=== PATIENT | male | born 1975 | race Two or more races ===

== ENCOUNTER 2016-10-25 15:18 | Inpatient (IN) | payer MEDICAID ==
[~2016-10-25] VITALS: Ht 167.6 cm; Wt 83.5 kg
[2016-10-25 15:20] VITALS: BP 117/72
[2016-10-25 16:39] LABS: BASOPHILS % (AUTO) 1.3 % (0.0-2.0); EOSINOPHILS % (AUTO) 0.4 % (0.0-3.0); LYMPHOCYTES % (AUTO) 21.8 % (20.0-45.0); MEAN CORPUSCULAR HEMOGLOBIN 29.6 PG (27.0-31.0); MEAN CORPUSCULAR HGB CONC 32.7 G/DL (32.0-36.0); MEAN CORPUSCULAR VOLUME 91 FL (80-99); MEAN PLATELET VOLUME 8.8 FL (6.5-10.1); MONOCYTES % (AUTO) 9.2 % (1.0-10.0); NEUTROPHILS % (AUTO) 67.4 % (45.0-75.0); PLATELET COUNT 273 K/UL (150-450); RED BLOOD COUNT 4.53 M/UL (4.70-6.10); RED CELL DISTRIBUTION WIDTH 14.2 % (11.6-14.8); WHITE BLOOD COUNT 12.6 K/UL (4.8-10.8)
[2016-10-25 16:54] LABS: ALANINE AMINOTRANSFERASE 38 U/L (3-41); ALBUMIN/GLOBULIN RATIO 1.1 (1.0-2.7); ANION GAP 17 (5-15); ASPARTATE AMINO TRANSFERASE 24 U/L (5-40); CALCIUM 7.9 mg/dL (8.6-10.2); CARBON DIOXIDE 21 mEQ/L (20-30); CHLORIDE 98 mEQ/L (98-107); CREATININE 1.2 mg/dL (0.7-1.2); GLOMERULAR FILTRATION RATE > 60 mL/min (>60); HEMOLYSIS 5; SODIUM 136 mEQ/L (135-145); TOTAL PROTEIN 5.3 g/dL (6.6-8.7)
[2016-10-25] MEDS ORDERED: Mylanta II UD 30ml ORAL ONE (17:15)
[2016-10-25] MEDS ORDERED: Calcium Chloride 10% 10ml carpuject IVP ONE (17:15)
[2016-10-25] MEDS ORDERED: Dicyclomine HCl 10mg/5ml oral soln ORAL ONE (17:15)
[2016-10-25] MEDS ORDERED: Lidocaine 2% Visc 15ml soln ORAL ONE (17:15)
--- NOTE | 2016-10-25 17:52 | Emergency Room Report ---
History of Present Illness General Chief Complaint: Abdominal Pain Source: Patient, EMS Present Illness HPI Patient present with complaints of diffuse abdominal pain He reports that about 20 days ago he stopped drinking he did consider himself an alcoholic prior to this He had increased nausea denies any vomiting denies any diarrhea Denies any fevers or chills pain is 6/10 Denies any dysuria frequency Denies any fall or trauma Upon further questioning the patient has had some shortness of breath He complains of also swelling to both of his legs Patient feels worse when laying down flat Allergies: Coded Allergies: No Known Allergies (Unverified , 10/25/16) Patient History Past Medical History: see triage record Pertinent Family History: none Reviewed Nursing Documentation: PMH: Agreed, PSxH: Agreed Nursing Documentation-PMH Past Medical History: No History, Except For Review of Systems All Other Systems: negative except mentioned in HPI Physical Exam Vital Signs Date Time Temp Pulse Resp B/P Pulse Ox O2 Delivery O2 Flow Rate FiO2 10/25/16 15:16 80 18 117/72 99 Room Air Sp02 EP Interpretation: reviewed, normal General Appearance: well appearing, no apparent distress Head: normocephalic, atraumatic Eyes: bilateral eye EOMI, bilateral eye PERRL ENT: normal pharynx, no angioedema Neck: supple, thyroid normal Respiratory: chest non-tender, crackles - Right lower lobe Cardiovascular #1: tachycardia Gastrointestinal: no guarding, hepatomegaly Genitourinary: no CVA tenderness Musculoskeletal: back normal, digits/nails normal Neurologic: oriented x3, responsive Skin: no rash, warm/dry, other - Edema bilaterally lower extremity Lymphatic: no adenopathy Medical Decision Making Diagnostic Impression: Primary Impression: Alcoholic cardiomyopathy Additional Impressions: Pleural effusion Ascites ER Course Initially patient's main complaint was abdominal pain nausea vomiting After the patient had further workup initiated Appear to be remaining tachycardic imaging study was obtained which showed significant effusion the lower lobe on the right side Further evaluation reveals concern for possible cardiomyopathy and heart failure given the edema patient was provided with diuretics at this time requires further inpatient care Labs Test 10/26/16 08:15 10/26/16 10:45 10/26/16 14:40 10/27/16 05:45 White Blood Count 12.8 K/UL (4.8-10.8) 15.6 K/UL (4.8-10.8) Red Blood Count 4.12 M/UL (4.70-6.10) 4.02 M/UL (4.70-6.10) Hemoglobin 11.9 G/DL (14.2-18.0) 11.7 G/DL (14.2-18.0) Hematocrit 36.8 % (42.0-52.0) 35.9 % (42.0-52.0) Mean Corpuscular Volume 89 FL (80-99) 89 FL (80-99) Mean Corpuscular Hemoglobin 28.8 PG (27.0-31.0) 29.0 PG (27.0-31.0) Mean Corpuscular Hemoglobin Concent 32.2 G/DL (32.0-36.0) 32.5 G/DL (32.0-36.0) Red Cell Distribution Width 14.0 % (11.6-14.8) 14.0 % (11.6-14.8) Platelet Count 245 K/UL (150-450) 220 K/UL (150-450) Mean Platelet Volume 9.7 FL (6.5-10.1) 9.5 FL (6.5-10.1) Neutrophils (%) (Auto) 75.9 % (45.0-75.0) 80.6 % (45.0-75.0) Lymphocytes (%) (Auto) 13.4 % (20.0-45.0) 10.1 % (20.0-45.0) Monocytes (%) (Auto) 9.5 % (1.0-10.0) 8.8 % (1.0-10.0) Eosinophils (%) (Auto) 0.1 % (0.0-3.0) 0.0 % (0.0-3.0) Basophils (%) (Auto) 1.1 % (0.0-2.0) 0.5 % (0.0-2.0) Activated Partial Thromboplast Time 26 SEC (23-33) 26 SEC (23-33) Sodium Level 139 mEQ/L (135-145) 134 mEQ/L (135-145) Potassium Level 3.9 mEQ/L (3.4-4.9) 3.3 mEQ/L (3.4-4.9) Chloride Level 100 mEQ/L (98-107) 93 mEQ/L (98-107) Carbon Dioxide Level 24 mEQ/L (20-30) 24 mEQ/L (20-30) Anion Gap 15 (5-15) 17 (5-15) Blood Urea Nitrogen 17 mg/dL (7-23) 15 mg/dL (7-23) Creatinine 1.1 mg/dL (0.7-1.2) 1.0 mg/dL (0.7-1.2) Estimat Glomerular Filtration Rate > 60 mL/min (>60) > 60 mL/min (>60) Glucose Level 127 mg/dL (74-106) 99 mg/dL (74-106) Calcium Level 7.8 mg/dL (8.6-10.2) 7.9 mg/dL (8.6-10.2) Total Bilirubin 0.9 mg/dL (0.0-1.2) 1.2 mg/dL (0.0-1.2) Aspartate Amino Transf (AST/SGOT) 26 U/L (5-40) 21 U/L (5-40) Alanine Aminotransferase (ALT/SGPT) 37 U/L (3-41) 31 U/L (3-41) Alkaline Phosphatase 102 U/L (40-129) 117 U/L (40-129) Total Protein 4.7 g/dL (6.6-8.7) 4.9 g/dL (6.6-8.7) Albumin 2.5 g/dL (3.5-5.2) 2.5 g/dL (3.5-5.2) Globulin 2.2 g/dL 2.4 g/dL Albumin/Globulin Ratio 1.1 (1.0-2.7) 1.0 (1.0-2.7) Prothrombin Time 13.6 SEC (9.30-11.50) Prothromb Time International Ratio 1.3 (0.9-1.1) Body Fluid Source Thoracentesis Body Fluid Volume 27 mL Body Fluid Appearance Hazy Body Fluid RBC 795 /CUMM Body Fluid Total Nucleated Cells 315 /CUMM Body Fluid Polynuclear WBCs (%) 27 % Body Fluid Mononuclear WBCs (%) 71 % Body Fluid Mesothelial Cells (%) 2 % Body Fluid Glucose 117 mg/dL (.) Body Fluid Total Protein 0.9 g/dL (.) Body Fluid Albumin 0.4 g/dL (.) Body Fluid Comment Pathologist comment Reticulocyte Count 1.5 % (0.0-2.0) Magnesium Level 1.7 mg/dL (1.7-2.5) Iron Level 17 ug/dL (59-158) Total Iron Binding Capacity 296 ug/dL (250-400) Percent Iron Saturation 6 % (15-50) Unsaturated Iron Binding 279 ug/dL (112-346) Ferritin 49 ng/mL (10-230) Direct Bilirubin 0.4 mg/dL (0.1-0.3) Total Creatine Kinase 56 U/L (38-174) Troponin I < 0.30 ng/mL (<=0.30) Pro-B-Type Natriuretic Peptide 36051 pg/mL (0-125) Vitamin B12 Level 502 pg/mL (211-946) Folate 11.3 ng/mL (>3.0) Thyroid Stimulating Hormone (TSH) 1.810 uIU/mL (0.300-4.500) Free Thyroxine 1.28 ng/dL (0.86-1.85) Test 10/28/16 07:57 10/28/16 13:30 10/28/16 13:34 White Blood Count 26.6 K/UL (4.8-10.8) 23.2 K/UL (4.8-10.8) Red Blood Count 4.52 M/UL (4.70-6.10) 4.53 M/UL (4.70-6.10) Hemoglobin 13.1 G/DL (14.2-18.0) 13.0 G/DL (14.2-18.0) Hematocrit 40.5 % (42.0-52.0) 41.1 % (42.0-52.0) Mean Corpuscular Volume 90 FL (80-99) 91 FL (80-99) Mean Corpuscular Hemoglobin 28.8 PG (27.0-31.0) 28.7 PG (27.0-31.0) Mean Corpuscular Hemoglobin Concent 32.2 G/DL (32.0-36.0) 31.6 G/DL (32.0-36.0) Red Cell Distribution Width 14.0 % (11.6-14.8) 14.3 % (11.6-14.8) Platelet Count 180 K/UL (150-450) 191 K/UL (150-450) Mean Platelet Volume 9.4 FL (6.5-10.1) 9.6 FL (6.5-10.1) Neutrophils (%) (Auto) % (45.0-75.0) % (45.0-75.0) Lymphocytes (%) (Auto) % (20.0-45.0) % (20.0-45.0) Monocytes (%) (Auto) % (1.0-10.0) % (1.0-10.0) Eosinophils (%) (Auto) % (0.0-3.0) % (0.0-3.0) Basophils (%) (Auto) % (0.0-2.0) % (0.0-2.0) Differential Total Cells Counted 100 100 Neutrophils % (Manual) 84 % (45-75) 88 % (45-75) Lymphocytes % (Manual) 9 % (20-45) 9 % (20-45) Monocytes % (Manual) 7 % (1-10) 3 % (1-10) Eosinophils % (Manual) 0 % (0-3) 0 % (0-3) Basophils % (Manual) 0 % (0-2) 0 % (0-2) Band Neutrophils 0 % (0-8) 0 % (0-8) Nucleated Red Blood Cells 1 /100 WBC Platelet Estimate Adequate Adequate Platelet Morphology Normal Normal Red Blood Cell Morphology Normal Normal Sodium Level 134 mEQ/L (135-145) 131 mEQ/L (135-145) Potassium Level 5.3 mEQ/L (3.4-4.9) 5.6 mEQ/L (3.4-4.9) Chloride Level 94 mEQ/L (98-107) 91 mEQ/L (98-107) Carbon Dioxide Level 20 mEQ/L (20-30) 18 mEQ/L (20-30) Anion Gap 20 (5-15) 22 (5-15) Blood Urea Nitrogen 31 mg/dL (7-23) 36 mg/dL (7-23) Creatinine 2.3 mg/dL (0.7-1.2) 2.7 mg/dL (0.7-1.2) Estimat Glomerular Filtration Rate 31.8 mL/min (>60) 26.4 mL/min (>60) Glucose Level 94 mg/dL (74-106) 183 mg/dL (74-106) Calcium Level 8.2 mg/dL (8.6-10.2) 8.1 mg/dL (8.6-10.2) EKG Diagnostic Results Rate: normal Rhythm: NSR ST Segments: other - Nonspecific ST and T-wave changes Rhythm Strip Diag. Results EP Interpretation: yes Rate: 110 Rhythm: no PVC's, no ectopy, other - sinus tach Chest X-Ray Diagnostic Results EP Interpretation: Yes Findings: no pneumothorax, other - Large right pleural effusion, cardiomegaly Number of Views: 1 CT/MRI/US Diagnostic Results CT/MRI/US Diagnostic Results : Impression CT abdomen pelvisImpression: Anasarca, with right-sided pleural effusion, ascites, and diffuse soft tissue edema Wedge-shaped perfusion defect in the lower pole the right kidney, could indicate an infarct or focal nephritis Gallbladder wall edema, probably related to the above, but acalculous cholecystitis or cholecystitis from occult calculi is also a possibility. Consider nuclear medicine hepatobiliary scan if there is high clinical suspicion Marked cardiomegaly. 2 cm filling defect in the apex of the right cardiac ventricle is nonspecific, could represent thrombus, tumor. Consider echocardiography for further evaluation Bilateral basilar pulmonary parenchymal opacities, likely combination of atelectasis and infiltrates versus edema Hepatomegaly This agrees with the preliminary interpretation provided overnight by Dr. Bocanegra Last Vital Signs Date Time Temp Pulse Resp B/P Pulse Ox O2 Delivery O2 Flow Rate FiO2 10/25/16 15:20 18 117/72 99 Room Air 10/25/16 15:16 80 Status: improved Disposition: ADMITTED INPATIENT Condition: Critical Scripts Famotidine (PEPCID) 40 Mg Tablet 40 MG PO DAILY, #14 TAB 0 Refills Prov: MIKY MYERS D.O. 10/25/16 Referrals: NOT CHOSEN MARCO/,REFERRING (PCP) MIKY MYERS D.O. Oct 25, 2016 17:52
[2016-10-25 17:55] VITALS: BP 103/86
[2016-10-25] MEDS ORDERED: PEPCID40 MG PO (18:42)
[2016-10-25 19:18] VITALS: BP 103/80
[2016-10-25] MEDS ORDERED: LORazepam Inj 2mg/ml 1ml IV ONE (19:30)
[2016-10-25 19:48] VITALS: BP 111/85
[2016-10-25 21:27] VITALS: BP 109/86
[2016-10-25 21:47] LABS: TROPONIN I < 0.30 ng/mL (<=0.30)
[2016-10-25] MEDS ORDERED: Morphine Sulfate 4mg/ml Inj IVP ONE (22:30)
[2016-10-25 23:16] VITALS: BP 92/65
[2016-10-25] MEDS ORDERED: Nitroglycerin Subl 0.4mg tab (Bottle Of 25) SL PRN (23:30)
[2016-10-25] MEDS ORDERED: Miralax 17gm pkt ORAL PRN (23:30)
[2016-10-25] MEDS ORDERED: Mylanta II UD 30ml ORAL PRN (23:30)
[2016-10-26] VITALS: BP 110/78
[2016-10-26] MEDS ORDERED: D5 1/2NS 1,000 ML IV SCH (01:00)
[2016-10-26 04:30] VITALS: BP 98/65
[2016-10-26 08:42] LABS: BASOPHILS % (AUTO) 1.1 % (0.0-2.0); EOSINOPHILS % (AUTO) 0.1 % (0.0-3.0); LYMPHOCYTES % (AUTO) 13.4 % (20.0-45.0); MEAN CORPUSCULAR HEMOGLOBIN 28.8 PG (27.0-31.0); MEAN CORPUSCULAR HGB CONC 32.2 G/DL (32.0-36.0); MEAN CORPUSCULAR VOLUME 89 FL (80-99); MEAN PLATELET VOLUME 9.7 FL (6.5-10.1); MONOCYTES % (AUTO) 9.5 % (1.0-10.0); NEUTROPHILS % (AUTO) 75.9 % (45.0-75.0); PLATELET COUNT 245 K/UL (150-450); RED BLOOD COUNT 4.12 M/UL (4.70-6.10); WHITE BLOOD COUNT 12.8 K/UL (4.8-10.8)
[2016-10-26 08:53] LABS: ALANINE AMINOTRANSFERASE 37 U/L (3-41); ALBUMIN/GLOBULIN RATIO 1.1 (1.0-2.7); ANION GAP 15 (5-15); ASPARTATE AMINO TRANSFERASE 26 U/L (5-40); CALCIUM 7.8 mg/dL (8.6-10.2); CARBON DIOXIDE 24 mEQ/L (20-30); CHLORIDE 100 mEQ/L (98-107); CREATININE 1.1 mg/dL (0.7-1.2); GLOMERULAR FILTRATION RATE > 60 mL/min (>60); HEMOLYSIS 8; POTASSIUM 3.9 mEQ/L (3.4-4.9); SODIUM 139 mEQ/L (135-145); TOTAL PROTEIN 4.7 g/dL (6.6-8.7)
[2016-10-26 11:14] LABS: INR 1.3 (0.9-1.1); PROTHROMBIN TIME 13.6 SEC (9.30-11.50)
--- NOTE | 2016-10-26 11:22 | Diagnostic Imaging Report ---
Clinical Indication: Abdominal pain Technique: No oral contrast utilized, per emergency room physician request IV administration nonionic contrast. Venous phase spiral acquisition obtained through the abdomen and pelvis. Multiplanar reconstructions were generated. Total dose length product 932 mGycm. CTDIvol(s) 18 mGy Comparison: None Findings: There is anasarca, with a moderate to large right pleural effusion, moderate ascites, and edema of the subcutaneous and abdominal and pelvic fat. The appendix is normal. There is no evidence of diverticulosis or diverticulitis. There is a small amount of contrast within the colon, presumably from an earlier contrast study performed elsewhere. No small bowel distention. No free intraperitoneal air. Distal esophagus and stomach are unremarkable. The liver is enlarged. No focal abnormalities. The gallbladder wall is diffusely thickened and edematous. No definite gallstones. The bile ducts, pancreas, spleen, adrenals are unremarkable. There is a wedge-shaped perfusion defect in the lower pole of the right kidney. The left kidney is unremarkable. No pelvic mass or adenopathy. There are compressive atelectatic changes at the right lung base. Scattered reticulonodular parenchymal opacities are seen at both lung bases. The heart is markedly enlarged. There is a filling defect within the right cardiac apex which measures about 2 cm diameter. The bones are unremarkable. Impression: Anasarca, with right-sided pleural effusion, ascites, and diffuse soft tissue edema Wedge-shaped perfusion defect in the lower pole the right kidney, could indicate an infarct or focal nephritis Gallbladder wall edema, probably related to the above, but acalculous cholecystitis or cholecystitis from occult calculi is also a possibility. Consider nuclear medicine hepatobiliary scan if there is high clinical suspicion Marked cardiomegaly. 2 cm filling defect in the apex of the right cardiac ventricle is nonspecific, could represent thrombus, tumor. Consider echocardiography for further evaluation Bilateral basilar pulmonary parenchymal opacities, likely combination of atelectasis and infiltrates versus edema Hepatomegaly This agrees with the preliminary interpretation provided overnight by Dr. Bocanegra The CT scanner at [facility] is accredited by the [employer] and the scans are performed using protocols designed to limit radiation exposure to as low as reasonably achievable to attain images of sufficient resolution adequate for diagnostic evaluation.
--- NOTE | 2016-10-26 11:42 | Diagnostic Imaging Report ---
Indication: Chest pain Technique: One view of the chest Comparison: none Findings: The heart is markedly enlarged. Opacity of the right mid and lower lung is presumably due to pleural fluid demonstrated earlier abdomen pelvis CT. The left lung and pleural space are clear. Impression: Marked cardiomegaly Right basilar opacity, consistent with pleural fluid
--- NOTE | 2016-10-26 11:48 | Cardiology Progress Note ---
Assessment/Plan Assessment/Plan abd pain cardiomegally rv apical filling defect renal wedge deformity etohism pelrual effusion ascites abn ekg need diuretic echo repeat ekg cardiac enzyme tle observation etoh abstinence will follow [id number] Objective Last 24 Hour Vital Signs Date Time Temp Pulse Resp B/P Pulse Ox O2 Delivery O2 Flow Rate FiO2 10/26/16 04:30 97.9 102 20 98/65 98 Nasal Cannula 2.0 10/26/16 04:00 108 10/26/16 00:00 108 10/26/16 00:00 97.7 120 20 110/78 100 Nasal Cannula 2.0 10/25/16 23:50 98.9 107 18 92/65 99 Nasal Cannula 2.0 10/25/16 23:16 98.9 107 18 92/65 99 Nasal Cannula 2.0 10/25/16 23:15 98.3 10/25/16 21:27 98.3 130 16 109/86 99 Nasal Cannula 2.0 10/25/16 19:48 98.3 135 18 111/85 99 Room Air 10/25/16 19:18 126 18 103/80 99 Room Air 10/25/16 17:55 98.3 141 18 103/86 99 Room Air 10/25/16 15:20 18 117/72 99 Room Air 10/25/16 15:16 80 18 117/72 99 Room Air Intake and Output 10/25/16 10/26/16 19:00 07:00 Intake Total 0 ml 1375 ml Balance 0 ml 1375 ml Intake Oral 0 ml IV Total 1375 ml # Voids 1 Laboratory Tests Test 10/25/16 15:10 10/25/16 16:10 10/25/16 21:12 10/26/16 08:15 Sodium Level 136 mEQ/L (135-145) 139 mEQ/L (135-145) Potassium Level 4.0 mEQ/L (3.4-4.9) 3.9 mEQ/L (3.4-4.9) Chloride Level 98 mEQ/L (98-107) 100 mEQ/L (98-107) Carbon Dioxide Level 21 mEQ/L (20-30) 24 mEQ/L (20-30) Anion Gap 17 (5-15) H 15 (5-15) Blood Urea Nitrogen 21 mg/dL (7-23) 17 mg/dL (7-23) Creatinine 1.2 mg/dL (0.7-1.2) 1.1 mg/dL (0.7-1.2) Estimat Glomerular Filtration Rate > 60 mL/min (>60) > 60 mL/min (>60) Glucose Level 142 mg/dL (74-106) H 127 mg/dL (74-106) H Calcium Level 7.9 mg/dL (8.6-10.2) L 7.8 mg/dL (8.6-10.2) L Total Bilirubin 0.8 mg/dL (0.0-1.2) 0.9 mg/dL (0.0-1.2) Aspartate Amino Transf (AST/SGOT) 24 U/L (5-40) 26 U/L (5-40) Alanine Aminotransferase (ALT/SGPT) 38 U/L (3-41) 37 U/L (3-41) Alkaline Phosphatase 118 U/L (40-129) 102 U/L (40-129) Total Protein 5.3 g/dL (6.6-8.7) L 4.7 g/dL (6.6-8.7) L Albumin 2.8 g/dL (3.5-5.2) L 2.5 g/dL (3.5-5.2) L Globulin 2.5 g/dL 2.2 g/dL Albumin/Globulin Ratio 1.1 (1.0-2.7) 1.1 (1.0-2.7) Lipase 34 U/L (< 60) White Blood Count 12.6 K/UL (4.8-10.8) H 12.8 K/UL (4.8-10.8) H Red Blood Count 4.53 M/UL (4.70-6.10) L 4.12 M/UL (4.70-6.10) L Hemoglobin 13.4 G/DL (14.2-18.0) L 11.9 G/DL (14.2-18.0) L Hematocrit 41.0 % (42.0-52.0) L 36.8 % (42.0-52.0) L Mean Corpuscular Volume 91 FL (80-99) 89 FL (80-99) Mean Corpuscular Hemoglobin 29.6 PG (27.0-31.0) 28.8 PG (27.0-31.0) Mean Corpuscular Hemoglobin Concent 32.7 G/DL (32.0-36.0) 32.2 G/DL (32.0-36.0) Red Cell Distribution Width 14.2 % (11.6-14.8) 14.0 % (11.6-14.8) Platelet Count 273 K/UL (150-450) 245 K/UL (150-450) Mean Platelet Volume 8.8 FL (6.5-10.1) 9.7 FL (6.5-10.1) Neutrophils (%) (Auto) 67.4 % (45.0-75.0) 75.9 % (45.0-75.0) H Lymphocytes (%) (Auto) 21.8 % (20.0-45.0) 13.4 % (20.0-45.0) L Monocytes (%) (Auto) 9.2 % (1.0-10.0) 9.5 % (1.0-10.0) Eosinophils (%) (Auto) 0.4 % (0.0-3.0) 0.1 % (0.0-3.0) Basophils (%) (Auto) 1.3 % (0.0-2.0) 1.1 % (0.0-2.0) Troponin I < 0.30 ng/mL (<=0.30) Activated Partial Thromboplast Time 26 SEC (23-33) Test 10/26/16 10:45 Prothrombin Time 13.6 SEC (9.30-11.50) H Prothromb Time International Ratio 1.3 (0.9-1.1) H Activated Partial Thromboplast Time 26 SEC (23-33) BALJIT FRANCOIS Oct 26, 2016 11:48
--- NOTE | 2016-10-26 12:59 | GI Initial Consult Note ---
History of Present Illness General Date patient seen: Oct 26, 2016 Time patient seen: 12:58 Reason for Hospitalization: Abdominal Pain Referring physician: RHONDA PARKINSON Reason for Consultation: ABDOMINAL PAIN Present Illness HPI Patient present with complaints of diffuse abdominal pain He reports that about 20 days ago he stopped drinking he did consider himself an alcoholic prior to this He had increased nausea denies any vomiting denies any diarrhea Denies any fevers or chills pain is 6/10 Denies any dysuria frequency Denies any fall or trauma Upon further questioning the patient has had some shortness of breath He complains of also swelling to both of his legs Patient feels worse when laying down flat GI CONSULT: HPI as noted above. GI consulted for abdominal pain. Pt seen on floor, awake A&Ox4 NAD on 2LNC. Pt denies any medical history. States he's been a daily ETOH user for approximately 20 years. He presents today with diffused abdominal pain with nausea. APCT shows ascites, see full report below. Pt has anemia and hypoalbuminemia. Lipase negative. Abd U/S pending. Service Date: 10/25/16 Procedure: CT Abdomen Pelvis w/Contrast Clinical Indication: Abdominal pain Impression: Anasarca, with right-sided pleural effusion, ascites, and diffuse soft tissue edema Wedge-shaped perfusion defect in the lower pole the right kidney, could indicate an infarct or focal nephritis Gallbladder wall edema, probably related to the above, but acalculous cholecystitis or cholecystitis from occult calculi is also a possibility. Consider nuclear medicine hepatobiliary scan if there is high clinical suspicion Marked cardiomegaly. 2 cm filling defect in the apex of the right cardiac ventricle is nonspecific, could represent thrombus, tumor. Consider echocardiography for further evaluation Bilateral basilar pulmonary parenchymal opacities, likely combination of atelectasis and infiltrates versus edema Hepatomegaly Home Meds Active Scripts Famotidine (PEPCID) 40 Mg Tablet, 40 MG PO DAILY, #14 TAB 0 Refills Prov:IMKY MYERS D.O. 10/25/16 Med list reviewed/reconciled: Yes Allergies: Coded Allergies: No Known Allergies (Unverified , 10/25/16) Patient History History Provided By: Patient PMH Narrative Past Medical History: see triage record Pertinent Family History: none Reviewed Nursing Documentation: PMH: Agreed, PSxH: Agreed Nursing Documentation-PM Past Medical History: No History, Except For Social History: Reports: alcohol use - daily use x 20 years Review of Systems All Other Systems: negative except mentioned in HPI Physical Exam Vital Signs Date Time Temp Pulse Resp B/P Pulse Ox O2 Delivery O2 Flow Rate FiO2 10/25/16 15:16 80 18 117/72 99 Room Air 10/25/16 17:55 98.3 10/25/16 21:27 2.0 Sp02 EP Interpretation: reviewed Labs Laboratory Tests Test 10/25/16 15:10 10/25/16 16:10 10/25/16 21:12 10/26/16 08:15 Sodium Level 136 mEQ/L (135-145) 139 mEQ/L (135-145) Potassium Level 4.0 mEQ/L (3.4-4.9) 3.9 mEQ/L (3.4-4.9) Chloride Level 98 mEQ/L (98-107) 100 mEQ/L (98-107) Carbon Dioxide Level 21 mEQ/L (20-30) 24 mEQ/L (20-30) Anion Gap 17 (5-15) H 15 (5-15) Blood Urea Nitrogen 21 mg/dL (7-23) 17 mg/dL (7-23) Creatinine 1.2 mg/dL (0.7-1.2) 1.1 mg/dL (0.7-1.2) Estimat Glomerular Filtration Rate > 60 mL/min (>60) > 60 mL/min (>60) Glucose Level 142 mg/dL (74-106) H 127 mg/dL (74-106) H Calcium Level 7.9 mg/dL (8.6-10.2) L 7.8 mg/dL (8.6-10.2) L Total Bilirubin 0.8 mg/dL (0.0-1.2) 0.9 mg/dL (0.0-1.2) Aspartate Amino Transf (AST/SGOT) 24 U/L (5-40) 26 U/L (5-40) Alanine Aminotransferase (ALT/SGPT) 38 U/L (3-41) 37 U/L (3-41) Alkaline Phosphatase 118 U/L (40-129) 102 U/L (40-129) Total Protein 5.3 g/dL (6.6-8.7) L 4.7 g/dL (6.6-8.7) L Albumin 2.8 g/dL (3.5-5.2) L 2.5 g/dL (3.5-5.2) L Globulin 2.5 g/dL 2.2 g/dL Albumin/Globulin Ratio 1.1 (1.0-2.7) 1.1 (1.0-2.7) Lipase 34 U/L (< 60) White Blood Count 12.6 K/UL (4.8-10.8) H 12.8 K/UL (4.8-10.8) H Red Blood Count 4.53 M/UL (4.70-6.10) L 4.12 M/UL (4.70-6.10) L Hemoglobin 13.4 G/DL (14.2-18.0) L 11.9 G/DL (14.2-18.0) L Hematocrit 41.0 % (42.0-52.0) L 36.8 % (42.0-52.0) L Mean Corpuscular Volume 91 FL (80-99) 89 FL (80-99) Mean Corpuscular Hemoglobin 29.6 PG (27.0-31.0) 28.8 PG (27.0-31.0) Mean Corpuscular Hemoglobin Concent 32.7 G/DL (32.0-36.0) 32.2 G/DL (32.0-36.0) Red Cell Distribution Width 14.2 % (11.6-14.8) 14.0 % (11.6-14.8) Platelet Count 273 K/UL (150-450) 245 K/UL (150-450) Mean Platelet Volume 8.8 FL (6.5-10.1) 9.7 FL (6.5-10.1) Neutrophils (%) (Auto) 67.4 % (45.0-75.0) 75.9 % (45.0-75.0) H Lymphocytes (%) (Auto) 21.8 % (20.0-45.0) 13.4 % (20.0-45.0) L Monocytes (%) (Auto) 9.2 % (1.0-10.0) 9.5 % (1.0-10.0) Eosinophils (%) (Auto) 0.4 % (0.0-3.0) 0.1 % (0.0-3.0) Basophils (%) (Auto) 1.3 % (0.0-2.0) 1.1 % (0.0-2.0) Troponin I < 0.30 ng/mL (<=0.30) Activated Partial Thromboplast Time 26 SEC (23-33) Test 10/26/16 10:45 Prothrombin Time 13.6 SEC (9.30-11.50) H Prothromb Time International Ratio 1.3 (0.9-1.1) H Activated Partial Thromboplast Time 26 SEC (23-33) General Appearance: well appearing, no apparent distress, alert Head: normocephalic EENT: normal ENT inspection Neck: supple Respiratory: other - 2LNC Cardiovascular: normal rate Gastrointestinal: non tender, soft, ascites Rectal: deferred Musculoskeletal: back normal, normal range of motion Neurologic: normal inspection, alert, oriented x3, responsive Psychiatric: normal inspection, judgement/insight normal, memory normal Skin: no rash Lymphatic: normal inspection, no adenopathy Current Medications Current Medications Medications (Trade) Dose Ordered Sig/Baudilio Route PRN Reason Start Time Stop Time Status Last Admin Dose Admin Acetaminophen (Tylenol) 650 mg Q4H PRN ORAL fever 10/25/16 23:30 11/24/16 23:29 Al Hydroxide/Mg Hydroxide (Mylanta II) 30 ml Q6H PRN ORAL dyspepsia 10/25/16 23:30 11/24/16 23:29 Dextrose (Dextrose 50%) STAT PRN IV Hypoglycemia 10/25/16 23:30 11/24/16 23:29 Diphenhydramine HCl (Benadryl) 25 mg Q6H PRN ORAL Itching/Pruritis 10/25/16 23:30 11/24/16 23:29 Morphine Sulfate (Morphine Sulfate) 2 mg Q4H PRN IVP severe Pain (Pain Scale 7-10) 10/25/16 23:30 11/01/16 23:29 Nitroglycerin (Ntg) 0.4 mg Q5M X 3 DOSES PRN SL Prn Chest Pain 10/25/16 23:30 11/24/16 23:29 Ondansetron HCl (Zofran) 4 mg Q6H PRN IVP Nausea & Vomiting 3/13/17 23:30 11/24/16 23:29 Polyethylene Glycol (Miralax) 17 gm HSPRN PRN ORAL Constipation 10/25/16 23:30 11/24/16 23:29 Temazepam (Restoril) 15 mg HSPRN PRN ORAL Insomnia 10/25/16 23:30 11/01/16 23:29 GI: Plan Problems: (1) Anemia (2) Hypoalbuminemia (3) ETOH abuse (4) Ascites (5) Abdominal pain Plan APCT reviewed >> ordered paracentesis, send fluid r/o SBP anemia work up lipase negative OB stool uncollected abdominal U/S pending monitor H&H, transfuse prn zofran prn H2 fu labs ETOH cessation Discussed with Dr. Dominguez. Thank you for referring this patient, we will follow. Melanie Briones N.P. Oct 26, 2016 12:59
--- NOTE | 2016-10-26 14:09 | Diagnostic Imaging Report ---
Indication: Abdominal pain Technique: Delgado-scale and duplex images of the upper abdomen were obtained Comparison: None Findings: Reference made to CT scan earlier the same day. Gallbladder demonstrates wall thickening. No gallstones. Sonographic Davies's sign is negative. Common bile duct measures 4 mm in diameter. No intrahepatic biliary ductal dilatation. Liver demonstrates normal echogenicity, no focal abnormality. It is enlarged. There is trace ascites fluid. Portal vein and hepatic veins are patent.. Pancreas is unremarkable. Spleen is unremarkable. Left kidney measures 10.6 cm in length. Right kidney measures 11.5 cm length. Both kidneys demonstrate normal echogenicity. There is no hydronephrosis. No focal abnormality. Non-aneurysmal abdominal aorta. There are bilateral pleural effusions. There is a small pericardial effusion Impression: Trace ascites, also described on recent CT Bilateral pleural effusions Small pericardial effusion Gallbladder wall thickening, no stones. Gallbladder wall thickening is probably secondary to the process that is causing the ascites and pleural fluid, but acute acalculous cholecystitis cannot be completely ruled out. Consider hepatobiliary nuclear scan if there is high clinical suspicion Negative for dilated ducts Hepatomegaly
[2016-10-26 16:00] VITALS: BP 104/80
--- NOTE | 2016-10-26 16:06 | History and Physical ---
History of Present Illness General Date patient seen: Oct 26, 2016 Reason for Hospitalization: Abdominal Pain Present Illness HPI 41 year old patient with hx of ETOH abuse presented with complaints of diffuse abdominal pain He had increased nausea denies any vomiting denies any diarrhea. He has had some shortness of breath He complains of also swelling to both of his leg.Patient feels worse when laying down flat A CT of abdomen showed ascites and plural effusion. Allergies: Coded Allergies: No Known Allergies (Unverified , 10/25/16) Medication History Scheduled Famotidine (Pepcid), 40 MG PO DAILY Patient History Healthcare decision maker Self Resuscitation status Full Code Advanced Directive on File No Physical Exam General Appearance: WD/WN, no apparent distress Lines, tubes and drains: peripheral HEENT: normocephalic, anicteric Neck: non-tender, normal alignment Respiratory/Chest: chest wall non-tender Cardiovascular/Chest: normal peripheral pulses Abdomen: normal bowel sounds Extremities: pitting Last 24 Hour Vital Signs Date Time Temp Pulse Resp B/P Pulse Ox O2 Delivery O2 Flow Rate FiO2 10/26/16 08:00 109 10/26/16 04:30 97.9 102 20 98/65 98 Nasal Cannula 2.0 10/26/16 04:00 108 10/26/16 00:00 108 10/26/16 00:00 97.7 120 20 110/78 100 Nasal Cannula 2.0 10/25/16 23:50 98.9 107 18 92/65 99 Nasal Cannula 2.0 10/25/16 23:16 98.9 107 18 92/65 99 Nasal Cannula 2.0 10/25/16 23:15 98.3 10/25/16 21:27 98.3 130 16 109/86 99 Nasal Cannula 2.0 10/25/16 19:48 98.3 135 18 111/85 99 Room Air 10/25/16 19:18 126 18 103/80 99 Room Air 10/25/16 17:55 98.3 141 18 103/86 99 Room Air Intake and Output 10/25/16 10/26/16 19:00 07:00 Intake Total 0 ml 1375 ml Balance 0 ml 1375 ml Intake Oral 0 ml IV Total 1375 ml # Voids 1 Laboratory Tests Test 10/25/16 16:10 10/25/16 21:12 10/26/16 08:15 10/26/16 10:45 White Blood Count 12.6 K/UL (4.8-10.8) H 12.8 K/UL (4.8-10.8) H Red Blood Count 4.53 M/UL (4.70-6.10) L 4.12 M/UL (4.70-6.10) L Hemoglobin 13.4 G/DL (14.2-18.0) L 11.9 G/DL (14.2-18.0) L Hematocrit 41.0 % (42.0-52.0) L 36.8 % (42.0-52.0) L Mean Corpuscular Volume 91 FL (80-99) 89 FL (80-99) Mean Corpuscular Hemoglobin 29.6 PG (27.0-31.0) 28.8 PG (27.0-31.0) Mean Corpuscular Hemoglobin Concent 32.7 G/DL (32.0-36.0) 32.2 G/DL (32.0-36.0) Red Cell Distribution Width 14.2 % (11.6-14.8) 14.0 % (11.6-14.8) Platelet Count 273 K/UL (150-450) 245 K/UL (150-450) Mean Platelet Volume 8.8 FL (6.5-10.1) 9.7 FL (6.5-10.1) Neutrophils (%) (Auto) 67.4 % (45.0-75.0) 75.9 % (45.0-75.0) H Lymphocytes (%) (Auto) 21.8 % (20.0-45.0) 13.4 % (20.0-45.0) L Monocytes (%) (Auto) 9.2 % (1.0-10.0) 9.5 % (1.0-10.0) Eosinophils (%) (Auto) 0.4 % (0.0-3.0) 0.1 % (0.0-3.0) Basophils (%) (Auto) 1.3 % (0.0-2.0) 1.1 % (0.0-2.0) Troponin I < 0.30 ng/mL (<=0.30) Activated Partial Thromboplast Time 26 SEC (23-33) 26 SEC (23-33) Sodium Level 139 mEQ/L (135-145) Potassium Level 3.9 mEQ/L (3.4-4.9) Chloride Level 100 mEQ/L (98-107) Carbon Dioxide Level 24 mEQ/L (20-30) Anion Gap 15 (5-15) Blood Urea Nitrogen 17 mg/dL (7-23) Creatinine 1.1 mg/dL (0.7-1.2) Estimat Glomerular Filtration Rate > 60 mL/min (>60) Glucose Level 127 mg/dL (74-106) H Calcium Level 7.8 mg/dL (8.6-10.2) L Total Bilirubin 0.9 mg/dL (0.0-1.2) Aspartate Amino Transf (AST/SGOT) 26 U/L (5-40) Alanine Aminotransferase (ALT/SGPT) 37 U/L (3-41) Alkaline Phosphatase 102 U/L (40-129) Total Protein 4.7 g/dL (6.6-8.7) L Albumin 2.5 g/dL (3.5-5.2) L Globulin 2.2 g/dL Albumin/Globulin Ratio 1.1 (1.0-2.7) Prothrombin Time 13.6 SEC (9.30-11.50) H Prothromb Time International Ratio 1.3 (0.9-1.1) H Height (Feet): 5 Height (Inches): 6.00 Weight (Pounds): 159 Medications Current Medications Medications (Trade) Dose Ordered Sig/Baudilio Route PRN Reason Start Time Stop Time Status Last Admin Dose Admin Acetaminophen (Tylenol) 650 mg Q4H PRN ORAL fever 10/25/16 23:30 11/24/16 23:29 Al Hydroxide/Mg Hydroxide (Mylanta II) 30 ml Q6H PRN ORAL dyspepsia 10/25/16 23:30 11/24/16 23:29 Dextrose (Dextrose 50%) STAT PRN IV Hypoglycemia 10/25/16 23:30 11/24/16 23:29 Diphenhydramine HCl (Benadryl) 25 mg Q6H PRN ORAL Itching/Pruritis 10/25/16 23:30 11/24/16 23:29 Morphine Sulfate (Morphine Sulfate) 2 mg Q4H PRN IVP severe Pain (Pain Scale 7-10) 3/13/17 23:30 11/01/16 23:29 Nitroglycerin (Ntg) 0.4 mg Q5M X 3 DOSES PRN SL Prn Chest Pain 10/25/16 23:30 11/24/16 23:29 Ondansetron HCl (Zofran) 4 mg Q6H PRN IVP Nausea & Vomiting 10/25/16 23:30 11/24/16 23:29 Polyethylene Glycol (Miralax) 17 gm HSPRN PRN ORAL Constipation 10/25/16 23:30 11/24/16 23:29 Temazepam (Restoril) 15 mg HSPRN PRN ORAL Insomnia 10/25/16 23:30 11/01/16 23:29 Assessment/Plan Problem List: (1) Pleural effusion ICD Codes: J90 - Pleural effusion, not elsewhere classified SNOMED: 27963443 (2) Abdominal pain ICD Codes: R10.9 - Unspecified abdominal pain SNOMED: 58782306 (3) ETOH abuse ICD Codes: F10.10 - Alcohol abuse, uncomplicated SNOMED: 40448727, 59935419 (4) Ascites ICD Codes: R18.8 - Other ascites SNOMED: 485661624 (5) Alcoholic cardiomyopathy ICD Codes: I42.6 - Alcoholic cardiomyopathy SNOMED: 974043679 Assessment/Plan diuresis cardiac work up echo thoracentesis RHONDA PARKINSON Oct 26, 2016 16:06
[2016-10-26] MEDS ORDERED: chlordiazePOXIDE 25mg Cap ORAL PRN (16:15)
--- NOTE | 2016-10-26 17:23 | Diagnostic Imaging Report ---
Indications: Pleural effusion Technique: Ultrasound used to localize optimal puncture site. Sterile prepping and draping chest. Local anesthesia with 1% lidocaine. Under real-time ultrasound guidance, puncture pleural space using thoracentesis needle. Stylet removed. Catheter placed to vacuum bottle suction. Total 800 milliliters of fluid aspirated. Patient tolerated procedure well, without immediate complication. Findings: Followup sonography demonstrates complete resolution of pleural fluid. Impression: Successful ultrasound-guided thoracentesis, yielding 800 milliliters of fluid
[2016-10-26] MEDS: Thiamine 100mg tab ORAL SCH (17:47)
[2016-10-26 20:00] VITALS: BP 106/66
[2016-10-26 21:13] LABS: APPEARANCE, BODY FLUID HAZY; BD FL VOLUME 27 mL
[2016-10-26 21:14] LABS: BD FL SOURCE THORACENTESIS
--- NOTE | 2016-10-26 21:48 | Consultation ---
DATE OF CONSULTATION: 10/26/2016 CARDIAC CONSULTATION CONSULTING PHYSICIAN: Terry Hoffman M.D. REFERRING PHYSICIAN: Kiran Bello M.D. REASON FOR REFERRAL: Possible alcoholic cardiomyopathy. HISTORY OF PRESENT ILLNESS: This is a 41-year-old transient who presented to the hospital because of abdominal pain for some time. The patient was brought in by paramedics with a complaint of right upper quadrant abdominal pain for one month. Apparently, he was lying down in front of a yard near the curb. Skin was warm and dry. The patient complained of bloating. He denied any chest pain or shortness of breath to the paramedics. No neurological deficits. No jugular venous distention. He apparently admits to having alcohol, but although he has not had any in approximately 20 days he said. The patient's vital signs when the paramedics found him included blood pressure of 117/72 with a heart rate of 80, respirations of 18, and oxygen saturation 99%. Subsequently, they documented the blood pressure of 200/70. He denies any chest pain. He has occasional shortness of breath. He does not really use any pillows. He lays flat. He occasionally gets up because of shortness of breath, occasional dizziness, and occasional palpitations. PAST MEDICAL HISTORY: He denies. SOCIAL HISTORY: He smokes cigarettes. He uses marijuana and drank alcoholic beverages. REVIEW OF SYSTEMS: Gastrointestinal: Abdominal pain. No nausea or vomiting. Genitourinary: Negative. Pulmonary: Negative. Constitutional: Negative. Neurologic: Negative. PHYSICAL EXAMINATION: GENERAL: A middle-aged gentleman, in no apparent respiratory distress. NECK: Supple. No jugular venous distention. LUNGS: Clear to auscultation and percussion at least in the upper part. CARDIAC: Regular rate and rhythm. No heaves or thrills noted. There is a holosystolic regurgitant murmur noted. ABDOMEN: Soft. No guarding. No rigidity. No rebound. EXTREMITIES: He has 2+ pitting edema in the lower extremities. NEUROLOGIC: He is awake, alert, responsive, in no apparent distress. LABORATORY VALUES: White count of 12.8, hemoglobin 11.9, and platelet count 245,0000. Sodium is 139, potassium 3.9, chloride 100, bicarbonate 24, BUN of 17, creatinine 1, glucose of 127, and calcium is 7.8. Troponin less than 0.03. Lipase of 34. Albumin is 2.5. Coags, INR is 1.3 and PTT of 26. A CT scan of the chest, abdomen, and pelvis has been performed. There is compressive atelectatic changes in the right base, pattern is seen in both lung bases. Heart is markedly enlarged. There is a filling defect in the right cardiac apex. Bones are unremarkable. Anasarca is noted. Moderate to large right-sided pleural effusion. Moderate ascites. Edema of subcutaneous abdominal fat. There is no evidence of diverticulosis. There was enlarged gallbladder. It was diffusely thickened and edematous. No definite gallstones. His telemetry shows sinus rhythm with sinus tachycardia. A short episode of wide complex tachycardia was noted while on telemetry. EKG shows sinus tachycardia with T-wave changes in V5 and V6 and low-voltage QRS. ASSESSMENT: 1. Abdominal pain. 2. Cardiomegaly. 3. Pleural effusion. 4. Ascites. 5. Alcoholism. 6. Wedge-shaped defects in the lower pole of the right kidney, questionable infarction or focal nephritis. 7. Filling defect in the apex of the right ventricle reported on the CT scan. RECOMMENDATIONS: Dr. Bello, this patient was seen in cardiac consultation. Although he has some pleural effusion, he really does not complain significant shortness of breath. He does have some shortness of breath and apparently appears to be intermittent. He does have peripheral edema in his lower extremities. He has had abnormalities on his EKG. Certainly, alcoholism can induce a cardiomyopathy in light of his significant cardiomegaly that was apparently reported on the CT scan. We will repeat cardiac enzymes with diuretics, and certainly would require BIBI inhibitors if he does get diagnosed with cardiomyopathy for treatment. Abstinence from alcohol is imperative, and I have explained that to the patient. Terry Hoffman M.D. DR: LUIS JOB#: [id number] CC:
[2016-10-26 22:04] LABS: BODY FLUID NUCLEATED CELLS 315 /CUMM; BODY FLUID RBC 795 /CUMM
[2016-10-26 22:36] LABS: MONONUCLEAR WBC 71 %; POLYMORPHONUCLEAR WBC 27 %
[2016-10-27] VITALS: BP 104/69
[2016-10-27 04:00] VITALS: BP 104/62
[2016-10-27] MEDS: Morphine Sulfate 2mg/ml Inj IVP PRN ×3 (05:55→17:57)
[2016-10-27 07:44] LABS: BASOPHILS % (AUTO) 0.5 % (0.0-2.0); LYMPHOCYTES % (AUTO) 10.1 % (20.0-45.0); MEAN CORPUSCULAR HGB CONC 32.5 G/DL (32.0-36.0); MEAN CORPUSCULAR VOLUME 89 FL (80-99); MEAN PLATELET VOLUME 9.5 FL (6.5-10.1); MONOCYTES % (AUTO) 8.8 % (1.0-10.0); NEUTROPHILS % (AUTO) 80.6 % (45.0-75.0); PLATELET COUNT 220 K/UL (150-450); RED BLOOD COUNT 4.02 M/UL (4.70-6.10); WHITE BLOOD COUNT 15.6 K/UL (4.8-10.8)
[2016-10-27 08:07] VITALS: BP 99/67
[2016-10-27 08:10] LABS: ALANINE AMINOTRANSFERASE 31 U/L (3-41); ANION GAP 17 (5-15); ASPARTATE AMINO TRANSFERASE 21 U/L (5-40); CALCIUM 7.9 mg/dL (8.6-10.2); CARBON DIOXIDE 24 mEQ/L (20-30); CHLORIDE 93 mEQ/L (98-107); GLOMERULAR FILTRATION RATE > 60 mL/min (>60); HEMOLYSIS 3; MAGNESIUM 1.7 mg/dL (1.7-2.5); POTASSIUM 3.3 mEQ/L (3.4-4.9); SODIUM 134 mEQ/L (135-145); TOTAL PROTEIN 4.9 g/dL (6.6-8.7)
[2016-10-27 08:23] LABS: FERRITIN 49 ng/mL (10-230)
--- NOTE | 2016-10-27 08:30 | Diagnostic Imaging Report ---
Indication: Status post thoracentesis Technique: One view of the chest Comparison: 10/25/2016 Findings: Lungs and pleural spaces are clear. Heart size is enlarged. Previously demonstrated right mid and lower lung opacity has resolved, consistent with resolution of previously demonstrated right pleural fluid. There is no pneumothorax Impression: Resolved right pleural effusion, post thoracentesis. No radiographically evident complication
[2016-10-27] MEDS: Thiamine 100mg tab ORAL SCH (08:32)
[2016-10-27 09:01] LABS: BILIRUBIN,DIRECT 0.4 mg/dL (0.1-0.3)
[2016-10-27 09:04] LABS: TROPONIN I < 0.30 ng/mL (<=0.30)
[2016-10-27 11:38] VITALS: BP 104/66
--- NOTE | 2016-10-27 11:52 | GI Progress Note ---
Assessment/Plan Problems: (1) Pleural effusion ICD Codes: J90 - Pleural effusion, not elsewhere classified SNOMED: 80059400 (2) Hypoalbuminemia ICD Codes: E88.09 - Other disorders of plasma-protein metabolism, not elsewhere classified SNOMED: 728420282 (3) ETOH abuse ICD Codes: F10.10 - Alcohol abuse, uncomplicated SNOMED: 24727712, 93916031 (4) Ascites ICD Codes: R18.8 - Other ascites SNOMED: 772056053 (5) Anemia ICD Codes: D64.9 - Anemia, unspecified SNOMED: 829229144 (6) Abdominal pain ICD Codes: R10.9 - Unspecified abdominal pain SNOMED: 50417681 Status: stable Status Narrative Discussed with Dr. Dominguez. Assessment/Plan APCT reviewed >> s/p thoracentesis >> 800cc Abd U/S reviewed >>Trace ascites. Gallbladder wall thickening, no stones. Negative for dilated ducts. Hepatomegaly, see full report. lipase negative iron deficient >> venofer OB stool uncollected monitor H&H, transfuse prn zofran prn H2 fu labs ETOH cessation Subjective Subjective SOB improved abdominal pain improved Objective Last 24 Hour Vital Signs Date Time Temp Pulse Resp B/P Pulse Ox O2 Delivery O2 Flow Rate FiO2 10/27/16 11:38 98.8 118 20 104/66 96 Room Air 10/27/16 08:07 98.8 108 20 99/67 91 Room Air 10/27/16 08:00 121 10/27/16 05:06 120 10/27/16 04:00 99.7 120 20 104/62 92 Room Air 10/27/16 00:00 98.8 68 20 104/69 93 Room Air 10/26/16 23:54 121 10/26/16 20:00 97.2 113 21 106/66 95 Room Air 10/26/16 20:00 117 10/26/16 16:00 97.8 114 20 104/80 96 Room Air 10/26/16 16:00 108 Intake and Output 10/26/16 10/27/16 19:00 07:00 Intake Total 300 ml 300 ml Output Total 300 ml Balance 300 ml 0 ml Intake Oral 300 ml IV Total 300 ml Output Urine Total 300 ml # Voids 7 Laboratory Tests Test 10/26/16 14:40 10/27/16 05:45 Body Fluid Source Thoracentesis Body Fluid Volume 27 mL Body Fluid Appearance Hazy Body Fluid RBC 795 /CUMM Body Fluid Total Nucleated Cells 315 /CUMM Body Fluid Polynuclear WBCs (%) 27 % Body Fluid Mononuclear WBCs (%) 71 % Body Fluid Mesothelial Cells (%) 2 % Body Fluid Glucose Pending Body Fluid Total Protein Pending Body Fluid Albumin Pending White Blood Count 15.6 K/UL (4.8-10.8) H Red Blood Count 4.02 M/UL (4.70-6.10) L Hemoglobin 11.7 G/DL (14.2-18.0) L Hematocrit 35.9 % (42.0-52.0) L Mean Corpuscular Volume 89 FL (80-99) Mean Corpuscular Hemoglobin 29.0 PG (27.0-31.0) Mean Corpuscular Hemoglobin Concent 32.5 G/DL (32.0-36.0) Red Cell Distribution Width 14.0 % (11.6-14.8) Platelet Count 220 K/UL (150-450) Mean Platelet Volume 9.5 FL (6.5-10.1) Neutrophils (%) (Auto) 80.6 % (45.0-75.0) H Lymphocytes (%) (Auto) 10.1 % (20.0-45.0) L Monocytes (%) (Auto) 8.8 % (1.0-10.0) Eosinophils (%) (Auto) 0.0 % (0.0-3.0) Basophils (%) (Auto) 0.5 % (0.0-2.0) Reticulocyte Count Pending Sodium Level 134 mEQ/L (135-145) L Potassium Level 3.3 mEQ/L (3.4-4.9) L Chloride Level 93 mEQ/L (98-107) L Carbon Dioxide Level 24 mEQ/L (20-30) Anion Gap 17 (5-15) H Blood Urea Nitrogen 15 mg/dL (7-23) Creatinine 1.0 mg/dL (0.7-1.2) Estimat Glomerular Filtration Rate > 60 mL/min (>60) Glucose Level 99 mg/dL (74-106) Calcium Level 7.9 mg/dL (8.6-10.2) L Magnesium Level 1.7 mg/dL (1.7-2.5) Iron Level 17 ug/dL (59-158) L Total Iron Binding Capacity 296 ug/dL (250-400) Percent Iron Saturation 6 % (15-50) L Unsaturated Iron Binding 279 ug/dL (112-346) Ferritin 49 ng/mL (10-230) Total Bilirubin 1.2 mg/dL (0.0-1.2) Direct Bilirubin 0.4 mg/dL (0.1-0.3) H Aspartate Amino Transf (AST/SGOT) 21 U/L (5-40) Alanine Aminotransferase (ALT/SGPT) 31 U/L (3-41) Alkaline Phosphatase 117 U/L (40-129) Total Creatine Kinase 56 U/L (38-174) Troponin I < 0.30 ng/mL (<=0.30) Pro-B-Type Natriuretic Peptide 24961 pg/mL (0-125) H Total Protein 4.9 g/dL (6.6-8.7) L Albumin 2.5 g/dL (3.5-5.2) L Globulin 2.4 g/dL Albumin/Globulin Ratio 1.0 (1.0-2.7) Vitamin B12 Level 502 pg/mL (211-946) Folate Pending Thyroid Stimulating Hormone (TSH) 1.810 uIU/mL (0.300-4.500) Free Thyroxine 1.28 ng/dL (0.86-1.85) Microbiology Date/Time Source Procedure Growth Status 10/26/16 14:40 Abdominal Fluid Gram Stain - Final Resulted 10/26/16 14:40 Abdominal Fluid Body Fluid Culture - Preliminary NO GROWTH Resulted Height (Feet): 5 Height (Inches): 6.00 Weight (Pounds): 159 General Appearance: no apparent distress, alert Cardiovascular: normal rate Respiratory/Chest: normal breath sounds, no respiratory distress Abdominal Exam: normal bowel sounds, non tender, soft, ascites Extremities: normal range of motion Melanie Briones N.P. Oct 27, 2016 11:52
[2016-10-27 13:47] LABS: COMMENT,BODY FLUID PATHOLOGIST COMMENT
[2016-10-27] MEDS ORDERED: Atenolol 25mg tab ORAL ONE (15:15)
[2016-10-27 16:00] VITALS: BP 109/68
--- NOTE | 2016-10-27 16:11 | Pulmonology Progress Note ---
Assessment/Plan Problems: (1) Pleural effusion (2) Abdominal pain (3) Ascites (4) Alcoholic cardiomyopathy (5) Tachycardia (6) ETOH abuse Assessment/Plan 800 cc removed from right chest EF 10% tachycardia secondary to ETOH withdrawl or cardiomyopathy. Subjective ROS Limited/Unobtainable: No Interval Events: anxious Allergies: Coded Allergies: No Known Allergies (Unverified , 10/25/16) Objective Last 24 Hour Vital Signs Date Time Temp Pulse Resp B/P Pulse Ox O2 Delivery O2 Flow Rate FiO2 10/27/16 15:05 139 104/66 10/27/16 12:00 125 10/27/16 11:38 98.8 118 20 104/66 96 Room Air 10/27/16 08:07 98.8 108 20 99/67 91 Room Air 10/27/16 08:00 121 10/27/16 05:06 120 10/27/16 04:00 99.7 120 20 104/62 92 Room Air 10/27/16 00:00 98.8 68 20 104/69 93 Room Air 10/26/16 23:54 121 10/26/16 20:00 97.2 113 21 106/66 95 Room Air 10/26/16 20:00 117 Intake and Output 10/26/16 10/27/16 19:00 07:00 Intake Total 300 ml 300 ml Output Total 300 ml Balance 300 ml 0 ml Intake Oral 300 ml IV Total 300 ml Output Urine Total 300 ml # Voids 7 General Appearance: cachetic HEENT: normocephalic Respiratory/Chest: chest wall non-tender, lungs clear Cardiovascular: normal peripheral pulses, normal rate Abdomen: normal bowel sounds Microbiology Date/Time Source Procedure Growth Status 10/26/16 14:40 Abdominal Fluid Gram Stain - Final Resulted 10/26/16 14:40 Abdominal Fluid Body Fluid Culture - Preliminary NO GROWTH Resulted Laboratory Tests 10/27/16 05:45: White Blood Count 15.6H, Red Blood Count 4.02L, Hemoglobin 11.7L, Hematocrit 35.9L, Mean Corpuscular Volume 89, Mean Corpuscular Hemoglobin 29.0, Mean Corpuscular Hemoglobin Concent 32.5, Red Cell Distribution Width 14.0, Platelet Count 220, Mean Platelet Volume 9.5, Neutrophils (%) (Auto) 80.6H, Lymphocytes ( %) (Auto) 10.1L, Monocytes (%) (Auto) 8.8, Eosinophils (%) (Auto) 0.0, Basophils (%) (Auto) 0.5, Reticulocyte Count 1.5, Sodium Level 134L, Potassium Level 3.3L, Chloride Level 93L, Carbon Dioxide Level 24, Anion Gap 17H, Blood Urea Nitrogen 15, Creatinine 1.0, Estimat Glomerular Filtration Rate > 60, Glucose Level 99, Calcium Level 7.9L, Magnesium Level 1.7, Iron Level 17L, Total Iron Binding Capacity 296, Percent Iron Saturation 6L, Unsaturated Iron Binding 279, Ferritin 49, Total Bilirubin 1.2, Direct Bilirubin 0.4H, Aspartate Amino Transf (AST/SGOT) 21, Alanine Aminotransferase (ALT/SGPT) 31, Alkaline Phosphatase 117, Total Creatine Kinase 56, Troponin I < 0.30, Pro-B-Type Natriuretic Peptide 68572H, Total Protein 4.9L, Albumin 2.5L, Globulin 2.4, Albumin/Globulin Ratio 1.0, Vitamin B12 Level 502, Folate [Pending], Thyroid Stimulating Hormone (TSH) 1.810, Free Thyroxine 1.28 Current Medications Medications (Trade) Dose Ordered Sig/Baudilio Route PRN Reason Start Time Stop Time Status Last Admin Dose Admin Acetaminophen (Tylenol) 650 mg Q4H PRN ORAL fever 10/25/16 23:30 11/24/16 23:29 Al Hydroxide/Mg Hydroxide (Mylanta II) 30 ml Q6H PRN ORAL dyspepsia 10/25/16 23:30 11/24/16 23:29 Chlordiazepoxide (Librium) 25 mg Q6H PRN ORAL Agitation 10/26/16 16:15 11/02/16 16:14 Dextrose (Dextrose 50%) STAT PRN IV Hypoglycemia 10/25/16 23:30 11/24/16 23:29 Diphenhydramine HCl (Benadryl) 25 mg Q6H PRN ORAL Itching/Pruritis 10/25/16 23:30 11/24/16 23:29 Folic Acid (Folate) 1 mg DAILY ORAL 10/26/16 16:30 11/25/16 16:29 10/27/16 08:33 Furosemide 20 mg 20 mg EVERY 8 HOURS IV 10/26/16 16:30 11/25/16 16:29 10/27/16 13:53 Heparin Sodium (Porcine) (Heparin 5000 units/ml) 5,000 units EVERY 12 HOURS SUBQ 10/27/16 21:00 11/26/16 20:59 Iron Sucrose/ Sodium Chloride (Venofer/Sodium Chloride) 60 ml @ 240 mls/hr BEDTIME IVPB 10/27/16 21:00 10/29/16 21:14 Morphine Sulfate (Morphine Sulfate) 2 mg Q4H PRN IVP severe Pain (Pain Scale 7-10) 10/25/16 23:30 11/01/16 23:29 10/27/16 13:14 Nitroglycerin (Ntg) 0.4 mg Q5M X 3 DOSES PRN SL Prn Chest Pain 10/25/16 23:30 11/24/16 23:29 Ondansetron HCl (Zofran) 4 mg Q6H PRN IVP Nausea & Vomiting 10/25/16 23:30 11/24/16 23:29 Polyethylene Glycol (Miralax) 17 gm HSPRN PRN ORAL Constipation 10/25/16 23:30 11/24/16 23:29 Temazepam (Restoril) 15 mg HSPRN PRN ORAL Insomnia 10/25/16 23:30 11/01/16 23:29 Thiamine HCl (Vitamin B1) 100 mg DAILY ORAL 10/26/16 16:30 11/25/16 16:29 10/27/16 08:32 RHONDA PARKINSON Oct 27, 2016 16:11
[2016-10-27 16:13] LABS: PROTEIN, BODY FLUID 0.9 g/dL (.)
[2016-10-27] MEDS ORDERED: chlordiazePOXIDE 25mg Cap ORAL PRN (16:15)
[2016-10-27 20:00] VITALS: BP 105/47
--- NOTE | 2016-10-27 20:48 | Cardiology Progress Note ---
Assessment/Plan Assessment/Plan abd pain cardiomyopathy chf acute on chronic rv apical filling defect no confirmed on echo renal wedge deformity etohism pleural effusion ascites abn ekg tachy ? related to withdrawl need diuretic echo noted repeat ekg noted cardiac enzyme neg tle observation sineu tacchy librium beign given bb started Subjective Cardiovascular: Denies: chest pain, lightheadedness Respiratory: Denies: shortness of breath Gastrointestinal/Abdominal: Reports: abdominal pain Genitourinary: Denies: burning Objective Last 24 Hour Vital Signs Date Time Temp Pulse Resp B/P Pulse Ox O2 Delivery O2 Flow Rate FiO2 10/27/16 20:00 98.0 120 20 105/47 93 Room Air 10/27/16 16:00 97.9 141 20 109/68 98 Room Air 10/27/16 15:05 139 104/66 10/27/16 12:00 125 10/27/16 11:38 98.8 118 20 104/66 96 Room Air 10/27/16 08:07 98.8 108 20 99/67 91 Room Air 10/27/16 08:00 121 10/27/16 05:06 120 10/27/16 04:00 99.7 120 20 104/62 92 Room Air 10/27/16 00:00 98.8 68 20 104/69 93 Room Air 10/26/16 23:54 121 General Appearance: no apparent distress Neck: no JVD Cardiovascular: normal rate, tachycardia Respiratory/Chest: crackles/rales - left side Abdomen: non tender, soft Extremities: moderate edema Intake and Output 10/26/16 10/27/16 19:00 07:00 Intake Total 300 ml 300 ml Output Total 300 ml Balance 300 ml 0 ml Intake Oral 300 ml IV Total 300 ml Output Urine Total 300 ml # Voids 7 Laboratory Tests Test 10/27/16 05:45 White Blood Count 15.6 K/UL (4.8-10.8) H Red Blood Count 4.02 M/UL (4.70-6.10) L Hemoglobin 11.7 G/DL (14.2-18.0) L Hematocrit 35.9 % (42.0-52.0) L Mean Corpuscular Volume 89 FL (80-99) Mean Corpuscular Hemoglobin 29.0 PG (27.0-31.0) Mean Corpuscular Hemoglobin Concent 32.5 G/DL (32.0-36.0) Red Cell Distribution Width 14.0 % (11.6-14.8) Platelet Count 220 K/UL (150-450) Mean Platelet Volume 9.5 FL (6.5-10.1) Neutrophils (%) (Auto) 80.6 % (45.0-75.0) H Lymphocytes (%) (Auto) 10.1 % (20.0-45.0) L Monocytes (%) (Auto) 8.8 % (1.0-10.0) Eosinophils (%) (Auto) 0.0 % (0.0-3.0) Basophils (%) (Auto) 0.5 % (0.0-2.0) Reticulocyte Count 1.5 % (0.0-2.0) Sodium Level 134 mEQ/L (135-145) L Potassium Level 3.3 mEQ/L (3.4-4.9) L Chloride Level 93 mEQ/L (98-107) L Carbon Dioxide Level 24 mEQ/L (20-30) Anion Gap 17 (5-15) H Blood Urea Nitrogen 15 mg/dL (7-23) Creatinine 1.0 mg/dL (0.7-1.2) Estimat Glomerular Filtration Rate > 60 mL/min (>60) Glucose Level 99 mg/dL (74-106) Calcium Level 7.9 mg/dL (8.6-10.2) L Magnesium Level 1.7 mg/dL (1.7-2.5) Iron Level 17 ug/dL (59-158) L Total Iron Binding Capacity 296 ug/dL (250-400) Percent Iron Saturation 6 % (15-50) L Unsaturated Iron Binding 279 ug/dL (112-346) Ferritin 49 ng/mL (10-230) Total Bilirubin 1.2 mg/dL (0.0-1.2) Direct Bilirubin 0.4 mg/dL (0.1-0.3) H Aspartate Amino Transf (AST/SGOT) 21 U/L (5-40) Alanine Aminotransferase (ALT/SGPT) 31 U/L (3-41) Alkaline Phosphatase 117 U/L (40-129) Total Creatine Kinase 56 U/L (38-174) Troponin I < 0.30 ng/mL (<=0.30) Pro-B-Type Natriuretic Peptide 91752 pg/mL (0-125) H Total Protein 4.9 g/dL (6.6-8.7) L Albumin 2.5 g/dL (3.5-5.2) L Globulin 2.4 g/dL Albumin/Globulin Ratio 1.0 (1.0-2.7) Vitamin B12 Level 502 pg/mL (211-946) Folate Pending Thyroid Stimulating Hormone (TSH) 1.810 uIU/mL (0.300-4.500) Free Thyroxine 1.28 ng/dL (0.86-1.85) Microbiology Date/Time Source Procedure Growth Status 10/26/16 14:40 Abdominal Fluid Gram Stain - Final Resulted 10/26/16 14:40 Abdominal Fluid Body Fluid Culture - Preliminary NO GROWTH Resulted BALJIT FRANCOIS Oct 27, 2016 20:48
[2016-10-27] MEDS ORDERED: Iron Sucrose 100 MG in NS 55 ML IVPB SCH (21:00)
[2016-10-27] MEDS: Iron Sucrose 100 MG in NS 55 ML IVPB SCH (21:50)
[2016-10-27] MEDS: Carvedilol 6.25mg Tab ORAL SCH (21:51)
[2016-10-27] MEDS: Heparin 5000 units/ml inj SUBQ SCH (21:56)
--- NOTE | 2016-10-27 22:47 | Diagnostic Imaging Report ---
APPROVED REPORT CPT Code: 42285 RIGHT LEG: Venous imaging reveals a patent deep venous system. There is no evidence of thrombus within the femoral, popliteal or tibial segments. The greater saphenous vein is also within normal limits. Doppler indicates normal spontaneous flow within these segments. LEFT LEG: Venous imaging reveals acute thrombus in one of the paired posterior tibial veins. Imaging also reveals patency of the common femoral, popliteal and calf veins ( anterior and peroneal tibial). Greater saphenous vein also within normal limits. INGRIS Guerrero was notified of abnormal results at 1550 hours.
[2016-10-28] VITALS (13 sets, daily range): BP systolic 61–107; BP diastolic 45–57
[2016-10-28 08:55] LABS: MEAN CORPUSCULAR HEMOGLOBIN 28.8 PG (27.0-31.0); MEAN CORPUSCULAR HGB CONC 32.2 G/DL (32.0-36.0); MEAN CORPUSCULAR VOLUME 90 FL (80-99); MEAN PLATELET VOLUME 9.4 FL (6.5-10.1); PLATELET COUNT 180 K/UL (150-450); RED BLOOD COUNT 4.52 M/UL (4.70-6.10)
[2016-10-28] MEDS: Thiamine 100mg tab ORAL SCH (08:58)
[2016-10-28] MEDS: Carvedilol 6.25mg Tab ORAL SCH ×2 (08:58→20:59)
[2016-10-28] MEDS: Heparin 5000 units/ml inj SUBQ SCH (09:05)
[2016-10-28 09:09] LABS: CALCIUM 8.2 mg/dL (8.6-10.2); CREATININE 2.3 mg/dL (0.7-1.2); GLOMERULAR FILTRATION RATE 31.8 mL/min (>60); POTASSIUM 5.3 mEQ/L (3.4-4.9)
[2016-10-28 10:08] LABS: WHITE BLOOD COUNT 26.6 K/UL (4.8-10.8)
[2016-10-28 10:37] LABS: BAND NEUTROPHILS % (MANUAL) 0 % (0-8); BASOPHILS % (MANUAL) 0 % (0-2); EOSINOPHILS % (MANUAL) 0 % (0-3); LYMPHOCYTES % (MANUAL) 9 % (20-45); NEUTROPHILS % (MANUAL) 84 % (45-75); NUCLEATED RED BLOOD CELLS 1 /100 WBC; PLATELET ESTIMATE ADEQUATE; TOTAL CELLS COUNTED 100
[2016-10-28 10:38] LABS: PLATELET MORPHOLOGY NORMAL
--- NOTE | 2016-10-28 12:32 | Consultation ---
Consult Note Consult Note ID Dic# [id number] RAMÓN CASTELLON M.D. Oct 28, 2016 12:32
--- NOTE | 2016-10-28 13:58 | Cardiology Report ---
APPROVED REPORT EKG Measurement Heart [id number] Sinus tachycardia Possible Left atrial enlargement Left axis deviation Anteroseptal infarct, age undetermined T wave abnormality, consider lateral ischemia Abnormal ECG
[2016-10-28] MEDS: Piperacillin/Tazobactam 4.5 GM in D5W 110 ML IVPB SCH ×2 (14:00→22:01)
--- NOTE | 2016-10-28 14:07 | Cardiology Report ---
APPROVED REPORT EKG Measurement Heart [id number] Sinus tachycardia Possible Left atrial enlargement Septal infarct, age undetermined Abnormal ECG
[2016-10-28 14:16] LABS: MEAN CORPUSCULAR HEMOGLOBIN 28.7 PG (27.0-31.0); MEAN CORPUSCULAR HGB CONC 31.6 G/DL (32.0-36.0); MEAN CORPUSCULAR VOLUME 91 FL (80-99); MEAN PLATELET VOLUME 9.6 FL (6.5-10.1); PLATELET COUNT 191 K/UL (150-450); RED BLOOD COUNT 4.53 M/UL (4.70-6.10); RED CELL DISTRIBUTION WIDTH 14.3 % (11.6-14.8)
[2016-10-28 14:30] LABS: CALCIUM 8.1 mg/dL (8.6-10.2); CREATININE 2.7 mg/dL (0.7-1.2); GLOMERULAR FILTRATION RATE 26.4 mL/min (>60); POTASSIUM 5.6 mEQ/L (3.4-4.9)
[2016-10-28 14:36] LABS: WHITE BLOOD COUNT 23.2 K/UL (4.8-10.8)
[2016-10-28 14:55] LABS: LYMPHOCYTES % (MANUAL) 9 % (20-45); NEUTROPHILS % (MANUAL) 88 % (45-75); TOTAL CELLS COUNTED 100
[2016-10-28 14:56] LABS: BAND NEUTROPHILS % (MANUAL) 0 % (0-8); BASOPHILS % (MANUAL) 0 % (0-2); EOSINOPHILS % (MANUAL) 0 % (0-3); PLATELET ESTIMATE ADEQUATE; PLATELET MORPHOLOGY NORMAL
--- NOTE | 2016-10-28 15:07 | Pulmonology Progress Note ---
Assessment/Plan Problems: (1) Pleural effusion (2) Abdominal pain (3) Ascites (4) Alcoholic cardiomyopathy (5) Tachycardia (6) ETOH abuse Assessment/Plan episode of hypotension worsening kidney functin EF 10% increased wbc ? etiology, ID follows. . Subjective Interval Events: episodes of hypotension Allergies: Coded Allergies: No Known Allergies (Unverified , 10/25/16) Objective Last 24 Hour Vital Signs Date Time Temp Pulse Resp B/P Pulse Ox O2 Delivery O2 Flow Rate FiO2 10/28/16 11:53 89 10/28/16 11:35 97.9 89 16 86/57 96 Room Air 89 10/28/16 08:58 92 107/56 10/28/16 08:02 96.8 91 17 107/56 95 Room Air 92 10/28/16 07:52 89 10/28/16 06:07 100/56 10/28/16 06:03 96.3 73 19 91 Room Air 10/28/16 04:18 98.6 90 20 72/45 95 Room Air 10/28/16 04:00 87 10/28/16 00:20 98.8 114 18 78/53 97 Room Air 10/28/16 00:00 110 10/27/16 21:51 120 110/60 10/27/16 20:00 118 10/27/16 20:00 98.0 120 20 105/47 93 Room Air 10/27/16 16:00 97.9 141 20 109/68 98 Room Air 10/27/16 16:00 138 Intake and Output 10/27/16 10/28/16 19:00 07:00 Intake Total 570 ml 540 ml Balance 570 ml 540 ml Intake Oral 570 ml 300 ml IV Total 240 ml # Voids 1 General Appearance: WD/WN HEENT: normocephalic, atraumatic Respiratory/Chest: chest wall non-tender, lungs clear Cardiovascular: normal peripheral pulses, normal rate Genitourinary: normal external genitalia Skin: no rash, no ulcers Microbiology Date/Time Source Procedure Growth Status 10/26/16 04:00 Nasal Nares Right MRSA Culture - Final NO METHICILLIN RESISTANT STAPH AUREUS... Complete 10/26/16 14:40 Abdominal Fluid Gram Stain - Final Resulted 10/26/16 14:40 Abdominal Fluid Body Fluid Culture - Preliminary NO GROWTH AFTER 24 HOURS Resulted 10/26/16 04:00 Rectum VRE Culture - Final NO VANCOMYCIN RESISTANT ENTEROCOCCUS ... Complete Laboratory Tests 10/28/16 07:57: White Blood Count 26.6#*H, Red Blood Count 4.52L, Hemoglobin 13.1L, Hematocrit 40.5L, Mean Corpuscular Volume 90, Mean Corpuscular Hemoglobin 28.8, Mean Corpuscular Hemoglobin Concent 32.2, Red Cell Distribution Width 14.0, Platelet Count 180, Mean Platelet Volume 9.4, Neutrophils (%) (Auto) , Lymphocytes (%) ( Auto) , Monocytes (%) (Auto) , Eosinophils (%) (Auto) , Basophils (%) (Auto) , Differential Total Cells Counted 100, Neutrophils % (Manual) 84H, Lymphocytes % (Manual) 9L, Monocytes % (Manual) 7, Eosinophils % (Manual) 0, Basophils % ( Manual) 0, Band Neutrophils 0, Nucleated Red Blood Cells 1, Platelet Estimate Adequate, Platelet Morphology Normal, Red Blood Cell Morphology Normal, Sodium Level 134L, Potassium Level 5.3#H, Chloride Level 94L, Carbon Dioxide Level 20, Anion Gap 20H, Blood Urea Nitrogen 31H, Creatinine 2.3#H, Estimat Glomerular Filtration Rate 31.8, Glucose Level 94, Calcium Level 8.2L, Hepatitis A IgM Antibody [Pending], Hepatitis B Surface Antigen [Pending], Hepatitis B Core IgM Antibody [Pending], Hepatitis C Antibody [Pending] 10/28/16 13:34: White Blood Count 23.2*H, Red Blood Count 4.53L, Hemoglobin 13.0L, Hematocrit 41.1L, Mean Corpuscular Volume 91, Mean Corpuscular Hemoglobin 28.7, Mean Corpuscular Hemoglobin Concent 31.6L, Red Cell Distribution Width 14.3, Platelet Count 191, Mean Platelet Volume 9.6, Neutrophils (%) (Auto) , Lymphocytes (%) (Auto) , Monocytes (%) (Auto) , Eosinophils (%) (Auto) , Basophils (%) (Auto) , Differential Total Cells Counted 100, Neutrophils % ( Manual) 88H, Lymphocytes % (Manual) 9L, Monocytes % (Manual) 3, Eosinophils % ( Manual) 0, Basophils % (Manual) 0, Band Neutrophils 0, Platelet Estimate Adequate, Platelet Morphology Normal, Red Blood Cell Morphology Normal, Sodium Level 131L, Potassium Level 5.6H, Chloride Level 91L, Carbon Dioxide Level 18L, Anion Gap 22H, Blood Urea Nitrogen 36H, Creatinine 2.7H, Estimat Glomerular Filtration Rate 26.4, Glucose Level 183H, Calcium Level 8.1L Current Medications Medications (Trade) Dose Ordered Sig/Baudilio Route PRN Reason Start Time Stop Time Status Last Admin Dose Admin Acetaminophen (Tylenol) 650 mg Q4H PRN ORAL fever 10/25/16 23:30 11/24/16 23:29 Al Hydroxide/Mg Hydroxide (Mylanta II) 30 ml Q6H PRN ORAL dyspepsia 10/25/16 23:30 11/24/16 23:29 Carvedilol 6.25 mg 6.25 mg EVERY 12 HOURS ORAL 10/27/16 22:00 11/26/16 21:59 10/27/16 21:51 Chlordiazepoxide (Librium) 25 mg Q6H PRN ORAL tachycardia> 100 10/27/16 16:15 11/03/16 16:14 10/27/16 20:03 Dextrose (Dextrose 50%) STAT PRN IV Hypoglycemia 10/25/16 23:30 11/24/16 23:29 Diphenhydramine HCl (Benadryl) 25 mg Q6H PRN ORAL Itching/Pruritis 10/25/16 23:30 11/24/16 23:29 Folic Acid (Folate) 1 mg DAILY ORAL 10/26/16 16:30 11/25/16 16:29 10/28/16 08:58 Furosemide 20 mg 20 mg EVERY 8 HOURS IV 10/26/16 16:30 11/25/16 16:29 10/27/16 21:51 Heparin Sodium (Porcine) (Heparin 5000 units/ml) 5,000 units EVERY 12 HOURS SUBQ 10/27/16 21:00 11/26/16 20:59 10/28/16 09:05 Iron Sucrose/ Sodium Chloride (Venofer/Sodium Chloride) 60 ml @ 240 mls/hr BEDTIME IVPB 10/27/16 21:00 10/29/16 21:14 10/27/16 21:50 Morphine Sulfate (Morphine Sulfate) 2 mg Q4H PRN IVP severe Pain (Pain Scale 7-10) 10/25/16 23:30 11/01/16 23:29 10/27/16 17:57 Nitroglycerin (Ntg) 0.4 mg Q5M X 3 DOSES PRN SL Prn Chest Pain 10/25/16 23:30 11/24/16 23:29 Ondansetron HCl (Zofran) 4 mg Q6H PRN IVP Nausea & Vomiting 10/25/16 23:30 11/24/16 23:29 10/27/16 18:34 Piperacillin Sod/ Tazobactam Sod/ Dextrose (Zosyn/D5W) 110 ml @ 27.5 mls/hr EVERY 8 HOURS IVPB 10/28/16 14:00 11/02/16 13:59 10/28/16 14:00 Polyethylene Glycol (Miralax) 17 gm HSPRN PRN ORAL Constipation 10/25/16 23:30 11/24/16 23:29 Temazepam (Restoril) 15 mg HSPRN PRN ORAL Insomnia 10/25/16 23:30 11/01/16 23:29 Thiamine HCl (Vitamin B1) 100 mg DAILY ORAL 10/26/16 16:30 11/25/16 16:29 10/28/16 08:58 RHONDA PARKINSON Oct 28, 2016 15:07
--- NOTE | 2016-10-28 15:12 | Cardiology Report ---
APPROVED REPORT EXAM: Two-dimensional and M-mode echocardiogram with Doppler and color Doppler. INDICATION Congestive Heart Failure M-Mode DIMENSIONS IVSd0.8 (0.7-1.1cm)Left Atrium (MM)5.6 (1.6-4.0cm) LVDd6.7 (3.5-5.6cm)Aortic Root3.1 (2.0-3.7cm) PWd1.5 (0.7-1.1cm)Aortic Cusp Exc.1.9 (1.5-2.0cm) LVDs6.4 (2.5-4.0cm) PWs1.7 cm SEVERE Left ventricular enlargement. SEVERE Global left ventricular hypokinesis. Left ventricular ejection fraction estimated to be less than 10 %. FOUR CHAMBER DILATION AND DYSFUNCTION CONSISTENT WITH NON-ISCHEMIC CARDIOMYOPATHY. THERE IS POSSIBLE THROMBUS AT THE APICAL SEPTUM. Small posterior pericardial effusion. Severe left atrial enlargement. Moderate right atrial enlargement. Right ventricular chamber DILATED. Mild focal aortic valve sclerosis with adequate cusp excursion. Mildly thickened mitral valve leaflets with normal excursion. Mild mitral annulus and aortic root calcification. Normal pulmonic valve structure. Normal tricuspid valve structure. IVC dilated at 2.6 cm without physiologic collapse suggestive of RA pressure at least 20 mmHg. A color flow and spectral Doppler study was performed and revealed: No aortic regurgitation. Moderate to severe mitral regurgitation. Mitral inflow velocities indicates possible pseudo normalization pattern implying moderately elevated left atrial pressure (Grade II ). Moderate tricuspid regurgitation. Tricuspid systolic velocities suggests peak right ventricular systolic pressure of 54 mmHg, consistent with moderate pulmonary hypertension. Moderate pulmonic regurgitation present.
[2016-10-28] MEDS ORDERED: D5 1/2NS 1000ml IV ONE (15:24)
--- NOTE | 2016-10-28 15:42 | General Progress Note ---
Assessment/Plan Problem List: (1) Abdominal pain ICD Codes: R10.9 - Unspecified abdominal pain SNOMED: 35511276 (2) Alcoholic cardiomyopathy ICD Codes: I42.6 - Alcoholic cardiomyopathy SNOMED: 573674215 (3) Anemia ICD Codes: D64.9 - Anemia, unspecified SNOMED: 456867915 (4) Ascites ICD Codes: R18.8 - Other ascites SNOMED: 319550659 (5) Hypoalbuminemia ICD Codes: E88.09 - Other disorders of plasma-protein metabolism, not elsewhere classified SNOMED: 857743507 (6) ETOH abuse ICD Codes: F10.10 - Alcohol abuse, uncomplicated SNOMED: 06571701, 27210305 (7) Pleural effusion ICD Codes: J90 - Pleural effusion, not elsewhere classified SNOMED: 36075366 (8) Leukocytosis ICD Codes: D72.829 - Elevated white blood cell count, unspecified SNOMED: 539751063, 324109220 Assessment/Plan fu labs abx fu stool ob GI procedures on hold for now Subjective Allergies: Coded Allergies: No Known Allergies (Unverified , 10/25/16) All Systems: reviewed and negative except above Objective Last 24 Hour Vital Signs Date Time Temp Pulse Resp B/P Pulse Ox O2 Delivery O2 Flow Rate FiO2 10/28/16 11:53 89 10/28/16 11:35 97.9 89 16 86/57 96 Room Air 89 10/28/16 08:58 92 107/56 10/28/16 08:02 96.8 91 17 107/56 95 Room Air 92 10/28/16 07:52 89 10/28/16 06:07 100/56 10/28/16 06:03 96.3 73 19 91 Room Air 10/28/16 04:18 98.6 90 20 72/45 95 Room Air 10/28/16 04:00 87 10/28/16 00:20 98.8 114 18 78/53 97 Room Air 10/28/16 00:00 110 10/27/16 21:51 120 110/60 10/27/16 20:00 118 10/27/16 20:00 98.0 120 20 105/47 93 Room Air 10/27/16 16:00 97.9 141 20 109/68 98 Room Air 10/27/16 16:00 138 Intake and Output 10/27/16 10/28/16 19:00 07:00 Intake Total 570 ml 540 ml Balance 570 ml 540 ml Intake Oral 570 ml 300 ml IV Total 240 ml # Voids 1 Laboratory Tests 10/28/16 07:57: White Blood Count 26.6#*H, Red Blood Count 4.52L, Hemoglobin 13.1L, Hematocrit 40.5L, Mean Corpuscular Volume 90, Mean Corpuscular Hemoglobin 28.8, Mean Corpuscular Hemoglobin Concent 32.2, Red Cell Distribution Width 14.0, Platelet Count 180, Mean Platelet Volume 9.4, Neutrophils (%) (Auto) , Lymphocytes (%) ( Auto) , Monocytes (%) (Auto) , Eosinophils (%) (Auto) , Basophils (%) (Auto) , Differential Total Cells Counted 100, Neutrophils % (Manual) 84H, Lymphocytes % (Manual) 9L, Monocytes % (Manual) 7, Eosinophils % (Manual) 0, Basophils % ( Manual) 0, Band Neutrophils 0, Nucleated Red Blood Cells 1, Platelet Estimate Adequate, Platelet Morphology Normal, Red Blood Cell Morphology Normal, Sodium Level 134L, Potassium Level 5.3#H, Chloride Level 94L, Carbon Dioxide Level 20, Anion Gap 20H, Blood Urea Nitrogen 31H, Creatinine 2.3#H, Estimat Glomerular Filtration Rate 31.8, Glucose Level 94, Calcium Level 8.2L, Hepatitis A IgM Antibody [Pending], Hepatitis B Surface Antigen [Pending], Hepatitis B Core IgM Antibody [Pending], Hepatitis C Antibody [Pending] 10/28/16 13:34: White Blood Count 23.2*H, Red Blood Count 4.53L, Hemoglobin 13.0L, Hematocrit 41.1L, Mean Corpuscular Volume 91, Mean Corpuscular Hemoglobin 28.7, Mean Corpuscular Hemoglobin Concent 31.6L, Red Cell Distribution Width 14.3, Platelet Count 191, Mean Platelet Volume 9.6, Neutrophils (%) (Auto) , Lymphocytes (%) (Auto) , Monocytes (%) (Auto) , Eosinophils (%) (Auto) , Basophils (%) (Auto) , Differential Total Cells Counted 100, Neutrophils % ( Manual) 88H, Lymphocytes % (Manual) 9L, Monocytes % (Manual) 3, Eosinophils % ( Manual) 0, Basophils % (Manual) 0, Band Neutrophils 0, Platelet Estimate Adequate, Platelet Morphology Normal, Red Blood Cell Morphology Normal, Sodium Level 131L, Potassium Level 5.6H, Chloride Level 91L, Carbon Dioxide Level 18L, Anion Gap 22H, Blood Urea Nitrogen 36H, Creatinine 2.7H, Estimat Glomerular Filtration Rate 26.4, Glucose Level 183H, Calcium Level 8.1L Height (Feet): 5 Height (Inches): 6.00 Weight (Pounds): 159 General Appearance: mild distress EENT: normal ENT inspection Neck: supple Cardiovascular: tachycardia Respiratory/Chest: decreased breath sounds Abdomen: normal bowel sounds, non tender, soft Extremities: non-tender ADRIAN BERG Oct 28, 2016 15:42
[2016-10-28] MEDS: Morphine Sulfate 2mg/ml Inj IVP PRN (19:34)
--- NOTE | 2016-10-28 20:05 | Cardiology Progress Note ---
Assessment/Plan Assessment/Plan abd pain cardiomyopathy chf acute on chronic rv apical filling defect no confirmed on echo renal wedge deformity etohism pleural effusion ascites abn ekg tachy ? related to withdrawl hypotension d/c diuretic echo noted repeat ekg noted cardiac enzyme neg tele observation sinus tachy Librium being given bb started kalpesh need to hodl due ot jhypotesion bolus of ivf due to lwo bp Subjective Cardiovascular: Denies: chest pain, lightheadedness Respiratory: Reports: cough - bloody sputum , Denies: shortness of breath Gastrointestinal/Abdominal: Denies: abdomen distended, nausea Genitourinary: Denies: burning Objective Last 24 Hour Vital Signs Date Time Temp Pulse Resp B/P Pulse Ox O2 Delivery O2 Flow Rate FiO2 10/28/16 15:52 98.6 91 20 82/54 98 10/28/16 11:53 89 10/28/16 11:35 97.9 89 16 86/57 96 Room Air 89 10/28/16 08:58 92 107/56 10/28/16 08:02 96.8 91 17 107/56 95 Room Air 92 10/28/16 07:52 89 10/28/16 06:07 100/56 10/28/16 06:03 96.3 73 19 91 Room Air 10/28/16 04:18 98.6 90 20 72/45 95 Room Air 10/28/16 04:00 87 10/28/16 00:20 98.8 114 18 78/53 97 Room Air 10/28/16 00:00 110 10/27/16 21:51 120 110/60 General Appearance: no apparent distress, alert Neck: supple Cardiovascular: normal rate, regular rhythm Respiratory/Chest: lungs clear, normal breath sounds Abdomen: normal bowel sounds, non tender, soft Extremities: moderate edema Intake and Output 10/27/16 10/28/16 19:00 07:00 Intake Total 570 ml 540 ml Balance 570 ml 540 ml Intake Oral 570 ml 300 ml IV Total 240 ml # Voids 1 Laboratory Tests Test 10/28/16 07:57 10/28/16 13:30 10/28/16 13:34 White Blood Count 26.6 K/UL (4.8-10.8) #*H 23.2 K/UL (4.8-10.8) *H Red Blood Count 4.52 M/UL (4.70-6.10) L 4.53 M/UL (4.70-6.10) L Hemoglobin 13.1 G/DL (14.2-18.0) L 13.0 G/DL (14.2-18.0) L Hematocrit 40.5 % (42.0-52.0) L 41.1 % (42.0-52.0) L Mean Corpuscular Volume 90 FL (80-99) 91 FL (80-99) Mean Corpuscular Hemoglobin 28.8 PG (27.0-31.0) 28.7 PG (27.0-31.0) Mean Corpuscular Hemoglobin Concent 32.2 G/DL (32.0-36.0) 31.6 G/DL (32.0-36.0) L Red Cell Distribution Width 14.0 % (11.6-14.8) 14.3 % (11.6-14.8) Platelet Count 180 K/UL (150-450) 191 K/UL (150-450) Mean Platelet Volume 9.4 FL (6.5-10.1) 9.6 FL (6.5-10.1) Neutrophils (%) (Auto) % (45.0-75.0) % (45.0-75.0) Lymphocytes (%) (Auto) % (20.0-45.0) % (20.0-45.0) Monocytes (%) (Auto) % (1.0-10.0) % (1.0-10.0) Eosinophils (%) (Auto) % (0.0-3.0) % (0.0-3.0) Basophils (%) (Auto) % (0.0-2.0) % (0.0-2.0) Differential Total Cells Counted 100 100 Neutrophils % (Manual) 84 % (45-75) H 88 % (45-75) H Lymphocytes % (Manual) 9 % (20-45) L 9 % (20-45) L Monocytes % (Manual) 7 % (1-10) 3 % (1-10) Eosinophils % (Manual) 0 % (0-3) 0 % (0-3) Basophils % (Manual) 0 % (0-2) 0 % (0-2) Band Neutrophils 0 % (0-8) 0 % (0-8) Nucleated Red Blood Cells 1 /100 WBC Platelet Estimate Adequate Adequate Platelet Morphology Normal Normal Red Blood Cell Morphology Normal Normal Sodium Level 134 mEQ/L (135-145) L 131 mEQ/L (135-145) L Potassium Level 5.3 mEQ/L (3.4-4.9) #H 5.6 mEQ/L (3.4-4.9) H Chloride Level 94 mEQ/L (98-107) L 91 mEQ/L (98-107) L Carbon Dioxide Level 20 mEQ/L (20-30) 18 mEQ/L (20-30) L Anion Gap 20 (5-15) H 22 (5-15) H Blood Urea Nitrogen 31 mg/dL (7-23) H 36 mg/dL (7-23) H Creatinine 2.3 mg/dL (0.7-1.2) #H 2.7 mg/dL (0.7-1.2) H Estimat Glomerular Filtration Rate 31.8 mL/min (>60) 26.4 mL/min (>60) Glucose Level 94 mg/dL (74-106) 183 mg/dL (74-106) H Calcium Level 8.2 mg/dL (8.6-10.2) L 8.1 mg/dL (8.6-10.2) L Hepatitis A IgM Antibody Pending Hepatitis B Surface Antigen Pending Hepatitis B Core IgM Antibody Pending Hepatitis C Antibody Pending Stool Occult Blood Pending Microbiology Date/Time Source Procedure Growth Status 10/26/16 04:00 Nasal Nares Right MRSA Culture - Final NO METHICILLIN RESISTANT STAPH AUREUS... Complete 10/26/16 14:40 Abdominal Fluid Gram Stain - Final Resulted 10/26/16 14:40 Abdominal Fluid Body Fluid Culture - Preliminary NO GROWTH AFTER 24 HOURS Resulted 10/26/16 04:00 Rectum VRE Culture - Final NO VANCOMYCIN RESISTANT ENTEROCOCCUS ... Complete BALJIT FRANCOIS Oct 28, 2016 20:05
[2016-10-28] MEDS ORDERED: NS 100 ML IVPB ONE (20:30)
[2016-10-28] MEDS ORDERED: NS 110 ML ONE (20:34)
[2016-10-28] MEDS: Iron Sucrose 100 MG in NS 55 ML IVPB SCH (20:58)
[2016-10-28] MEDS ORDERED: NS 250 ML IVPB ONE (21:30)
[2016-10-28] MEDS ORDERED: Nitroglycerin Subl 0.4mg tab (Bottle Of 25) SL PRN (22:45)
--- NOTE | 2016-10-28 22:48 | Consultation ---
DATE OF CONSULTATION: 10/28/2016 INFECTIOUS DISEASE CONSULTATION CONSULTING PHYSICIAN: Aquiles Macedo M.D. REFERRING PHYSICIAN: Kiran Bello M.D. REASON FOR CONSULTATION: Evaluation of patient for leukocytosis, probable sepsis, and antibiotic management. HISTORY OF PRESENT ILLNESS: The patient is a 41-year-old male who came to the hospital with abdominal pain, mainly in the left lower quadrant. The patient is confused, not able to provide detailed information. The patient mentioned he has this abdominal pain for about a month. He could not tell me why he came after a month and related the pain worsened over time. Again, the patient is confused, does not know what is the year. He seems to be in the street at the moment. The patient was found to have leukocytosis. Infectious Disease consultation has been requested for further evaluation of the patient and antibiotic management. PAST MEDICAL HISTORY: 1. Headache. 2. Hypertension. 3. History of right shoulder pain. 4. History of alcohol abuse. 5. History of cirrhosis. FAMILY HISTORY: Not available. REVIEW OF SYSTEMS: Unobtainable. SOCIAL HISTORY: As mentioned above. MEDICATIONS: Currently off of antibiotics. PHYSICAL EXAMINATION: VITAL SIGNS: Temperature 97.9, blood pressure 86/57, pulse 89, and respiratory rate 16. HEENT: Mild pale conjunctivae. No icterus. NECK: No lymphadenopathy. CHEST: Coarse breathing sounds. HEART: S1 and S2. ABDOMEN: Soft. The patient has mild left lower and left upper quadrant tenderness. NEUROLOGIC: Confused. SKIN: No rash. LABORATORY AND DIAGNOSTIC DATA: Labs: White blood cells 26, hemoglobin 13, and platelets 180,000. Thoracentesis shows red blood cells with 315 white blood cells. BUN 31 and creatinine 2.3. ALT, AST, and alkaline phosphatase unremarkable. Ascitic fluid culture is pending. IMAGIN. Doppler showed thrombosis of posterior tibial vein. 2. Chest x-ray showed right pleural effusion resolved. 3. Ultrasound of the abdomen showed trace ascites. 4. Chest x-ray showed mild cardiomegaly. 5. CT of the abdomen showed right-sided pleural effusion and gallbladder wall edema. ASSESSMENT: The patient is a 41-year-old male who came to the hospital with abdominal pain. The patient is confused, possible hepatic encephalopathy. We will check ammonia level. The source is not clear. CT scan did not show any ascitic fluid. The patient underwent thoracocentesis of pleural effusion. Findings on pleural effusion did not show evidence of complicated pleural effusion versus empyema. The source of leukocytosis is not totally clear, although the patient may benefit from empiric treatment until we get further information from cultures. Also, the patient's leukocytosis could be due to the patient's lower extremity venous thrombosis. PLAN: 1. We will start the patient on Zosyn. 2. Monitor CBC. 3. Monitor BMP. 4. We will check ammonia level. 5. Need for anticoagulation will defer to the primary care. 6. Based on the patient's clinical course and labs, we will do further recommendations. Thank you, Ace Salinas for allowing me to participate in the care of this patient. I will follow the patient with you during this hospitalization. Aquiles Macedo M.D. DR: ALE JOB#: [id number] CC:
[2016-10-28] MEDS ORDERED: Morphine Sulfate 2mg/ml Inj IVP PRN (23:30)
[2016-10-28] MEDS ORDERED: Mylanta II UD 30ml ORAL PRN (23:30)
[2016-10-28] MEDS ORDERED: Miralax 17gm pkt ORAL PRN (23:30)
[2016-10-28] MEDS: DOPamine 400mg/250ml 250 ML IV SCH (23:52)
[2016-10-29] VITALS (51 sets, daily range): BP systolic 72–108; BP diastolic 51–75
[2016-10-29] MEDS ORDERED: Lidocaine 1% MPF 10mg/ml 5ml ONE (00:18)
[2016-10-29] MEDS ORDERED: Lidocaine 2% MPF 5ml Vial INJ ONE (00:30)
--- NOTE | 2016-10-29 01:59 | Emergency Room Report ---
Physical Exam Requested to start CVP as patient on Dopamine. H/O cardiomyopathy. Last 24 Hour Vital Signs Date Time Temp Pulse Resp B/P Pulse Ox O2 Delivery O2 Flow Rate FiO2 10/29/16 00:00 92 10/28/16 23:52 71/46 10/28/16 20:00 97.4 94 22 77/51 94 Room Air 10/28/16 15:52 98.6 91 20 82/54 98 10/28/16 11:53 89 10/28/16 11:35 97.9 89 16 86/57 96 Room Air 89 10/28/16 08:58 92 107/56 10/28/16 08:02 96.8 91 17 107/56 95 Room Air 92 10/28/16 07:52 89 10/28/16 06:07 100/56 10/28/16 06:03 96.3 73 19 91 Room Air 10/28/16 04:18 98.6 90 20 72/45 95 Room Air 10/28/16 04:00 87 Sp02 EP Interpretation: reviewed, abnormal - low General Appearance: no apparent distress, alert, GCS 15, non-toxic Head: normocephalic, atraumatic Eyes: bilateral eye PERRL, bilateral eye normal inspection ENT: moist mucus membranes Neck: supple Respiratory: lungs clear, normal breath sounds Cardiovascular #1: regular rate, rhythm Cardiovascular #2: 2+ femoral (R) Gastrointestinal: non tender, soft, distended Genitourinary: normal inspection Musculoskeletal: digits/nails normal, normal range of motion Neurologic: alert, oriented x3, grossly normal Psychiatric: mood/affect normal Skin: normal color Central Line Central Line : Consent: Emergent - and verbal Central Line Lumen: triple Maximal Sterile Barrier Tech: yes cap, yes mask, yes sterile gown, yes sterile gloves, yes large sterile sheet, yes hand hygiene, yes chlorhexidine prep Central Line Postion: femoral (R) Anesthesia: Lidocaine cc's of anesthesia: 2 Complications: none Central Line Post Position: sutured Attempts: One Patient Tolerated: Well Complications: None Progress EBL = 7 ml - central pressures seem high. Medical Decision Making Diagnostic Impression: Primary Impression: Alcoholic cardiomyopathy Additional Impressions: Ascites Pleural effusion Hypotension ER Course CVP begun for patient with hypotension on Dopamine. Last Vital Signs Date Time Temp Pulse Resp B/P Pulse Ox O2 Delivery O2 Flow Rate FiO2 10/29/16 00:00 92 10/28/16 23:52 71/46 10/28/16 20:00 97.4 22 94 Room Air 10/26/16 04:30 2.0 Status: improved Disposition: ADMITTED INPATIENT Condition: Critical Scripts Famotidine (PEPCID) 40 Mg Tablet 40 MG PO DAILY, #14 TAB 0 Refills Prov: MIKY MYERS D.O. 10/25/16 Referrals: NOT CHOSEN IPA/,REFERRING (PCP) Patient Instructions: Alcoholic Liver Disease, Ascites, Abdominal Pain, Adult Mike Leavitt M.D. Oct 29, 2016 01:59
[2016-10-29] MEDS ORDERED: chlordiazePOXIDE 25mg Cap ORAL PRN (04:15)
[2016-10-29] MEDS: Piperacillin/Tazobactam 4.5 GM in D5W 110 ML IVPB SCH ×2 (05:42→13:28)
[2016-10-29 06:29] LABS: MEAN CORPUSCULAR HEMOGLOBIN 29.8 PG (27.0-31.0); MEAN CORPUSCULAR HGB CONC 33.5 G/DL (32.0-36.0); MEAN CORPUSCULAR VOLUME 89 FL (80-99); MEAN PLATELET VOLUME 9.3 FL (6.5-10.1); PLATELET COUNT 208 K/UL (150-450); RED BLOOD COUNT 4.42 M/UL (4.70-6.10); RED CELL DISTRIBUTION WIDTH 14.6 % (11.6-14.8); WHITE BLOOD COUNT 18.1 K/UL (4.8-10.8)
[2016-10-29 07:00] LABS: CREATININE 3.1 mg/dL (0.7-1.2); GLOMERULAR FILTRATION RATE 22.5 mL/min (>60); TOTAL PROTEIN 4.6 g/dL (6.6-8.7)
[2016-10-29 07:06] LABS: AMYLASE 41 U/L (10-110); LIPASE 30 U/L (< 60)
[2016-10-29 07:14] LABS: BILIRUBIN,DIRECT 1.5 mg/dL (0.1-0.3)
--- NOTE | 2016-10-29 07:44 | Infectious Diseases Prog Note ---
Assessment/Plan Assessment/Plan ASSESSMENT: 41 y/o male with: // Possible acalculous cholecystitis - US: Gallbladder wall thickening, no stones. 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 No radiographically evident complication - SP thoracentesis 10/13: Cx NGTD // NKDA // Full Code PLAN: - continue empiric zosyn d# 2 - consider HIDA - f/u cultures - monitor CBC, temperatures - monitor CMP - pressor support, wean as tolerated Subjective Allergies: Coded Allergies: No Known Allergies (Unverified , 10/25/16) Subjective remains afebrile. WBC improved Objective Vital Signs Last 24 Hour Vital Signs Date Time Temp Pulse Resp B/P Pulse Ox O2 Delivery O2 Flow Rate FiO2 10/29/16 06:30 102 21 99/74 93 Nasal Cannula 4.0 10/29/16 06:00 102 21 99/71 95 Nasal Cannula 4.0 10/29/16 06:00 99/71 10/29/16 05:30 102 21 95/72 97 Nasal Cannula 4.0 10/29/16 05:00 100 17 90/74 98 Nasal Cannula 4.0 10/29/16 05:00 90/74 10/29/16 04:30 102 17 93/64 96 Nasal Cannula 4.0 10/29/16 04:00 94/70 10/29/16 04:00 101 10/29/16 04:00 98.4 101 19 94/70 97 Nasal Cannula 4.0 10/29/16 03:30 101 20 90/70 96 Nasal Cannula 5.0 10/29/16 03:00 106 20 95/70 96 Nasal Cannula 5.0 10/29/16 03:00 95/70 10/29/16 02:30 107 18 93/72 94 Nasal Cannula 5.0 10/29/16 02:00 107 15 97/64 93 Nasal Cannula 5.0 10/29/16 02:00 97/64 10/29/16 01:45 106 15 108/75 91 Nasal Cannula 5.0 10/29/16 01:30 108 21 96/72 94 Nasal Cannula 5.0 10/29/16 01:15 108 20 96/72 92 Nasal Cannula 5.0 10/29/16 01:00 107 15 87/72 92 Nasal Cannula 5.0 10/29/16 01:00 87/72 10/29/16 00:45 106 21 89/66 95 Nasal Cannula 5.0 10/29/16 00:30 106 20 91/70 93 Nasal Cannula 5.0 10/29/16 00:15 104 22 83/66 92 Nasal Cannula 5.0 10/29/16 00:00 97.0 96 21 84/58 95 Nasal Cannula 2.0 10/29/16 00:00 84/58 10/29/16 00:00 92 10/28/16 23:52 71/46 10/28/16 23:45 91 16 71/46 98 Nasal Cannula 2.0 10/28/16 23:30 92 21 70/54 97 Nasal Cannula 2.0 10/28/16 23:15 92 19 74/52 100 Nasal Cannula 2.0 10/28/16 23:00 91 16 74/52 100 Nasal Cannula 2.0 10/28/16 22:45 92 22 61/45 98 Nasal Cannula 2.0 10/28/16 20:00 97.4 94 22 77/51 94 Room Air 10/28/16 15:52 98.6 91 20 82/54 98 10/28/16 11:53 89 10/28/16 11:35 97.9 89 16 86/57 96 Room Air 89 10/28/16 08:58 92 107/56 10/28/16 08:02 96.8 91 17 107/56 95 Room Air 92 10/28/16 07:52 89 Height (Feet): 5 Height (Inches): 6.00 Weight (Pounds): 159 General Appearance: no acute distress Respiratory/Chest: decreased breath sounds Cardiovascular: normal rate, regular rhythm Abdomen: normal bowel sounds, soft, non tender Extremities: other - anasarca Microbiology Date/Time Source Procedure Growth Status 10/26/16 14:40 Abdominal Fluid Gram Stain - Final Resulted 10/26/16 14:40 Abdominal Fluid Body Fluid Culture - Preliminary NO GROWTH AFTER 24 HOURS Resulted Laboratory Tests Test 10/28/16 07:57 10/28/16 13:30 10/28/16 13:34 10/29/16 05:00 White Blood Count 26.6 K/UL (4.8-10.8) #*H 23.2 K/UL (4.8-10.8) *H 18.1 K/UL (4.8-10.8) H Red Blood Count 4.52 M/UL (4.70-6.10) L 4.53 M/UL (4.70-6.10) L 4.42 M/UL (4.70-6.10) L Hemoglobin 13.1 G/DL (14.2-18.0) L 13.0 G/DL (14.2-18.0) L 13.2 G/DL (14.2-18.0) L Hematocrit 40.5 % (42.0-52.0) L 41.1 % (42.0-52.0) L 39.4 % (42.0-52.0) L Mean Corpuscular Volume 90 FL (80-99) 91 FL (80-99) 89 FL (80-99) Mean Corpuscular Hemoglobin 28.8 PG (27.0-31.0) 28.7 PG (27.0-31.0) 29.8 PG (27.0-31.0) Mean Corpuscular Hemoglobin Concent 32.2 G/DL (32.0-36.0) 31.6 G/DL (32.0-36.0) L 33.5 G/DL (32.0-36.0) Red Cell Distribution Width 14.0 % (11.6-14.8) 14.3 % (11.6-14.8) 14.6 % (11.6-14.8) Platelet Count 180 K/UL (150-450) 191 K/UL (150-450) 208 K/UL (150-450) Mean Platelet Volume 9.4 FL (6.5-10.1) 9.6 FL (6.5-10.1) 9.3 FL (6.5-10.1) Neutrophils (%) (Auto) % (45.0-75.0) % (45.0-75.0) % (45.0-75.0) Lymphocytes (%) (Auto) % (20.0-45.0) % (20.0-45.0) % (20.0-45.0) Monocytes (%) (Auto) % (1.0-10.0) % (1.0-10.0) % (1.0-10.0) Eosinophils (%) (Auto) % (0.0-3.0) % (0.0-3.0) % (0.0-3.0) Basophils (%) (Auto) % (0.0-2.0) % (0.0-2.0) % (0.0-2.0) Differential Total Cells Counted 100 100 Neutrophils % (Manual) 84 % (45-75) H 88 % (45-75) H Pending Lymphocytes % (Manual) 9 % (20-45) L 9 % (20-45) L Pending Monocytes % (Manual) 7 % (1-10) 3 % (1-10) Eosinophils % (Manual) 0 % (0-3) 0 % (0-3) Basophils % (Manual) 0 % (0-2) 0 % (0-2) Band Neutrophils 0 % (0-8) 0 % (0-8) Nucleated Red Blood Cells 1 /100 WBC Platelet Estimate Adequate Adequate Pending Platelet Morphology Normal Normal Pending Red Blood Cell Morphology Normal Normal Sodium Level 134 mEQ/L (135-145) L 131 mEQ/L (135-145) L 131 mEQ/L (135-145) L Potassium Level 5.3 mEQ/L (3.4-4.9) #H 5.6 mEQ/L (3.4-4.9) H 5.0 mEQ/L (3.4-4.9) H Chloride Level 94 mEQ/L (98-107) L 91 mEQ/L (98-107) L 91 mEQ/L (98-107) L Carbon Dioxide Level 20 mEQ/L (20-30) 18 mEQ/L (20-30) L 20 mEQ/L (20-30) Anion Gap 20 (5-15) H 22 (5-15) H 20 (5-15) H Blood Urea Nitrogen 31 mg/dL (7-23) H 36 mg/dL (7-23) H 50 mg/dL (7-23) H Creatinine 2.3 mg/dL (0.7-1.2) #H 2.7 mg/dL (0.7-1.2) H 3.1 mg/dL (0.7-1.2) H Estimat Glomerular Filtration Rate 31.8 mL/min (>60) 26.4 mL/min (>60) 22.5 mL/min (>60) Glucose Level 94 mg/dL (74-106) 183 mg/dL (74-106) H 137 mg/dL (74-106) H Calcium Level 8.2 mg/dL (8.6-10.2) L 8.1 mg/dL (8.6-10.2) L 7.0 mg/dL (8.6-10.2) L Hepatitis A IgM Antibody Pending Hepatitis B Surface Antigen Pending Hepatitis B Core IgM Antibody Pending Hepatitis C Antibody Pending Stool Occult Blood Pending Total Bilirubin 2.5 mg/dL (0.0-1.2) H Direct Bilirubin 1.5 mg/dL (0.1-0.3) H Aspartate Amino Transf (AST/SGOT) 6385 U/L (5-40) H Alanine Aminotransferase (ALT/SGPT) 3129 U/L (3-41) H Alkaline Phosphatase 130 U/L (40-129) H Ammonia 48 umol/L (16-60) Total Protein 4.6 g/dL (6.6-8.7) L Albumin 2.3 g/dL (3.5-5.2) L Globulin 2.3 g/dL Albumin/Globulin Ratio 1.0 (1.0-2.7) Amylase Level 41 U/L (10-110) Lipase 30 U/L (< 60) Current Medications Medications (Trade) Dose Ordered Sig/Baudilio Route PRN Reason Start Time Stop Time Status Last Admin Dose Admin Acetaminophen (Tylenol) 650 mg Q4H PRN ORAL fever 10/28/16 23:30 11/27/16 23:29 Al Hydroxide/Mg Hydroxide (Mylanta II) 30 ml Q6H PRN ORAL dyspepsia 10/28/16 23:30 11/27/16 23:29 Carvedilol (Coreg) 6.25 mg EVERY 12 HOURS ORAL 10/29/16 09:00 11/28/16 08:59 Chlordiazepoxide (Librium) 25 mg Q6H PRN ORAL tachycardia> 100 10/29/16 04:15 11/05/16 04:14 Dextrose (Dextrose 50%) STAT PRN IV Hypoglycemia 10/28/16 23:30 11/27/16 23:29 Diphenhydramine HCl (Benadryl) 25 mg Q6H PRN ORAL Itching/Pruritis 10/28/16 23:30 11/27/16 23:29 Dopamine HCl/ Dextrose 250 ml @ 0 mls/hr Q24H IV 10/28/16 23:30 11/27/16 23:29 10/28/16 23:52 Folic Acid (Folate) 1 mg DAILY ORAL 10/29/16 09:00 11/28/16 08:59 Iron Sucrose 100 mg/Sodium Chloride 60 ml @ 240 mls/hr BEDTIME IVPB 10/29/16 21:00 10/29/16 21:01 Morphine Sulfate (Morphine Sulfate) 2 mg Q4H PRN IVP severe Pain (Pain Scale 7-10) 10/28/16 23:30 11/04/16 23:29 Nitroglycerin (Ntg) 0.4 mg Q5M X 3 DOSES PRN SL Prn Chest Pain 10/28/16 22:45 11/27/16 22:44 Ondansetron HCl (Zofran) 4 mg Q6H PRN IVP Nausea & Vomiting 10/28/16 23:30 11/27/16 23:29 Piperacillin Sod/ Tazobactam Sod/ Dextrose (Zosyn/D5W) 110 ml @ 27.5 mls/hr EVERY 8 HOURS IVPB 10/29/16 06:00 11/03/16 05:59 10/29/16 05:42 Polyethylene Glycol (Miralax) 17 gm HSPRN PRN ORAL Constipation 10/28/16 23:30 11/27/16 23:29 Sodium Chloride (Sodium Chloride 1000ml bag) 1,000 ml @ 50 mls/hr Q20H IV 10/28/16 23:30 11/27/16 23:29 10/28/16 23:52 Temazepam (Restoril) 15 mg HSPRN PRN ORAL Insomnia 10/28/16 23:30 11/04/16 23:29 Thiamine HCl 100 mg 100 mg DAILY ORAL 10/29/16 09:00 11/28/16 08:59 BOBO COLÓN Oct 29, 2016 07:44
[2016-10-29] MEDS ORDERED: Carvedilol 6.25mg Tab ORAL SCH (09:00)
[2016-10-29 09:21] LABS: ANISOCYTOSIS 1+; BAND NEUTROPHILS % (MANUAL) 0 % (0-8); BASOPHILS % (MANUAL) 0 % (0-2); EOSINOPHILS % (MANUAL) 0 % (0-3); HYPOCHROMASIA 1+; LYMPHOCYTES % (MANUAL) 14 % (20-45); NEUTROPHILS % (MANUAL) 81 % (45-75); PLATELET ESTIMATE ADEQUATE; PLATELET MORPHOLOGY NORMAL; POLYCHROMASIA OCCASIONAL; TOTAL CELLS COUNTED 100
[2016-10-29] MEDS: Thiamine 100mg tab ORAL SCH (09:24)
[2016-10-29] MEDS ORDERED: NS 275ml ONE ×2 (10:23→10:29)
--- NOTE | 2016-10-29 10:55 | Diagnostic Imaging Report ---
Indication: Shortness of breath Technique: One view of the chest Comparison: 10/26/2016 Findings: There is suggestion of increased retrocardiac opacity and increased obscuration of left hemidiaphragm, may indicate increasing retrocardiac consolidation and/or left-sided pleural fluid. The remainder of the lungs and pleural spaces remain clear. The heart remains markedly enlarged Impression: Possible developing retrocardiac consolidation and/or left-sided pleural fluid, over 3 days Stable cardiomegaly
[2016-10-29] MEDS: DOPamine 400mg/250ml 250 ML IV SCH (11:16)
--- NOTE | 2016-10-29 11:47 | Pulmonolgy Critical Care Note ---
Critical Care - Asmt/Plan Problems: (1) Cardiac shock syndrome (2) Ascites (3) Alcoholic cardiomyopathy (4) ETOH abuse Respiratory: monitor respiratory rate Cardiac: continue to monitor HR/BP Renal: F/U I&O Infectious Disease: check cultures Gastrointestinal: continue feedings/current rate, hold feedings Endocrine: check TSH Hematologic: monitor H/H Neurologic: PRN Ativan Prophylaxis: Heparin Notes Reviewed: cardio Discussed with: nurses, consultants, top case assembler, other - I discussed the prognosis with the patient, His EF is less than 10%. with cirrhosis. it was explaned to the patient that he has a verly limited life expectancy. He was explaned that he wont benefit from CPR and in case his heart stops he will get comfort care. Critical Care - Objective Last 24 Hour Vital Signs Date Time Temp Pulse Resp B/P Pulse Ox O2 Delivery O2 Flow Rate FiO2 10/29/16 11:16 92/68 10/29/16 11:00 92/68 10/29/16 11:00 97 20 92/68 97 Nasal Cannula 4.0 10/29/16 10:30 98 21 91/65 97 Nasal Cannula 4.0 10/29/16 10:00 97 21 94/70 98 Nasal Cannula 4.0 10/29/16 10:00 94/70 10/29/16 09:30 99 15 94/68 97 Nasal Cannula 4.0 10/29/16 09:00 99 16 92/62 97 Nasal Cannula 4.0 10/29/16 09:00 92/62 10/29/16 09:00 98 91/55 10/29/16 08:30 99 15 92/69 97 Nasal Cannula 4.0 10/29/16 08:00 103 10/29/16 08:00 98.8 100 20 92/69 98 Nasal Cannula 4.0 10/29/16 08:00 92/69 10/29/16 07:30 100 19 94/73 96 Nasal Cannula 4.0 10/29/16 07:00 103 21 94/71 93 Nasal Cannula 4.0 10/29/16 07:00 94/71 10/29/16 06:30 102 21 99/74 93 Nasal Cannula 4.0 10/29/16 06:00 102 21 99/71 95 Nasal Cannula 4.0 10/29/16 06:00 99/71 10/29/16 05:30 102 21 95/72 97 Nasal Cannula 4.0 10/29/16 05:00 100 17 90/74 98 Nasal Cannula 4.0 10/29/16 05:00 90/74 10/29/16 04:30 102 17 93/64 96 Nasal Cannula 4.0 10/29/16 04:00 94/70 10/29/16 04:00 101 10/29/16 04:00 98.4 101 19 94/70 97 Nasal Cannula 4.0 10/29/16 03:30 101 20 90/70 96 Nasal Cannula 5.0 10/29/16 03:00 106 20 95/70 96 Nasal Cannula 5.0 10/29/16 03:00 95/70 10/29/16 02:30 107 18 93/72 94 Nasal Cannula 5.0 10/29/16 02:00 107 15 97/64 93 Nasal Cannula 5.0 10/29/16 02:00 97/64 10/29/16 01:45 106 15 108/75 91 Nasal Cannula 5.0 10/29/16 01:30 108 21 96/72 94 Nasal Cannula 5.0 10/29/16 01:15 108 20 96/72 92 Nasal Cannula 5.0 10/29/16 01:00 107 15 87/72 92 Nasal Cannula 5.0 10/29/16 01:00 87/72 10/29/16 00:45 106 21 89/66 95 Nasal Cannula 5.0 10/29/16 00:30 106 20 91/70 93 Nasal Cannula 5.0 10/29/16 00:15 104 22 83/66 92 Nasal Cannula 5.0 10/29/16 00:00 97.0 96 21 84/58 95 Nasal Cannula 2.0 10/29/16 00:00 84/58 10/29/16 00:00 92 10/28/16 23:52 71/46 10/28/16 23:45 91 16 71/46 98 Nasal Cannula 2.0 10/28/16 23:30 92 21 70/54 97 Nasal Cannula 2.0 10/28/16 23:15 92 19 74/52 100 Nasal Cannula 2.0 10/28/16 23:00 91 16 74/52 100 Nasal Cannula 2.0 10/28/16 22:45 92 22 61/45 98 Nasal Cannula 2.0 10/28/16 20:00 97.4 94 22 77/51 94 Room Air 10/28/16 15:52 98.6 91 20 82/54 98 10/28/16 11:53 89 Status: awake Condition: critical Neck: full ROM Lungs: clear Abdomen: soft, active bowel sounds Micro: Microbiology Date/Time Source Procedure Growth Status 10/26/16 14:40 Abdominal Fluid Gram Stain - Final Resulted 10/26/16 14:40 Abdominal Fluid Body Fluid Culture - Preliminary NO GROWTH AFTER 48 HOURS Resulted Critical Care - Subjective ROS Limited/Unobtainable: No ICU Day: 2 Condition: critical EKG Rhythm: Sinus Rhythm Fluids: NS 50 cc.hour I&O: Intake and Output 10/28/16 10/29/16 19:00 07:00 Intake Total 477.5 ml 763.066 ml Output Total 460 ml Balance 477.5 ml 303.066 ml Intake Oral 450 ml 0 ml IV Total 27.5 ml 763.066 ml Output Urine Total 410 ml Emesis 50 ml # Voids 4 # Bowel Movements 1 CXR: retrocardiac infiltrate Labs: Laboratory Tests Test 10/28/16 13:30 10/28/16 13:34 10/29/16 05:00 Stool Occult Blood Pending White Blood Count 23.2 K/UL (4.8-10.8) *H 18.1 K/UL (4.8-10.8) H Red Blood Count 4.53 M/UL (4.70-6.10) L 4.42 M/UL (4.70-6.10) L Hemoglobin 13.0 G/DL (14.2-18.0) L 13.2 G/DL (14.2-18.0) L Hematocrit 41.1 % (42.0-52.0) L 39.4 % (42.0-52.0) L Mean Corpuscular Volume 91 FL (80-99) 89 FL (80-99) Mean Corpuscular Hemoglobin 28.7 PG (27.0-31.0) 29.8 PG (27.0-31.0) Mean Corpuscular Hemoglobin Concent 31.6 G/DL (32.0-36.0) L 33.5 G/DL (32.0-36.0) Red Cell Distribution Width 14.3 % (11.6-14.8) 14.6 % (11.6-14.8) Platelet Count 191 K/UL (150-450) 208 K/UL (150-450) Mean Platelet Volume 9.6 FL (6.5-10.1) 9.3 FL (6.5-10.1) Neutrophils (%) (Auto) % (45.0-75.0) % (45.0-75.0) Lymphocytes (%) (Auto) % (20.0-45.0) % (20.0-45.0) Monocytes (%) (Auto) % (1.0-10.0) % (1.0-10.0) Eosinophils (%) (Auto) % (0.0-3.0) % (0.0-3.0) Basophils (%) (Auto) % (0.0-2.0) % (0.0-2.0) Differential Total Cells Counted 100 100 Neutrophils % (Manual) 88 % (45-75) H 81 % (45-75) H Lymphocytes % (Manual) 9 % (20-45) L 14 % (20-45) L Monocytes % (Manual) 3 % (1-10) 5 % (1-10) Eosinophils % (Manual) 0 % (0-3) 0 % (0-3) Basophils % (Manual) 0 % (0-2) 0 % (0-2) Band Neutrophils 0 % (0-8) 0 % (0-8) Platelet Estimate Adequate Adequate Platelet Morphology Normal Normal Red Blood Cell Morphology Normal Sodium Level 131 mEQ/L (135-145) L 131 mEQ/L (135-145) L Potassium Level 5.6 mEQ/L (3.4-4.9) H 5.0 mEQ/L (3.4-4.9) H Chloride Level 91 mEQ/L (98-107) L 91 mEQ/L (98-107) L Carbon Dioxide Level 18 mEQ/L (20-30) L 20 mEQ/L (20-30) Anion Gap 22 (5-15) H 20 (5-15) H Blood Urea Nitrogen 36 mg/dL (7-23) H 50 mg/dL (7-23) H Creatinine 2.7 mg/dL (0.7-1.2) H 3.1 mg/dL (0.7-1.2) H Estimat Glomerular Filtration Rate 26.4 mL/min (>60) 22.5 mL/min (>60) Glucose Level 183 mg/dL (74-106) H 137 mg/dL (74-106) H Calcium Level 8.1 mg/dL (8.6-10.2) L 7.0 mg/dL (8.6-10.2) L Polychromasia Occasional Hypochromasia 1+ Anisocytosis 1+ Total Bilirubin 2.5 mg/dL (0.0-1.2) H Direct Bilirubin 1.5 mg/dL (0.1-0.3) H Aspartate Amino Transf (AST/SGOT) 6385 U/L (5-40) H Alanine Aminotransferase (ALT/SGPT) 3129 U/L (3-41) H Alkaline Phosphatase 130 U/L (40-129) H Ammonia 48 umol/L (16-60) Total Protein 4.6 g/dL (6.6-8.7) L Albumin 2.3 g/dL (3.5-5.2) L Globulin 2.3 g/dL Albumin/Globulin Ratio 1.0 (1.0-2.7) Amylase Level 41 U/L (10-110) Lipase 30 U/L (< 60) RHONDA PARKINSON Oct 29, 2016 11:47
--- NOTE | 2016-10-29 12:46 | General Progress Note ---
Assessment/Plan Problem List: (1) Abdominal pain ICD Codes: R10.9 - Unspecified abdominal pain SNOMED: 97012780 (2) Alcoholic cardiomyopathy ICD Codes: I42.6 - Alcoholic cardiomyopathy SNOMED: 332534071 (3) Anemia ICD Codes: D64.9 - Anemia, unspecified SNOMED: 167676948 (4) Ascites ICD Codes: R18.8 - Other ascites SNOMED: 878175995 (5) Hypoalbuminemia ICD Codes: E88.09 - Other disorders of plasma-protein metabolism, not elsewhere classified SNOMED: 904136704 (6) ETOH abuse ICD Codes: F10.10 - Alcohol abuse, uncomplicated SNOMED: 53944765, 49421923 (7) Pleural effusion ICD Codes: J90 - Pleural effusion, not elsewhere classified SNOMED: 79733088 (8) Leukocytosis ICD Codes: D72.829 - Elevated white blood cell count, unspecified SNOMED: 167376346, 290808503 (9) Shock liver ICD Codes: K72.00 - Acute and subacute hepatic failure without coma SNOMED: 344188436 Assessment/Plan fu labs abx fu stool ob GI procedures on hold for now repeat lfts Subjective ROS Limited/Unobtainable: No Allergies: Coded Allergies: No Known Allergies (Unverified , 10/25/16) Subjective transfered to icu Objective Last 24 Hour Vital Signs Date Time Temp Pulse Resp B/P Pulse Ox O2 Delivery O2 Flow Rate FiO2 10/29/16 11:16 92/68 10/29/16 11:00 92/68 10/29/16 11:00 97 20 92/68 97 Nasal Cannula 4.0 10/29/16 10:30 98 21 91/65 97 Nasal Cannula 4.0 10/29/16 10:00 97 21 94/70 98 Nasal Cannula 4.0 10/29/16 10:00 94/70 10/29/16 09:30 99 15 94/68 97 Nasal Cannula 4.0 10/29/16 09:00 99 16 92/62 97 Nasal Cannula 4.0 10/29/16 09:00 92/62 10/29/16 09:00 98 91/55 10/29/16 08:30 99 15 92/69 97 Nasal Cannula 4.0 10/29/16 08:00 103 10/29/16 08:00 98.8 100 20 92/69 98 Nasal Cannula 4.0 10/29/16 08:00 92/69 10/29/16 07:30 100 19 94/73 96 Nasal Cannula 4.0 10/29/16 07:00 103 21 94/71 93 Nasal Cannula 4.0 10/29/16 07:00 94/71 10/29/16 06:30 102 21 99/74 93 Nasal Cannula 4.0 10/29/16 06:00 102 21 99/71 95 Nasal Cannula 4.0 10/29/16 06:00 99/71 10/29/16 05:30 102 21 95/72 97 Nasal Cannula 4.0 10/29/16 05:00 100 17 90/74 98 Nasal Cannula 4.0 10/29/16 05:00 90/74 10/29/16 04:30 102 17 93/64 96 Nasal Cannula 4.0 10/29/16 04:00 94/70 10/29/16 04:00 101 10/29/16 04:00 98.4 101 19 94/70 97 Nasal Cannula 4.0 10/29/16 03:30 101 20 90/70 96 Nasal Cannula 5.0 10/29/16 03:00 106 20 95/70 96 Nasal Cannula 5.0 10/29/16 03:00 95/70 10/29/16 02:30 107 18 93/72 94 Nasal Cannula 5.0 10/29/16 02:00 107 15 97/64 93 Nasal Cannula 5.0 10/29/16 02:00 97/64 10/29/16 01:45 106 15 108/75 91 Nasal Cannula 5.0 10/29/16 01:30 108 21 96/72 94 Nasal Cannula 5.0 10/29/16 01:15 108 20 96/72 92 Nasal Cannula 5.0 10/29/16 01:00 107 15 87/72 92 Nasal Cannula 5.0 10/29/16 01:00 87/72 10/29/16 00:45 106 21 89/66 95 Nasal Cannula 5.0 10/29/16 00:30 106 20 91/70 93 Nasal Cannula 5.0 10/29/16 00:15 104 22 83/66 92 Nasal Cannula 5.0 10/29/16 00:00 97.0 96 21 84/58 95 Nasal Cannula 2.0 10/29/16 00:00 84/58 3/17/17 00:00 92 10/28/16 23:52 71/46 10/28/16 23:45 91 16 71/46 98 Nasal Cannula 2.0 10/28/16 23:30 92 21 70/54 97 Nasal Cannula 2.0 10/28/16 23:15 92 19 74/52 100 Nasal Cannula 2.0 10/28/16 23:00 91 16 74/52 100 Nasal Cannula 2.0 10/28/16 22:45 92 22 61/45 98 Nasal Cannula 2.0 10/28/16 20:00 97.4 94 22 77/51 94 Room Air 10/28/16 15:52 98.6 91 20 82/54 98 Intake and Output 10/28/16 10/29/16 19:00 07:00 Intake Total 477.5 ml 763.066 ml Output Total 460 ml Balance 477.5 ml 303.066 ml Intake Oral 450 ml 0 ml IV Total 27.5 ml 763.066 ml Output Urine Total 410 ml Emesis 50 ml # Voids 4 # Bowel Movements 1 Laboratory Tests 10/28/16 13:30: Stool Occult Blood Negative 10/28/16 13:34: White Blood Count 23.2*H, Red Blood Count 4.53L, Hemoglobin 13.0L, Hematocrit 41.1L, Mean Corpuscular Volume 91, Mean Corpuscular Hemoglobin 28.7, Mean Corpuscular Hemoglobin Concent 31.6L, Red Cell Distribution Width 14.3, Platelet Count 191, Mean Platelet Volume 9.6, Neutrophils (%) (Auto) , Lymphocytes (%) (Auto) , Monocytes (%) (Auto) , Eosinophils (%) (Auto) , Basophils (%) (Auto) , Differential Total Cells Counted 100, Neutrophils % ( Manual) 88H, Lymphocytes % (Manual) 9L, Monocytes % (Manual) 3, Eosinophils % ( Manual) 0, Basophils % (Manual) 0, Band Neutrophils 0, Platelet Estimate Adequate, Platelet Morphology Normal, Red Blood Cell Morphology Normal, Sodium Level 131L, Potassium Level 5.6H, Chloride Level 91L, Carbon Dioxide Level 18L, Anion Gap 22H, Blood Urea Nitrogen 36H, Creatinine 2.7H, Estimat Glomerular Filtration Rate 26.4, Glucose Level 183H, Calcium Level 8.1L 10/29/16 05:00: White Blood Count 18.1H, Red Blood Count 4.42L, Hemoglobin 13.2L, Hematocrit 39.4L, Mean Corpuscular Volume 89, Mean Corpuscular Hemoglobin 29.8, Mean Corpuscular Hemoglobin Concent 33.5, Red Cell Distribution Width 14.6, Platelet Count 208, Mean Platelet Volume 9.3, Neutrophils (%) (Auto) , Lymphocytes (%) ( Auto) , Monocytes (%) (Auto) , Eosinophils (%) (Auto) , Basophils (%) (Auto) , Differential Total Cells Counted 100, Neutrophils % (Manual) 81H, Lymphocytes % (Manual) 14L, Monocytes % (Manual) 5, Eosinophils % (Manual) 0, Basophils % ( Manual) 0, Band Neutrophils 0, Platelet Estimate Adequate, Platelet Morphology Normal, Sodium Level 131L, Potassium Level 5.0H, Chloride Level 91L, Carbon Dioxide Level 20, Anion Gap 20H, Blood Urea Nitrogen 50H, Creatinine 3.1H, Estimat Glomerular Filtration Rate 22.5, Glucose Level 137H, Calcium Level 7.0L , Polychromasia Occasional, Hypochromasia 1+, Anisocytosis 1+, Total Bilirubin 2.5H, Direct Bilirubin 1.5H, Aspartate Amino Transf (AST/SGOT) 6385H, Alanine Aminotransferase (ALT/SGPT) 3129H, Alkaline Phosphatase 130H, Ammonia 48, Total Protein 4.6L, Albumin 2.3L, Globulin 2.3, Albumin/Globulin Ratio 1.0, Amylase Level 41, Lipase 30 Height (Feet): 5 Height (Inches): 6.00 Weight (Pounds): 159 General Appearance: mild distress EENT: normal ENT inspection Neck: supple Cardiovascular: tachycardia Respiratory/Chest: decreased breath sounds Abdomen: soft, hypoactive bowel sounds, tender ADRIAN BERG Oct 29, 2016 12:46
--- NOTE | 2016-10-29 20:11 | Cardiology Progress Note ---
Assessment/Plan Assessment/Plan abd pain cardiomyopathy chf acute on chronic rv apical filling defect no confirmed on echo renal wedge deformity etohism pleural effusion ascites abn ekg tachy ? related to withdrawl hypotension d/c diuretic echo noted cardiac enzyme neg icu care providded over niteadn today Librium being given rebolus of ivf has been on dopain as bp has been low will rebolus in hope of getting him off the dopaamin appears now dnr multiple phone call over chadd teran sferer dot icu with da durtaion 45 min Subjective Cardiovascular: Reports: lightheadedness, Denies: chest pain Respiratory: Denies: shortness of breath Gastrointestinal/Abdominal: Denies: abdominal pain Genitourinary: Denies: burning Objective Last 24 Hour Vital Signs Date Time Temp Pulse Resp B/P Pulse Ox O2 Delivery O2 Flow Rate FiO2 10/29/16 17:30 96 20 79/61 99 Nasal Cannula 3.0 10/29/16 17:00 97 20 85/56 99 Nasal Cannula 3.0 10/29/16 16:30 98 18 80/56 99 Nasal Cannula 3.0 10/29/16 16:00 98.8 98 19 81/61 99 Nasal Cannula 4.0 10/29/16 15:00 97 19 82/62 99 Nasal Cannula 4.0 10/29/16 14:30 97 20 85/63 97 Nasal Cannula 4.0 10/29/16 14:00 99 15 82/62 99 Nasal Cannula 4.0 10/29/16 13:30 99 21 85/58 99 Nasal Cannula 4.0 10/29/16 13:00 99 21 89/64 97 Nasal Cannula 4.0 10/29/16 12:30 99 20 90/62 98 Nasal Cannula 4.0 10/29/16 12:00 97.8 101 18 94/68 97 Nasal Cannula 4.0 10/29/16 12:00 97 10/29/16 11:30 97 17 91/70 97 Nasal Cannula 4.0 10/29/16 11:16 92/68 10/29/16 11:00 92/68 10/29/16 11:00 97 20 92/68 97 Nasal Cannula 4.0 10/29/16 10:30 98 21 91/65 97 Nasal Cannula 4.0 10/29/16 10:00 97 21 94/70 98 Nasal Cannula 4.0 10/29/16 10:00 94/70 10/29/16 09:30 99 15 94/68 97 Nasal Cannula 4.0 10/29/16 09:00 99 16 92/62 97 Nasal Cannula 4.0 10/29/16 09:00 92/62 10/29/16 09:00 98 91/55 10/29/16 08:30 99 15 92/69 97 Nasal Cannula 4.0 10/29/16 08:00 103 10/29/16 08:00 98.8 100 20 92/69 98 Nasal Cannula 4.0 10/29/16 08:00 92/69 10/29/16 07:30 100 19 94/73 96 Nasal Cannula 4.0 10/29/16 07:00 103 21 94/71 93 Nasal Cannula 4.0 10/29/16 07:00 94/71 10/29/16 06:30 102 21 99/74 93 Nasal Cannula 4.0 10/29/16 06:00 102 21 99/71 95 Nasal Cannula 4.0 10/29/16 06:00 99/71 10/29/16 05:30 102 21 95/72 97 Nasal Cannula 4.0 10/29/16 05:00 100 17 90/74 98 Nasal Cannula 4.0 10/29/16 05:00 90/74 10/29/16 04:30 102 17 93/64 96 Nasal Cannula 4.0 10/29/16 04:00 94/70 10/29/16 04:00 101 10/29/16 04:00 98.4 101 19 94/70 97 Nasal Cannula 4.0 10/29/16 03:30 101 20 90/70 96 Nasal Cannula 5.0 10/29/16 03:00 106 20 95/70 96 Nasal Cannula 5.0 10/29/16 03:00 95/70 10/29/16 02:30 107 18 93/72 94 Nasal Cannula 5.0 10/29/16 02:00 107 15 97/64 93 Nasal Cannula 5.0 10/29/16 02:00 97/64 10/29/16 01:45 106 15 108/75 91 Nasal Cannula 5.0 10/29/16 01:30 108 21 96/72 94 Nasal Cannula 5.0 10/29/16 01:15 108 20 96/72 92 Nasal Cannula 5.0 10/29/16 01:00 107 15 87/72 92 Nasal Cannula 5.0 10/29/16 01:00 87/72 10/29/16 00:45 106 21 89/66 95 Nasal Cannula 5.0 10/29/16 00:30 106 20 91/70 93 Nasal Cannula 5.0 10/29/16 00:15 104 22 83/66 92 Nasal Cannula 5.0 10/29/16 00:00 97.0 96 21 84/58 95 Nasal Cannula 2.0 10/29/16 00:00 84/58 10/29/16 00:00 92 10/28/16 23:52 71/46 10/28/16 23:45 91 16 71/46 98 Nasal Cannula 2.0 10/28/16 23:30 92 21 70/54 97 Nasal Cannula 2.0 10/28/16 23:15 92 19 74/52 100 Nasal Cannula 2.0 10/28/16 23:00 91 16 74/52 100 Nasal Cannula 2.0 10/28/16 22:45 92 22 61/45 98 Nasal Cannula 2.0 General Appearance: no apparent distress, alert Neck: supple Cardiovascular: normal rate, regular rhythm Respiratory/Chest: lungs clear Abdomen: normal bowel sounds, non tender, soft Extremities: moderate edema Intake and Output 10/28/16 10/29/16 19:00 07:00 Intake Total 477.5 ml 763.066 ml Output Total 460 ml Balance 477.5 ml 303.066 ml Intake Oral 450 ml 0 ml IV Total 27.5 ml 763.066 ml Output Urine Total 410 ml Emesis 50 ml # Voids 4 # Bowel Movements 1 Laboratory Tests Test 10/29/16 05:00 White Blood Count 18.1 K/UL (4.8-10.8) H Red Blood Count 4.42 M/UL (4.70-6.10) L Hemoglobin 13.2 G/DL (14.2-18.0) L Hematocrit 39.4 % (42.0-52.0) L Mean Corpuscular Volume 89 FL (80-99) Mean Corpuscular Hemoglobin 29.8 PG (27.0-31.0) Mean Corpuscular Hemoglobin Concent 33.5 G/DL (32.0-36.0) Red Cell Distribution Width 14.6 % (11.6-14.8) Platelet Count 208 K/UL (150-450) Mean Platelet Volume 9.3 FL (6.5-10.1) Neutrophils (%) (Auto) % (45.0-75.0) Lymphocytes (%) (Auto) % (20.0-45.0) Monocytes (%) (Auto) % (1.0-10.0) Eosinophils (%) (Auto) % (0.0-3.0) Basophils (%) (Auto) % (0.0-2.0) Differential Total Cells Counted 100 Neutrophils % (Manual) 81 % (45-75) H Lymphocytes % (Manual) 14 % (20-45) L Monocytes % (Manual) 5 % (1-10) Eosinophils % (Manual) 0 % (0-3) Basophils % (Manual) 0 % (0-2) Band Neutrophils 0 % (0-8) Platelet Estimate Adequate Platelet Morphology Normal Polychromasia Occasional Hypochromasia 1+ Anisocytosis 1+ Sodium Level 131 mEQ/L (135-145) L Potassium Level 5.0 mEQ/L (3.4-4.9) H Chloride Level 91 mEQ/L (98-107) L Carbon Dioxide Level 20 mEQ/L (20-30) Anion Gap 20 (5-15) H Blood Urea Nitrogen 50 mg/dL (7-23) H Creatinine 3.1 mg/dL (0.7-1.2) H Estimat Glomerular Filtration Rate 22.5 mL/min (>60) Glucose Level 137 mg/dL (74-106) H Calcium Level 7.0 mg/dL (8.6-10.2) L Total Bilirubin 2.5 mg/dL (0.0-1.2) H Direct Bilirubin 1.5 mg/dL (0.1-0.3) H Aspartate Amino Transf (AST/SGOT) 6385 U/L (5-40) H Alanine Aminotransferase (ALT/SGPT) 3129 U/L (3-41) H Alkaline Phosphatase 130 U/L (40-129) H Ammonia 48 umol/L (16-60) Total Protein 4.6 g/dL (6.6-8.7) L Albumin 2.3 g/dL (3.5-5.2) L Globulin 2.3 g/dL Albumin/Globulin Ratio 1.0 (1.0-2.7) Amylase Level 41 U/L (10-110) Lipase 30 U/L (< 60) BALJIT FRANCOIS Oct 29, 2016 20:11
[2016-10-29] MEDS ORDERED: NS 250 ML IVPB ONE (20:15)
[2016-10-29] MEDS ORDERED: Iron Sucrose 100 MG in NS 55 ML IVPB SCH (21:00)
[2016-10-29] MEDS: Piperacillin/Tazobactam 3.375 GM in NS 110 ML IVPB SCH (21:44)
[2016-10-30] VITALS (29 sets, daily range): BP systolic 77–95; BP diastolic 54–73
[2016-10-30] MEDS: Piperacillin/Tazobactam 3.375 GM in NS 110 ML IVPB SCH ×3 (06:18→21:47)
[2016-10-30 06:32] LABS: BASOPHILS % (AUTO) 0.4 % (0.0-2.0); EOSINOPHILS % (AUTO) 0.1 % (0.0-3.0); LYMPHOCYTES % (AUTO) 9.1 % (20.0-45.0); MEAN CORPUSCULAR HEMOGLOBIN 29.5 PG (27.0-31.0); MEAN CORPUSCULAR HGB CONC 33.1 G/DL (32.0-36.0); MEAN CORPUSCULAR VOLUME 89 FL (80-99); MEAN PLATELET VOLUME 9.5 FL (6.5-10.1); MONOCYTES % (AUTO) 6.2 % (1.0-10.0); NEUTROPHILS % (AUTO) 84.3 % (45.0-75.0); PLATELET COUNT 199 K/UL (150-450); RED CELL DISTRIBUTION WIDTH 14.6 % (11.6-14.8); WHITE BLOOD COUNT 14.9 K/UL (4.8-10.8)
[2016-10-30 06:34] LABS: ALBUMIN/GLOBULIN RATIO 0.8 (1.0-2.7); CALCIUM 7.2 mg/dL (8.6-10.2); CREATININE 2.3 mg/dL (0.7-1.2); GLOMERULAR FILTRATION RATE 31.8 mL/min (>60); TOTAL PROTEIN 4.4 g/dL (6.6-8.7)
[2016-10-30 07:07] LABS: BILIRUBIN,DIRECT 1.6 mg/dL (0.1-0.3)
--- NOTE | 2016-10-30 07:19 | Pulmonolgy Critical Care Note ---
Critical Care - Asmt/Plan Assessment/Plan: ASSESSMENT cardiac shock syndrome ascites alcoholic nonischemic cardiomyopathy ETOH abuse acute on chronic CHF R pleural effusion s/p thoracentesis shock liver anemia hypotension acute DVT posterior tibial vein moderate pulmonary HTN moderate to severe MR moderate TR R renal infarct vs focal nephritis R ventricle filling defect, possible apical thrombus Acute renal failure possible acalculous cholecystitis PLAN OF CARE off pressors , keep Bp above 80 IVF off diuretics , ECHO with EF <10%, RVSP of 54, mod to sev MR, mod TR troponin negative cardio follows s/p bolus with NS 10/29, IVF, continue, creat down to 2.3 Librium prn O2 HHN prn CXR with right pleural effusion, abx, pleural fluid cx negative ID follows GI follows GI procedures on hold, pt unstable for procedures stool OB trend LFT , trending down Venofer monitor HH, stable Thiamine and Folic acid DVT prophylaxis pain management tar DNR/DNI status Condition grave, overall prognosis poor can be transferred to [place] if OK with cardio Critical Care - Objective Last 24 Hour Vital Signs Date Time Temp Pulse Resp B/P Pulse Ox O2 Delivery O2 Flow Rate FiO2 10/30/16 05:30 90 19 80/60 98 Nasal Cannula 2.0 10/30/16 05:00 91 19 79/62 98 Nasal Cannula 2.0 10/30/16 04:30 91 24 79/59 98 Nasal Cannula 2.0 10/30/16 04:00 91 10/30/16 04:00 98.6 91 23 82/63 99 Nasal Cannula 2.0 10/30/16 03:30 92 24 77/62 98 Nasal Cannula 2.0 10/30/16 03:00 93 24 84/55 98 Nasal Cannula 2.0 10/30/16 02:30 94 24 85/60 98 Nasal Cannula 2.0 10/30/16 02:00 93 24 84/63 98 Nasal Cannula 2.0 10/30/16 01:30 94 25 83/61 98 Nasal Cannula 2.0 10/30/16 01:00 101 18 85/64 99 Nasal Cannula 2.0 10/30/16 00:30 102 18 83/66 98 Nasal Cannula 2.0 10/30/16 00:00 100 10/30/16 00:00 98.8 100 18 89/69 98 Nasal Cannula 2.0 10/29/16 23:30 103 18 78/61 98 Nasal Cannula 2.0 10/29/16 23:00 103 20 86/60 97 Nasal Cannula 2.0 10/29/16 22:30 102 17 84/66 98 Nasal Cannula 2.0 10/29/16 22:00 102 19 85/68 97 Nasal Cannula 2.0 10/29/16 21:30 101 18 72/51 98 Nasal Cannula 2.0 10/29/16 21:00 99 18 80/59 97 Nasal Cannula 2.0 10/29/16 20:30 98 17 85/62 98 Nasal Cannula 2.0 10/29/16 20:00 103 10/29/16 20:00 99.0 103 17 89/64 98 Nasal Cannula 2.0 10/29/16 19:30 99 17 81/63 99 Nasal Cannula 2.0 10/29/16 19:00 98 15 82/56 99 Nasal Cannula 2.0 10/29/16 18:30 95 20 85/53 99 Nasal Cannula 2.0 10/29/16 18:00 96 20 80/52 99 Nasal Cannula 3.0 10/29/16 17:30 96 20 79/61 99 Nasal Cannula 3.0 10/29/16 17:00 97 20 85/56 99 Nasal Cannula 3.0 10/29/16 16:30 98 18 80/56 99 Nasal Cannula 3.0 10/29/16 16:00 98.8 98 19 81/61 99 Nasal Cannula 4.0 10/29/16 16:00 99 10/29/16 15:00 97 19 82/62 99 Nasal Cannula 4.0 10/29/16 14:30 97 20 85/63 97 Nasal Cannula 4.0 10/29/16 14:00 99 15 82/62 99 Nasal Cannula 4.0 10/29/16 13:30 99 21 85/58 99 Nasal Cannula 4.0 10/29/16 13:00 99 21 89/64 97 Nasal Cannula 4.0 10/29/16 12:30 99 20 90/62 98 Nasal Cannula 4.0 10/29/16 12:00 97.8 101 18 94/68 97 Nasal Cannula 4.0 10/29/16 12:00 97 10/29/16 11:30 97 17 91/70 97 Nasal Cannula 4.0 10/29/16 11:16 92/68 10/29/16 11:00 92/68 10/29/16 11:00 97 20 92/68 97 Nasal Cannula 4.0 10/29/16 10:30 98 21 91/65 97 Nasal Cannula 4.0 10/29/16 10:00 97 21 94/70 98 Nasal Cannula 4.0 10/29/16 10:00 94/70 10/29/16 09:30 99 15 94/68 97 Nasal Cannula 4.0 10/29/16 09:00 99 16 92/62 97 Nasal Cannula 4.0 10/29/16 09:00 92/62 10/29/16 09:00 98 91/55 10/29/16 08:30 99 15 92/69 97 Nasal Cannula 4.0 10/29/16 08:00 103 10/29/16 08:00 98.8 100 20 92/69 98 Nasal Cannula 4.0 10/29/16 08:00 92/69 10/29/16 07:30 100 19 94/73 96 Nasal Cannula 4.0 Status: awake, other - responsive Condition: grave HEENT: atraumatic, normocephalic Neck: full ROM Lungs: clear Heart: HR/BP stable, other - + 1 edema BLE femoral CL intact Abdomen: soft, non-tender, active bowel sounds Extremities: other - + 1 edema BLE Critical Care - Subjective ROS Limited/Unobtainable: Yes Interval Events: off pressors since early this am, BP low in 80th s/p bolus and current IVF leukocytosis trending down on O2 via NC ,no signs of respiratory distress creat trending down to 2.3 LFT trending down Condition: critical IV Access: central - R femoral intact EKG Rhythm: Sinus Rhythm Fluids: NS at 50 I&O: Intake and Output 10/29/16 10/30/16 19:00 07:00 Intake Total 1779.944 ml 1539.9 ml Output Total 620 ml 500 ml Balance 1159.944 ml 1039.9 ml Intake Oral 670 ml 450 ml IV Total 1079.944 ml 1089.9 ml Other 30 ml Output Urine Total 620 ml 500 ml CXR: 10/29 -Possible developing retrocardiac consolidation and/or left-sided pleural fluid, over 3 days Anabel Ritter NP ([facility]) Oct 30, 2016 07:19
[2016-10-30] MEDS ORDERED: DuoNeb 0.5-3(2.5)mg/3ml neb HHN PRN ×2 (07:30→21:00)
--- NOTE | 2016-10-30 07:30 | Infectious Diseases Prog Note ---
Assessment/Plan Assessment/Plan ASSESSMENT: 41 y/o male with: // Possible acalculous cholecystitis - US: Gallbladder wall thickening, no stones. Cannot r/o acute acalculous cholecystitis // Shock / pressors, low dose - septic vs cardiogenic // Leukocytosis - improved, afebrile ( DVT, renal infarct, apical thrombus contributing ) // Elevated LFTs / acute liver injury - improved - negative: hepatitis panel // ARF ?HRS - improved // Acute LLE DVT // Right renal infarct // NICMO with possible apical thrombus - TTE: EF 10%, grade II diastolic dysfunction, mod TR, pulm HTN, mod-sev MR // Right pleural effusion - CXR: Resolved right pleural effusion, post thoracentesis. No radiographically evident complication - SP thoracentesis 10/13: Cx(-) // NKDA // Full Code PLAN: - continue empiric zosyn d# -7 - consider HIDA - f/u cultures - monitor CBC, temperatures - monitor CMP - pressor support, wean as tolerated Subjective Allergies: Coded Allergies: No Known Allergies (Unverified , 10/25/16) Subjective remains afebrile. WBC improved on dopamine Objective Vital Signs Last 24 Hour Vital Signs Date Time Temp Pulse Resp B/P Pulse Ox O2 Delivery O2 Flow Rate FiO2 10/30/16 05:30 90 19 80/60 98 Nasal Cannula 2.0 10/30/16 05:00 91 19 79/62 98 Nasal Cannula 2.0 10/30/16 04:30 91 24 79/59 98 Nasal Cannula 2.0 10/30/16 04:00 91 10/30/16 04:00 98.6 91 23 82/63 99 Nasal Cannula 2.0 10/30/16 03:30 92 24 77/62 98 Nasal Cannula 2.0 10/30/16 03:00 93 24 84/55 98 Nasal Cannula 2.0 10/30/16 02:30 94 24 85/60 98 Nasal Cannula 2.0 10/30/16 02:00 93 24 84/63 98 Nasal Cannula 2.0 10/30/16 01:30 94 25 83/61 98 Nasal Cannula 2.0 10/30/16 01:00 101 18 85/64 99 Nasal Cannula 2.0 10/30/16 00:30 102 18 83/66 98 Nasal Cannula 2.0 10/30/16 00:00 100 10/30/16 00:00 98.8 100 18 89/69 98 Nasal Cannula 2.0 10/29/16 23:30 103 18 78/61 98 Nasal Cannula 2.0 10/29/16 23:00 103 20 86/60 97 Nasal Cannula 2.0 10/29/16 22:30 102 17 84/66 98 Nasal Cannula 2.0 10/29/16 22:00 102 19 85/68 97 Nasal Cannula 2.0 10/29/16 21:30 101 18 72/51 98 Nasal Cannula 2.0 10/29/16 21:00 99 18 80/59 97 Nasal Cannula 2.0 10/29/16 20:30 98 17 85/62 98 Nasal Cannula 2.0 10/29/16 20:00 103 10/29/16 20:00 99.0 103 17 89/64 98 Nasal Cannula 2.0 10/29/16 19:30 99 17 81/63 99 Nasal Cannula 2.0 10/29/16 19:00 98 15 82/56 99 Nasal Cannula 2.0 10/29/16 18:30 95 20 85/53 99 Nasal Cannula 2.0 10/29/16 18:00 96 20 80/52 99 Nasal Cannula 3.0 10/29/16 17:30 96 20 79/61 99 Nasal Cannula 3.0 10/29/16 17:00 97 20 85/56 99 Nasal Cannula 3.0 10/29/16 16:30 98 18 80/56 99 Nasal Cannula 3.0 10/29/16 16:00 98.8 98 19 81/61 99 Nasal Cannula 4.0 10/29/16 16:00 99 10/29/16 15:00 97 19 82/62 99 Nasal Cannula 4.0 10/29/16 14:30 97 20 85/63 97 Nasal Cannula 4.0 10/29/16 14:00 99 15 82/62 99 Nasal Cannula 4.0 10/29/16 13:30 99 21 85/58 99 Nasal Cannula 4.0 10/29/16 13:00 99 21 89/64 97 Nasal Cannula 4.0 10/29/16 12:30 99 20 90/62 98 Nasal Cannula 4.0 10/29/16 12:00 97.8 101 18 94/68 97 Nasal Cannula 4.0 10/29/16 12:00 97 10/29/16 11:30 97 17 91/ 97 Nasal Cannula 4.0 10/29/16 11:16 9268 10/29/16 11:00 10/29/16 11:00 97 20 92 97 Nasal Cannula 4.0 10/29/16 10:30 98 21 91/65 97 Nasal Cannula 4.0 10/29/16 10:00 97 21 94/ 98 Nasal Cannula 4.0 10/29/16 10:00 9410/29/16 09:30 99 15 97 Nasal Cannula 4.0 10/29/16 09:00 99 16 97 Nasal Cannula 4.0 10/29/16 09:00 9210/29/16 09:00 98 91/10/29/16 08:30 99 15 97 Nasal Cannula 4.0 10/29/16 08:00 103 10/29/16 08:00 98.8 100 20 98 Nasal Cannula 4.0 10/29/16 08:00 9210/29/16 07:30 100 19 94/73 96 Nasal Cannula 4.0 Height (Feet): 5 Height (Inches): 6.00 Weight (Pounds): 159 General Appearance: no acute distress Respiratory/Chest: no respiratory distress Cardiovascular: normal rate, regular rhythm Abdomen: normal bowel sounds, soft, non tender, non distended Laboratory Tests Test 10/30/16 04:30 White Blood Count 14.9 K/UL (4.8-10.8) H Red Blood Count 4.50 M/UL (4.70-6.10) L Hemoglobin 13.3 G/DL (14.2-18.0) L Hematocrit 40.0 % (42.0-52.0) L Mean Corpuscular Volume 89 FL (80-99) Mean Corpuscular Hemoglobin 29.5 PG (27.0-31.0) Mean Corpuscular Hemoglobin Concent 33.1 G/DL (32.0-36.0) Red Cell Distribution Width 14.6 % (11.6-14.8) Platelet Count 199 K/UL (150-450) Mean Platelet Volume 9.5 FL (6.5-10.1) Neutrophils (%) (Auto) 84.3 % (45.0-75.0) H Lymphocytes (%) (Auto) 9.1 % (20.0-45.0) L Monocytes (%) (Auto) 6.2 % (1.0-10.0) Eosinophils (%) (Auto) 0.1 % (0.0-3.0) Basophils (%) (Auto) 0.4 % (0.0-2.0) Sodium Level 131 mEQ/L (135-145) L Potassium Level 4.0 mEQ/L (3.4-4.9) Chloride Level 93 mEQ/L (98-107) L Carbon Dioxide Level 22 mEQ/L (20-30) Anion Gap 16 (5-15) H Blood Urea Nitrogen 50 mg/dL (7-23) H Creatinine 2.3 mg/dL (0.7-1.2) H Estimat Glomerular Filtration Rate 31.8 mL/min (>60) Glucose Level 131 mg/dL (74-106) H Calcium Level 7.2 mg/dL (8.6-10.2) L Total Bilirubin 2.4 mg/dL (0.0-1.2) H Direct Bilirubin 1.6 mg/dL (0.1-0.3) H Aspartate Amino Transf (AST/SGOT) 1521 U/L (5-40) H Alanine Aminotransferase (ALT/SGPT) 2020 U/L (3-41) H Alkaline Phosphatase 171 U/L (40-129) H Total Protein 4.4 g/dL (6.6-8.7) L Albumin 2.0 g/dL (3.5-5.2) L Globulin 2.4 g/dL Albumin/Globulin Ratio 0.8 (1.0-2.7) L Current Medications Medications (Trade) Dose Ordered Sig/Baudilio Route PRN Reason Start Time Stop Time Status Last Admin Dose Admin Acetaminophen 650 mg 650 mg Q4H PRN ORAL fever 10/29/16 14:41 11/27/16 23:29 Al Hydroxide/Mg Hydroxide (Mylanta II) 30 ml Q6H PRN ORAL dyspepsia 10/28/16 23:30 11/27/16 23:29 Albuterol/ Ipratropium (DuoNeb 0.5-3(2.5)mg/3ml) 3 ml Q4HRT PRN HHN sob 10/30/16 07:30 11/04/16 07:29 UNV Chlordiazepoxide (Librium) 25 mg Q6H PRN ORAL tachycardia> 100 10/29/16 04:15 11/05/16 04:14 10/29/16 23:30 Dextrose (Dextrose 50%) STAT PRN IV Hypoglycemia 10/28/16 23:30 11/27/16 23:29 Diphenhydramine HCl (Benadryl) 25 mg Q6H PRN ORAL Itching/Pruritis 10/28/16 23:30 11/27/16 23:29 10/30/16 00:08 Morphine Sulfate (Morphine Sulfate) 2 mg Q4H PRN IVP severe Pain (Pain Scale 7-10) 10/28/16 23:30 11/04/16 23:29 Nitroglycerin (Ntg) 0.4 mg Q5M X 3 DOSES PRN SL Prn Chest Pain 10/28/16 22:45 11/27/16 22:44 Ondansetron HCl (Zofran) 4 mg Q6H PRN IVP Nausea & Vomiting 10/28/16 23:30 11/27/16 23:29 Piperacillin Sod/ Tazobactam Sod/ Sodium Chloride (Zosyn/Sodium Chloride) 110 ml @ 27.5 mls/hr EVERY 8 HOURS IVPB 10/29/16 22:00 11/03/16 21:59 10/30/16 06:18 Polyethylene Glycol (Miralax) 17 gm HSPRN PRN ORAL Constipation 10/28/16 23:30 11/27/16 23:29 Sodium Chloride (Sodium Chloride 1000ml bag) 1,000 ml @ 100 mls/hr Q10H IV 10/29/16 23:30 11/28/16 23:29 10/30/16 00:07 Temazepam (Restoril) 15 mg HSPRN PRN ORAL Insomnia 10/28/16 23:30 11/04/16 23:29 Thiamine HCl 100 mg 100 mg DAILY ORAL 10/29/16 09:00 11/28/16 08:59 10/29/16 09:24 BOBO COLÓN 18, 2017 07:30
[2016-10-30] MEDS: Thiamine 100mg tab ORAL SCH (08:36)
--- NOTE | 2016-10-30 10:27 | General Progress Note ---
Assessment/Plan Problem List: (1) Abdominal pain ICD Codes: R10.9 - Unspecified abdominal pain SNOMED: 25545661 (2) Alcoholic cardiomyopathy ICD Codes: I42.6 - Alcoholic cardiomyopathy SNOMED: 132770293 (3) Anemia ICD Codes: D64.9 - Anemia, unspecified SNOMED: 390350886 (4) Ascites ICD Codes: R18.8 - Other ascites SNOMED: 151667872 (5) Hypoalbuminemia ICD Codes: E88.09 - Other disorders of plasma-protein metabolism, not elsewhere classified SNOMED: 468120204 (6) ETOH abuse ICD Codes: F10.10 - Alcohol abuse, uncomplicated SNOMED: 01240849, 88052635 (7) Pleural effusion ICD Codes: J90 - Pleural effusion, not elsewhere classified SNOMED: 95925368 (8) Leukocytosis ICD Codes: D72.829 - Elevated white blood cell count, unspecified SNOMED: 622326705, 654024387 (9) Shock liver ICD Codes: K72.00 - Acute and subacute hepatic failure without coma SNOMED: 751557210 Assessment/Plan fu labs abx fu stool ob GI procedures on hold for now repeat lfts Subjective ROS Limited/Unobtainable: No Allergies: Coded Allergies: No Known Allergies (Unverified , 10/25/16) Subjective transfered to icu Objective Last 24 Hour Vital Signs Date Time Temp Pulse Resp B/P Pulse Ox O2 Delivery O2 Flow Rate FiO2 10/30/16 09:00 86 19 83/62 100 Nasal Cannula 2.0 10/30/16 08:00 83 10/30/16 08:00 98.0 86 12 80/58 100 Nasal Cannula 2.0 10/30/16 07:00 83 20 78/54 98 Nasal Cannula 2.0 10/30/16 06:30 85 20 80/62 98 Nasal Cannula 2.0 10/30/16 06:00 88 19 85/56 98 Nasal Cannula 2.0 10/30/16 05:30 90 19 80/60 98 Nasal Cannula 2.0 10/30/16 05:00 91 19 79/62 98 Nasal Cannula 2.0 10/30/16 04:30 91 24 79/59 98 Nasal Cannula 2.0 10/30/16 04:00 91 10/30/16 04:00 98.6 91 23 82/63 99 Nasal Cannula 2.0 10/30/16 03:30 92 24 77/62 98 Nasal Cannula 2.0 10/30/16 03:00 93 24 84/55 98 Nasal Cannula 2.0 10/30/16 02:30 94 24 85/60 98 Nasal Cannula 2.0 10/30/16 02:00 93 24 84/63 98 Nasal Cannula 2.0 10/30/16 01:30 94 25 83/61 98 Nasal Cannula 2.0 10/30/16 01:00 101 18 85/64 99 Nasal Cannula 2.0 10/30/16 00:30 102 18 83/66 98 Nasal Cannula 2.0 10/30/16 00:00 100 10/30/16 00:00 98.8 100 18 89/69 98 Nasal Cannula 2.0 10/29/16 23:30 103 18 78/61 98 Nasal Cannula 2.0 10/29/16 23:00 103 20 86/60 97 Nasal Cannula 2.0 10/29/16 22:30 102 17 84/66 98 Nasal Cannula 2.0 10/29/16 22:00 102 19 85/68 97 Nasal Cannula 2.0 10/29/16 21:30 101 18 72/51 98 Nasal Cannula 2.0 10/29/16 21:00 99 18 80/59 97 Nasal Cannula 2.0 10/29/16 20:30 98 17 85/62 98 Nasal Cannula 2.0 10/29/16 20:00 103 10/29/16 20:00 99.0 103 17 89/64 98 Nasal Cannula 2.0 10/29/16 19:30 99 17 81/63 99 Nasal Cannula 2.0 10/29/16 19:00 98 15 82/56 99 Nasal Cannula 2.0 10/29/16 18:30 95 20 85/53 99 Nasal Cannula 2.0 10/29/16 18:00 96 20 80/52 99 Nasal Cannula 3.0 10/29/16 17:30 96 20 79/61 99 Nasal Cannula 3.0 10/29/16 17:00 97 20 85/56 99 Nasal Cannula 3.0 10/29/16 16:30 98 18 80/56 99 Nasal Cannula 3.0 10/29/16 16:00 98.8 98 19 81/61 99 Nasal Cannula 4.0 10/29/16 16:00 99 10/29/16 15:00 97 19 82/62 99 Nasal Cannula 4.0 10/29/16 14:30 97 20 85/63 97 Nasal Cannula 4.0 10/29/16 14:00 99 15 82/62 99 Nasal Cannula 4.0 10/29/16 13:30 99 21 85/58 99 Nasal Cannula 4.0 10/29/16 13:00 99 21 89/64 97 Nasal Cannula 4.0 10/29/16 12:30 99 20 90/62 98 Nasal Cannula 4.0 10/29/16 12:00 97.8 101 18 94/68 97 Nasal Cannula 4.0 10/29/16 12:00 97 10/29/16 11:30 97 17 91/70 97 Nasal Cannula 4.0 10/29/16 11:16 92/68 10/29/16 11:00 92/68 10/29/16 11:00 97 20 92/68 97 Nasal Cannula 4.0 10/29/16 10:30 98 21 91/65 97 Nasal Cannula 4.0 Intake and Output 10/29/16 10/30/16 19:00 07:00 Intake Total 1779.944 ml 1539.9 ml Output Total 620 ml 530 ml Balance 1159.944 ml 1009.9 ml Intake Oral 670 ml 450 ml IV Total 1079.944 ml 1089.9 ml Other 30 ml Output Urine Total 620 ml 530 ml Laboratory Tests 10/30/16 04:30: White Blood Count 14.9H, Red Blood Count 4.50L, Hemoglobin 13.3L, Hematocrit 40.0L, Mean Corpuscular Volume 89, Mean Corpuscular Hemoglobin 29.5, Mean Corpuscular Hemoglobin Concent 33.1, Red Cell Distribution Width 14.6, Platelet Count 199, Mean Platelet Volume 9.5, Neutrophils (%) (Auto) 84.3H, Lymphocytes ( %) (Auto) 9.1L, Monocytes (%) (Auto) 6.2, Eosinophils (%) (Auto) 0.1, Basophils (%) (Auto) 0.4, Sodium Level 131L, Potassium Level 4.0, Chloride Level 93L, Carbon Dioxide Level 22, Anion Gap 16H, Blood Urea Nitrogen 50H, Creatinine 2.3H , Estimat Glomerular Filtration Rate 31.8, Glucose Level 131H, Calcium Level 7.2L, Total Bilirubin 2.4H, Direct Bilirubin 1.6H, Aspartate Amino Transf (AST/ SGOT) 1521H, Alanine Aminotransferase (ALT/SGPT) 2020H, Alkaline Phosphatase 171H, Total Protein 4.4L, Albumin 2.0L, Globulin 2.4, Albumin/Globulin Ratio 0.8L Height (Feet): 5 Height (Inches): 6.00 Weight (Pounds): 159 General Appearance: no apparent distress EENT: normal ENT inspection Neck: supple Cardiovascular: normal rate Respiratory/Chest: decreased breath sounds Abdomen: normal bowel sounds, non tender, soft Extremities: non-tender ADRIAN BERG Oct 30, 2016 10:27
--- NOTE | 2016-10-30 16:52 | Cardiology Progress Note ---
Assessment/Plan Assessment/Plan alcoholic CMP hypotension ETOH liver continues to be hypotensive, not no evidence of distress or hypoperfusion continue to motnior BP Subjective Subjective the patient is feeling better, complaining on abdominal discomfort Objective Last 24 Hour Vital Signs Date Time Temp Pulse Resp B/P Pulse Ox O2 Delivery O2 Flow Rate FiO2 10/30/16 16:00 98.1 93 12 85/64 94 Nasal Cannula 3.0 10/30/16 16:00 75 10/30/16 15:00 91 18 89/58 100 Nasal Cannula 3.0 10/30/16 14:00 94 18 95/67 100 Nasal Cannula 3.0 10/30/16 13:00 84 18 88/68 100 Nasal Cannula 3.0 10/30/16 12:00 98.4 86 18 80/61 98 Nasal Cannula 3.0 10/30/16 12:00 84 10/30/16 11:00 87 20 82/57 100 Nasal Cannula 4.0 10/30/16 10:00 86 20 80/63 100 Nasal Cannula 4.0 10/30/16 09:00 86 19 83/62 100 Nasal Cannula 4.0 10/30/16 08:00 83 10/30/16 08:00 98.0 86 12 80/58 100 Nasal Cannula 2.0 10/30/16 07:00 83 20 78/54 98 Nasal Cannula 2.0 10/30/16 06:30 85 20 80/62 98 Nasal Cannula 2.0 10/30/16 06:00 88 19 85/56 98 Nasal Cannula 2.0 10/30/16 05:30 90 19 80/60 98 Nasal Cannula 2.0 10/30/16 05:00 91 19 79/62 98 Nasal Cannula 2.0 10/30/16 04:30 91 24 79/59 98 Nasal Cannula 2.0 10/30/16 04:00 91 10/30/16 04:00 98.6 91 23 82/63 99 Nasal Cannula 2.0 10/30/16 03:30 92 24 77/62 98 Nasal Cannula 2.0 10/30/16 03:00 93 24 84/55 98 Nasal Cannula 2.0 10/30/16 02:30 94 24 85/60 98 Nasal Cannula 2.0 10/30/16 02:00 93 24 84/63 98 Nasal Cannula 2.0 10/30/16 01:30 94 25 83/61 98 Nasal Cannula 2.0 10/30/16 01:00 101 18 85/64 99 Nasal Cannula 2.0 10/30/16 00:30 102 18 83/66 98 Nasal Cannula 2.0 10/30/16 00:00 100 10/30/16 00:00 98.8 100 18 89/69 98 Nasal Cannula 2.0 10/29/16 23:30 103 18 78/61 98 Nasal Cannula 2.0 10/29/16 23:00 103 20 86/60 97 Nasal Cannula 2.0 10/29/16 22:30 102 17 84/66 98 Nasal Cannula 2.0 10/29/16 22:00 102 19 85/68 97 Nasal Cannula 2.0 10/29/16 21:30 101 18 72/51 98 Nasal Cannula 2.0 10/29/16 21:00 99 18 80/59 97 Nasal Cannula 2.0 10/29/16 20:30 98 17 85/62 98 Nasal Cannula 2.0 10/29/16 20:00 103 10/29/16 20:00 99.0 103 17 89/64 98 Nasal Cannula 2.0 10/29/16 19:30 99 17 81/63 99 Nasal Cannula 2.0 10/29/16 19:00 98 15 82/56 99 Nasal Cannula 2.0 10/29/16 18:30 95 20 85/53 99 Nasal Cannula 2.0 10/29/16 18:00 96 20 80/52 99 Nasal Cannula 3.0 10/29/16 17:30 96 20 79/61 99 Nasal Cannula 3.0 10/29/16 17:00 97 20 85/56 99 Nasal Cannula 3.0 General Appearance: alert EENT: PERRL/EOMI Neck: no JVD Rhythm: NSR Cardiovascular: normal rate - decreased BS, bradycardia Abdomen: hypoactive bowel sounds, tender Extremities: non-tender, no swelling Intake and Output 10/29/16 10/30/16 19:00 07:00 Intake Total 1779.944 ml 1539.9 ml Output Total 620 ml 530 ml Balance 1159.944 ml 1009.9 ml Intake Oral 670 ml 450 ml IV Total 1079.944 ml 1089.9 ml Other 30 ml Output Urine Total 620 ml 530 ml Laboratory Tests Test 10/30/16 04:30 White Blood Count 14.9 K/UL (4.8-10.8) H Red Blood Count 4.50 M/UL (4.70-6.10) L Hemoglobin 13.3 G/DL (14.2-18.0) L Hematocrit 40.0 % (42.0-52.0) L Mean Corpuscular Volume 89 FL (80-99) Mean Corpuscular Hemoglobin 29.5 PG (27.0-31.0) Mean Corpuscular Hemoglobin Concent 33.1 G/DL (32.0-36.0) Red Cell Distribution Width 14.6 % (11.6-14.8) Platelet Count 199 K/UL (150-450) Mean Platelet Volume 9.5 FL (6.5-10.1) Neutrophils (%) (Auto) 84.3 % (45.0-75.0) H Lymphocytes (%) (Auto) 9.1 % (20.0-45.0) L Monocytes (%) (Auto) 6.2 % (1.0-10.0) Eosinophils (%) (Auto) 0.1 % (0.0-3.0) Basophils (%) (Auto) 0.4 % (0.0-2.0) Sodium Level 131 mEQ/L (135-145) L Potassium Level 4.0 mEQ/L (3.4-4.9) Chloride Level 93 mEQ/L (98-107) L Carbon Dioxide Level 22 mEQ/L (20-30) Anion Gap 16 (5-15) H Blood Urea Nitrogen 50 mg/dL (7-23) H Creatinine 2.3 mg/dL (0.7-1.2) H Estimat Glomerular Filtration Rate 31.8 mL/min (>60) Glucose Level 131 mg/dL (74-106) H Calcium Level 7.2 mg/dL (8.6-10.2) L Total Bilirubin 2.4 mg/dL (0.0-1.2) H Direct Bilirubin 1.6 mg/dL (0.1-0.3) H Aspartate Amino Transf (AST/SGOT) 1521 U/L (5-40) H Alanine Aminotransferase (ALT/SGPT) 2020 U/L (3-41) H Alkaline Phosphatase 171 U/L (40-129) H Total Protein 4.4 g/dL (6.6-8.7) L Albumin 2.0 g/dL (3.5-5.2) L Globulin 2.4 g/dL Albumin/Globulin Ratio 0.8 (1.0-2.7) L Microbiology Date/Time Source Procedure Growth Status 10/28/16 13:34 Blood Blood Culture - Preliminary NO GROWTH AFTER 24 HOURS Resulted 10/28/16 13:20 Blood Blood Culture - Preliminary NO GROWTH AFTER 24 HOURS Resulted 10/29/16 05:00 Urine,Clean Catch Urine Culture - Preliminary NO GROWTH Resulted GÓMEZ KNAPP Oct 30, 2016 16:52
[2016-10-30] MEDS ORDERED: Nitroglycerin Subl 0.4mg tab (Bottle Of 25) SL PRN (21:00)
[2016-10-31] VITALS: BP 94/54
[2016-10-31 04:00] VITALS: BP 97/72
[2016-10-31] MEDS: Piperacillin/Tazobactam 3.375 GM in NS 110 ML IVPB SCH ×3 (06:03→21:09)
[2016-10-31 07:45] LABS: BASOPHILS % (AUTO) 0.4 % (0.0-2.0); EOSINOPHILS % (AUTO) 0.7 % (0.0-3.0); LYMPHOCYTES % (AUTO) 15.5 % (20.0-45.0); MEAN CORPUSCULAR HEMOGLOBIN 28.8 PG (27.0-31.0); MEAN CORPUSCULAR HGB CONC 32.3 G/DL (32.0-36.0); MEAN CORPUSCULAR VOLUME 89 FL (80-99); MEAN PLATELET VOLUME 8.4 FL (6.5-10.1); MONOCYTES % (AUTO) 9.3 % (1.0-10.0); NEUTROPHILS % (AUTO) 74.1 % (45.0-75.0); PLATELET COUNT 166 K/UL (150-450); RED BLOOD COUNT 3.92 M/UL (4.70-6.10); RED CELL DISTRIBUTION WIDTH 14.5 % (11.6-14.8); WHITE BLOOD COUNT 13.2 K/UL (4.8-10.8)
[2016-10-31 07:54] LABS: INR 1.5 (0.9-1.1)
[2016-10-31 08:00] VITALS: BP 95/60
[2016-10-31 08:06] LABS: MAGNESIUM 2.3 mg/dL (1.7-2.5); PHOSPHORUS 2.6 mg/dL (2.5-4.8)
--- NOTE | 2016-10-31 08:10 | General Progress Note ---
Assessment/Plan Problem List: (1) Abdominal pain ICD Codes: R10.9 - Unspecified abdominal pain SNOMED: 44545474 (2) Alcoholic cardiomyopathy ICD Codes: I42.6 - Alcoholic cardiomyopathy SNOMED: 174957488 (3) Anemia ICD Codes: D64.9 - Anemia, unspecified SNOMED: 118296941 (4) Ascites ICD Codes: R18.8 - Other ascites SNOMED: 671548824 (5) Hypoalbuminemia ICD Codes: E88.09 - Other disorders of plasma-protein metabolism, not elsewhere classified SNOMED: 125109228 (6) ETOH abuse ICD Codes: F10.10 - Alcohol abuse, uncomplicated SNOMED: 27630679, 61150467 (7) Pleural effusion ICD Codes: J90 - Pleural effusion, not elsewhere classified SNOMED: 90469072 (8) Leukocytosis ICD Codes: D72.829 - Elevated white blood cell count, unspecified SNOMED: 578955019, 078274273 (9) Shock liver ICD Codes: K72.00 - Acute and subacute hepatic failure without coma SNOMED: 236873178 Assessment/Plan fu labs abx fu stool ob GI procedures on hold for now repeat lfts Subjective ROS Limited/Unobtainable: Yes Allergies: Coded Allergies: No Known Allergies (Unverified , 10/25/16) Subjective no event Objective Last 24 Hour Vital Signs Date Time Temp Pulse Resp B/P Pulse Ox O2 Delivery O2 Flow Rate FiO2 10/31/16 07:36 103 18 10/31/16 04:00 97.0 93 20 97/72 99 Room Air 10/31/16 00:00 97.9 104 20 94/54 98 Room Air 10/30/16 21:00 97.5 101 20 93/69 95 Nasal Cannula 3.0 10/30/16 20:00 75 10/30/16 20:00 98.0 100 16 86/73 100 Nasal Cannula 3.0 10/30/16 19:00 98 15 90/64 100 Nasal Cannula 3.0 10/30/16 18:00 100 12 86/63 99 Nasal Cannula 3.0 10/30/16 17:00 100 19 92/58 99 Nasal Cannula 3.0 10/30/16 16:00 98.1 93 12 85/64 94 Nasal Cannula 3.0 10/30/16 16:00 75 10/30/16 15:00 91 18 89/58 100 Nasal Cannula 3.0 10/30/16 14:00 94 18 95/67 100 Nasal Cannula 3.0 10/30/16 13:00 84 18 88/68 100 Nasal Cannula 3.0 10/30/16 12:00 98.4 86 18 80/61 98 Nasal Cannula 3.0 10/30/16 12:00 84 10/30/16 11:00 87 20 82/57 100 Nasal Cannula 4.0 10/30/16 10:00 86 20 80/63 100 Nasal Cannula 4.0 10/30/16 09:00 86 19 83/62 100 Nasal Cannula 4.0 Intake and Output 10/30/16 10/31/16 19:00 07:00 Intake Total 2440.0 ml 660.0 ml Output Total 930 ml 1020 ml Balance 1510.0 ml -360.0 ml Intake Oral 1020 ml 450 ml IV Total 1420.0 ml 210.0 ml Output Urine Total 930 ml 1020 ml # Bowel Movements 2 Laboratory Tests 10/31/16 04:30: White Blood Count 13.2H, Red Blood Count 3.92L, Hemoglobin 11.3L, Hematocrit 35.0L, Mean Corpuscular Volume 89, Mean Corpuscular Hemoglobin 28.8, Mean Corpuscular Hemoglobin Concent 32.3, Red Cell Distribution Width 14.5, Platelet Count 166, Mean Platelet Volume 8.4, Neutrophils (%) (Auto) 74.1, Lymphocytes (% ) (Auto) 15.5L, Monocytes (%) (Auto) 9.3, Eosinophils (%) (Auto) 0.7, Basophils (%) (Auto) 0.4, Prothrombin Time 15.0H, Prothromb Time International Ratio 1.5H , Activated Partial Thromboplast Time 32, Sodium Level [Pending], Potassium Level [Pending], Chloride Level [Pending], Carbon Dioxide Level [Pending], Blood Urea Nitrogen [Pending], Creatinine [Pending], Estimat Glomerular Filtration Rate [Pending], Glucose Level [Pending], Calcium Level [Pending], Phosphorus Level 2.6, Magnesium Level 2.3, Total Bilirubin [Pending], Aspartate Amino Transf (AST/SGOT) [Pending], Alanine Aminotransferase (ALT/SGPT) [Pending] , Alkaline Phosphatase [Pending], Total Protein [Pending], Albumin [Pending], Globulin [Pending] Height (Feet): 5 Height (Inches): 6.00 Weight (Pounds): 159 General Appearance: alert EENT: normal ENT inspection Neck: supple Cardiovascular: normal rate Respiratory/Chest: decreased breath sounds Abdomen: normal bowel sounds, non tender, soft Extremities: non-tender ADRIAN BERG Oct 31, 2016 08:10
[2016-10-31 08:19] LABS: ALBUMIN/GLOBULIN RATIO 0.7 (1.0-2.7); CALCIUM 7.5 mg/dL (8.6-10.2); CREATININE 1.5 mg/dL (0.7-1.2); GLOMERULAR FILTRATION RATE 52.1 mL/min (>60); POTASSIUM 3.7 mEQ/L (3.4-4.9); TOTAL PROTEIN 4.6 g/dL (6.6-8.7)
[2016-10-31] MEDS: Thiamine 100mg tab ORAL SCH (08:29)
[2016-10-31 08:47] LABS: BILIRUBIN,DIRECT 1.8 mg/dL (0.1-0.3)
--- NOTE | 2016-10-31 10:33 | Infectious Diseases Prog Note ---
Assessment/Plan Assessment/Plan ASSESSMENT: 41 y/o male with: // Possible acalculous cholecystitis - US: Gallbladder wall thickening, no stones. Cannot r/o acute acalculous cholecystitis // Shock SP - off pressors. Septic vs cardiogenic // Leukocytosis - improved, afebrile ( DVT, renal infarct, apical thrombus contributing ) // Elevated LFTs / acute liver injury, m/l shock liver - improved - negative: hepatitis panel // ARF ?HRS - improved // Acute LLE DVT // Right renal infarct // NICMO with possible apical thrombus - TTE: EF 10%, grade II diastolic dysfunction, mod TR, pulm HTN, mod-sev MR // Right pleural effusion - CXR: Resolved right pleural effusion, post thoracentesis. No radiographically evident complication - SP thoracentesis 10/13: Cx(-) // NKDA // Full Code PLAN: - continue empiric zosyn d# 4 / - consider HIDA - f/u cultures - monitor CBC, temperatures - monitor CMP Subjective Allergies: Coded Allergies: No Known Allergies (Unverified , 10/25/16) Subjective remains afebrile. WBC improved transferred to floor Objective Vital Signs Last 24 Hour Vital Signs Date Time Temp Pulse Resp B/P Pulse Ox O2 Delivery O2 Flow Rate FiO2 10/31/16 08:00 97.8 99 21 95/60 97 Room Air 10/31/16 07:36 103 18 10/31/16 04:00 97.0 93 20 97/72 99 Room Air 10/31/16 00:00 97.9 104 20 94/54 98 Room Air 10/30/16 21:00 97.5 101 20 93/69 95 Nasal Cannula 3.0 10/30/16 20:00 75 10/30/16 20:00 98.0 100 16 86/73 100 Nasal Cannula 3.0 10/30/16 19:00 98 15 90/64 100 Nasal Cannula 3.0 10/30/16 18:00 100 12 86/63 99 Nasal Cannula 3.0 10/30/16 17:00 100 19 92/58 99 Nasal Cannula 3.0 10/30/16 16:00 98.1 93 12 85/64 94 Nasal Cannula 3.0 10/30/16 16:00 75 10/30/16 15:00 91 18 89/58 100 Nasal Cannula 3.0 10/30/16 14:00 94 18 95/67 100 Nasal Cannula 3.0 10/30/16 13:00 84 18 88/68 100 Nasal Cannula 3.0 10/30/16 12:00 98.4 86 18 80/61 98 Nasal Cannula 3.0 10/30/16 12:00 84 10/30/16 11:00 87 20 82/57 100 Nasal Cannula 4.0 Height (Feet): 5 Height (Inches): 6.00 Weight (Pounds): 159 General Appearance: no acute distress Respiratory/Chest: no respiratory distress Cardiovascular: normal rate, regular rhythm Abdomen: normal bowel sounds, soft, non tender, non distended Microbiology Date/Time Source Procedure Growth Status 10/28/16 13:34 Blood Blood Culture - Preliminary NO GROWTH AFTER 48 HOURS Resulted 10/28/16 13:20 Blood Blood Culture - Preliminary NO GROWTH AFTER 48 HOURS Resulted 10/29/16 05:00 Urine,Clean Catch Urine Culture - Preliminary NO GROWTH Resulted Laboratory Tests Test 10/31/16 04:30 White Blood Count 13.2 K/UL (4.8-10.8) H Red Blood Count 3.92 M/UL (4.70-6.10) L Hemoglobin 11.3 G/DL (14.2-18.0) L Hematocrit 35.0 % (42.0-52.0) L Mean Corpuscular Volume 89 FL (80-99) Mean Corpuscular Hemoglobin 28.8 PG (27.0-31.0) Mean Corpuscular Hemoglobin Concent 32.3 G/DL (32.0-36.0) Red Cell Distribution Width 14.5 % (11.6-14.8) Platelet Count 166 K/UL (150-450) Mean Platelet Volume 8.4 FL (6.5-10.1) Neutrophils (%) (Auto) 74.1 % (45.0-75.0) Lymphocytes (%) (Auto) 15.5 % (20.0-45.0) L Monocytes (%) (Auto) 9.3 % (1.0-10.0) Eosinophils (%) (Auto) 0.7 % (0.0-3.0) Basophils (%) (Auto) 0.4 % (0.0-2.0) Prothrombin Time 15.0 SEC (9.30-11.50) H Prothromb Time International Ratio 1.5 (0.9-1.1) H Activated Partial Thromboplast Time 32 SEC (23-33) Sodium Level 135 mEQ/L (135-145) Potassium Level 3.7 mEQ/L (3.4-4.9) Chloride Level 97 mEQ/L (98-107) L Carbon Dioxide Level 21 mEQ/L (20-30) Anion Gap 17 (5-15) H Blood Urea Nitrogen 41 mg/dL (7-23) H Creatinine 1.5 mg/dL (0.7-1.2) H Estimat Glomerular Filtration Rate 52.1 mL/min (>60) Glucose Level 99 mg/dL (74-106) Calcium Level 7.5 mg/dL (8.6-10.2) L Phosphorus Level 2.6 mg/dL (2.5-4.8) Magnesium Level 2.3 mg/dL (1.7-2.5) Total Bilirubin 2.8 mg/dL (0.0-1.2) H Direct Bilirubin 1.8 mg/dL (0.1-0.3) H Aspartate Amino Transf (AST/SGOT) 713 U/L (5-40) H Alanine Aminotransferase (ALT/SGPT) 1480 U/L (3-41) H Alkaline Phosphatase 197 U/L (40-129) H Total Protein 4.6 g/dL (6.6-8.7) L Albumin 2.0 g/dL (3.5-5.2) L Globulin 2.6 g/dL Albumin/Globulin Ratio 0.7 (1.0-2.7) L Current Medications Medications (Trade) Dose Ordered Sig/Baudilio Route PRN Reason Start Time Stop Time Status Last Admin Dose Admin Acetaminophen (Tylenol) 650 mg Q4H PRN ORAL fever 10/30/16 21:00 11/29/16 20:59 Al Hydroxide/Mg Hydroxide (Mylanta II) 30 ml Q6H PRN ORAL dyspepsia 10/30/16 21:00 11/29/16 20:59 Albuterol/ Ipratropium (DuoNeb 0.5-3(2.5)mg/3ml) 3 ml Q4H PRN HHN Shortness of Breath 10/30/16 21:00 11/04/16 20:59 Chlordiazepoxide (Librium) 25 mg Q6H PRN ORAL tachycardia> 100 10/30/16 21:00 11/06/16 20:59 Dextrose (Dextrose 50%) STAT PRN IV Hypoglycemia 10/30/16 21:00 11/29/16 20:59 Diphenhydramine HCl (Benadryl) 25 mg Q6H PRN ORAL Itching/Pruritis 10/30/16 21:00 11/29/16 20:59 Morphine Sulfate (Morphine Sulfate) 2 mg Q4H PRN IVP severe Pain (Pain Scale 7-10) 10/30/16 21:00 11/06/16 20:59 Nitroglycerin (Ntg) 0.4 mg Q5M X 3 DOSES PRN SL Prn Chest Pain 10/30/16 21:00 11/29/16 20:59 Ondansetron HCl (Zofran) 4 mg Q6H PRN IVP Nausea & Vomiting 10/30/16 21:00 11/29/16 20:59 Piperacillin Sod/ Tazobactam Sod/ Sodium Chloride (Zosyn/Sodium Chloride) 110 ml @ 27.5 mls/hr EVERY 8 HOURS IVPB 10/30/16 22:00 11/06/16 21:59 10/31/16 06:03 Polyethylene Glycol (Miralax) 17 gm HSPRN PRN ORAL Constipation 10/31/16 18:00 11/30/16 17:59 Temazepam (Restoril) 15 mg HSPRN PRN ORAL Insomnia 10/30/16 21:00 11/06/16 20:59 Thiamine HCl (Vitamin B1) 100 mg DAILY ORAL 10/31/16 09:00 11/30/16 08:59 10/31/16 08:29 BOBO COLÓN 19, 2017 10:33
--- NOTE | 2016-10-31 11:23 | Diagnostic Imaging Report ---
Indication: Dyspnea Comparison: 10/29/16 A single view chest radiograph was obtained. Findings: Vascular prominence and interstitial edema appear worse compared to the previous exam. The heart is enlarged. Lung volumes are low. Impression: Worsening CHF
[2016-10-31 12:00] VITALS: BP 105/75
--- NOTE | 2016-10-31 13:21 | Cardiology Progress Note ---
Assessment/Plan Assessment/Plan alcoholic CMP hypotension ETOH liver continues to be hypotensive, not no evidence of distress or hypoperfusion continue to monitor BP Subjective Subjective the patient is feeling better, c Objective Last 24 Hour Vital Signs Date Time Temp Pulse Resp B/P Pulse Ox O2 Delivery O2 Flow Rate FiO2 10/31/16 08:00 97.8 99 21 95/60 97 Room Air 10/31/16 07:36 103 18 10/31/16 04:00 97.0 93 20 97/72 99 Room Air 10/31/16 00:00 97.9 104 20 94/54 98 Room Air 10/30/16 21:00 97.5 101 20 93/69 95 Nasal Cannula 3.0 10/30/16 20:00 75 10/30/16 20:00 98.0 100 16 86/73 100 Nasal Cannula 3.0 10/30/16 19:00 98 15 90/64 100 Nasal Cannula 3.0 10/30/16 18:00 100 12 86/63 99 Nasal Cannula 3.0 10/30/16 17:00 100 19 92/58 99 Nasal Cannula 3.0 10/30/16 16:00 98.1 93 12 85/64 94 Nasal Cannula 3.0 10/30/16 16:00 75 10/30/16 15:00 91 18 89/58 100 Nasal Cannula 3.0 10/30/16 14:00 94 18 95/67 100 Nasal Cannula 3.0 EENT: PERRL/EOMI Neck: supple, no JVD Rhythm: NSR Cardiovascular: normal rate Respiratory/Chest: decreased breath sounds, crackles/rales Abdomen: soft, distended Intake and Output 10/30/16 10/31/16 19:00 07:00 Intake Total 2440.0 ml 660.0 ml Output Total 930 ml 1020 ml Balance 1510.0 ml -360.0 ml Intake Oral 1020 ml 450 ml IV Total 1420.0 ml 210.0 ml Output Urine Total 930 ml 1020 ml # Bowel Movements 2 Laboratory Tests Test 10/31/16 04:30 White Blood Count 13.2 K/UL (4.8-10.8) H Red Blood Count 3.92 M/UL (4.70-6.10) L Hemoglobin 11.3 G/DL (14.2-18.0) L Hematocrit 35.0 % (42.0-52.0) L Mean Corpuscular Volume 89 FL (80-99) Mean Corpuscular Hemoglobin 28.8 PG (27.0-31.0) Mean Corpuscular Hemoglobin Concent 32.3 G/DL (32.0-36.0) Red Cell Distribution Width 14.5 % (11.6-14.8) Platelet Count 166 K/UL (150-450) Mean Platelet Volume 8.4 FL (6.5-10.1) Neutrophils (%) (Auto) 74.1 % (45.0-75.0) Lymphocytes (%) (Auto) 15.5 % (20.0-45.0) L Monocytes (%) (Auto) 9.3 % (1.0-10.0) Eosinophils (%) (Auto) 0.7 % (0.0-3.0) Basophils (%) (Auto) 0.4 % (0.0-2.0) Prothrombin Time 15.0 SEC (9.30-11.50) H Prothromb Time International Ratio 1.5 (0.9-1.1) H Activated Partial Thromboplast Time 32 SEC (23-33) Sodium Level 135 mEQ/L (135-145) Potassium Level 3.7 mEQ/L (3.4-4.9) Chloride Level 97 mEQ/L (98-107) L Carbon Dioxide Level 21 mEQ/L (20-30) Anion Gap 17 (5-15) H Blood Urea Nitrogen 41 mg/dL (7-23) H Creatinine 1.5 mg/dL (0.7-1.2) H Estimat Glomerular Filtration Rate 52.1 mL/min (>60) Glucose Level 99 mg/dL (74-106) Calcium Level 7.5 mg/dL (8.6-10.2) L Phosphorus Level 2.6 mg/dL (2.5-4.8) Magnesium Level 2.3 mg/dL (1.7-2.5) Total Bilirubin 2.8 mg/dL (0.0-1.2) H Direct Bilirubin 1.8 mg/dL (0.1-0.3) H Aspartate Amino Transf (AST/SGOT) 713 U/L (5-40) H Alanine Aminotransferase (ALT/SGPT) 1480 U/L (3-41) H Alkaline Phosphatase 197 U/L (40-129) H Total Protein 4.6 g/dL (6.6-8.7) L Albumin 2.0 g/dL (3.5-5.2) L Globulin 2.6 g/dL Albumin/Globulin Ratio 0.7 (1.0-2.7) L Microbiology Date/Time Source Procedure Growth Status 10/28/16 13:34 Blood Blood Culture - Preliminary NO GROWTH AFTER 48 HOURS Resulted 10/29/16 05:00 Urine,Clean Catch Urine Culture - Preliminary NO GROWTH AFTER 24 HOURS Resulted GÓMEZ KNAPP Oct 31, 2016 13:21
[2016-10-31] MEDS: chlordiazePOXIDE 25mg Cap ORAL PRN ×2 (14:11→20:31)
[2016-10-31] MEDS ORDERED: NS 275ml ONE (15:12)
[2016-10-31] MEDS: Morphine Sulfate 2mg/ml Inj IVP PRN (15:56)
[2016-10-31 16:00] VITALS: BP 103/72
--- NOTE | 2016-10-31 16:34 | Pulmonology Progress Note ---
Assessment/Plan Assessment/Plan ASSESSMENT cardiac shock syndrome ascites alcoholic nonischemic cardiomyopathy ETOH abuse acute on chronic CHF R pleural effusion s/p thoracentesis shock liver anemia hypotension acute DVT posterior tibial vein moderate pulmonary HTN moderate to severe MR moderate TR R renal infarct vs focal nephritis R ventricle filling defect, possible apical thrombus Acute renal failure possible acalculous cholecystitis PLAN OF CARE on MS floor off pressors IVF off diuretics , ECHO with EF <10%, RVSP of 54, mod to sev MR, mod TR troponin negative cardio follows s/p bolus with NS 10/29, IVF, continue, creat down to 2.3 Librium prn O2 HHN prn CXR with right pleural effusion, abx, pleural fluid cx negative ID follows GI follows per GI GI procedures on hold, pt unstable for procedures stool OB trend LFT , trending down Venofer monitor HH, stable Thiamine and Folic acid DVT prophylaxis pain management DNR/DNI status Condition grave, overall prognosis poor case discussed and evaluated by supervising physician Subjective Allergies: Coded Allergies: No Known Allergies (Unverified , 10/25/16) Subjective transferred to [facility] floor bili trending up more awake and alert, weak continues to be hypotensive, not no evidence of distress or hypoperfusion Objective Last 24 Hour Vital Signs Date Time Temp Pulse Resp B/P Pulse Ox O2 Delivery O2 Flow Rate FiO2 10/31/16 15:13 104 10/31/16 12:00 98.2 120 19 105/75 98 Nasal Cannula 1.5 10/31/16 08:00 97.8 99 21 95/60 97 Room Air 10/31/16 07:36 103 18 10/31/16 04:00 97.0 93 20 97/72 99 Room Air 10/31/16 00:00 97.9 104 20 94/54 98 Room Air 10/30/16 21:00 97.5 101 20 93/69 95 Nasal Cannula 3.0 10/30/16 20:00 75 10/30/16 20:00 98.0 100 16 86/73 100 Nasal Cannula 3.0 10/30/16 19:00 98 15 90/64 100 Nasal Cannula 3.0 10/30/16 18:00 100 12 86/63 99 Nasal Cannula 3.0 10/30/16 17:00 100 19 92/58 99 Nasal Cannula 3.0 Intake and Output 10/30/16 10/31/16 19:00 07:00 Intake Total 2440.0 ml 660.0 ml Output Total 930 ml 1020 ml Balance 1510.0 ml -360.0 ml Intake Oral 1020 ml 450 ml IV Total 1420.0 ml 210.0 ml Output Urine Total 930 ml 1020 ml # Bowel Movements 2 Objective Status: awake, responsive Condition: serious HEENT: atraumatic, normocephalic Neck: full ROM Lungs: clear Heart: HR/BP stable, + 1 edema BLE Abdomen: soft, non-tender, active bowel sounds Extremities: other - + 1 edema BLE Microbiology Date/Time Source Procedure Growth Status 10/29/16 05:00 Urine,Clean Catch Urine Culture - Preliminary NO GROWTH AFTER 24 HOURS Resulted Laboratory Tests 10/31/16 04:30: White Blood Count 13.2H, Red Blood Count 3.92L, Hemoglobin 11.3L, Hematocrit 35.0L, Mean Corpuscular Volume 89, Mean Corpuscular Hemoglobin 28.8, Mean Corpuscular Hemoglobin Concent 32.3, Red Cell Distribution Width 14.5, Platelet Count 166, Mean Platelet Volume 8.4, Neutrophils (%) (Auto) 74.1, Lymphocytes (% ) (Auto) 15.5L, Monocytes (%) (Auto) 9.3, Eosinophils (%) (Auto) 0.7, Basophils (%) (Auto) 0.4, Prothrombin Time 15.0H, Prothromb Time International Ratio 1.5H , Activated Partial Thromboplast Time 32, Sodium Level 135, Potassium Level 3.7 , Chloride Level 97L, Carbon Dioxide Level 21, Anion Gap 17H, Blood Urea Nitrogen 41H, Creatinine 1.5H, Estimat Glomerular Filtration Rate 52.1, Glucose Level 99, Calcium Level 7.5L, Phosphorus Level 2.6, Magnesium Level 2.3, Total Bilirubin 2.8H, Direct Bilirubin 1.8H, Aspartate Amino Transf (AST/SGOT) 713H, Alanine Aminotransferase (ALT/SGPT) 1480H, Alkaline Phosphatase 197H, Total Protein 4.6L, Albumin 2.0L, Globulin 2.6, Albumin/Globulin Ratio 0.7L Current Medications Medications (Trade) Dose Ordered Sig/Baudilio Route PRN Reason Start Time Stop Time Status Last Admin Dose Admin Acetaminophen (Tylenol) 650 mg Q4H PRN ORAL fever 10/30/16 21:00 11/29/16 20:59 Al Hydroxide/Mg Hydroxide (Mylanta II) 30 ml Q6H PRN ORAL dyspepsia 10/30/16 21:00 11/29/16 20:59 Albuterol/ Ipratropium (DuoNeb 0.5-3(2.5)mg/3ml) 3 ml Q4H PRN HHN Shortness of Breath 10/30/16 21:00 11/04/16 20:59 Chlordiazepoxide (Librium) 25 mg Q6H PRN ORAL tachycardia> 100 10/30/16 21:00 11/06/16 20:59 10/31/16 14:11 Dextrose (Dextrose 50%) STAT PRN IV Hypoglycemia 10/30/16 21:00 11/29/16 20:59 Diphenhydramine HCl (Benadryl) 25 mg Q6H PRN ORAL Itching/Pruritis 10/30/16 21:00 11/29/16 20:59 Morphine Sulfate (Morphine Sulfate) 2 mg Q4H PRN IVP severe Pain (Pain Scale 7-10) 10/30/16 21:00 11/06/16 20:59 10/31/16 15:56 Nitroglycerin (Ntg) 0.4 mg Q5M X 3 DOSES PRN SL Prn Chest Pain 10/30/16 21:00 11/29/16 20:59 Ondansetron HCl (Zofran) 4 mg Q6H PRN IVP Nausea & Vomiting 10/30/16 21:00 11/29/16 20:59 Piperacillin Sod/ Tazobactam Sod/ Sodium Chloride (Zosyn/Sodium Chloride) 110 ml @ 27.5 mls/hr EVERY 8 HOURS IVPB 10/30/16 22:00 11/06/16 21:59 10/31/16 13:57 Polyethylene Glycol (Miralax) 17 gm HSPRN PRN ORAL Constipation 10/31/16 18:00 11/30/16 17:59 Temazepam (Restoril) 15 mg HSPRN PRN ORAL Insomnia 10/30/16 21:00 11/06/16 20:59 Thiamine HCl (Vitamin B1) 100 mg DAILY ORAL 10/31/16 09:00 11/30/16 08:59 10/31/16 08:29 [facility]itter ([facility]),Anabel AMBRIZ Oct 31, 2016 16:34
[2016-10-31] MEDS ORDERED: Miralax 17gm pkt ORAL PRN (18:00)
[2016-10-31 20:00] VITALS: BP 109/75
[2016-11-01] VITALS: BP 103/74
[2016-11-01 04:00] VITALS: BP 106/70
[2016-11-01] MEDS: Piperacillin/Tazobactam 3.375 GM in NS 110 ML IVPB SCH ×3 (06:05→21:39)
[2016-11-01 08:05] LABS: BASOPHILS % (AUTO) 0.6 % (0.0-2.0); EOSINOPHILS % (AUTO) 1.4 % (0.0-3.0); LYMPHOCYTES % (AUTO) 16.2 % (20.0-45.0); MEAN CORPUSCULAR HEMOGLOBIN 29.4 PG (27.0-31.0); MEAN CORPUSCULAR HGB CONC 32.7 G/DL (32.0-36.0); MEAN CORPUSCULAR VOLUME 90 FL (80-99); MEAN PLATELET VOLUME 9.6 FL (6.5-10.1); NEUTROPHILS % (AUTO) 71.8 % (45.0-75.0); PLATELET COUNT 199 K/UL (150-450); RED BLOOD COUNT 4.29 M/UL (4.70-6.10); RED CELL DISTRIBUTION WIDTH 14.9 % (11.6-14.8); WHITE BLOOD COUNT 14.4 K/UL (4.8-10.8)
[2016-11-01 08:20] LABS: ALBUMIN/GLOBULIN RATIO 0.8 (1.0-2.7); ANION GAP 15 (5-15); ASPARTATE AMINO TRANSFERASE 360 U/L (5-40); CALCIUM 7.8 mg/dL (8.6-10.2); CARBON DIOXIDE 24 mEQ/L (20-30); CHLORIDE 97 mEQ/L (98-107); CREATININE 1.2 mg/dL (0.7-1.2); GLOMERULAR FILTRATION RATE > 60 mL/min (>60); HEMOLYSIS 10; POTASSIUM 3.9 mEQ/L (3.4-4.9); SODIUM 136 mEQ/L (135-145); TOTAL PROTEIN 4.9 g/dL (6.6-8.7)
[2016-11-01 08:26] VITALS: BP 100/72
[2016-11-01 08:34] LABS: BILIRUBIN,DIRECT 2.4 mg/dL (0.1-0.3)
[2016-11-01 08:35] LABS: ALANINE AMINOTRANSFERASE 1118 U/L (3-41)
--- NOTE | 2016-11-01 09:30 | General Progress Note ---
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 - Alcoholic cardiomyopathy SNOMED: 420339094 (3) Anemia ICD Codes: D64.9 - Anemia, unspecified SNOMED: 370350557 (4) Ascites ICD Codes: R18.8 - Other ascites SNOMED: 432528612 (5) Hypoalbuminemia ICD Codes: E88.09 - Other disorders of plasma-protein metabolism, not elsewhere classified SNOMED: 029949243 (6) ETOH abuse ICD Codes: F10.10 - Alcohol abuse, uncomplicated SNOMED: 72805495, 42880258 (7) Pleural effusion ICD Codes: J90 - Pleural effusion, not elsewhere classified SNOMED: 47271380 (8) Leukocytosis ICD Codes: D72.829 - Elevated white blood cell count, unspecified SNOMED: 590963469, 295311346 (9) Shock liver ICD Codes: K72.00 - Acute and subacute hepatic failure without coma SNOMED: 136133059 Assessment/Plan fu labs abx fu stool ob GI procedures on hold for now with EF of 10% repeat lfts Subjective ROS Limited/Unobtainable: Yes Allergies: Coded Allergies: No Known Allergies (Unverified , 10/25/16) Subjective no event Objective Last 24 Hour Vital Signs Date Time Temp Pulse Resp B/P Pulse Ox O2 Delivery O2 Flow Rate FiO2 11/01/16 08:26 97.3 102 18 100/72 100 Room Air 11/01/16 06:13 90 11/01/16 04:00 97.4 106 18 106/70 95 Room Air 11/01/16 00:00 97.9 73 18 103/74 94 Room Air 10/31/16 21:16 108 10/31/16 20:00 97.7 122 18 109/75 98 Room Air 10/31/16 19:00 92 16 Room Air 10/31/16 17:50 83 100 Room Air 10/31/16 16:26 98.2 10/31/16 16:00 97.0 118 22 103/72 98 Room Air 10/31/16 15:13 104 10/31/16 12:00 98.2 120 19 105/75 98 Nasal Cannula 1.5 Intake and Output 10/31/16 11/01/16 19:00 07:00 Intake Total 470.0 ml 370.0 ml Output Total 1200 ml Balance 470.0 ml -830.0 ml Intake Oral 360 ml 260 ml IV Total 110.0 ml 110.0 ml Output Urine Total 1200 ml # Bowel Movements 1 Laboratory Tests 11/01/16 06:50: White Blood Count 14.4H, Red Blood Count 4.29L, Hemoglobin 12.6L, Hematocrit 38.5L, Mean Corpuscular Volume 90, Mean Corpuscular Hemoglobin 29.4, Mean Corpuscular Hemoglobin Concent 32.7, Red Cell Distribution Width 14.9H, Platelet Count 199, Mean Platelet Volume 9.6, Neutrophils (%) (Auto) 71.8, Lymphocytes (%) (Auto) 16.2L, Monocytes (%) (Auto) 10.0, Eosinophils (%) (Auto) 1.4, Basophils (%) (Auto) 0.6, Sodium Level 136, Potassium Level 3.9, Chloride Level 97L, Carbon Dioxide Level 24, Anion Gap 15, Blood Urea Nitrogen 34H, Creatinine 1.2, Estimat Glomerular Filtration Rate > 60, Glucose Level 103, Calcium Level 7.8L, Total Bilirubin 3.6H, Direct Bilirubin 2.4H, Aspartate Amino Transf (AST/SGOT) 360H, Alanine Aminotransferase (ALT/SGPT) 1118H, Alkaline Phosphatase 206H, Total Protein 4.9L, Albumin 2.2L, Globulin 2.7, Albumin/Globulin Ratio 0.8L Height (Feet): 5 Height (Inches): 6.00 Weight (Pounds): 159 General Appearance: no apparent distress EENT: normal ENT inspection Neck: supple Cardiovascular: normal rate Respiratory/Chest: decreased breath sounds Abdomen: normal bowel sounds, non tender, soft Extremities: non-tender ADRIAN BERG Nov 01, 2016 09:30
--- NOTE | 2016-11-01 10:33 | Infectious Diseases Prog Note ---
Assessment/Plan Assessment/Plan ASSESSMENT: 41 y/o male with: // Possible acalculous cholecystitis - US: Gallbladder wall thickening, no stones. Cannot r/o acute acalculous cholecystitis // Shock SP - off pressors. 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 No radiographically evident complication - SP thoracentesis 10/13: Cx(-) // NKDA // Full Code PLAN: - continue empiric zosyn d# / - consider HIDA - f/u cultures - monitor CBC, temperatures - monitor CMP Subjective Allergies: Coded Allergies: No Known Allergies (Unverified , 10/25/16) Subjective remains afebrile. WBC stable Objective Vital Signs Last 24 Hour Vital Signs Date Time Temp Pulse Resp B/P Pulse Ox O2 Delivery O2 Flow Rate FiO2 11/01/16 08:26 97.3 102 18 100/72 100 Room Air 11/01/16 07:50 106 16 Room Air 11/01/16 06:13 90 11/01/16 04:00 97.4 106 18 106/70 95 Room Air 11/01/16 00:00 97.9 73 18 103/74 94 Room Air 10/31/16 21:16 108 10/31/16 20:00 97.7 122 18 109/75 98 Room Air 10/31/16 19:00 92 16 Room Air 10/31/16 17:50 83 100 Room Air 10/31/16 16:26 98.2 10/31/16 16:00 97.0 118 22 103/72 98 Room Air 10/31/16 15:13 104 10/31/16 12:00 98.2 120 19 105/75 98 Nasal Cannula 1.5 Height (Feet): 5 Height (Inches): 6.00 Weight (Pounds): 159 General Appearance: no acute distress Respiratory/Chest: no respiratory distress Cardiovascular: normal rate, regular rhythm Abdomen: normal bowel sounds, soft, non tender, non distended Laboratory Tests Test 11/01/16 06:50 White Blood Count 14.4 K/UL (4.8-10.8) H Red Blood Count 4.29 M/UL (4.70-6.10) L Hemoglobin 12.6 G/DL (14.2-18.0) L Hematocrit 38.5 % (42.0-52.0) L Mean Corpuscular Volume 90 FL (80-99) Mean Corpuscular Hemoglobin 29.4 PG (27.0-31.0) Mean Corpuscular Hemoglobin Concent 32.7 G/DL (32.0-36.0) Red Cell Distribution Width 14.9 % (11.6-14.8) H Platelet Count 199 K/UL (150-450) Mean Platelet Volume 9.6 FL (6.5-10.1) Neutrophils (%) (Auto) 71.8 % (45.0-75.0) Lymphocytes (%) (Auto) 16.2 % (20.0-45.0) L Monocytes (%) (Auto) 10.0 % (1.0-10.0) Eosinophils (%) (Auto) 1.4 % (0.0-3.0) Basophils (%) (Auto) 0.6 % (0.0-2.0) Sodium Level 136 mEQ/L (135-145) Potassium Level 3.9 mEQ/L (3.4-4.9) Chloride Level 97 mEQ/L (98-107) L Carbon Dioxide Level 24 mEQ/L (20-30) Anion Gap 15 (5-15) Blood Urea Nitrogen 34 mg/dL (7-23) H Creatinine 1.2 mg/dL (0.7-1.2) Estimat Glomerular Filtration Rate > 60 mL/min (>60) Glucose Level 103 mg/dL (74-106) Calcium Level 7.8 mg/dL (8.6-10.2) L Total Bilirubin 3.6 mg/dL (0.0-1.2) H Direct Bilirubin 2.4 mg/dL (0.1-0.3) H Aspartate Amino Transf (AST/SGOT) 360 U/L (5-40) H Alanine Aminotransferase (ALT/SGPT) 1118 U/L (3-41) H Alkaline Phosphatase 206 U/L (40-129) H Total Protein 4.9 g/dL (6.6-8.7) L Albumin 2.2 g/dL (3.5-5.2) L Globulin 2.7 g/dL Albumin/Globulin Ratio 0.8 (1.0-2.7) L Current Medications Medications (Trade) Dose Ordered Sig/Baudilio Route PRN Reason Start Time Stop Time Status Last Admin Dose Admin Acetaminophen (Tylenol) 650 mg Q4H PRN ORAL fever 10/30/16 21:00 11/29/16 20:59 Al Hydroxide/Mg Hydroxide (Mylanta II) 30 ml Q6H PRN ORAL dyspepsia 10/30/16 21:00 11/29/16 20:59 Albuterol/ Ipratropium (DuoNeb 0.5-3(2.5)mg/3ml) 3 ml Q4H PRN HHN Shortness of Breath 10/30/16 21:00 11/04/16 20:59 Chlordiazepoxide (Librium) 25 mg Q6H PRN ORAL tachycardia> 100 10/30/16 21:00 11/06/16 20:59 10/31/16 20:31 Dextrose (Dextrose 50%) STAT PRN IV Hypoglycemia 10/30/16 21:00 11/29/16 20:59 Diphenhydramine HCl (Benadryl) 25 mg Q6H PRN ORAL Itching/Pruritis 10/30/16 21:00 11/29/16 20:59 Morphine Sulfate (Morphine Sulfate) 2 mg Q4H PRN IVP severe Pain (Pain Scale 7-10) 10/30/16 21:00 11/06/16 20:59 10/31/16 15:56 Nitroglycerin (Ntg) 0.4 mg Q5M X 3 DOSES PRN SL Prn Chest Pain 10/30/16 21:00 11/29/16 20:59 Ondansetron HCl (Zofran) 4 mg Q6H PRN IVP Nausea & Vomiting 10/30/16 21:00 11/29/16 20:59 Piperacillin Sod/ Tazobactam Sod/ Sodium Chloride (Zosyn/Sodium Chloride) 110 ml @ 27.5 mls/hr EVERY 8 HOURS IVPB 10/30/16 22:00 11/06/16 21:59 11/01/16 06:05 Polyethylene Glycol (Miralax) 17 gm HSPRN PRN ORAL Constipation 10/31/16 18:00 11/30/16 17:59 Temazepam (Restoril) 15 mg HSPRN PRN ORAL Insomnia 10/30/16 21:00 11/06/16 20:59 Thiamine HCl (Vitamin B1) 100 mg DAILY ORAL 10/31/16 09:00 11/30/16 08:59 10/31/16 08:29 BOBO COLÓN 20, 2017 10:33
[2016-11-01] MEDS: Thiamine 100mg tab ORAL SCH (10:34)
[2016-11-01] MEDS: Morphine Sulfate 2mg/ml Inj IVP PRN ×2 (11:48→19:38)
[2016-11-01 12:29] VITALS: BP 106/75
[2016-11-01 16:00] VITALS: BP 108/71
--- NOTE | 2016-11-01 19:53 | Cardiology Progress Note ---
Assessment/Plan Assessment/Plan abd pain cardiomyopathy chf acute on chronic rv apical filling defect no confirmed on echo renal wedge deformity etohism pleural effusion ascites abn ekg tachy ? related to withdrawl hypotension resolved one diuretic as seem in chf agian echo noted cardiac enzyme neg out of icu on link floor Subjective Cardiovascular: Denies: chest pain, lightheadedness Respiratory: Reports: cough, shortness of breath, sputum - bloody Genitourinary: Reports: other - swollen penis Objective Last 24 Hour Vital Signs Date Time Temp Pulse Resp B/P Pulse Ox O2 Delivery O2 Flow Rate FiO2 11/01/16 16:00 97.7 86 22 108/71 100 Room Air 11/01/16 12:29 97.0 119 18 106/75 95 Room Air 11/01/16 08:26 97.3 102 18 100/72 100 Room Air 11/01/16 07:50 106 16 Room Air 11/01/16 06:13 90 11/01/16 04:00 97.4 106 18 106/70 95 Room Air 11/01/16 00:00 97.9 73 18 103/74 94 Room Air 10/31/16 21:16 108 10/31/16 20:00 97.7 122 18 109/75 98 Room Air General Appearance: alert Cardiovascular: regular rhythm, tachycardia Respiratory/Chest: crackles/rales Abdomen: non tender, soft Extremities: severe edema Intake and Output 10/31/16 11/01/16 19:00 07:00 Intake Total 470.0 ml 370.0 ml Output Total 1200 ml Balance 470.0 ml -830.0 ml Intake Oral 360 ml 260 ml IV Total 110.0 ml 110.0 ml Output Urine Total 1200 ml # Bowel Movements 1 Laboratory Tests Test 11/01/16 06:50 White Blood Count 14.4 K/UL (4.8-10.8) H Red Blood Count 4.29 M/UL (4.70-6.10) L Hemoglobin 12.6 G/DL (14.2-18.0) L Hematocrit 38.5 % (42.0-52.0) L Mean Corpuscular Volume 90 FL (80-99) Mean Corpuscular Hemoglobin 29.4 PG (27.0-31.0) Mean Corpuscular Hemoglobin Concent 32.7 G/DL (32.0-36.0) Red Cell Distribution Width 14.9 % (11.6-14.8) H Platelet Count 199 K/UL (150-450) Mean Platelet Volume 9.6 FL (6.5-10.1) Neutrophils (%) (Auto) 71.8 % (45.0-75.0) Lymphocytes (%) (Auto) 16.2 % (20.0-45.0) L Monocytes (%) (Auto) 10.0 % (1.0-10.0) Eosinophils (%) (Auto) 1.4 % (0.0-3.0) Basophils (%) (Auto) 0.6 % (0.0-2.0) Sodium Level 136 mEQ/L (135-145) Potassium Level 3.9 mEQ/L (3.4-4.9) Chloride Level 97 mEQ/L (98-107) L Carbon Dioxide Level 24 mEQ/L (20-30) Anion Gap 15 (5-15) Blood Urea Nitrogen 34 mg/dL (7-23) H Creatinine 1.2 mg/dL (0.7-1.2) Estimat Glomerular Filtration Rate > 60 mL/min (>60) Glucose Level 103 mg/dL (74-106) Calcium Level 7.8 mg/dL (8.6-10.2) L Total Bilirubin 3.6 mg/dL (0.0-1.2) H Direct Bilirubin 2.4 mg/dL (0.1-0.3) H Aspartate Amino Transf (AST/SGOT) 360 U/L (5-40) H Alanine Aminotransferase (ALT/SGPT) 1118 U/L (3-41) H Alkaline Phosphatase 206 U/L (40-129) H Total Protein 4.9 g/dL (6.6-8.7) L Albumin 2.2 g/dL (3.5-5.2) L Globulin 2.7 g/dL Albumin/Globulin Ratio 0.8 (1.0-2.7) L BALJIT FRANCOIS Nov 01, 2016 19:53
[2016-11-01 20:00] VITALS: BP 113/75
[2016-11-02] VITALS (7 sets, daily range): BP systolic 94–109; BP diastolic 69–75
[2016-11-02] MEDS: Piperacillin/Tazobactam 3.375 GM in NS 110 ML IVPB SCH ×3 (05:36→22:05)
[2016-11-02 07:19] LABS: BASOPHILS % (AUTO) 0.7 % (0.0-2.0); EOSINOPHILS % (AUTO) 1.8 % (0.0-3.0); LYMPHOCYTES % (AUTO) 17.3 % (20.0-45.0); MEAN CORPUSCULAR HEMOGLOBIN 28.9 PG (27.0-31.0); MEAN CORPUSCULAR HGB CONC 31.9 G/DL (32.0-36.0); MEAN CORPUSCULAR VOLUME 90 FL (80-99); MEAN PLATELET VOLUME 8.8 FL (6.5-10.1); MONOCYTES % (AUTO) 8.8 % (1.0-10.0); NEUTROPHILS % (AUTO) 71.3 % (45.0-75.0); PLATELET COUNT 219 K/UL (150-450); RED BLOOD COUNT 4.34 M/UL (4.70-6.10); RED CELL DISTRIBUTION WIDTH 15.2 % (11.6-14.8); WHITE BLOOD COUNT 16.4 K/UL (4.8-10.8)
[2016-11-02 07:46] LABS: ALBUMIN/GLOBULIN RATIO 0.7 (1.0-2.7); ANION GAP 15 (5-15); ASPARTATE AMINO TRANSFERASE 215 U/L (5-40); CALCIUM 8.1 mg/dL (8.6-10.2); CARBON DIOXIDE 24 mEQ/L (20-30); CHLORIDE 95 mEQ/L (98-107); CREATININE 1.3 mg/dL (0.7-1.2); GLOMERULAR FILTRATION RATE > 60 mL/min (>60); HEMOLYSIS 6; POTASSIUM 3.6 mEQ/L (3.4-4.9); SODIUM 134 mEQ/L (135-145)
[2016-11-02 08:01] LABS: BILIRUBIN,DIRECT 1.5 mg/dL (0.1-0.3)
[2016-11-02 08:02] LABS: ALANINE AMINOTRANSFERASE 882 U/L (3-41)
[2016-11-02] MEDS: Thiamine 100mg tab ORAL SCH (10:06)
--- NOTE | 2016-11-02 10:46 | Infectious Diseases Prog Note ---
Assessment/Plan Assessment/Plan ASSESSMENT: 41 y/o male with: // Possible acalculous cholecystitis - US: Gallbladder wall thickening, no stones. Cannot r/o acute acalculous cholecystitis // Shock SP - off pressors. 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 No radiographically evident complication - SP thoracentesis 10/13: Cx(-) // NKDA // Full Code PLAN: - continue empiric zosyn d# 6 / - consider HIDA - f/u cultures - monitor CBC, temperatures - monitor CMP Subjective Allergies: Coded Allergies: No Known Allergies (Unverified , 10/25/16) Subjective remains afebrile. WBC stable Objective Vital Signs Last 24 Hour Vital Signs Date Time Temp Pulse Resp B/P Pulse Ox O2 Delivery O2 Flow Rate FiO2 11/02/16 10:14 102/71 11/02/16 08:00 96.2 91 18 94/72 96 Room Air 11/02/16 07:54 99 16 Room Air 11/02/16 04:00 96.6 109 18 103/74 98 Room Air 11/02/16 00:00 97.9 105 18 109/70 97 Room Air 11/01/16 20:08 95.9 11/01/16 20:00 95.9 116 22 113/75 98 Room Air 11/01/16 19:11 98 16 Room Air 11/01/16 16:00 97.7 86 22 108/71 100 Room Air 11/01/16 12:29 97.0 119 18 106/75 95 Room Air Height (Feet): 5 Height (Inches): 6.00 Weight (Pounds): 159 General Appearance: no acute distress Respiratory/Chest: no respiratory distress Cardiovascular: normal rate, regular rhythm Abdomen: normal bowel sounds, soft, non tender, non distended Laboratory Tests Test 11/02/16 05:44 White Blood Count 16.4 K/UL (4.8-10.8) H Red Blood Count 4.34 M/UL (4.70-6.10) L Hemoglobin 12.5 G/DL (14.2-18.0) L Hematocrit 39.3 % (42.0-52.0) L Mean Corpuscular Volume 90 FL (80-99) Mean Corpuscular Hemoglobin 28.9 PG (27.0-31.0) Mean Corpuscular Hemoglobin Concent 31.9 G/DL (32.0-36.0) L Red Cell Distribution Width 15.2 % (11.6-14.8) H Platelet Count 219 K/UL (150-450) Mean Platelet Volume 8.8 FL (6.5-10.1) Neutrophils (%) (Auto) 71.3 % (45.0-75.0) Lymphocytes (%) (Auto) 17.3 % (20.0-45.0) L Monocytes (%) (Auto) 8.8 % (1.0-10.0) Eosinophils (%) (Auto) 1.8 % (0.0-3.0) Basophils (%) (Auto) 0.7 % (0.0-2.0) Sodium Level 134 mEQ/L (135-145) L Potassium Level 3.6 mEQ/L (3.4-4.9) Chloride Level 95 mEQ/L (98-107) L Carbon Dioxide Level 24 mEQ/L (20-30) Anion Gap 15 (5-15) Blood Urea Nitrogen 32 mg/dL (7-23) H Creatinine 1.3 mg/dL (0.7-1.2) H Estimat Glomerular Filtration Rate > 60 mL/min (>60) Glucose Level 99 mg/dL (74-106) Calcium Level 8.1 mg/dL (8.6-10.2) L Total Bilirubin 2.7 mg/dL (0.0-1.2) H Direct Bilirubin 1.5 mg/dL (0.1-0.3) H Aspartate Amino Transf (AST/SGOT) 215 U/L (5-40) H Alanine Aminotransferase (ALT/SGPT) 882 U/L (3-41) H Alkaline Phosphatase 183 U/L (40-129) H Total Protein 5.0 g/dL (6.6-8.7) L Albumin 2.2 g/dL (3.5-5.2) L Globulin 2.8 g/dL Albumin/Globulin Ratio 0.7 (1.0-2.7) L Current Medications Medications (Trade) Dose Ordered Sig/Baudilio Route PRN Reason Start Time Stop Time Status Last Admin Dose Admin Acetaminophen (Tylenol) 650 mg Q4H PRN ORAL fever 10/30/16 21:00 11/29/16 20:59 Al Hydroxide/Mg Hydroxide (Mylanta II) 30 ml Q6H PRN ORAL dyspepsia 10/30/16 21:00 11/29/16 20:59 Albuterol/ Ipratropium (DuoNeb 0.5-3(2.5)mg/3ml) 3 ml Q4H PRN HHN Shortness of Breath 10/30/16 21:00 11/04/16 20:59 Chlordiazepoxide (Librium) 25 mg Q6H PRN ORAL tachycardia> 100 10/30/16 21:00 11/06/16 20:59 10/31/16 20:31 Dextrose (Dextrose 50%) STAT PRN IV Hypoglycemia 10/30/16 21:00 11/29/16 20:59 Diphenhydramine HCl (Benadryl) 25 mg Q6H PRN ORAL Itching/Pruritis 10/30/16 21:00 11/29/16 20:59 Morphine Sulfate (Morphine Sulfate) 2 mg Q4H PRN IVP severe Pain (Pain Scale 7-10) 10/30/16 21:00 11/06/16 20:59 11/01/16 19:38 Nitroglycerin (Ntg) 0.4 mg Q5M X 3 DOSES PRN SL Prn Chest Pain 10/30/16 21:00 11/29/16 20:59 Ondansetron HCl (Zofran) 4 mg Q6H PRN IVP Nausea & Vomiting 10/30/16 21:00 11/29/16 20:59 Piperacillin Sod/ Tazobactam Sod/ Sodium Chloride (Zosyn/Sodium Chloride) 110 ml @ 27.5 mls/hr EVERY 8 HOURS IVPB 10/30/16 22:00 11/06/16 21:59 11/02/16 05:36 Polyethylene Glycol (Miralax) 17 gm HSPRN PRN ORAL Constipation 10/31/16 18:00 11/30/16 17:59 Temazepam (Restoril) 15 mg HSPRN PRN ORAL Insomnia 10/30/16 21:00 11/06/16 20:59 Thiamine HCl (Vitamin B1) 100 mg DAILY ORAL 10/31/16 09:00 11/30/16 08:59 11/02/16 10:06 BOBO COLÓN Nov 02, 2016 10:46
[2016-11-02] MEDS: Morphine Sulfate 2mg/ml Inj IVP PRN ×2 (11:48→17:13)
--- NOTE | 2016-11-02 13:07 | General Progress Note ---
Assessment/Plan Problem List: (1) Abdominal pain ICD Codes: R10.9 - Unspecified abdominal pain SNOMED: 28204361 (2) Alcoholic cardiomyopathy ICD Codes: I42.6 - Alcoholic cardiomyopathy SNOMED: 116586942 (3) Anemia ICD Codes: D64.9 - Anemia, unspecified SNOMED: 338951300 (4) Ascites ICD Codes: R18.8 - Other ascites SNOMED: 046798514 (5) Hypoalbuminemia ICD Codes: E88.09 - Other disorders of plasma-protein metabolism, not elsewhere classified SNOMED: 028934926 (6) ETOH abuse ICD Codes: F10.10 - Alcohol abuse, uncomplicated SNOMED: 22437442, 27051763 (7) Pleural effusion ICD Codes: J90 - Pleural effusion, not elsewhere classified SNOMED: 60779449 (8) Leukocytosis ICD Codes: D72.829 - Elevated white blood cell count, unspecified SNOMED: 529276657, 352428908 (9) Shock liver ICD Codes: K72.00 - Acute and subacute hepatic failure without coma SNOMED: 050864293 Assessment/Plan fu labs abx fu stool ob GI procedures on hold for now with EF of 10% repeat lfts>>> improving Subjective ROS Limited/Unobtainable: Yes Allergies: Coded Allergies: No Known Allergies (Unverified , 10/25/16) Subjective no event Objective Last 24 Hour Vital Signs Date Time Temp Pulse Resp B/P Pulse Ox O2 Delivery O2 Flow Rate FiO2 11/02/16 12:00 95.9 110 22 103/72 95 Room Air 11/02/16 10:14 102/71 11/02/16 08:00 96.2 91 18 94/72 96 Room Air 11/02/16 07:54 99 16 Room Air 11/02/16 04:00 96.6 109 18 103/74 98 Room Air 11/02/16 00:00 97.9 105 18 109/70 97 Room Air 11/01/16 20:08 95.9 11/01/16 20:00 95.9 116 22 113/75 98 Room Air 11/01/16 19:11 98 16 Room Air 11/01/16 16:00 97.7 86 22 108/71 100 Room Air Intake and Output 11/01/16 11/02/16 19:00 07:00 Intake Total 820.0 ml 587.5 ml Output Total 600 ml 1175 ml Balance 220.0 ml -587.5 ml Intake Oral 600 ml 560 ml IV Total 220.0 ml 27.5 ml Output Urine Total 600 ml 1175 ml Laboratory Tests 11/02/16 05:44: White Blood Count 16.4H, Red Blood Count 4.34L, Hemoglobin 12.5L, Hematocrit 39.3L, Mean Corpuscular Volume 90, Mean Corpuscular Hemoglobin 28.9, Mean Corpuscular Hemoglobin Concent 31.9L, Red Cell Distribution Width 15.2H, Platelet Count 219, Mean Platelet Volume 8.8, Neutrophils (%) (Auto) 71.3, Lymphocytes (%) (Auto) 17.3L, Monocytes (%) (Auto) 8.8, Eosinophils (%) (Auto) 1.8, Basophils (%) (Auto) 0.7, Sodium Level 134L, Potassium Level 3.6, Chloride Level 95L, Carbon Dioxide Level 24, Anion Gap 15, Blood Urea Nitrogen 32H, Creatinine 1.3H, Estimat Glomerular Filtration Rate > 60, Glucose Level 99, Calcium Level 8.1L, Total Bilirubin 2.7H, Direct Bilirubin 1.5H, Aspartate Amino Transf (AST/SGOT) 215H, Alanine Aminotransferase (ALT/SGPT) 882H, Alkaline Phosphatase 183H, Total Protein 5.0L, Albumin 2.2L, Globulin 2.8, Albumin/Globulin Ratio 0.7L Height (Feet): 5 Height (Inches): 6.00 Weight (Pounds): 159 General Appearance: no apparent distress EENT: normal ENT inspection Neck: supple Cardiovascular: normal rate Respiratory/Chest: lungs clear Abdomen: normal bowel sounds, non tender, soft Extremities: non-tender ADRIAN BERG Nov 02, 2016 13:07
--- NOTE | 2016-11-02 13:41 | Cardiology Progress Note ---
Assessment/Plan Assessment/Plan abd pain cardiomyopathy chf acute on chronic rv apical filling defect no confirmed on echo renal wedge deformity etohism pleural effusion ascites abn ekg tachy ? related to withdrawl hypotension resolved one diuretic iv now then consider po diuretic s echo noted cardiac enzyme neg seem alittle better today not coughing u p blood any more Subjective Cardiovascular: Denies: chest pain, lightheadedness Respiratory: Reports: shortness of breath, Denies: cough Gastrointestinal/Abdominal: Denies: abdominal pain Genitourinary: Denies: burning Objective Last 24 Hour Vital Signs Date Time Temp Pulse Resp B/P Pulse Ox O2 Delivery O2 Flow Rate FiO2 11/02/16 12:00 95.9 110 22 103/72 95 Room Air 11/02/16 10:14 102/71 11/02/16 08:00 96.2 91 18 94/72 96 Room Air 11/02/16 07:54 99 16 Room Air 11/02/16 04:00 96.6 109 18 103/74 98 Room Air 11/02/16 00:00 97.9 105 18 109/70 97 Room Air 11/01/16 20:08 95.9 11/01/16 20:00 95.9 116 22 113/75 98 Room Air 11/01/16 19:11 98 16 Room Air 11/01/16 16:00 97.7 86 22 108/71 100 Room Air General Appearance: no apparent distress, alert Cardiovascular: normal rate, regular rhythm Respiratory/Chest: crackles/rales Abdomen: normal bowel sounds, non tender, soft Extremities: moderate edema Intake and Output 11/01/16 11/02/16 19:00 07:00 Intake Total 820.0 ml 587.5 ml Output Total 600 ml 1175 ml Balance 220.0 ml -587.5 ml Intake Oral 600 ml 560 ml IV Total 220.0 ml 27.5 ml Output Urine Total 600 ml 1175 ml Laboratory Tests Test 11/02/16 05:44 White Blood Count 16.4 K/UL (4.8-10.8) H Red Blood Count 4.34 M/UL (4.70-6.10) L Hemoglobin 12.5 G/DL (14.2-18.0) L Hematocrit 39.3 % (42.0-52.0) L Mean Corpuscular Volume 90 FL (80-99) Mean Corpuscular Hemoglobin 28.9 PG (27.0-31.0) Mean Corpuscular Hemoglobin Concent 31.9 G/DL (32.0-36.0) L Red Cell Distribution Width 15.2 % (11.6-14.8) H Platelet Count 219 K/UL (150-450) Mean Platelet Volume 8.8 FL (6.5-10.1) Neutrophils (%) (Auto) 71.3 % (45.0-75.0) Lymphocytes (%) (Auto) 17.3 % (20.0-45.0) L Monocytes (%) (Auto) 8.8 % (1.0-10.0) Eosinophils (%) (Auto) 1.8 % (0.0-3.0) Basophils (%) (Auto) 0.7 % (0.0-2.0) Sodium Level 134 mEQ/L (135-145) L Potassium Level 3.6 mEQ/L (3.4-4.9) Chloride Level 95 mEQ/L (98-107) L Carbon Dioxide Level 24 mEQ/L (20-30) Anion Gap 15 (5-15) Blood Urea Nitrogen 32 mg/dL (7-23) H Creatinine 1.3 mg/dL (0.7-1.2) H Estimat Glomerular Filtration Rate > 60 mL/min (>60) Glucose Level 99 mg/dL (74-106) Calcium Level 8.1 mg/dL (8.6-10.2) L Total Bilirubin 2.7 mg/dL (0.0-1.2) H Direct Bilirubin 1.5 mg/dL (0.1-0.3) H Aspartate Amino Transf (AST/SGOT) 215 U/L (5-40) H Alanine Aminotransferase (ALT/SGPT) 882 U/L (3-41) H Alkaline Phosphatase 183 U/L (40-129) H Total Protein 5.0 g/dL (6.6-8.7) L Albumin 2.2 g/dL (3.5-5.2) L Globulin 2.8 g/dL Albumin/Globulin Ratio 0.7 (1.0-2.7) L BALJIT FRANCOIS Nov 02, 2016 13:41
[2016-11-03] VITALS (7 sets, daily range): BP systolic 99–119; BP diastolic 58–78
[2016-11-03] MEDS: Piperacillin/Tazobactam 3.375 GM in NS 110 ML IVPB SCH ×3 (05:52→20:52)
[2016-11-03 06:47] LABS: BASOPHILS % (AUTO) 0.9 % (0.0-2.0); EOSINOPHILS % (AUTO) 2.3 % (0.0-3.0); LYMPHOCYTES % (AUTO) 18.8 % (20.0-45.0); MEAN CORPUSCULAR HEMOGLOBIN 29.9 PG (27.0-31.0); MEAN CORPUSCULAR HGB CONC 32.5 G/DL (32.0-36.0); MEAN CORPUSCULAR VOLUME 92 FL (80-99); MEAN PLATELET VOLUME 8.7 FL (6.5-10.1); MONOCYTES % (AUTO) 7.3 % (1.0-10.0); NEUTROPHILS % (AUTO) 70.7 % (45.0-75.0); PLATELET COUNT 227 K/UL (150-450); RED BLOOD COUNT 4.44 M/UL (4.70-6.10); RED CELL DISTRIBUTION WIDTH 17.3 % (11.6-14.8); WHITE BLOOD COUNT 16.4 K/UL (4.8-10.8)
[2016-11-03 07:03] LABS: ALANINE AMINOTRANSFERASE 700 U/L (3-41); ALBUMIN/GLOBULIN RATIO 0.7 (1.0-2.7); ANION GAP 16 (5-15); ASPARTATE AMINO TRANSFERASE 136 U/L (5-40); CALCIUM 8.2 mg/dL (8.6-10.2); CARBON DIOXIDE 23 mEQ/L (20-30); CHLORIDE 98 mEQ/L (98-107); CREATININE 1.2 mg/dL (0.7-1.2); GLOMERULAR FILTRATION RATE > 60 mL/min (>60); HEMOLYSIS 1; POTASSIUM 3.7 mEQ/L (3.4-4.9); SODIUM 137 mEQ/L (135-145); TOTAL PROTEIN 5.7 g/dL (6.6-8.7)
[2016-11-03 07:43] LABS: BILIRUBIN,DIRECT 1.2 mg/dL (0.1-0.3)
--- NOTE | 2016-11-03 10:11 | Infectious Diseases Prog Note ---
Assessment/Plan Assessment/Plan ASSESSMENT: 41 y/o male with: // Possible acalculous cholecystitis - US: Gallbladder wall thickening, no stones. Cannot r/o acute acalculous cholecystitis // Shock SP - off pressors. Septic vs cardiogenic // Leukocytosis - persistent, stable, afebrile. May be non-infectious. 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 No radiographically evident complication - SP thoracentesis 10/13: Cx(-) // NKDA // Full Code PLAN: - continue empiric zosyn d# - - consider HIDA - f/u cultures - monitor CBC, temperatures - monitor CMP Subjective Allergies: Coded Allergies: No Known Allergies (Unverified , 10/25/16) Subjective remains afebrile. WBC stable Objective Vital Signs Last 24 Hour Vital Signs Date Time Temp Pulse Resp B/P Pulse Ox O2 Delivery O2 Flow Rate FiO2 11/03/16 09:58 110 16 Room Air 11/03/16 08:00 97.9 97 20 108/77 98 Room Air 11/03/16 04:00 97.7 89 18 119/58 98 Room Air 11/03/16 00:00 97.5 108 20 99/75 97 Room Air 11/02/16 20:11 104 16 Room Air 11/02/16 20:00 97.5 100 22 105/69 97 Room Air 11/02/16 16:13 95.5 107 22 107/75 100 Nasal Cannula 11/02/16 12:00 95.9 110 22 103/72 95 Room Air 11/02/16 10:14 102/71 Height (Feet): 5 Height (Inches): 6.00 Weight (Pounds): 159 General Appearance: no acute distress Respiratory/Chest: no respiratory distress Cardiovascular: normal rate, regular rhythm Abdomen: normal bowel sounds, soft, non tender, non distended Laboratory Tests Test 11/03/16 05:10 White Blood Count 16.4 K/UL (4.8-10.8) H Red Blood Count 4.44 M/UL (4.70-6.10) L Hemoglobin 13.3 G/DL (14.2-18.0) L Hematocrit 40.8 % (42.0-52.0) L Mean Corpuscular Volume 92 FL (80-99) Mean Corpuscular Hemoglobin 29.9 PG (27.0-31.0) Mean Corpuscular Hemoglobin Concent 32.5 G/DL (32.0-36.0) Red Cell Distribution Width 17.3 % (11.6-14.8) H Platelet Count 227 K/UL (150-450) Mean Platelet Volume 8.7 FL (6.5-10.1) Neutrophils (%) (Auto) 70.7 % (45.0-75.0) Lymphocytes (%) (Auto) 18.8 % (20.0-45.0) L Monocytes (%) (Auto) 7.3 % (1.0-10.0) Eosinophils (%) (Auto) 2.3 % (0.0-3.0) Basophils (%) (Auto) 0.9 % (0.0-2.0) Sodium Level 137 mEQ/L (135-145) Potassium Level 3.7 mEQ/L (3.4-4.9) Chloride Level 98 mEQ/L (98-107) Carbon Dioxide Level 23 mEQ/L (20-30) Anion Gap 16 (5-15) H Blood Urea Nitrogen 28 mg/dL (7-23) H Creatinine 1.2 mg/dL (0.7-1.2) Estimat Glomerular Filtration Rate > 60 mL/min (>60) Glucose Level 115 mg/dL (74-106) H Calcium Level 8.2 mg/dL (8.6-10.2) L Total Bilirubin 2.4 mg/dL (0.0-1.2) H Direct Bilirubin 1.2 mg/dL (0.1-0.3) H Aspartate Amino Transf (AST/SGOT) 136 U/L (5-40) H Alanine Aminotransferase (ALT/SGPT) 700 U/L (3-41) H Alkaline Phosphatase 200 U/L (40-129) H Total Protein 5.7 g/dL (6.6-8.7) L Albumin 2.4 g/dL (3.5-5.2) L Globulin 3.3 g/dL Albumin/Globulin Ratio 0.7 (1.0-2.7) L Current Medications Medications (Trade) Dose Ordered Sig/Baudilio Route PRN Reason Start Time Stop Time Status Last Admin Dose Admin Acetaminophen (Tylenol) 650 mg Q4H PRN ORAL fever 10/30/16 21:00 11/29/16 20:59 Al Hydroxide/Mg Hydroxide (Mylanta II) 30 ml Q6H PRN ORAL dyspepsia 10/30/16 21:00 11/29/16 20:59 Albuterol/ Ipratropium (DuoNeb 0.5-3(2.5)mg/3ml) 3 ml Q4H PRN HHN Shortness of Breath 10/30/16 21:00 11/04/16 20:59 Chlordiazepoxide (Librium) 25 mg Q6H PRN ORAL tachycardia> 100 10/30/16 21:00 11/06/16 20:59 10/31/16 20:31 Dextrose (Dextrose 50%) STAT PRN IV Hypoglycemia 10/30/16 21:00 11/29/16 20:59 Diphenhydramine HCl (Benadryl) 25 mg Q6H PRN ORAL Itching/Pruritis 10/30/16 21:00 11/29/16 20:59 Morphine Sulfate (Morphine Sulfate) 2 mg Q4H PRN IVP severe Pain (Pain Scale 7-10) 10/30/16 21:00 11/06/16 20:59 11/02/16 17:13 Nitroglycerin (Ntg) 0.4 mg Q5M X 3 DOSES PRN SL Prn Chest Pain 10/30/16 21:00 11/29/16 20:59 Ondansetron HCl (Zofran) 4 mg Q6H PRN IVP Nausea & Vomiting 10/30/16 21:00 11/29/16 20:59 Piperacillin Sod/ Tazobactam Sod/ Sodium Chloride (Zosyn/Sodium Chloride) 110 ml @ 27.5 mls/hr EVERY 8 HOURS IVPB 10/30/16 22:00 3/22/17 23:59 11/03/16 05:52 Polyethylene Glycol (Miralax) 17 gm HSPRN PRN ORAL Constipation 10/31/16 18:00 11/30/16 17:59 Temazepam (Restoril) 15 mg HSPRN PRN ORAL Insomnia 10/30/16 21:00 11/06/16 20:59 Thiamine HCl (Vitamin B1) 100 mg DAILY ORAL 10/31/16 09:00 11/30/16 08:59 11/02/16 10:06 BOBO COLÓN Nov 03, 2016 10:11
--- NOTE | 2016-11-03 10:22 | General Progress Note ---
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 cardiomyopathy SNOMED: 264671021 (3) Anemia ICD Codes: D64.9 - Anemia, unspecified SNOMED: 547748984 (4) Ascites ICD Codes: R18.8 - Other ascites SNOMED: 265490093 (5) Hypoalbuminemia ICD Codes: E88.09 - Other disorders of plasma-protein metabolism, not elsewhere classified SNOMED: 087667709 (6) ETOH abuse ICD Codes: F10.10 - Alcohol abuse, uncomplicated SNOMED: 58860351, 84580346 (7) Pleural effusion ICD Codes: J90 - Pleural effusion, not elsewhere classified SNOMED: 44540456 (8) Leukocytosis ICD Codes: D72.829 - Elevated white blood cell count, unspecified SNOMED: 222929101, 034364656 (9) Shock liver ICD Codes: K72.00 - Acute and subacute hepatic failure without coma SNOMED: 496224895 Assessment/Plan fu labs abx fu stool ob GI procedures on hold for now with EF of 10% repeat lfts>>> improving Subjective ROS Limited/Unobtainable: Yes Allergies: Coded Allergies: No Known Allergies (Unverified , 10/25/16) Subjective no event Objective Last 24 Hour Vital Signs Date Time Temp Pulse Resp B/P Pulse Ox O2 Delivery O2 Flow Rate FiO2 11/03/16 09:58 110 16 Room Air 11/03/16 08:00 97.9 97 20 108/77 98 Room Air 11/03/16 04:00 97.7 89 18 119/58 98 Room Air 11/03/16 00:00 97.5 108 20 99/75 97 Room Air 11/02/16 20:11 104 16 Room Air 11/02/16 20:00 97.5 100 22 105/69 97 Room Air 11/02/16 16:13 95.5 107 22 107/75 100 Nasal Cannula 11/02/16 12:00 95.9 110 22 103/72 95 Room Air Intake and Output 11/02/16 11/03/16 19:00 07:00 Intake Total 480 ml 737.5 ml Output Total 500 ml 1700 ml Balance -20 ml -962.5 ml Intake Oral 480 ml 600 ml IV Total 137.5 ml Output Urine Total 500 ml 1700 ml Laboratory Tests 11/03/16 05:10: White Blood Count 16.4H, Red Blood Count 4.44L, Hemoglobin 13.3L, Hematocrit 40.8L, Mean Corpuscular Volume 92, Mean Corpuscular Hemoglobin 29.9, Mean Corpuscular Hemoglobin Concent 32.5, Red Cell Distribution Width 17.3H, Platelet Count 227, Mean Platelet Volume 8.7, Neutrophils (%) (Auto) 70.7, Lymphocytes (%) (Auto) 18.8L, Monocytes (%) (Auto) 7.3, Eosinophils (%) (Auto) 2.3, Basophils (%) (Auto) 0.9, Sodium Level 137, Potassium Level 3.7, Chloride Level 98, Carbon Dioxide Level 23, Anion Gap 16H, Blood Urea Nitrogen 28H, Creatinine 1.2, Estimat Glomerular Filtration Rate > 60, Glucose Level 115H, Calcium Level 8.2L, Total Bilirubin 2.4H, Direct Bilirubin 1.2H, Aspartate Amino Transf (AST/SGOT) 136H, Alanine Aminotransferase (ALT/SGPT) 700H, Alkaline Phosphatase 200H, Total Protein 5.7L, Albumin 2.4L, Globulin 3.3, Albumin/Globulin Ratio 0.7L Height (Feet): 5 Height (Inches): 6.00 Weight (Pounds): 159 General Appearance: no apparent distress EENT: normal ENT inspection Neck: supple Cardiovascular: normal rate Respiratory/Chest: decreased breath sounds Abdomen: normal bowel sounds, non tender, soft Extremities: non-tender ADRIAN BERG Nov 03, 2016 10:22
[2016-11-03] MEDS: Thiamine 100mg tab ORAL SCH (10:52)
[2016-11-03] MEDS: Morphine Sulfate 2mg/ml Inj IVP PRN ×2 (13:31→19:12)
--- NOTE | 2016-11-03 20:06 | Cardiology Progress Note ---
Assessment/Plan Assessment/Plan abd pain cardiomyopathy chf acute on chronic rv apical filling defect no confirmed on echo renal wedge deformity etohism pleural effusion ascites abn ekg tachy ? related to withdrawl hypotension resolved transminiitis probably passive congestion vern diuretics echo noted cardiac enzyme neg better to day stil lsieh dig edema stat on coreg Subjective Cardiovascular: Denies: chest pain, lightheadedness Respiratory: Reports: orthopnea, shortness of breath Gastrointestinal/Abdominal: Denies: abdomen distended Genitourinary: Denies: burning Objective Last 24 Hour Vital Signs Date Time Temp Pulse Resp B/P Pulse Ox O2 Delivery O2 Flow Rate FiO2 11/03/16 19:42 97.0 11/03/16 16:00 97.0 90 20 105/78 98 Room Air 11/03/16 12:00 97.6 100 20 100/77 95 Room Air 11/03/16 09:58 110 16 Room Air 11/03/16 08:00 97.9 97 20 108/77 98 Room Air 11/03/16 04:00 97.7 89 18 119/58 98 Room Air 11/03/16 00:00 97.5 108 20 99/75 97 Room Air 11/02/16 20:11 104 16 Room Air General Appearance: no apparent distress, alert Neck: supple Cardiovascular: normal rate, tachycardia Respiratory/Chest: decreased breath sounds - bases Abdomen: normal bowel sounds, non tender, soft Extremities: severe edema Intake and Output 11/02/16 11/03/16 19:00 07:00 Intake Total 480 ml 737.5 ml Output Total 500 ml 1700 ml Balance -20 ml -962.5 ml Intake Oral 480 ml 600 ml IV Total 137.5 ml Output Urine Total 500 ml 1700 ml Laboratory Tests Test 11/03/16 05:10 White Blood Count 16.4 K/UL (4.8-10.8) H Red Blood Count 4.44 M/UL (4.70-6.10) L Hemoglobin 13.3 G/DL (14.2-18.0) L Hematocrit 40.8 % (42.0-52.0) L Mean Corpuscular Volume 92 FL (80-99) Mean Corpuscular Hemoglobin 29.9 PG (27.0-31.0) Mean Corpuscular Hemoglobin Concent 32.5 G/DL (32.0-36.0) Red Cell Distribution Width 17.3 % (11.6-14.8) H Platelet Count 227 K/UL (150-450) Mean Platelet Volume 8.7 FL (6.5-10.1) Neutrophils (%) (Auto) 70.7 % (45.0-75.0) Lymphocytes (%) (Auto) 18.8 % (20.0-45.0) L Monocytes (%) (Auto) 7.3 % (1.0-10.0) Eosinophils (%) (Auto) 2.3 % (0.0-3.0) Basophils (%) (Auto) 0.9 % (0.0-2.0) Sodium Level 137 mEQ/L (135-145) Potassium Level 3.7 mEQ/L (3.4-4.9) Chloride Level 98 mEQ/L (98-107) Carbon Dioxide Level 23 mEQ/L (20-30) Anion Gap 16 (5-15) H Blood Urea Nitrogen 28 mg/dL (7-23) H Creatinine 1.2 mg/dL (0.7-1.2) Estimat Glomerular Filtration Rate > 60 mL/min (>60) Glucose Level 115 mg/dL (74-106) H Calcium Level 8.2 mg/dL (8.6-10.2) L Total Bilirubin 2.4 mg/dL (0.0-1.2) H Direct Bilirubin 1.2 mg/dL (0.1-0.3) H Aspartate Amino Transf (AST/SGOT) 136 U/L (5-40) H Alanine Aminotransferase (ALT/SGPT) 700 U/L (3-41) H Alkaline Phosphatase 200 U/L (40-129) H Total Protein 5.7 g/dL (6.6-8.7) L Albumin 2.4 g/dL (3.5-5.2) L Globulin 3.3 g/dL Albumin/Globulin Ratio 0.7 (1.0-2.7) L BALJIT FRANCOIS Nov 03, 2016 20:06
--- NOTE | 2016-11-03 22:37 | Pulmonology Progress Note ---
Assessment/Plan Problems: (1) Pleural effusion (2) Abdominal pain (3) Ascites (4) Alcoholic cardiomyopathy (5) Tachycardia (6) ETOH abuse Assessment/Plan episode of hypotension worsening kidney functin EF 10% increased wbc ? etiology, ID follows. . Subjective ROS Limited/Unobtainable: No Constitutional: Reports: anorexia, fatigue Gastrointestinal/Abdominal: Reports: nausea, vomiting Neurologic: Reports: confusion, weakness Allergies: Coded Allergies: No Known Allergies (Unverified , 10/25/16) Objective Last 24 Hour Vital Signs Date Time Temp Pulse Resp B/P Pulse Ox O2 Delivery O2 Flow Rate FiO2 11/03/16 21:02 98 11/03/16 20:52 125 108/77 11/03/16 20:40 125 20 Room Air 11/03/16 20:00 97.8 123 18 108/77 98 Room Air 11/03/16 19:42 97.0 11/03/16 16:00 97.0 90 20 105/78 98 Room Air 11/03/16 12:00 97.6 100 20 100/77 95 Room Air 11/03/16 09:58 110 16 Room Air 11/03/16 08:00 97.9 97 20 108/77 98 Room Air 11/03/16 04:00 97.7 89 18 119/58 98 Room Air 11/03/16 00:00 97.5 108 20 99/75 97 Room Air Intake and Output 11/02/16 11/03/16 19:00 07:00 Intake Total 480 ml 737.5 ml Output Total 500 ml 1700 ml Balance -20 ml -962.5 ml Intake Oral 480 ml 600 ml IV Total 137.5 ml Output Urine Total 500 ml 1700 ml General Appearance: no acute distress HEENT: normocephalic, atraumatic, PERRL Respiratory/Chest: chest wall non-tender, decreased breath sounds, accessory muscle use, rhonchi Cardiovascular: normal peripheral pulses, normal rate, regular rhythm, no JVD Abdomen: normal bowel sounds, soft, non tender, no organomegaly Genitourinary: normal external genitalia Extremities: no cyanosis Skin: no ulcers 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: manager art II-XII grossly normal, no motor/sensory deficits Laboratory Tests 11/03/16 05:10: White Blood Count 16.4H, Red Blood Count 4.44L, Hemoglobin 13.3L, Hematocrit 40.8L, Mean Corpuscular Volume 92, Mean Corpuscular Hemoglobin 29.9, Mean Corpuscular Hemoglobin Concent 32.5, Red Cell Distribution Width 17.3H, Platelet Count 227, Mean Platelet Volume 8.7, Neutrophils (%) (Auto) 70.7, Lymphocytes (%) (Auto) 18.8L, Monocytes (%) (Auto) 7.3, Eosinophils (%) (Auto) 2.3, Basophils (%) (Auto) 0.9, Sodium Level 137, Potassium Level 3.7, Chloride Level 98, Carbon Dioxide Level 23, Anion Gap 16H, Blood Urea Nitrogen 28H, Creatinine 1.2, Estimat Glomerular Filtration Rate > 60, Glucose Level 115H, Calcium Level 8.2L, Total Bilirubin 2.4H, Direct Bilirubin 1.2H, Aspartate Amino Transf (AST/SGOT) 136H, Alanine Aminotransferase (ALT/SGPT) 700H, Alkaline Phosphatase 200H, Total Protein 5.7L, Albumin 2.4L, Globulin 3.3, Albumin/Globulin Ratio 0.7L Current Medications Medications (Trade) Dose Ordered Sig/Baudilio Route PRN Reason Start Time Stop Time Status Last Admin Dose Admin Acetaminophen (Tylenol) 650 mg Q4H PRN ORAL fever 10/30/16 21:00 11/29/16 20:59 Al Hydroxide/Mg Hydroxide (Mylanta II) 30 ml Q6H PRN ORAL dyspepsia 10/30/16 21:00 11/29/16 20:59 Albuterol/ Ipratropium (DuoNeb 0.5-3(2.5)mg/3ml) 3 ml Q4H PRN HHN Shortness of Breath 10/30/16 21:00 11/04/16 20:59 Carvedilol (Coreg) 3.125 mg EVERY 12 HOURS ORAL 11/03/16 21:00 12/03/16 20:59 11/03/16 20:52 Chlordiazepoxide (Librium) 25 mg Q6H PRN ORAL tachycardia> 100 10/30/16 21:00 11/06/16 20:59 10/31/16 20:31 Dextrose (Dextrose 50%) STAT PRN IV Hypoglycemia 10/30/16 21:00 11/29/16 20:59 Diphenhydramine HCl (Benadryl) 25 mg Q6H PRN ORAL Itching/Pruritis 10/30/16 21:00 11/29/16 20:59 Morphine Sulfate (Morphine Sulfate) 2 mg Q4H PRN IVP severe Pain (Pain Scale 7-10) 10/30/16 21:00 11/06/16 20:59 11/03/16 19:12 Nitroglycerin (Ntg) 0.4 mg Q5M X 3 DOSES PRN SL Prn Chest Pain 10/30/16 21:00 11/29/16 20:59 Ondansetron HCl (Zofran) 4 mg Q6H PRN IVP Nausea & Vomiting 10/30/16 21:00 11/29/16 20:59 Piperacillin Sod/ Tazobactam Sod/ Sodium Chloride (Zosyn/Sodium Chloride) 110 ml @ 27.5 mls/hr EVERY 8 HOURS IVPB 10/30/16 22:00 11/07/16 05:59 11/03/16 20:52 Polyethylene Glycol (Miralax) 17 gm HSPRN PRN ORAL Constipation 10/31/16 18:00 11/30/16 17:59 Temazepam (Restoril) 15 mg HSPRN PRN ORAL Insomnia 10/30/16 21:00 11/06/16 20:59 11/03/16 21:00 Thiamine HCl (Vitamin B1) 100 mg DAILY ORAL 10/31/16 09:00 11/30/16 08:59 11/03/16 10:52 RHONDA PARKINSON Nov 03, 2016 22:37
[2016-11-04 03:45] VITALS: BP 94/72
[2016-11-04] MEDS: Piperacillin/Tazobactam 3.375 GM in NS 110 ML IVPB SCH ×3 (05:42→20:30)
[2016-11-04] MEDS: Morphine Sulfate 2mg/ml Inj IVP PRN ×4 (05:42→21:37)
[2016-11-04 07:08] LABS: ALANINE AMINOTRANSFERASE 524 U/L (3-41); ALBUMIN/GLOBULIN RATIO 0.7 (1.0-2.7); ANION GAP 15 (5-15); ASPARTATE AMINO TRANSFERASE 90 U/L (5-40); CALCIUM 8.3 mg/dL (8.6-10.2); CARBON DIOXIDE 26 mEQ/L (20-30); CHLORIDE 95 mEQ/L (98-107); CREATININE 1.1 mg/dL (0.7-1.2); GLOMERULAR FILTRATION RATE > 60 mL/min (>60); HEMOLYSIS 5; POTASSIUM 3.4 mEQ/L (3.4-4.9); SODIUM 136 mEQ/L (135-145); TOTAL PROTEIN 5.5 g/dL (6.6-8.7)
[2016-11-04 07:33] LABS: BILIRUBIN,DIRECT 1.2 mg/dL (0.1-0.3)
[2016-11-04] MEDS: Thiamine 100mg tab ORAL SCH (08:49)
[2016-11-04 08:51] VITALS: BP 109/62
--- NOTE | 2016-11-04 10:51 | Infectious Diseases Prog Note ---
Assessment/Plan Assessment/Plan ASSESSMENT: 41 y/o male with: // Possible acalculous cholecystitis - abdominal pain, N/V - US: Gallbladder wall thickening, no stones. Cannot r/o acute acalculous cholecystitis // Shock SP - off pressors. Septic vs cardiogenic // Leukocytosis - persistent, stable, afebrile. No repeat CBC, may be non- infectious. 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 No radiographically evident complication - SP thoracentesis 10/13: Cx(-) // NKDA // Full Code PLAN: - continue empiric zosyn d# 05-28 - check HIDA - monitor CBC, temperatures, re-culture if acute change - monitor CMP - monitor CXR - repeat Subjective Allergies: Coded Allergies: No Known Allergies (Unverified , 10/25/16) Subjective remains afebrile. RUQ pain no labs today Objective Vital Signs Last 24 Hour Vital Signs Date Time Temp Pulse Resp B/P Pulse Ox O2 Delivery O2 Flow Rate FiO2 11/04/16 08:53 107 109/62 11/04/16 08:51 98.0 107 20 109/62 98 Room Air 11/04/16 03:45 97.7 109 18 94/72 98 Room Air 11/03/16 23:58 97.2 100 18 99/66 93 Room Air 11/03/16 21:02 98 11/03/16 20:52 125 108/77 11/03/16 20:40 125 20 Room Air 11/03/16 20:00 97.8 123 18 108/77 98 Room Air 11/03/16 19:42 97.0 11/03/16 16:00 97.0 90 20 105/78 98 Room Air 11/03/16 12:00 97.6 100 20 100/77 95 Room Air Height (Feet): 5 Height (Inches): 6.00 Weight (Pounds): 159 General Appearance: no acute distress Respiratory/Chest: no respiratory distress Cardiovascular: normal rate, regular rhythm Abdomen: normal bowel sounds, non distended, tender Laboratory Tests Test 11/04/16 05:45 Sodium Level 136 mEQ/L (135-145) Potassium Level 3.4 mEQ/L (3.4-4.9) Chloride Level 95 mEQ/L (98-107) L Carbon Dioxide Level 26 mEQ/L (20-30) Anion Gap 15 (5-15) Blood Urea Nitrogen 24 mg/dL (7-23) H Creatinine 1.1 mg/dL (0.7-1.2) Estimat Glomerular Filtration Rate > 60 mL/min (>60) Glucose Level 107 mg/dL (74-106) H Calcium Level 8.3 mg/dL (8.6-10.2) L Total Bilirubin 2.1 mg/dL (0.0-1.2) H Direct Bilirubin 1.2 mg/dL (0.1-0.3) H Aspartate Amino Transf (AST/SGOT) 90 U/L (5-40) H Alanine Aminotransferase (ALT/SGPT) 524 U/L (3-41) H Alkaline Phosphatase 163 U/L (40-129) H Total Protein 5.5 g/dL (6.6-8.7) L Albumin 2.4 g/dL (3.5-5.2) L Globulin 3.1 g/dL Albumin/Globulin Ratio 0.7 (1.0-2.7) L Current Medications Medications (Trade) Dose Ordered Sig/Baudilio Route PRN Reason Start Time Stop Time Status Last Admin Dose Admin Acetaminophen (Tylenol) 650 mg Q4H PRN ORAL fever 10/30/16 21:00 11/29/16 20:59 Al Hydroxide/Mg Hydroxide (Mylanta II) 30 ml Q6H PRN ORAL dyspepsia 10/30/16 21:00 11/29/16 20:59 Albuterol/ Ipratropium (DuoNeb 0.5-3(2.5)mg/3ml) 3 ml Q4H PRN HHN Shortness of Breath 10/30/16 21:00 11/04/16 20:59 Carvedilol (Coreg) 3.125 mg EVERY 12 HOURS ORAL 11/03/16 21:00 12/03/16 20:59 11/04/16 08:53 Chlordiazepoxide (Librium) 25 mg Q6H PRN ORAL tachycardia> 100 10/30/16 21:00 11/06/16 20:59 10/31/16 20:31 Dextrose (Dextrose 50%) STAT PRN IV Hypoglycemia 10/30/16 21:00 11/29/16 20:59 Diphenhydramine HCl (Benadryl) 25 mg Q6H PRN ORAL Itching/Pruritis 10/30/16 21:00 11/29/16 20:59 Morphine Sulfate (Morphine Sulfate) 2 mg Q4H PRN IVP severe Pain (Pain Scale 7-10) 10/30/16 21:00 11/06/16 20:59 11/04/16 05:42 Nitroglycerin (Ntg) 0.4 mg Q5M X 3 DOSES PRN SL Prn Chest Pain 10/30/16 21:00 11/29/16 20:59 Ondansetron HCl (Zofran) 4 mg Q6H PRN IVP Nausea & Vomiting 10/30/16 21:00 11/29/16 20:59 Piperacillin Sod/ Tazobactam Sod/ Sodium Chloride (Zosyn/Sodium Chloride) 110 ml @ 27.5 mls/hr EVERY 8 HOURS IVPB 10/30/16 22:00 11/07/16 05:59 11/04/16 05:42 Polyethylene Glycol (Miralax) 17 gm HSPRN PRN ORAL Constipation 10/31/16 18:00 11/30/16 17:59 Temazepam (Restoril) 15 mg HSPRN PRN ORAL Insomnia 10/30/16 21:00 11/06/16 20:59 11/03/16 21:00 Thiamine HCl (Vitamin B1) 100 mg DAILY ORAL 10/31/16 09:00 11/30/16 08:59 11/04/16 08:49 BOBO COLÓN 23, 2017 10:51
[2016-11-04 11:53] VITALS: BP 101/59
--- NOTE | 2016-11-04 12:11 | General Progress Note ---
Assessment/Plan Problem List: (1) Abdominal pain ICD Codes: R10.9 - Unspecified abdominal pain SNOMED: 67505179 (2) Alcoholic cardiomyopathy ICD Codes: I42.6 - Alcoholic cardiomyopathy SNOMED: 728688774 (3) Anemia ICD Codes: D64.9 - Anemia, unspecified SNOMED: 046121395 (4) Ascites ICD Codes: R18.8 - Other ascites SNOMED: 579103065 (5) Hypoalbuminemia ICD Codes: E88.09 - Other disorders of plasma-protein metabolism, not elsewhere classified SNOMED: 814756747 (6) ETOH abuse ICD Codes: F10.10 - Alcohol abuse, uncomplicated SNOMED: 88669768, 24549158 (7) Pleural effusion ICD Codes: J90 - Pleural effusion, not elsewhere classified SNOMED: 24363050 (8) Leukocytosis ICD Codes: D72.829 - Elevated white blood cell count, unspecified SNOMED: 402690494, 762962918 (9) Shock liver ICD Codes: K72.00 - Acute and subacute hepatic failure without coma SNOMED: 991525213 Assessment/Plan fu labs abx fu stool ob GI procedures on hold for now with EF of 10% repeat lfts>>> improving Subjective ROS Limited/Unobtainable: Yes Allergies: Coded Allergies: No Known Allergies (Unverified , 10/25/16) Subjective no event Objective Last 24 Hour Vital Signs Date Time Temp Pulse Resp B/P Pulse Ox O2 Delivery O2 Flow Rate FiO2 11/04/16 11:53 97.0 111 18 101/59 95 Room Air 11/04/16 08:53 107 109/62 11/04/16 08:51 98.0 107 20 109/62 98 Room Air 11/04/16 03:45 97.7 109 18 94/72 98 Room Air 11/03/16 23:58 97.2 100 18 99/66 93 Room Air 11/03/16 21:02 98 11/03/16 20:52 125 108/77 11/03/16 20:40 125 20 Room Air 11/03/16 20:00 97.8 123 18 108/77 98 Room Air 11/03/16 19:42 97.0 11/03/16 16:00 97.0 90 20 105/78 98 Room Air Intake and Output 11/03/16 11/04/16 19:00 07:00 Intake Total 1310.0 ml 367.5 ml Output Total 450 ml Balance 860.0 ml 367.5 ml Intake Oral 1200 ml 340 ml IV Total 110.0 ml 27.5 ml Output Urine Total 450 ml # Voids 3 2 Laboratory Tests 11/04/16 05:45: Sodium Level 136, Potassium Level 3.4, Chloride Level 95L, Carbon Dioxide Level 26, Anion Gap 15, Blood Urea Nitrogen 24H, Creatinine 1.1, Estimat Glomerular Filtration Rate > 60, Glucose Level 107H, Calcium Level 8.3L, Total Bilirubin 2.1H, Direct Bilirubin 1.2H, Aspartate Amino Transf (AST/SGOT) 90H, Alanine Aminotransferase (ALT/SGPT) 524H, Alkaline Phosphatase 163H, Total Protein 5.5L , Albumin 2.4L, Globulin 3.1, Albumin/Globulin Ratio 0.7L Height (Feet): 5 Height (Inches): 6.00 Weight (Pounds): 159 General Appearance: no apparent distress EENT: normal ENT inspection Neck: supple Cardiovascular: normal rate Respiratory/Chest: decreased breath sounds Abdomen: normal bowel sounds, non tender, soft Extremities: non-tender ADRIAN BERG Nov 04, 2016 12:11
--- NOTE | 2016-11-04 15:53 | Diagnostic Imaging Report ---
Indication: Abdominal Pain Technique: 5.7 mCi of technetium 99 m-Choletec was injected intravenously. Planar imaging of the abdomen was then performed every 5 minutes up to 30 minutes and every 10 minutes up to one hour. Oblique views were also obtained. 2 mg morphine sulfate given at 34 minute. Findings: There is prompt uptake within the liver with good washout of radiotracer from the liver on subsequent imaging. There is excretion into the biliary ducts. Gallbladder activity is present in a timely fashion indicating patency of the cystic duct. Bowel activity is demonstrated in a timely fashion indicating patency of the common bile duct. Impression: Normal HIDA scan
[2016-11-04 16:10] VITALS: BP 100/73
--- NOTE | 2016-11-04 19:15 | Cardiology Progress Note ---
Assessment/Plan Assessment/Plan abd pain cardiomyopathy chf acute on chronic rv apical filling defect no confirmed on echo renal wedge deformity etohism pleural effusion ascites abn ekg tachy ? related to withdrawl hypotension resolved transminiitis probably passive congestion vern diuretics bid echo noted cardiac enzyme neg better to day stil lsieh dig edema on coreg Subjective Cardiovascular: Reports: lightheadedness, Denies: chest pain Respiratory: Reports: shortness of breath, Denies: cough Gastrointestinal/Abdominal: Denies: abdominal pain Genitourinary: Denies: burning Objective Last 24 Hour Vital Signs Date Time Temp Pulse Resp B/P Pulse Ox O2 Delivery O2 Flow Rate FiO2 11/04/16 17:57 96.3 11/04/16 16:10 96.3 107 22 100/73 99 Room Air 11/04/16 11:53 97.0 111 18 101/59 95 Room Air 11/04/16 08:53 107 109/62 11/04/16 08:51 98.0 107 20 109/62 98 Room Air 11/04/16 03:45 97.7 109 18 94/72 98 Room Air 11/03/16 23:58 97.2 100 18 99/66 93 Room Air 11/03/16 21:02 98 11/03/16 20:52 125 108/77 11/03/16 20:40 125 20 Room Air 11/03/16 20:00 97.8 123 18 108/77 98 Room Air General Appearance: no apparent distress, alert Cardiovascular: tachycardia Respiratory/Chest: crackles/rales Abdomen: non tender, soft Extremities: moderate edema Intake and Output 11/03/16 11/04/16 19:00 07:00 Intake Total 1310.0 ml 367.5 ml Output Total 450 ml Balance 860.0 ml 367.5 ml Intake Oral 1200 ml 340 ml IV Total 110.0 ml 27.5 ml Output Urine Total 450 ml # Voids 3 2 Laboratory Tests Test 11/04/16 05:45 Sodium Level 136 mEQ/L (135-145) Potassium Level 3.4 mEQ/L (3.4-4.9) Chloride Level 95 mEQ/L (98-107) L Carbon Dioxide Level 26 mEQ/L (20-30) Anion Gap 15 (5-15) Blood Urea Nitrogen 24 mg/dL (7-23) H Creatinine 1.1 mg/dL (0.7-1.2) Estimat Glomerular Filtration Rate > 60 mL/min (>60) Glucose Level 107 mg/dL (74-106) H Calcium Level 8.3 mg/dL (8.6-10.2) L Total Bilirubin 2.1 mg/dL (0.0-1.2) H Direct Bilirubin 1.2 mg/dL (0.1-0.3) H Aspartate Amino Transf (AST/SGOT) 90 U/L (5-40) H Alanine Aminotransferase (ALT/SGPT) 524 U/L (3-41) H Alkaline Phosphatase 163 U/L (40-129) H Total Protein 5.5 g/dL (6.6-8.7) L Albumin 2.4 g/dL (3.5-5.2) L Globulin 3.1 g/dL Albumin/Globulin Ratio 0.7 (1.0-2.7) L BALJIT FRANCOIS Nov 04, 2016 19:15
[2016-11-04 19:56] VITALS: BP 101/73
--- NOTE | 2016-11-04 23:45 | Pulmonology Progress Note ---
Assessment/Plan Problems: (1) Pleural effusion (2) Abdominal pain (3) Ascites (4) Alcoholic cardiomyopathy (5) Tachycardia (6) ETOH abuse Assessment/Plan episode of hypotension worsening kidney functin EF 10% increased wbc ? etiology, ID follows. . Subjective ROS Limited/Unobtainable: No Constitutional: Reports: anorexia, fatigue Respiratory: Reports: dyspnea at rest, pleuritic pain, shortness of breath, wheezing Gastrointestinal/Abdominal: Reports: bloating, nausea Neurologic: Reports: weakness Allergies: Coded Allergies: No Known Allergies (Unverified , 10/25/16) Objective Last 24 Hour Vital Signs Date Time Temp Pulse Resp B/P Pulse Ox O2 Delivery O2 Flow Rate FiO2 11/04/16 22:07 96.8 11/04/16 20:30 108 101/73 11/04/16 19:56 96.8 108 22 101/73 92 Room Air 11/04/16 16:10 96.3 107 22 100/73 99 Room Air 11/04/16 11:53 97.0 111 18 101/59 95 Room Air 11/04/16 08:53 107 109/62 11/04/16 08:51 98.0 107 20 109/62 98 Room Air 11/04/16 03:45 97.7 109 18 94/72 98 Room Air 11/03/16 23:58 97.2 100 18 99/66 93 Room Air Intake and Output 11/03/16 11/04/16 19:00 07:00 Intake Total 1310.0 ml 367.5 ml Output Total 450 ml Balance 860.0 ml 367.5 ml Intake Oral 1200 ml 340 ml IV Total 110.0 ml 27.5 ml Output Urine Total 450 ml # Voids 3 2 General Appearance: no acute distress HEENT: normocephalic, atraumatic, PERRL Respiratory/Chest: chest wall non-tender, decreased breath sounds, accessory muscle use, crackles/rales, pleural rub Cardiovascular: normal peripheral pulses, normal rate, regular rhythm, no JVD Abdomen: distended, guarding, tender, rebound tenderness, hepatomegaly Genitourinary: normal external genitalia Extremities: no cyanosis Skin: lesions 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, no motor/sensory deficits Laboratory Tests 11/04/16 05:45: Sodium Level 136, Potassium Level 3.4, Chloride Level 95L, Carbon Dioxide Level 26, Anion Gap 15, Blood Urea Nitrogen 24H, Creatinine 1.1, Estimat Glomerular Filtration Rate > 60, Glucose Level 107H, Calcium Level 8.3L, Total Bilirubin 2.1H, Direct Bilirubin 1.2H, Aspartate Amino Transf (AST/SGOT) 90H, Alanine Aminotransferase (ALT/SGPT) 524H, Alkaline Phosphatase 163H, Total Protein 5.5L , Albumin 2.4L, Globulin 3.1, Albumin/Globulin Ratio 0.7L Current Medications Medications (Trade) Dose Ordered Sig/Baudilio Route PRN Reason Start Time Stop Time Status Last Admin Dose Admin Acetaminophen (Tylenol) 650 mg Q4H PRN ORAL fever 10/30/16 21:00 11/29/16 20:59 Al Hydroxide/Mg Hydroxide (Mylanta II) 30 ml Q6H PRN ORAL dyspepsia 10/30/16 21:00 11/29/16 20:59 Carvedilol (Coreg) 3.125 mg EVERY 12 HOURS ORAL 11/03/16 21:00 12/03/16 20:59 11/04/16 20:30 Chlordiazepoxide (Librium) 25 mg Q6H PRN ORAL tachycardia> 100 10/30/16 21:00 11/06/16 20:59 10/31/16 20:31 Dextrose (Dextrose 50%) STAT PRN IV Hypoglycemia 10/30/16 21:00 11/29/16 20:59 Diphenhydramine HCl (Benadryl) 25 mg Q6H PRN ORAL Itching/Pruritis 10/30/16 21:00 11/29/16 20:59 Furosemide (Lasix) 20 mg ONCE ONCE IV 11/05/16 06:00 11/05/16 06:01 Morphine Sulfate (Morphine Sulfate) 2 mg Q4H PRN IVP severe Pain (Pain Scale 7-10) 10/30/16 21:00 11/06/16 20:59 11/04/16 21:37 Nitroglycerin (Ntg) 0.4 mg Q5M X 3 DOSES PRN SL Prn Chest Pain 10/30/16 21:00 11/29/16 20:59 Ondansetron HCl (Zofran) 4 mg Q6H PRN IVP Nausea & Vomiting 10/30/16 21:00 11/29/16 20:59 Piperacillin Sod/ Tazobactam Sod/ Sodium Chloride (Zosyn/Sodium Chloride) 110 ml @ 27.5 mls/hr EVERY 8 HOURS IVPB 10/30/16 22:00 11/07/16 05:59 11/04/16 20:30 Polyethylene Glycol (Miralax) 17 gm HSPRN PRN ORAL Constipation 10/31/16 18:00 11/30/16 17:59 Temazepam (Restoril) 15 mg HSPRN PRN ORAL Insomnia 10/30/16 21:00 11/06/16 20:59 11/04/16 21:37 Thiamine HCl (Vitamin B1) 100 mg DAILY ORAL 10/31/16 09:00 11/30/16 08:59 11/04/16 08:49 ROHNDA PARKINSON Nov 04, 2016 23:45
[2016-11-05] VITALS: BP 103/73
[2016-11-05] MEDS: Morphine Sulfate 2mg/ml Inj IVP PRN ×4 (01:29→20:01)
[2016-11-05 04:00] VITALS: BP 107/80
[2016-11-05] MEDS: Piperacillin/Tazobactam 3.375 GM in NS 110 ML IVPB SCH ×3 (05:53→22:22)
[2016-11-05] MEDS: Thiamine 100mg tab ORAL SCH (08:22)
[2016-11-05 08:48] VITALS: BP 92/66
--- NOTE | 2016-11-05 10:26 | Infectious Diseases Prog Note ---
Assessment/Plan Assessment/Plan ASSESSMENT: 41 y/o male with: // Possible acalculous cholecystitis - abdominal pain, N/V - HIDA: Normal HIDA scan - US: Gallbladder wall thickening, no stones. Cannot r/o acute acalculous cholecystitis // Shock SP - off pressors. Septic vs cardiogenic // Leukocytosis - persistent, stable, afebrile. No repeat CBC, may be non- infectious. 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 No radiographically evident complication - SP thoracentesis 10/13: Cx(-) // NKDA // Full Code PLAN: - continue empiric zosyn d# -14 - monitor CBC, temperatures, re-culture if acute change - CBC AM - monitor CMP - monitor CXR - f/u repeat Subjective Allergies: Coded Allergies: No Known Allergies (Unverified , 10/25/16) Subjective remains afebrile. HIDA neg Objective Vital Signs Last 24 Hour Vital Signs Date Time Temp Pulse Resp B/P Pulse Ox O2 Delivery O2 Flow Rate FiO2 11/05/16 08:48 97.5 96 19 92/66 95 Room Air 11/05/16 08:22 96 92/66 11/05/16 04:00 96.8 89 19 107/80 99 Room Air 11/05/16 04:00 96.8 89 19 107/80 99 Room Air 11/05/16 00:00 96.8 112 19 103/73 95 Room Air 11/04/16 22:07 96.8 11/04/16 20:30 108 101/73 11/04/16 19:56 96.8 108 22 101/73 92 Room Air 11/04/16 16:10 96.3 107 22 100/73 99 Room Air 11/04/16 11:53 97.0 111 18 101/59 95 Room Air Height (Feet): 5 Height (Inches): 6.00 Weight (Pounds): 159 General Appearance: no acute distress Respiratory/Chest: no respiratory distress Cardiovascular: normal rate, regular rhythm Abdomen: normal bowel sounds, soft, non tender, non distended Current Medications Medications (Trade) Dose Ordered Sig/Baudilio Route PRN Reason Start Time Stop Time Status Last Admin Dose Admin Acetaminophen (Tylenol) 650 mg Q4H PRN ORAL fever 10/30/16 21:00 11/29/16 20:59 Al Hydroxide/Mg Hydroxide (Mylanta II) 30 ml Q6H PRN ORAL dyspepsia 10/30/16 21:00 11/29/16 20:59 Carvedilol (Coreg) 3.125 mg EVERY 12 HOURS ORAL 11/03/16 21:00 12/03/16 20:59 11/04/16 20:30 Chlordiazepoxide (Librium) 25 mg Q6H PRN ORAL tachycardia> 100 10/30/16 21:00 11/06/16 20:59 10/31/16 20:31 Dextrose (Dextrose 50%) STAT PRN IV Hypoglycemia 10/30/16 21:00 11/29/16 20:59 Diphenhydramine HCl (Benadryl) 25 mg Q6H PRN ORAL Itching/Pruritis 10/30/16 21:00 11/29/16 20:59 Morphine Sulfate (Morphine Sulfate) 2 mg Q4H PRN IVP severe Pain (Pain Scale 7-10) 10/30/16 21:00 11/06/16 20:59 11/05/16 06:01 Nitroglycerin (Ntg) 0.4 mg Q5M X 3 DOSES PRN SL Prn Chest Pain 10/30/16 21:00 11/29/16 20:59 Ondansetron HCl (Zofran) 4 mg Q6H PRN IVP Nausea & Vomiting 10/30/16 21:00 11/29/16 20:59 Piperacillin Sod/ Tazobactam Sod/ Sodium Chloride (Zosyn/Sodium Chloride) 110 ml @ 27.5 mls/hr EVERY 8 HOURS IVPB 10/30/16 22:00 11/07/16 05:59 11/05/16 05:53 Polyethylene Glycol (Miralax) 17 gm HSPRN PRN ORAL Constipation 10/31/16 18:00 4/18/17 17:59 Temazepam (Restoril) 15 mg HSPRN PRN ORAL Insomnia 10/30/16 21:00 11/06/16 20:59 11/04/16 21:37 Thiamine HCl (Vitamin B1) 100 mg DAILY ORAL 10/31/16 09:00 11/30/16 08:59 11/05/16 08:22 BOBO COLÓN 24, 2017 10:26
--- NOTE | 2016-11-05 10:57 | Diagnostic Imaging Report ---
Indication: COUGH, dyspnea Technique: One view of the chest Comparison: 10/31/2016 Findings: The heart is enlarged. There is decreased but persistent interstitial congestion and airspace edema. Probable small bilateral pleural effusions persists, left greater than right . There is a small inferior acromial spur Impression: Improved but persistent bilateral interstitial congestion and airspace edema, over 5 days Other stable findings as described
--- NOTE | 2016-11-05 11:42 | General Progress Note ---
Assessment/Plan Problem List: (1) Abdominal pain ICD Codes: R10.9 - Unspecified abdominal pain SNOMED: 44154506 (2) Alcoholic cardiomyopathy ICD Codes: I42.6 - Alcoholic cardiomyopathy SNOMED: 979619383 (3) Anemia ICD Codes: D64.9 - Anemia, unspecified SNOMED: 508756930 (4) Ascites ICD Codes: R18.8 - Other ascites SNOMED: 538168648 (5) Hypoalbuminemia ICD Codes: E88.09 - Other disorders of plasma-protein metabolism, not elsewhere classified SNOMED: 325809973 (6) ETOH abuse ICD Codes: F10.10 - Alcohol abuse, uncomplicated SNOMED: 37008636, 19215906 (7) Pleural effusion ICD Codes: J90 - Pleural effusion, not elsewhere classified SNOMED: 56543059 (8) Leukocytosis ICD Codes: D72.829 - Elevated white blood cell count, unspecified SNOMED: 237692357, 063348955 (9) Shock liver ICD Codes: K72.00 - Acute and subacute hepatic failure without coma SNOMED: 743457094 Assessment/Plan fu labs abx fu stool ob GI procedures on hold for now with EF of 10% repeat lfts>>> improving Subjective ROS Limited/Unobtainable: Yes Allergies: Coded Allergies: No Known Allergies (Unverified , 10/25/16) Subjective no event Objective Last 24 Hour Vital Signs Date Time Temp Pulse Resp B/P Pulse Ox O2 Delivery O2 Flow Rate FiO2 11/05/16 08:48 97.5 96 19 92/66 95 Room Air 11/05/16 08:22 96 92/66 11/05/16 04:00 96.8 89 19 107/80 99 Room Air 11/05/16 04:00 96.8 89 19 107/80 99 Room Air 11/05/16 00:00 96.8 112 19 103/73 95 Room Air 11/04/16 22:07 96.8 11/04/16 20:30 108 101/73 11/04/16 19:56 96.8 108 22 101/73 92 Room Air 11/04/16 16:10 96.3 107 22 100/73 99 Room Air 11/04/16 11:53 97.0 111 18 101/59 95 Room Air Intake and Output 11/04/16 11/05/16 19:00 07:00 Intake Total 595.0 ml 175.0 ml Output Total 600 ml 275 ml Balance -5.0 ml -100.0 ml Intake Oral 540 ml 120 ml IV Total 55.0 ml 55.0 ml Output Urine Total 600 ml 275 ml # Voids 1 Height (Feet): 5 Height (Inches): 6.00 Weight (Pounds): 159 General Appearance: no apparent distress EENT: normal ENT inspection Neck: supple Cardiovascular: normal rate Respiratory/Chest: decreased breath sounds Abdomen: normal bowel sounds, non tender, soft Extremities: non-tender ADRIAN BERG Nov 05, 2016 11:41
[2016-11-05 12:42] VITALS: BP 100/67
[2016-11-05] MEDS: Mylanta II UD 30ml ORAL PRN (15:00)
[2016-11-05 16:00] VITALS: BP 110/88
[2016-11-05 20:00] VITALS: BP 103/69
--- NOTE | 2016-11-05 20:52 | Cardiology Progress Note ---
Assessment/Plan Assessment/Plan abd pain cardiomyopathy chf acute on chronic rv apical filling defect no confirmed on echo renal wedge deformity etohism pleural effusion ascites abn ekg tachy ? related to withdrawl hypotension resolved transminiitis probably passive congestion vern diuretics bid echo noted cardiac enzyme neg better to day has bryan cr improvign with diuretics on coreg kalpesh givn emroe diuretica tonit en tomorrow then reevlaute acei when blood bp allow be toelrant of bp if greater than 88 Subjective Cardiovascular: Denies: chest pain, lightheadedness Respiratory: Reports: shortness of breath Gastrointestinal/Abdominal: Denies: abdominal pain Genitourinary: Reports: burning Objective Last 24 Hour Vital Signs Date Time Temp Pulse Resp B/P Pulse Ox O2 Delivery O2 Flow Rate FiO2 11/05/16 20:00 96.1 114 20 103/69 99 Room Air 11/05/16 16:00 96.3 116 22 110/88 95 Room Air 11/05/16 15:25 97.0 11/05/16 12:42 97.0 95 19 100/67 95 Room Air 11/05/16 08:48 97.5 96 19 92/66 95 Room Air 11/05/16 08:22 96 92/66 11/05/16 04:00 96.8 89 19 107/80 99 Room Air 11/05/16 04:00 96.8 89 19 107/80 99 Room Air 11/05/16 00:00 96.8 112 19 103/73 95 Room Air General Appearance: no apparent distress, alert Neck: no JVD Cardiovascular: normal rate Respiratory/Chest: crackles/rales Abdomen: non tender, soft Extremities: moderate edema Intake and Output 11/04/16 11/05/16 19:00 07:00 Intake Total 595.0 ml 175.0 ml Output Total 600 ml 275 ml Balance -5.0 ml -100.0 ml Intake Oral 540 ml 120 ml IV Total 55.0 ml 55.0 ml Output Urine Total 600 ml 275 ml # Voids 1 BALJIT FRANCOIS Nov 05, 2016 20:52
--- NOTE | 2016-11-05 22:56 | Pulmonology Progress Note ---
Assessment/Plan Problems: (1) Pleural effusion (2) Abdominal pain (3) Ascites (4) Alcoholic cardiomyopathy (5) Tachycardia (6) ETOH abuse Assessment/Plan episode of hypotension worsening kidney functin EF 10% increased wbc ? etiology, ID follows. . Subjective ROS Limited/Unobtainable: Yes Constitutional: Reports: anorexia, fatigue Gastrointestinal/Abdominal: Reports: nausea, vomiting Neurologic: Reports: confusion, weakness Allergies: Coded Allergies: No Known Allergies (Unverified , 10/25/16) Objective Last 24 Hour Vital Signs Date Time Temp Pulse Resp B/P Pulse Ox O2 Delivery O2 Flow Rate FiO2 11/05/16 21:07 114 103/69 11/05/16 20:13 96.1 11/05/16 20:00 96.1 114 20 103/69 99 Room Air 11/05/16 16:00 96.3 116 22 110/88 95 Room Air 11/05/16 12:42 97.0 95 19 100/67 95 Room Air 11/05/16 08:48 97.5 96 19 92/66 95 Room Air 11/05/16 08:22 96 92/66 11/05/16 04:00 96.8 89 19 107/80 99 Room Air 11/05/16 04:00 96.8 89 19 107/80 99 Room Air 11/05/16 00:00 96.8 112 19 103/73 95 Room Air Intake and Output 11/04/16 11/05/16 19:00 07:00 Intake Total 595.0 ml 175.0 ml Output Total 600 ml 275 ml Balance -5.0 ml -100.0 ml Intake Oral 540 ml 120 ml IV Total 55.0 ml 55.0 ml Output Urine Total 600 ml 275 ml # Voids 1 General Appearance: no acute distress HEENT: normocephalic, atraumatic, anicteric, PERRL Respiratory/Chest: chest wall non-tender, lungs clear, normal breath sounds, no respiratory distress Cardiovascular: normal peripheral pulses, normal rate, regular rhythm Abdomen: normal bowel sounds, soft, non tender, no organomegaly, non distended Genitourinary: normal external genitalia Extremities: no cyanosis Skin: no rash 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, 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, disoriented Current Medications Medications (Trade) Dose Ordered Sig/Baudilio Route PRN Reason Start Time Stop Time Status Last Admin Dose Admin Acetaminophen (Tylenol) 650 mg Q4H PRN ORAL fever 10/30/16 21:00 11/29/16 20:59 Al Hydroxide/Mg Hydroxide (Mylanta II) 30 ml Q6H PRN ORAL dyspepsia 10/30/16 21:00 11/29/16 20:59 11/05/16 15:00 Carvedilol (Coreg) 3.125 mg EVERY 12 HOURS ORAL 11/03/16 21:00 12/03/16 20:59 11/05/16 21:07 Chlordiazepoxide (Librium) 25 mg Q6H PRN ORAL tachycardia> 100 10/30/16 21:00 11/06/16 20:59 10/31/16 20:31 Dextrose (Dextrose 50%) STAT PRN IV Hypoglycemia 10/30/16 21:00 11/29/16 20:59 Diphenhydramine HCl (Benadryl) 25 mg Q6H PRN ORAL Itching/Pruritis 10/30/16 21:00 11/29/16 20:59 Furosemide (Lasix) 40 mg EVERY 12 HOURS IV 11/05/16 22:00 11/06/16 21:59 11/05/16 22:22 Morphine Sulfate (Morphine Sulfate) 2 mg Q4H PRN IVP severe Pain (Pain Scale 7-10) 10/30/16 21:00 11/06/16 20:59 11/05/16 20:01 Nitroglycerin (Ntg) 0.4 mg Q5M X 3 DOSES PRN SL Prn Chest Pain 10/30/16 21:00 11/29/16 20:59 Ondansetron HCl (Zofran) 4 mg Q6H PRN IVP Nausea & Vomiting 10/30/16 21:00 11/29/16 20:59 Piperacillin Sod/ Tazobactam Sod/ Sodium Chloride (Zosyn/Sodium Chloride) 110 ml @ 27.5 mls/hr EVERY 8 HOURS IVPB 10/30/16 22:00 11/07/16 05:59 11/05/16 22:22 Polyethylene Glycol (Miralax) 17 gm HSPRN PRN ORAL Constipation 10/31/16 18:00 11/30/16 17:59 Temazepam (Restoril) 15 mg HSPRN PRN ORAL Insomnia 10/30/16 21:00 11/06/16 20:59 11/04/16 21:37 Thiamine HCl (Vitamin B1) 100 mg DAILY ORAL 10/31/16 09:00 11/30/16 08:59 11/05/16 08:22 RHONDA PARKINSON Nov 05, 2016 22:56
[2016-11-06] VITALS (7 sets, daily range): BP systolic 86–118; BP diastolic 56–80
[2016-11-06] MEDS: Morphine Sulfate 2mg/ml Inj IVP PRN ×5 (00:04→19:45)
[2016-11-06] MEDS: Piperacillin/Tazobactam 3.375 GM in NS 110 ML IVPB SCH ×3 (05:01→21:19)
[2016-11-06 07:14] LABS: BASOPHILS % (AUTO) 1.3 % (0.0-2.0); EOSINOPHILS % (AUTO) 0.3 % (0.0-3.0); LYMPHOCYTES % (AUTO) 17.1 % (20.0-45.0); MEAN CORPUSCULAR HEMOGLOBIN 29.3 PG (27.0-31.0); MEAN CORPUSCULAR HGB CONC 31.8 G/DL (32.0-36.0); MEAN CORPUSCULAR VOLUME 92 FL (80-99); MEAN PLATELET VOLUME 9.2 FL (6.5-10.1); MONOCYTES % (AUTO) 7.6 % (1.0-10.0); NEUTROPHILS % (AUTO) 73.7 % (45.0-75.0); PLATELET COUNT 264 K/UL (150-450); RED CELL DISTRIBUTION WIDTH 17.9 % (11.6-14.8)
[2016-11-06 07:39] LABS: ANION GAP 17 (5-15); CALCIUM 8.4 mg/dL (8.6-10.2); CARBON DIOXIDE 23 mEQ/L (20-30); CHLORIDE 94 mEQ/L (98-107); CREATININE 1.3 mg/dL (0.7-1.2); GLOMERULAR FILTRATION RATE > 60 mL/min (>60); HEMOLYSIS 4; POTASSIUM 4.3 mEQ/L (3.4-4.9); SODIUM 134 mEQ/L (135-145)
[2016-11-06] MEDS: Thiamine 100mg tab ORAL SCH (08:18)
--- NOTE | 2016-11-06 10:57 | Infectious Diseases Prog Note ---
Assessment/Plan Assessment/Plan ASSESSMENT: 41 y/o male with: // Possible acalculous cholecystitis - abdominal pain, N/V improved - HIDA: Normal HIDA scan - US: Gallbladder wall thickening, no stones. Cannot r/o acute acalculous cholecystitis // Shock SP - off pressors. Septic vs cardiogenic // Leukocytosis - persistent, improved, afebrile. May be non-infectious. 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 No radiographically evident complication - SP thoracentesis 10/13: Cx(-) // NKDA // Full Code PLAN: - continue empiric zosyn d# 10 / -14 - monitor CBC, temperatures, re-culture if acute change - monitor CMP - monitor CXR Subjective Allergies: Coded Allergies: No Known Allergies (Unverified , 10/25/16) Subjective remains afebrile. no new complaint Objective Vital Signs Last 24 Hour Vital Signs Date Time Temp Pulse Resp B/P Pulse Ox O2 Delivery O2 Flow Rate FiO2 11/06/16 08:17 107 96/75 11/06/16 07:32 107 96/75 11/06/16 04:35 96.1 11/06/16 04:00 98.1 120 19 86/56 95 Room Air 11/06/16 00:00 97.3 119 20 101/78 100 Nasal Cannula 2.5 11/05/16 21:07 114 103/69 11/05/16 20:00 96.1 114 20 103/69 99 Room Air 11/05/16 16:00 96.3 116 22 110/88 95 Room Air 11/05/16 12:42 97.0 95 19 100/67 95 Room Air Height (Feet): 5 Height (Inches): 6.00 Weight (Pounds): 159 General Appearance: no acute distress Respiratory/Chest: no respiratory distress Cardiovascular: normal rate, regular rhythm Abdomen: normal bowel sounds, soft, non tender, non distended Laboratory Tests Test 11/06/16 05:15 White Blood Count 12.0 K/UL (4.8-10.8) H Red Blood Count 4.50 M/UL (4.70-6.10) L Hemoglobin 13.2 G/DL (14.2-18.0) L Hematocrit 41.4 % (42.0-52.0) L Mean Corpuscular Volume 92 FL (80-99) Mean Corpuscular Hemoglobin 29.3 PG (27.0-31.0) Mean Corpuscular Hemoglobin Concent 31.8 G/DL (32.0-36.0) L Red Cell Distribution Width 17.9 % (11.6-14.8) H Platelet Count 264 K/UL (150-450) Mean Platelet Volume 9.2 FL (6.5-10.1) Neutrophils (%) (Auto) 73.7 % (45.0-75.0) Lymphocytes (%) (Auto) 17.1 % (20.0-45.0) L Monocytes (%) (Auto) 7.6 % (1.0-10.0) Eosinophils (%) (Auto) 0.3 % (0.0-3.0) Basophils (%) (Auto) 1.3 % (0.0-2.0) Sodium Level 134 mEQ/L (135-145) L Potassium Level 4.3 mEQ/L (3.4-4.9) Chloride Level 94 mEQ/L (98-107) L Carbon Dioxide Level 23 mEQ/L (20-30) Anion Gap 17 (5-15) H Blood Urea Nitrogen 30 mg/dL (7-23) H Creatinine 1.3 mg/dL (0.7-1.2) H Estimat Glomerular Filtration Rate > 60 mL/min (>60) Glucose Level 112 mg/dL (74-106) H Calcium Level 8.4 mg/dL (8.6-10.2) L Current Medications Medications (Trade) Dose Ordered Sig/Baudilio Route PRN Reason Start Time Stop Time Status Last Admin Dose Admin Acetaminophen (Tylenol) 650 mg Q4H PRN ORAL fever 10/30/16 21:00 11/29/16 20:59 Al Hydroxide/Mg Hydroxide (Mylanta II) 30 ml Q6H PRN ORAL dyspepsia 10/30/16 21:00 11/29/16 20:59 11/05/16 15:00 Carvedilol (Coreg) 3.125 mg EVERY 12 HOURS ORAL 11/03/16 21:00 12/03/16 20:59 11/05/16 21:07 Chlordiazepoxide (Librium) 25 mg Q6H PRN ORAL tachycardia> 100 10/30/16 21:00 11/06/16 20:59 10/31/16 20:31 Dextrose (Dextrose 50%) STAT PRN IV Hypoglycemia 10/30/16 21:00 11/29/16 20:59 Diphenhydramine HCl (Benadryl) 25 mg Q6H PRN ORAL Itching/Pruritis 10/30/16 21:00 11/29/16 20:59 Furosemide (Lasix) 40 mg EVERY 12 HOURS IV 11/05/16 22:00 11/06/16 21:59 11/05/16 22:22 Morphine Sulfate (Morphine Sulfate) 2 mg Q4H PRN IVP severe Pain (Pain Scale 7-10) 10/30/16 21:00 11/06/16 20:59 11/06/16 10:06 Nitroglycerin (Ntg) 0.4 mg Q5M X 3 DOSES PRN SL Prn Chest Pain 10/30/16 21:00 11/29/16 20:59 Ondansetron HCl (Zofran) 4 mg Q6H PRN IVP Nausea & Vomiting 10/30/16 21:00 11/29/16 20:59 Piperacillin Sod/ Tazobactam Sod/ Sodium Chloride (Zosyn/Sodium Chloride) 110 ml @ 27.5 mls/hr EVERY 8 HOURS IVPB 10/30/16 22:00 11/07/16 05:59 11/06/16 05:01 Polyethylene Glycol (Miralax) 17 gm HSPRN PRN ORAL Constipation 10/31/16 18:00 11/30/16 17:59 Temazepam (Restoril) 15 mg HSPRN PRN ORAL Insomnia 10/30/16 21:00 11/06/16 20:59 11/04/16 21:37 Thiamine HCl (Vitamin B1) 100 mg DAILY ORAL 10/31/16 09:00 11/30/16 08:59 11/06/16 08:18 BOBO COLÓN 25, 2017 10:57
[2016-11-06] MEDS ORDERED: Tubing IV Secondary IV ONE (13:37)
--- NOTE | 2016-11-06 17:30 | Cardiology Progress Note ---
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 BP 90s systolic after lasix Assessment/Plan Will change lasix to qd adn attempt to start low dose BIBI inhibitor. Continue low dose coreg. strict i/os, daily wts followup labs in am d/w RN Subjective ROS Limited/Unobtainable: No Subjective No c/o dyspnea. Events noted Objective Last 24 Hour Vital Signs Date Time Temp Pulse Resp B/P Pulse Ox O2 Delivery O2 Flow Rate FiO2 11/06/16 12:50 97.0 104 20 117/72 95 Room Air 11/06/16 10:57 106 118/68 11/06/16 08:17 107 96/75 11/06/16 07:32 107 96/75 11/06/16 04:35 96.1 11/06/16 04:00 98.1 120 19 86/56 95 Room Air 11/06/16 00:00 97.3 119 20 101/78 100 Nasal Cannula 2.5 11/05/16 21:07 114 103/69 11/05/16 20:00 96.1 114 20 103/69 99 Room Air General Appearance: WD/WN, no apparent distress, alert Neck: no JVD Rhythm: NSR Cardiovascular: normal rate, regular rhythm Respiratory/Chest: lungs clear Abdomen: non tender, soft Extremities: severe edema - 2-3+ pitting edema of distal LEs bilat Intake and Output 11/05/16 11/06/16 19:00 07:00 Intake Total 350.0 ml 737.5 ml Output Total 600 ml 600 ml Balance -250.0 ml 137.5 ml Intake Oral 240 ml 600 ml IV Total 110.0 ml 137.5 ml Output Urine Total 600 ml 600 ml # Voids 2 4 Laboratory Tests Test 11/06/16 05:15 White Blood Count 12.0 K/UL (4.8-10.8) H Red Blood Count 4.50 M/UL (4.70-6.10) L Hemoglobin 13.2 G/DL (14.2-18.0) L Hematocrit 41.4 % (42.0-52.0) L Mean Corpuscular Volume 92 FL (80-99) Mean Corpuscular Hemoglobin 29.3 PG (27.0-31.0) Mean Corpuscular Hemoglobin Concent 31.8 G/DL (32.0-36.0) L Red Cell Distribution Width 17.9 % (11.6-14.8) H Platelet Count 264 K/UL (150-450) Mean Platelet Volume 9.2 FL (6.5-10.1) Neutrophils (%) (Auto) 73.7 % (45.0-75.0) Lymphocytes (%) (Auto) 17.1 % (20.0-45.0) L Monocytes (%) (Auto) 7.6 % (1.0-10.0) Eosinophils (%) (Auto) 0.3 % (0.0-3.0) Basophils (%) (Auto) 1.3 % (0.0-2.0) Sodium Level 134 mEQ/L (135-145) L Potassium Level 4.3 mEQ/L (3.4-4.9) Chloride Level 94 mEQ/L (98-107) L Carbon Dioxide Level 23 mEQ/L (20-30) Anion Gap 17 (5-15) H Blood Urea Nitrogen 30 mg/dL (7-23) H Creatinine 1.3 mg/dL (0.7-1.2) H Estimat Glomerular Filtration Rate > 60 mL/min (>60) Glucose Level 112 mg/dL (74-106) H Calcium Level 8.4 mg/dL (8.6-10.2) KINGSTON ANTONY Nov 06, 2016 17:30
[2016-11-06] MEDS: Captopril 12.5mg tab ORAL SCH (21:00)
--- NOTE | 2016-11-06 21:40 | Pulmonology Progress Note ---
Assessment/Plan Problems: (1) Pleural effusion (2) Abdominal pain (3) Ascites (4) Alcoholic cardiomyopathy (5) Tachycardia (6) ETOH abuse Assessment/Plan episode of hypotension worsening kidney functin EF 10% increased wbc ? etiology, ID follows. . Subjective ROS Limited/Unobtainable: No Constitutional: Reports: anorexia, fatigue Respiratory: Reports: dyspnea at rest, productive cough, shortness of breath Neurologic: Reports: confusion, weakness Allergies: Coded Allergies: No Known Allergies (Unverified , 10/25/16) Objective Last 24 Hour Vital Signs Date Time Temp Pulse Resp B/P Pulse Ox O2 Delivery O2 Flow Rate FiO2 11/06/16 21:00 113 93/66 11/06/16 20:00 98.2 104 20 100/80 98 Room Air 11/06/16 16:00 97.8 105 19 100/75 99 Room Air 11/06/16 12:50 97.0 104 20 117/72 95 Room Air 11/06/16 10:57 106 118/68 11/06/16 08:17 107 96/75 11/06/16 07:32 107 96/75 11/06/16 04:35 96.1 11/06/16 04:00 98.1 120 19 86/56 95 Room Air 11/06/16 00:00 97.3 119 20 101/78 100 Nasal Cannula 2.5 Intake and Output 11/05/16 11/06/16 19:00 07:00 Intake Total 350.0 ml 737.5 ml Output Total 600 ml 600 ml Balance -250.0 ml 137.5 ml Intake Oral 240 ml 600 ml IV Total 110.0 ml 137.5 ml Output Urine Total 600 ml 600 ml # Voids 2 4 General Appearance: no acute distress HEENT: normocephalic, atraumatic, PERRL Respiratory/Chest: chest wall non-tender, decreased breath sounds, accessory muscle use, rhonchi, pleural rub Cardiovascular: normal peripheral pulses, normal rate, regular rhythm, no JVD Abdomen: normal bowel sounds, soft, non tender, no organomegaly Genitourinary: normal external genitalia Extremities: no cyanosis Skin: no rash, no lesions 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, responsive, disoriented Laboratory Tests 11/06/16 05:15: White Blood Count 12.0H, Red Blood Count 4.50L, Hemoglobin 13.2L, Hematocrit 41.4L, Mean Corpuscular Volume 92, Mean Corpuscular Hemoglobin 29.3, Mean Corpuscular Hemoglobin Concent 31.8L, Red Cell Distribution Width 17.9H, Platelet Count 264, Mean Platelet Volume 9.2, Neutrophils (%) (Auto) 73.7, Lymphocytes (%) (Auto) 17.1L, Monocytes (%) (Auto) 7.6, Eosinophils (%) (Auto) 0.3, Basophils (%) (Auto) 1.3, Sodium Level 134L, Potassium Level 4.3, Chloride Level 94L, Carbon Dioxide Level 23, Anion Gap 17H, Blood Urea Nitrogen 30H, Creatinine 1.3H, Estimat Glomerular Filtration Rate > 60, Glucose Level 112H, Calcium Level 8.4L Current Medications Medications (Trade) Dose Ordered Sig/Baudilio Route PRN Reason Start Time Stop Time Status Last Admin Dose Admin Acetaminophen (Tylenol) 650 mg Q4H PRN ORAL fever 10/30/16 21:00 11/29/16 20:59 Al Hydroxide/Mg Hydroxide (Mylanta II) 30 ml Q6H PRN ORAL dyspepsia 10/30/16 21:00 11/29/16 20:59 11/05/16 15:00 Captopril (Capoten) 3.125 mg EVERY 2 HOURS ORAL 11/06/16 18:00 12/06/16 17:59 UNV Carvedilol (Coreg) 3.125 mg EVERY 12 HOURS ORAL 11/03/16 21:00 12/03/16 20:59 11/05/16 21:07 Dextrose (Dextrose 50%) STAT PRN IV Hypoglycemia 10/30/16 21:00 11/29/16 20:59 Diphenhydramine HCl (Benadryl) 25 mg Q6H PRN ORAL Itching/Pruritis 10/30/16 21:00 11/29/16 20:59 Furosemide (Lasix) 40 mg DAILY IV 11/07/16 09:00 12/07/16 08:59 Nitroglycerin (Ntg) 0.4 mg Q5M X 3 DOSES PRN SL Prn Chest Pain 10/30/16 21:00 11/29/16 20:59 Ondansetron HCl (Zofran) 4 mg Q6H PRN IVP Nausea & Vomiting 10/30/16 21:00 11/29/16 20:59 Piperacillin Sod/ Tazobactam Sod/ Sodium Chloride (Zosyn/Sodium Chloride) 110 ml @ 27.5 mls/hr EVERY 8 HOURS IVPB 10/30/16 22:00 11/07/16 05:59 11/06/16 21:19 Polyethylene Glycol (Miralax) 17 gm HSPRN PRN ORAL Constipation 10/31/16 18:00 11/30/16 17:59 Thiamine HCl (Vitamin B1) 100 mg DAILY ORAL 10/31/16 09:00 11/30/16 08:59 11/06/16 08:18 RHONDA PARKINSON Nov 06, 2016 21:40
[2016-11-07] VITALS: BP 107/71
[2016-11-07 04:00] VITALS: BP 103/70
[2016-11-07] MEDS: Morphine Sulfate 2mg/ml Inj IVP PRN ×3 (04:00→16:18)
[2016-11-07 08:19] VITALS: BP 107/88
[2016-11-07] MEDS: Captopril 12.5mg tab ORAL SCH ×4 (09:00→21:16)
[2016-11-07] MEDS: Thiamine 100mg tab ORAL SCH (09:14)
--- NOTE | 2016-11-07 10:10 | Infectious Diseases Prog Note ---
Assessment/Plan Assessment/Plan ASSESSMENT: 41 y/o male with: // Possible acalculous cholecystitis - abdominal pain, N/V improved - HIDA: Normal HIDA scan - US: Gallbladder wall thickening, no stones. Cannot r/o acute acalculous cholecystitis // Shock SP - off pressors. Septic vs cardiogenic // Leukocytosis - persistent, improved, afebrile. May be non-infectious. 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 No radiographically evident complication - SP thoracentesis 10/13: Cx(-) // NKDA // Full Code PLAN: - monitor pt off of ABX for now ( 11/06 SP zosyn d# 10 / ) - monitor CBC, temperatures, re-culture if acute change - monitor CMP - monitor CXR Subjective Allergies: Coded Allergies: No Known Allergies (Unverified , 10/25/16) Subjective remains afebrile. no new complaint Objective Vital Signs Last 24 Hour Vital Signs Date Time Temp Pulse Resp B/P Pulse Ox O2 Delivery O2 Flow Rate FiO2 11/07/16 09:14 109 107/88 11/07/16 08:19 98.0 109 20 107/88 100 Room Air 11/07/16 04:00 96.1 105 20 103/70 100 Room Air 11/07/16 00:00 96.6 92 20 107/71 100 Room Air 11/06/16 21:00 113 93/66 11/06/16 20:00 98.2 104 20 100/80 98 Room Air 11/06/16 16:00 97.8 105 19 100/75 99 Room Air 11/06/16 12:50 97.0 104 20 117/72 95 Room Air 11/06/16 10:57 106 118/68 Height (Feet): 5 Height (Inches): 6.00 Weight (Pounds): 191 General Appearance: no acute distress Respiratory/Chest: no respiratory distress Cardiovascular: normal rate, regular rhythm Abdomen: normal bowel sounds, soft, non tender, non distended Laboratory Tests Test 11/07/16 03:45 Pro-B-Type Natriuretic Peptide 7854 pg/mL (0-125) H Current Medications Medications (Trade) Dose Ordered Sig/Baudilio Route PRN Reason Start Time Stop Time Status Last Admin Dose Admin Acetaminophen (Tylenol) 650 mg Q4H PRN ORAL fever 10/30/16 21:00 11/29/16 20:59 Al Hydroxide/Mg Hydroxide (Mylanta II) 30 ml Q6H PRN ORAL dyspepsia 10/30/16 21:00 11/29/16 20:59 11/05/16 15:00 Captopril (Capoten) 3.125 mg EVERY 2 HOURS ORAL 11/06/16 18:00 12/06/16 17:59 UNV Carvedilol (Coreg) 3.125 mg EVERY 12 HOURS ORAL 11/03/16 21:00 12/03/16 20:59 11/07/16 09:14 Dextrose (Dextrose 50%) STAT PRN IV Hypoglycemia 10/30/16 21:00 11/29/16 20:59 Diphenhydramine HCl (Benadryl) 25 mg Q6H PRN ORAL Itching/Pruritis 10/30/16 21:00 11/29/16 20:59 Furosemide (Lasix) 40 mg DAILY IV 11/07/16 09:00 12/07/16 08:59 Nitroglycerin (Ntg) 0.4 mg Q5M X 3 DOSES PRN SL Prn Chest Pain 10/30/16 21:00 11/29/16 20:59 Ondansetron HCl (Zofran) 4 mg Q6H PRN IVP Nausea & Vomiting 10/30/16 21:00 11/29/16 20:59 Polyethylene Glycol (Miralax) 17 gm HSPRN PRN ORAL Constipation 10/31/16 18:00 11/30/16 17:59 Thiamine HCl (Vitamin B1) 100 mg DAILY ORAL 10/31/16 09:00 11/30/16 08:59 11/07/16 09:14 BOBO COLÓN Nov 07, 2016 10:10
[2016-11-07 12:29] VITALS: BP 104/82
[2016-11-07 16:00] VITALS: BP 98/73
--- NOTE | 2016-11-07 16:31 | Cardiology Progress Note ---
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 BP 90s systolic after lasix BNP decreasing. i/os - inaccurate Assessment/Plan continue iv lasix Continue low dose coreg, BIBI inhibitor attempt strict i/os, daily wts followup labs in am CP -does not appear of cardiac origin. not pleuritic and pt w/ nonischemic cm. d/w RN Subjective ROS Limited/Unobtainable: No Subjective c/o midsternal chest pain,. no dyspnea. Objective Last 24 Hour Vital Signs Date Time Temp Pulse Resp B/P Pulse Ox O2 Delivery O2 Flow Rate FiO2 11/07/16 13:19 104/82 11/07/16 12:42 97.5 11/07/16 12:29 97.5 102 19 104/82 96 Room Air 11/07/16 09:14 109 107/88 11/07/16 08:19 98.0 109 20 107/88 100 Room Air 11/07/16 04:00 96.1 105 20 103/70 100 Room Air 11/07/16 00:00 96.6 92 20 107/71 100 Room Air 11/06/16 21:00 113 93/66 11/06/16 20:00 98.2 104 20 100/80 98 Room Air General Appearance: WD/WN, no apparent distress, thin EENT: PERRL/EOMI Neck: non-tender, no JVD Rhythm: NSR Cardiovascular: normal rate, regular rhythm, no gallop/murmur Respiratory/Chest: lungs clear Abdomen: other - mild distension, soft, nontender Extremities: moderate edema - 2-3+ pedal and ankle edema bilat Intake and Output 11/06/16 11/07/16 19:00 07:00 Intake Total 442.5 ml 895.0 ml Output Total 400 ml Balance 442.5 ml 495.0 ml Intake Oral 360 ml 840 ml IV Total 82.5 ml 55.0 ml Output Urine Total 400 ml # Voids 2 Laboratory Tests Test 11/07/16 03:45 Pro-B-Type Natriuretic Peptide 7854 pg/mL (0-125) H KINGSTON KHAN Nov 07, 2016 16:31
[2016-11-07 20:00] VITALS: BP 92/73
--- NOTE | 2016-11-07 22:53 | Pulmonology Progress Note ---
Assessment/Plan Problems: (1) Pleural effusion (2) Abdominal pain (3) Ascites (4) Alcoholic cardiomyopathy (5) Tachycardia (6) ETOH abuse Assessment/Plan episode of hypotension worsening kidney functin EF 10% increased wbc ? etiology, ID follows. . Subjective ROS Limited/Unobtainable: No Constitutional: Reports: anorexia, fatigue Gastrointestinal/Abdominal: Reports: bloating, nausea Allergies: Coded Allergies: No Known Allergies (Unverified , 10/25/16) Objective Last 24 Hour Vital Signs Date Time Temp Pulse Resp B/P Pulse Ox O2 Delivery O2 Flow Rate FiO2 11/07/16 21:16 92/73 11/07/16 20:00 96.8 126 16 92/73 96 11/07/16 16:00 97.2 111 16 98/73 92 Room Air 11/07/16 13:19 104/82 11/07/16 12:42 97.5 11/07/16 12:29 97.5 102 19 104/82 96 Room Air 11/07/16 09:14 109 107/88 11/07/16 08:19 98.0 109 20 107/88 100 Room Air 11/07/16 04:00 96.1 105 20 103/70 100 Room Air 11/07/16 00:00 96.6 92 20 107/71 100 Room Air Intake and Output 11/06/16 11/07/16 19:00 07:00 Intake Total 442.5 ml 895.0 ml Output Total 400 ml Balance 442.5 ml 495.0 ml Intake Oral 360 ml 840 ml IV Total 82.5 ml 55.0 ml Output Urine Total 400 ml # Voids 2 General Appearance: no acute distress HEENT: normocephalic, atraumatic, PERRL Respiratory/Chest: chest wall non-tender, decreased breath sounds, crackles/ rales, pleural rub Cardiovascular: normal peripheral pulses, normal rate, regular rhythm, no JVD Abdomen: absent bowel sounds, distended, guarding, tender, rebound tenderness, mass Genitourinary: normal external genitalia Extremities: no cyanosis Skin: no ulcers 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, no motor/sensory deficits Laboratory Tests 11/07/16 03:45: Pro-B-Type Natriuretic Peptide 7854H Current Medications Medications (Trade) Dose Ordered Sig/Baudilio Route PRN Reason Start Time Stop Time Status Last Admin Dose Admin Acetaminophen (Tylenol) 650 mg Q4H PRN ORAL fever 10/30/16 21:00 11/29/16 20:59 Al Hydroxide/Mg Hydroxide (Mylanta II) 30 ml Q6H PRN ORAL dyspepsia 10/30/16 21:00 11/29/16 20:59 11/05/16 15:00 Captopril (Capoten) 3.125 mg Q12HR ORAL 11/06/16 11:00 12/06/16 10:59 11/07/16 21:16 Carvedilol (Coreg) 3.125 mg EVERY 12 HOURS ORAL 11/03/16 21:00 12/03/16 20:59 11/07/16 09:14 Dextrose (Dextrose 50%) STAT PRN IV Hypoglycemia 10/30/16 21:00 11/29/16 20:59 Diphenhydramine HCl (Benadryl) 25 mg Q6H PRN ORAL Itching/Pruritis 10/30/16 21:00 11/29/16 20:59 Furosemide (Lasix) 40 mg DAILY IV 11/07/16 09:00 12/07/16 08:59 11/07/16 12:12 Morphine Sulfate (Morphine Sulfate) 2 mg Q4H PRN IVP Severe Pain (Pain Scale 7-10) 11/07/16 12:00 11/14/16 11:59 11/07/16 16:18 Nitroglycerin (Ntg) 0.4 mg Q5M X 3 DOSES PRN SL Prn Chest Pain 10/30/16 21:00 11/29/16 20:59 Ondansetron HCl (Zofran) 4 mg Q6H PRN IVP Nausea & Vomiting 10/30/16 21:00 11/29/16 20:59 11/07/16 18:54 Polyethylene Glycol (Miralax) 17 gm HSPRN PRN ORAL Constipation 10/31/16 18:00 11/30/16 17:59 Thiamine HCl (Vitamin B1) 100 mg DAILY ORAL 10/31/16 09:00 11/30/16 08:59 11/07/16 09:14 RHONDA PARKINSON Nov 07, 2016 22:53
[2016-11-08] VITALS: BP 105/77
[2016-11-08] MEDS: Morphine Sulfate 2mg/ml Inj IVP PRN ×2 (00:02→16:13)
[2016-11-08 04:00] VITALS: BP 111/86
[2016-11-08 08:00] VITALS: BP 109/87
[2016-11-08] MEDS: Thiamine 100mg tab ORAL SCH (08:43)
[2016-11-08] MEDS: Captopril 12.5mg tab ORAL SCH ×2 (08:44→21:51)
--- NOTE | 2016-11-08 09:18 | Infectious Diseases Prog Note ---
Assessment/Plan Assessment/Plan ASSESSMENT: 41 y/o male with: // Possible acalculous cholecystitis SP Rx - HIDA: Normal HIDA scan - US: Gallbladder wall thickening, no stones. Cannot r/o acute acalculous cholecystitis // Shock SP - off pressors. Septic vs cardiogenic // Leukocytosis - persistent, improved, afebrile. No repeat CBC. May be non- infectious. 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 No radiographically evident complication - SP thoracentesis 10/13: Cx(-) // NKDA // Full Code PLAN: - monitor pt off of ABX ( 11/06 SP zosyn d# 10 / 10 ) - monitor CBC, temperatures, re-culture if acute change - monitor CMP - monitor CXR Subjective Allergies: Coded Allergies: No Known Allergies (Unverified , 10/25/16) Subjective remains afebrile. no new complaint Objective Vital Signs Last 24 Hour Vital Signs Date Time Temp Pulse Resp B/P Pulse Ox O2 Delivery O2 Flow Rate FiO2 11/08/16 08:45 100 109/87 11/08/16 08:44 109/87 11/08/16 08:00 97.7 100 19 109/87 100 Room Air 11/08/16 04:00 97.3 90 18 111/86 95 Room Air 11/08/16 00:00 97.0 100 20 105/77 97 Room Air 11/07/16 21:16 92/73 11/07/16 21:00 126 92/73 11/07/16 20:00 96.8 126 16 92/73 96 11/07/16 16:00 97.2 111 16 98/73 92 Room Air 11/07/16 13:19 104/82 11/07/16 12:42 97.5 11/07/16 12:29 97.5 102 19 104/82 96 Room Air Height (Feet): 5 Height (Inches): 6.00 Weight (Pounds): 185 General Appearance: no acute distress Respiratory/Chest: no respiratory distress Cardiovascular: normal rate, regular rhythm Abdomen: normal bowel sounds, soft, non tender Current Medications Medications (Trade) Dose Ordered Sig/Baudilio Route PRN Reason Start Time Stop Time Status Last Admin Dose Admin Acetaminophen (Tylenol) 650 mg Q4H PRN ORAL fever 10/30/16 21:00 11/29/16 20:59 Al Hydroxide/Mg Hydroxide (Mylanta II) 30 ml Q6H PRN ORAL dyspepsia 10/30/16 21:00 11/29/16 20:59 11/05/16 15:00 Captopril (Capoten) 3.125 mg Q12HR ORAL 11/06/16 11:00 12/06/16 10:59 11/08/16 08:44 Carvedilol (Coreg) 3.125 mg EVERY 12 HOURS ORAL 11/03/16 21:00 12/03/16 20:59 11/08/16 08:45 Dextrose (Dextrose 50%) STAT PRN IV Hypoglycemia 10/30/16 21:00 11/29/16 20:59 Diphenhydramine HCl (Benadryl) 25 mg Q6H PRN ORAL Itching/Pruritis 10/30/16 21:00 11/29/16 20:59 Furosemide (Lasix) 40 mg DAILY IV 11/07/16 09:00 12/07/16 08:59 11/08/16 08:45 Morphine Sulfate (Morphine Sulfate) 2 mg Q4H PRN IVP Severe Pain (Pain Scale 7-10) 11/07/16 12:00 11/14/16 11:59 11/08/16 00:02 Nitroglycerin (Ntg) 0.4 mg Q5M X 3 DOSES PRN SL Prn Chest Pain 10/30/16 21:00 11/29/16 20:59 Ondansetron HCl (Zofran) 4 mg Q6H PRN IVP Nausea & Vomiting 10/30/16 21:00 11/29/16 20:59 11/07/16 18:54 Polyethylene Glycol (Miralax) 17 gm HSPRN PRN ORAL Constipation 10/31/16 18:00 11/30/16 17:59 Promethazine HCl/ Codeine (Phenergan with Codeine) 5 ml Q6H PRN ORAL For Cough 11/07/16 23:30 12/07/16 23:29 Thiamine HCl (Vitamin B1) 100 mg DAILY ORAL 10/31/16 09:00 11/30/16 08:59 11/08/16 08:43 BOBO COLÓN 27, 2017 09:18
--- NOTE | 2016-11-08 11:55 | General Progress Note ---
Assessment/Plan Problem List: (1) Abdominal pain ICD Codes: R10.9 - Unspecified abdominal pain SNOMED: 26410770 (2) Alcoholic cardiomyopathy ICD Codes: I42.6 - Alcoholic cardiomyopathy SNOMED: 316830609 (3) Anemia ICD Codes: D64.9 - Anemia, unspecified SNOMED: 456784858 (4) Ascites ICD Codes: R18.8 - Other ascites SNOMED: 704775003 (5) Hypoalbuminemia ICD Codes: E88.09 - Other disorders of plasma-protein metabolism, not elsewhere classified SNOMED: 400127874 (6) ETOH abuse ICD Codes: F10.10 - Alcohol abuse, uncomplicated SNOMED: 77600058, 90476516 (7) Pleural effusion ICD Codes: J90 - Pleural effusion, not elsewhere classified SNOMED: 86320351 (8) Leukocytosis ICD Codes: D72.829 - Elevated white blood cell count, unspecified SNOMED: 949786318, 816697298 (9) Shock liver ICD Codes: K72.00 - Acute and subacute hepatic failure without coma SNOMED: 011496506 Assessment/Plan fu labs abx GI procedures on hold for now with EF of 10% repeat lfts>>> improving Subjective ROS Limited/Unobtainable: Yes Allergies: Coded Allergies: No Known Allergies (Unverified , 10/25/16) Subjective no event Objective Last 24 Hour Vital Signs Date Time Temp Pulse Resp B/P Pulse Ox O2 Delivery O2 Flow Rate FiO2 11/08/16 08:45 100 109/87 11/08/16 08:44 109/87 11/08/16 08:00 97.7 100 19 109/87 100 Room Air 11/08/16 04:00 97.3 90 18 111/86 95 Room Air 11/08/16 00:00 97.0 100 20 105/77 97 Room Air 11/07/16 21:16 92/73 11/07/16 21:00 126 92/73 11/07/16 20:00 96.8 126 16 92/73 96 11/07/16 16:00 97.2 111 16 98/73 92 Room Air 11/07/16 13:19 104/82 11/07/16 12:42 97.5 11/07/16 12:29 97.5 102 19 104/82 96 Room Air Intake and Output 11/07/16 11/08/16 19:00 07:00 Intake Total 480 ml 240 ml Output Total 850 ml Balance 480 ml -610 ml Intake Oral 480 ml 240 ml Output Urine Total 850 ml # Voids 2 Laboratory Tests 11/08/16 04:00: Sodium Level [Pending], Potassium Level [Pending], Chloride Level [Pending], Carbon Dioxide Level [Pending], Blood Urea Nitrogen [Pending], Creatinine [ Pending], Estimat Glomerular Filtration Rate [Pending], Glucose Level [Pending] , Calcium Level [Pending], Pro-B-Type Natriuretic Peptide [Pending] Height (Feet): 5 Height (Inches): 6.00 Weight (Pounds): 185 General Appearance: no apparent distress EENT: normal ENT inspection Neck: supple Cardiovascular: normal rate Respiratory/Chest: decreased breath sounds Abdomen: normal bowel sounds, non tender, soft Extremities: non-tender ADRIAN BERG Nov 08, 2016 11:55
[2016-11-08 11:56] LABS: ANION GAP 22 (5-15); CALCIUM 8.4 mg/dL (8.6-10.2); CARBON DIOXIDE 20 mEQ/L (20-30); CHLORIDE 92 mEQ/L (98-107); CREATININE 1.2 mg/dL (0.7-1.2); GLOMERULAR FILTRATION RATE > 60 mL/min (>60); HEMOLYSIS 44; POTASSIUM 3.7 mEQ/L (3.4-4.9); SODIUM 134 mEQ/L (135-145)
[2016-11-08 12:00] VITALS: BP 98/69
[2016-11-08 16:00] VITALS: BP 92/71
--- NOTE | 2016-11-08 19:47 | Cardiology Progress Note ---
Assessment/Plan Assessment/Plan abd pain cardiomyopathy chf acute on chronic rv apical filling defect no confirmed on echo renal wedge deformity etohism pleural effusion ascites abn ekg tachy ? related to withdrawl hypotension resolved transminiitis probably passive congestion diuretics bid has edema of sig degree cr improvign with diuretics aceilow dose coreg low dose be toelrant of bp if greater than 88 laisx na fluid restrictionm Subjective Cardiovascular: Denies: chest pain, lightheadedness Respiratory: Reports: shortness of breath Gastrointestinal/Abdominal: Denies: abdominal pain Objective Last 24 Hour Vital Signs Date Time Temp Pulse Resp B/P Pulse Ox O2 Delivery O2 Flow Rate FiO2 11/08/16 16:00 97.0 102 22 92/71 100 11/08/16 12:00 97.3 94 20 98/69 100 Room Air 11/08/16 08:45 100 109/87 11/08/16 08:44 109/87 11/08/16 08:00 97.7 100 19 109/87 100 Room Air 11/08/16 04:00 97.3 90 18 111/86 95 Room Air 11/08/16 00:00 97.0 100 20 105/77 97 Room Air 11/07/16 21:16 92/73 11/07/16 21:00 126 92/73 11/07/16 20:00 96.8 126 16 92/73 96 General Appearance: alert Neck: supple, JVD Cardiovascular: normal rate, regular rhythm Respiratory/Chest: lungs clear Abdomen: normal bowel sounds, non tender, soft Extremities: severe edema Intake and Output 11/07/16 11/08/16 19:00 07:00 Intake Total 480 ml 240 ml Output Total 850 ml Balance 480 ml -610 ml Intake Oral 480 ml 240 ml Output Urine Total 850 ml # Voids 2 Laboratory Tests Test 11/08/16 04:00 Sodium Level 134 mEQ/L (135-145) L Potassium Level 3.7 mEQ/L (3.4-4.9) Chloride Level 92 mEQ/L (98-107) L Carbon Dioxide Level 20 mEQ/L (20-30) Anion Gap 22 (5-15) H Blood Urea Nitrogen 29 mg/dL (7-23) H Creatinine 1.2 mg/dL (0.7-1.2) Estimat Glomerular Filtration Rate > 60 mL/min (>60) Glucose Level 81 mg/dL (74-106) Calcium Level 8.4 mg/dL (8.6-10.2) L Pro-B-Type Natriuretic Peptide 8263 pg/mL (0-125) H BALJIT FRANCOIS Nov 08, 2016 19:47
[2016-11-08 20:00] VITALS: BP 103/74
--- NOTE | 2016-11-08 23:32 | Pulmonology Progress Note ---
Assessment/Plan Problems: (1) Pleural effusion (2) Abdominal pain (3) Ascites (4) Alcoholic cardiomyopathy (5) Tachycardia (6) ETOH abuse Assessment/Plan episode of hypotension worsening kidney functin EF 10% increased wbc ? etiology, ID follows. . Subjective ROS Limited/Unobtainable: No Constitutional: Reports: anorexia, fatigue Respiratory: Reports: dyspnea at rest, pleuritic pain, productive cough, shortness of breath, sputum, wheezing Gastrointestinal/Abdominal: Reports: nausea, vomiting Allergies: Coded Allergies: No Known Allergies (Unverified , 10/25/16) Objective Last 24 Hour Vital Signs Date Time Temp Pulse Resp B/P Pulse Ox O2 Delivery O2 Flow Rate FiO2 11/08/16 21:51 103/74 11/08/16 21:49 100 103/74 11/08/16 16:00 97.0 102 22 92/71 100 11/08/16 12:00 97.3 94 20 98/69 100 Room Air 11/08/16 08:45 100 109/87 11/08/16 08:44 109/87 11/08/16 08:00 97.7 100 19 109/87 100 Room Air 11/08/16 04:00 97.3 90 18 111/86 95 Room Air 11/08/16 00:00 97.0 100 20 105/77 97 Room Air Intake and Output 11/07/16 11/08/16 19:00 07:00 Intake Total 480 ml 240 ml Output Total 850 ml Balance 480 ml -610 ml Intake Oral 480 ml 240 ml Output Urine Total 850 ml # Voids 2 General Appearance: no acute distress HEENT: normocephalic, atraumatic, PERRL Respiratory/Chest: chest wall non-tender, decreased breath sounds, accessory muscle use, rhonchi, pleural rub Cardiovascular: normal peripheral pulses, normal rate, regular rhythm, no JVD Abdomen: absent bowel sounds, distended, guarding, tender, rebound tenderness, mass, hepatomegaly Genitourinary: normal external genitalia Extremities: no cyanosis Skin: rash, lesions 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: 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 normal, responsive, disoriented Laboratory Tests 11/08/16 04:00: Sodium Level 134L, Potassium Level 3.7, Chloride Level 92L, Carbon Dioxide Level 20, Anion Gap 22H, Blood Urea Nitrogen 29H, Creatinine 1.2, Estimat Glomerular Filtration Rate > 60, Glucose Level 81, Calcium Level 8.4L, Pro-B- Type Natriuretic Peptide 8263H Current Medications Medications (Trade) Dose Ordered Sig/Baudilio Route PRN Reason Start Time Stop Time Status Last Admin Dose Admin Acetaminophen (Tylenol) 650 mg Q4H PRN ORAL fever 10/30/16 21:00 11/29/16 20:59 Al Hydroxide/Mg Hydroxide (Mylanta II) 30 ml Q6H PRN ORAL dyspepsia 10/30/16 21:00 11/29/16 20:59 11/05/16 15:00 Captopril (Capoten) 3.125 mg Q12HR ORAL 11/06/16 11:00 12/06/16 10:59 11/08/16 21:51 Carvedilol (Coreg) 3.125 mg EVERY 12 HOURS ORAL 11/03/16 21:00 12/03/16 20:59 11/08/16 21:49 Dextrose (Dextrose 50%) STAT PRN IV Hypoglycemia 10/30/16 21:00 11/29/16 20:59 Diphenhydramine HCl (Benadryl) 25 mg Q6H PRN ORAL Itching/Pruritis 10/30/16 21:00 11/29/16 20:59 Furosemide (Lasix) 40 mg DAILY IV 11/07/16 09:00 12/07/16 08:59 11/08/16 08:45 Morphine Sulfate (Morphine Sulfate) 2 mg Q4H PRN IVP Severe Pain (Pain Scale 7-10) 11/07/16 12:00 11/14/16 11:59 11/08/16 16:13 Nitroglycerin (Ntg) 0.4 mg Q5M X 3 DOSES PRN SL Prn Chest Pain 10/30/16 21:00 11/29/16 20:59 Ondansetron HCl (Zofran) 4 mg Q6H PRN IVP Nausea & Vomiting 10/30/16 21:00 11/29/16 20:59 11/07/16 18:54 Polyethylene Glycol (Miralax) 17 gm HSPRN PRN ORAL Constipation 10/31/16 18:00 11/30/16 17:59 Promethazine HCl/ Codeine (Phenergan with Codeine) 5 ml Q6H PRN ORAL For Cough 11/07/16 23:30 12/07/16 23:29 Thiamine HCl (Vitamin B1) 100 mg DAILY ORAL 10/31/16 09:00 11/30/16 08:59 11/08/16 08:43 RHONDA PARKINSON Nov 08, 2016 23:32
[2016-11-09] VITALS: BP 93/71
[2016-11-09 04:00] VITALS: BP 99/74
--- NOTE | 2016-11-09 04:49 | Infectious Diseases Prog Note ---
Assessment/Plan Assessment/Plan ASSESSMENT: 41 y/o male with: // Possible acalculous cholecystitis SP Rx - HIDA: Normal HIDA scan - US: Gallbladder wall thickening, no stones. Cannot r/o acute acalculous cholecystitis // Shock SP - off pressors. Septic vs cardiogenic // Leukocytosis - persistent, improved, afebrile. May be non-infectious. 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 No radiographically evident complication - SP thoracentesis 10/13: Cx(-) // NKDA // Full Code PLAN: - monitor pt off of ABX ( 11/06 SP zosyn d# 10 / ) - monitor CBC, temperatures, re-culture if acute change - monitor CMP - monitor CXR Subjective Constitutional: Denies: anorexia, chills, drenching sweats, fatigue, fever, no symptoms, other Allergies: Coded Allergies: No Known Allergies (Unverified , 10/25/16) Objective Vital Signs Last 24 Hour Vital Signs Date Time Temp Pulse Resp B/P Pulse Ox O2 Delivery O2 Flow Rate FiO2 11/09/16 00:00 96.3 85 18 93/71 96 Room Air 11/08/16 21:51 103/74 11/08/16 21:49 100 103/74 11/08/16 20:00 95.9 100 20 103/74 96 Room Air 11/08/16 16:00 97.0 102 22 92/71 100 11/08/16 12:00 97.3 94 20 98/69 100 Room Air 11/08/16 08:45 100 109/87 11/08/16 08:44 109/87 11/08/16 08:00 97.7 100 19 109/87 100 Room Air Height (Feet): 5 Height (Inches): 6.00 Weight (Pounds): 185 HEENT: anicteric Respiratory/Chest: normal breath sounds Cardiovascular: regularly irregular Abdomen: non distended Current Medications Medications (Trade) Dose Ordered Sig/Baudilio Route PRN Reason Start Time Stop Time Status Last Admin Dose Admin Acetaminophen (Tylenol) 650 mg Q4H PRN ORAL fever 10/30/16 21:00 11/29/16 20:59 Al Hydroxide/Mg Hydroxide (Mylanta II) 30 ml Q6H PRN ORAL dyspepsia 10/30/16 21:00 11/29/16 20:59 11/05/16 15:00 Captopril (Capoten) 3.125 mg Q12HR ORAL 11/06/16 11:00 12/06/16 10:59 11/08/16 21:51 Carvedilol (Coreg) 3.125 mg EVERY 12 HOURS ORAL 11/03/16 21:00 12/03/16 20:59 11/08/16 21:49 Dextrose (Dextrose 50%) STAT PRN IV Hypoglycemia 10/30/16 21:00 11/29/16 20:59 Diphenhydramine HCl (Benadryl) 25 mg Q6H PRN ORAL Itching/Pruritis 10/30/16 21:00 11/29/16 20:59 Furosemide (Lasix) 40 mg DAILY IV 11/07/16 09:00 12/07/16 08:59 11/08/16 08:45 Morphine Sulfate (Morphine Sulfate) 2 mg Q4H PRN IVP Severe Pain (Pain Scale 7-10) 11/07/16 12:00 11/14/16 11:59 11/08/16 16:13 Nitroglycerin (Ntg) 0.4 mg Q5M X 3 DOSES PRN SL Prn Chest Pain 10/30/16 21:00 11/29/16 20:59 Ondansetron HCl (Zofran) 4 mg Q6H PRN IVP Nausea & Vomiting 10/30/16 21:00 11/29/16 20:59 11/07/16 18:54 Polyethylene Glycol (Miralax) 17 gm HSPRN PRN ORAL Constipation 10/31/16 18:00 11/30/16 17:59 Promethazine HCl/ Codeine (Phenergan with Codeine) 5 ml Q6H PRN ORAL For Cough 11/07/16 23:30 12/07/16 23:29 Thiamine HCl (Vitamin B1) 100 mg DAILY ORAL 10/31/16 09:00 11/30/16 08:59 11/08/16 08:43 RAMÓN CASTELLON M.D. Nov 09, 2016 04:49
[2016-11-09] MEDS: Morphine Sulfate 2mg/ml Inj IVP PRN ×2 (05:56→16:30)
[2016-11-09] MEDS: Captopril 12.5mg tab ORAL SCH (08:23)
[2016-11-09] MEDS: Thiamine 100mg tab ORAL SCH (08:23)
[2016-11-09 08:52] VITALS: BP 90/69
--- NOTE | 2016-11-09 10:44 | Diagnostic Imaging Report ---
Indications: Chest pain Technique: Portable AP chest Findings: Comparison: 11/05/16 Cardiomegaly, pulmonary vascular redistribution, bilateral interstitial infiltrates, left prosthetic angle indistinctness, opacification of left retrocardiac region unchanged. Linear density left midlung unchanged. No new abnormality identified. IMPRESSION: Stable bilateral congestive changes with probable left pleural effusion Underlying atelectasis or pneumonia in the leftward cardiac region not excludable Stable subsegmental atelectasis versus scarring left midlung
[2016-11-09 11:32] LABS: ALANINE AMINOTRANSFERASE 205 U/L (3-41); ALBUMIN/GLOBULIN RATIO 0.7 (1.0-2.7); ANION GAP 13 (5-15); ASPARTATE AMINO TRANSFERASE 35 U/L (5-40); CARBON DIOXIDE 25 mEQ/L (20-30); CHLORIDE 97 mEQ/L (98-107); CREATININE 1.1 mg/dL (0.7-1.2); GLOMERULAR FILTRATION RATE > 60 mL/min (>60); HEMOLYSIS 1; POTASSIUM 3.2 mEQ/L (3.4-4.9); SODIUM 135 mEQ/L (135-145); TOTAL PROTEIN 5.5 g/dL (6.6-8.7)
[2016-11-09 12:06] LABS: BILIRUBIN,DIRECT 1.2 mg/dL (0.1-0.3)
--- NOTE | 2016-11-09 12:28 | General Progress Note ---
Assessment/Plan Problem List: (1) Abdominal pain ICD Codes: R10.9 - Unspecified abdominal pain SNOMED: 25629937 (2) Alcoholic cardiomyopathy ICD Codes: I42.6 - Alcoholic cardiomyopathy SNOMED: 051290747 (3) Anemia ICD Codes: D64.9 - Anemia, unspecified SNOMED: 201519647 (4) Ascites ICD Codes: R18.8 - Other ascites SNOMED: 823383251 (5) Hypoalbuminemia ICD Codes: E88.09 - Other disorders of plasma-protein metabolism, not elsewhere classified SNOMED: 084843125 (6) ETOH abuse ICD Codes: F10.10 - Alcohol abuse, uncomplicated SNOMED: 88517417, 94667937 (7) Pleural effusion ICD Codes: J90 - Pleural effusion, not elsewhere classified SNOMED: 29324977 (8) Leukocytosis ICD Codes: D72.829 - Elevated white blood cell count, unspecified SNOMED: 183639116, 384029685 (9) Shock liver ICD Codes: K72.00 - Acute and subacute hepatic failure without coma SNOMED: 834752953 Assessment/Plan fu labs abx GI procedures on hold for now with EF of 10% repeat lfts>>> improving Subjective ROS Limited/Unobtainable: Yes Allergies: Coded Allergies: No Known Allergies (Unverified , 10/25/16) Subjective no event Objective Last 24 Hour Vital Signs Date Time Temp Pulse Resp B/P Pulse Ox O2 Delivery O2 Flow Rate FiO2 11/09/16 08:52 98.4 90 24 90/69 94 Room Air 11/09/16 08:23 99/74 11/09/16 08:22 84 99/74 11/09/16 04:00 97.4 84 18 99/74 96 Room Air 11/09/16 00:00 96.3 85 18 93/71 96 Room Air 11/08/16 21:51 103/74 11/08/16 21:49 100 103/74 11/08/16 20:00 95.9 100 20 103/74 96 Room Air 11/08/16 16:00 97.0 102 22 92/71 100 Intake and Output 11/08/16 11/09/16 19:00 07:00 Intake Total 480 ml 360 ml Output Total 2300 ml Balance 480 ml -1940 ml Intake Oral 480 ml 360 ml Output Urine Total 2300 ml # Voids 2 Laboratory Tests 11/09/16 10:50: Sodium Level 135, Potassium Level 3.2L, Chloride Level 97L, Carbon Dioxide Level 25, Anion Gap 13, Blood Urea Nitrogen 23, Creatinine 1.1, Estimat Glomerular Filtration Rate > 60, Glucose Level 129H, Calcium Level 8.0L, Total Bilirubin 2.3H, Direct Bilirubin 1.2H, Aspartate Amino Transf (AST/SGOT) 35, Alanine Aminotransferase (ALT/SGPT) 205H, Alkaline Phosphatase 140H, Total Protein 5.5L, Albumin 2.4L, Globulin 3.1, Albumin/Globulin Ratio 0.7L Height (Feet): 5 Height (Inches): 6.00 Weight (Pounds): 182 General Appearance: alert EENT: normal ENT inspection Neck: supple Cardiovascular: normal rate Respiratory/Chest: decreased breath sounds Abdomen: normal bowel sounds, non tender, soft Extremities: non-tender ADRIAN BERG Nov 09, 2016 12:28
[2016-11-09 12:47] VITALS: BP 92/61
[2016-11-09 16:07] VITALS: BP 109/76
--- NOTE | 2016-11-09 18:57 | Cardiology Progress Note ---
Assessment/Plan Assessment/Plan abd pain cardiomyopathy chf acute on chronic rv apical filling defect no confirmed on echo renal wedge deformity etohism pleural effusion ascites abn ekg tachy ? related to withdrawl hypotension resolved transminiitis probably passive congestion right heart failrue due to left heaert failure diuretics bid has edema of sig degree cr improvign with diuretics acei low dose coreg low dose be tolerant of bp if greater than 88 na fluid restriction lft better Subjective Cardiovascular: Reports: lightheadedness, Denies: chest pain Respiratory: Reports: shortness of breath Gastrointestinal/Abdominal: Denies: abdominal pain Genitourinary: Denies: burning Objective Last 24 Hour Vital Signs Date Time Temp Pulse Resp B/P Pulse Ox O2 Delivery O2 Flow Rate FiO2 11/09/16 16:07 95.9 97 22 109/76 Room Air 11/09/16 12:47 97.0 86 19 92/61 97 Room Air 11/09/16 08:52 98.4 90 24 90/69 94 Room Air 11/09/16 08:23 99/74 11/09/16 08:22 84 99/74 11/09/16 04:00 97.4 84 18 99/74 96 Room Air 11/09/16 00:00 96.3 85 18 93/71 96 Room Air 11/08/16 21:51 103/74 11/08/16 21:49 100 103/74 11/08/16 20:00 95.9 100 20 103/74 96 Room Air General Appearance: alert Cardiovascular: normal rate, regular rhythm Respiratory/Chest: lungs clear Abdomen: non tender, soft Extremities: moderate edema Intake and Output 11/08/16 11/09/16 19:00 07:00 Intake Total 480 ml 360 ml Output Total 2300 ml Balance 480 ml -1940 ml Intake Oral 480 ml 360 ml Output Urine Total 2300 ml # Voids 2 Laboratory Tests Test 11/09/16 10:50 Sodium Level 135 mEQ/L (135-145) Potassium Level 3.2 mEQ/L (3.4-4.9) L Chloride Level 97 mEQ/L (98-107) L Carbon Dioxide Level 25 mEQ/L (20-30) Anion Gap 13 (5-15) Blood Urea Nitrogen 23 mg/dL (7-23) Creatinine 1.1 mg/dL (0.7-1.2) Estimat Glomerular Filtration Rate > 60 mL/min (>60) Glucose Level 129 mg/dL (74-106) H Calcium Level 8.0 mg/dL (8.6-10.2) L Total Bilirubin 2.3 mg/dL (0.0-1.2) H Direct Bilirubin 1.2 mg/dL (0.1-0.3) H Aspartate Amino Transf (AST/SGOT) 35 U/L (5-40) Alanine Aminotransferase (ALT/SGPT) 205 U/L (3-41) H Alkaline Phosphatase 140 U/L (40-129) H Total Protein 5.5 g/dL (6.6-8.7) L Albumin 2.4 g/dL (3.5-5.2) L Globulin 3.1 g/dL Albumin/Globulin Ratio 0.7 (1.0-2.7) L BALJIT FRANCOIS Nov 09, 2016 18:57
[2016-11-09 20:00] VITALS: BP 162/70
--- NOTE | 2016-11-09 22:55 | Pulmonology Progress Note ---
Assessment/Plan Problems: (1) Pleural effusion (2) Abdominal pain (3) Ascites (4) Alcoholic cardiomyopathy (5) Tachycardia (6) ETOH abuse Assessment/Plan episode of hypotension worsening kidney functin EF 10% increased wbc ? etiology, ID follows. . Subjective ROS Limited/Unobtainable: No Constitutional: Reports: anorexia, fatigue Respiratory: Reports: dyspnea at rest, dyspnea on exertion, productive cough, shortness of breath Gastrointestinal/Abdominal: Reports: bloating, nausea Allergies: Coded Allergies: No Known Allergies (Unverified , 10/25/16) Objective Last 24 Hour Vital Signs Date Time Temp Pulse Resp B/P Pulse Ox O2 Delivery O2 Flow Rate FiO2 11/09/16 20:50 96 102/70 11/09/16 20:00 98.1 96 20 162/70 97 Room Air 11/09/16 16:07 95.9 97 22 109/76 Room Air 11/09/16 12:47 97.0 86 19 92/61 97 Room Air 11/09/16 08:52 98.4 90 24 90/69 94 Room Air 11/09/16 08:23 99/74 11/09/16 08:22 84 99/74 11/09/16 04:00 97.4 84 18 99/74 96 Room Air 11/09/16 00:00 96.3 85 18 93/71 96 Room Air Intake and Output 11/08/16 11/09/16 19:00 07:00 Intake Total 480 ml 360 ml Output Total 2300 ml Balance 480 ml -1940 ml Intake Oral 480 ml 360 ml Output Urine Total 2300 ml # Voids 2 General Appearance: no acute distress HEENT: normocephalic, atraumatic, PERRL Respiratory/Chest: chest wall non-tender, decreased breath sounds, accessory muscle use Cardiovascular: normal peripheral pulses, normal rate, regular rhythm, no JVD Abdomen: normal bowel sounds, soft, non tender, no organomegaly Genitourinary: normal external genitalia Extremities: no cyanosis Skin: no rash, lesions 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, no motor/sensory deficits Laboratory Tests 11/09/16 10:50: Sodium Level 135, Potassium Level 3.2L, Chloride Level 97L, Carbon Dioxide Level 25, Anion Gap 13, Blood Urea Nitrogen 23, Creatinine 1.1, Estimat Glomerular Filtration Rate > 60, Glucose Level 129H, Calcium Level 8.0L, Total Bilirubin 2.3H, Direct Bilirubin 1.2H, Aspartate Amino Transf (AST/SGOT) 35, Alanine Aminotransferase (ALT/SGPT) 205H, Alkaline Phosphatase 140H, Total Protein 5.5L, Albumin 2.4L, Globulin 3.1, Albumin/Globulin Ratio 0.7L Current Medications Medications (Trade) Dose Ordered Sig/Baudilio Route PRN Reason Start Time Stop Time Status Last Admin Dose Admin Acetaminophen (Tylenol) 650 mg Q4H PRN ORAL fever 10/30/16 21:00 11/29/16 20:59 Al Hydroxide/Mg Hydroxide (Mylanta II) 30 ml Q6H PRN ORAL dyspepsia 10/30/16 21:00 11/29/16 20:59 11/05/16 15:00 Carvedilol (Coreg) 3.125 mg EVERY 12 HOURS ORAL 11/03/16 21:00 12/03/16 20:59 11/09/16 20:50 Dextrose (Dextrose 50%) STAT PRN IV Hypoglycemia 10/30/16 21:00 11/29/16 20:59 Diphenhydramine HCl (Benadryl) 25 mg Q6H PRN ORAL Itching/Pruritis 10/30/16 21:00 11/29/16 20:59 Furosemide (Lasix) 40 mg DAILY IV 11/07/16 09:00 12/07/16 08:59 11/09/16 08:23 Lisinopril (Zestril) 2.5 mg BID ORAL 11/10/16 21:00 12/10/16 20:59 Morphine Sulfate (Morphine Sulfate) 2 mg Q4H PRN IVP Severe Pain (Pain Scale 7-10) 11/07/16 12:00 11/14/16 11:59 11/09/16 16:30 Nitroglycerin (Ntg) 0.4 mg Q5M X 3 DOSES PRN SL Prn Chest Pain 10/30/16 21:00 11/29/16 20:59 Ondansetron HCl (Zofran) 4 mg Q6H PRN IVP Nausea & Vomiting 10/30/16 21:00 11/29/16 20:59 11/07/16 18:54 Polyethylene Glycol (Miralax) 17 gm HSPRN PRN ORAL Constipation 10/31/16 18:00 11/30/16 17:59 Promethazine HCl/ Codeine (Phenergan with Codeine) 5 ml Q6H PRN ORAL For Cough 11/07/16 23:30 12/07/16 23:29 Thiamine HCl (Vitamin B1) 100 mg DAILY ORAL 10/31/16 09:00 11/30/16 08:59 11/09/16 08:23 RHONDA PARKINSON Nov 09, 2016 22:55
[2016-11-09] MEDS: Promethazine/Codeine 5ml UD ORAL PRN (23:45)
[2016-11-10] VITALS (8 sets, daily range): BP systolic 98–131; BP diastolic 41–84
[2016-11-10] MEDS: Thiamine 100mg tab ORAL SCH (08:52)
--- NOTE | 2016-11-10 09:30 | Infectious Diseases Prog Note ---
Assessment/Plan Assessment/Plan ASSESSMENT: 41 y/o male with: // Possible acalculous cholecystitis SP Rx - HIDA: Normal HIDA scan - US: Gallbladder wall thickening, no stones. Cannot r/o acute acalculous cholecystitis // Shock SP - off pressors. Septic vs cardiogenic // Leukocytosis - persistent, improved, . May be non-infectious. 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 No radiographically evident complication - SP thoracentesis 10/13: Cx(-) // NKDA // Full Code PLAN: - monitor pt off of ABX ( 11/06 SP zosyn d# 10 / ) - monitor CBC, temperatures, re-culture if acute change - monitor CMP - monitor CXR Subjective Constitutional: Denies: anorexia, chills, drenching sweats, fatigue, fever, no symptoms, other Allergies: Coded Allergies: No Known Allergies (Unverified , 10/25/16) Objective Vital Signs Last 24 Hour Vital Signs Date Time Temp Pulse Resp B/P Pulse Ox O2 Delivery O2 Flow Rate FiO2 11/10/16 08:52 101 98/78 11/10/16 08:00 97.0 101 18 98/78 97 Room Air 11/10/16 04:00 97.9 99 18 120/57 98 Room Air 11/10/16 00:00 97.7 99 20 100/41 100 Room Air 11/09/16 20:50 96 102/70 11/09/16 20:00 98.1 96 20 162/70 97 Room Air 11/09/16 16:07 95.9 97 22 109/76 Room Air 11/09/16 12:47 97.0 86 19 92/61 97 Room Air Height (Feet): 5 Height (Inches): 6.00 Weight (Pounds): 181 HEENT: anicteric Respiratory/Chest: lungs clear Cardiovascular: normal rate Abdomen: no organomegaly Laboratory Tests Test 11/09/16 10:50 Sodium Level 135 mEQ/L (135-145) Potassium Level 3.2 mEQ/L (3.4-4.9) L Chloride Level 97 mEQ/L (98-107) L Carbon Dioxide Level 25 mEQ/L (20-30) Anion Gap 13 (5-15) Blood Urea Nitrogen 23 mg/dL (7-23) Creatinine 1.1 mg/dL (0.7-1.2) Estimat Glomerular Filtration Rate > 60 mL/min (>60) Glucose Level 129 mg/dL (74-106) H Calcium Level 8.0 mg/dL (8.6-10.2) L Total Bilirubin 2.3 mg/dL (0.0-1.2) H Direct Bilirubin 1.2 mg/dL (0.1-0.3) H Aspartate Amino Transf (AST/SGOT) 35 U/L (5-40) Alanine Aminotransferase (ALT/SGPT) 205 U/L (3-41) H Alkaline Phosphatase 140 U/L (40-129) H Total Protein 5.5 g/dL (6.6-8.7) L Albumin 2.4 g/dL (3.5-5.2) L Globulin 3.1 g/dL Albumin/Globulin Ratio 0.7 (1.0-2.7) L Current Medications Medications (Trade) Dose Ordered Sig/Baudilio Route PRN Reason Start Time Stop Time Status Last Admin Dose Admin Acetaminophen (Tylenol) 650 mg Q4H PRN ORAL fever 10/30/16 21:00 11/29/16 20:59 Al Hydroxide/Mg Hydroxide (Mylanta II) 30 ml Q6H PRN ORAL dyspepsia 10/30/16 21:00 11/29/16 20:59 11/05/16 15:00 Carvedilol (Coreg) 3.125 mg EVERY 12 HOURS ORAL 11/03/16 21:00 12/03/16 20:59 11/10/16 08:52 Dextrose (Dextrose 50%) STAT PRN IV Hypoglycemia 10/30/16 21:00 11/29/16 20:59 Diphenhydramine HCl (Benadryl) 25 mg Q6H PRN ORAL Itching/Pruritis 10/30/16 21:00 11/29/16 20:59 Furosemide (Lasix) 40 mg DAILY IV 11/07/16 09:00 12/07/16 08:59 11/10/16 08:52 Lisinopril (Zestril) 2.5 mg BID ORAL 11/10/16 21:00 12/10/16 20:59 Morphine Sulfate (Morphine Sulfate) 2 mg Q4H PRN IVP Severe Pain (Pain Scale 7-10) 11/07/16 12:00 11/14/16 11:59 11/09/16 16:30 Nitroglycerin (Ntg) 0.4 mg Q5M X 3 DOSES PRN SL Prn Chest Pain 10/30/16 21:00 11/29/16 20:59 Ondansetron HCl (Zofran) 4 mg Q6H PRN IVP Nausea & Vomiting 10/30/16 21:00 11/29/16 20:59 11/07/16 18:54 Polyethylene Glycol (Miralax) 17 gm HSPRN PRN ORAL Constipation 10/31/16 18:00 11/30/16 17:59 Promethazine HCl/ Codeine (Phenergan with Codeine) 5 ml Q6H PRN ORAL For Cough 11/07/16 23:30 12/07/16 23:29 11/09/16 23:45 Thiamine HCl (Vitamin B1) 100 mg DAILY ORAL 10/31/16 09:00 11/30/16 08:59 11/10/16 08:52 RAMÓN CASTELLON M.D. Nov 10, 2016 09:30
[2016-11-10] MEDS: Morphine Sulfate 2mg/ml Inj IVP PRN ×2 (13:05→17:24)
--- NOTE | 2016-11-10 13:10 | General Progress Note ---
Assessment/Plan Problem List: (1) Abdominal pain ICD Codes: R10.9 - Unspecified abdominal pain SNOMED: 92919074 (2) Alcoholic cardiomyopathy ICD Codes: I42.6 - Alcoholic cardiomyopathy SNOMED: 558232186 (3) Anemia ICD Codes: D64.9 - Anemia, unspecified SNOMED: 136366025 (4) Ascites ICD Codes: R18.8 - Other ascites SNOMED: 584151316 (5) Hypoalbuminemia ICD Codes: E88.09 - Other disorders of plasma-protein metabolism, not elsewhere classified SNOMED: 283741977 (6) ETOH abuse ICD Codes: F10.10 - Alcohol abuse, uncomplicated SNOMED: 18645175, 77767712 (7) Pleural effusion ICD Codes: J90 - Pleural effusion, not elsewhere classified SNOMED: 40742904 (8) Leukocytosis ICD Codes: D72.829 - Elevated white blood cell count, unspecified SNOMED: 810543204, 298082163 (9) Shock liver ICD Codes: K72.00 - Acute and subacute hepatic failure without coma SNOMED: 858348077 Assessment/Plan fu labs abx GI procedures on hold for now with EF of 10% repeat lfts>>> improving Subjective ROS Limited/Unobtainable: Yes Allergies: Coded Allergies: No Known Allergies (Unverified , 10/25/16) Subjective no event Objective Last 24 Hour Vital Signs Date Time Temp Pulse Resp B/P Pulse Ox O2 Delivery O2 Flow Rate FiO2 11/10/16 12:00 97.0 112 18 109/78 98 Room Air 11/10/16 08:52 101 98/78 11/10/16 08:00 97.0 101 18 98/78 97 Room Air 11/10/16 04:00 97.9 99 18 120/57 98 Room Air 11/10/16 00:00 97.7 99 20 100/41 100 Room Air 11/09/16 20:50 96 102/70 11/09/16 20:00 98.1 96 20 162/70 97 Room Air 11/09/16 16:07 95.9 97 22 109/76 Room Air Intake and Output 11/09/16 11/10/16 19:00 07:00 Intake Total 480 ml 600 ml Output Total 240 ml 450 ml Balance 240 ml 150 ml Intake Oral 480 ml 600 ml Output Urine Total 240 ml 450 ml # Voids 1 1 Height (Feet): 5 Height (Inches): 6.00 Weight (Pounds): 181 General Appearance: no apparent distress EENT: TMs normal Neck: supple Cardiovascular: normal rate Respiratory/Chest: decreased breath sounds Abdomen: normal bowel sounds, non tender, soft Extremities: non-tender ADRIAN BERG Nov 10, 2016 13:10
--- NOTE | 2016-11-10 20:05 | Cardiology Progress Note ---
Assessment/Plan Assessment/Plan abd pain cardiomyopathy chf acute on chronic rv apical filling defect no confirmed on echo renal wedge deformity etohism pleural effusion ascites abn ekg tachy ? related to withdrawl hypotension resolved transminiitis probably passive congestion right heart failrue due to left heaert failure diuretics bid has edema of sig degree cr improvign with diuretics acei low dose tolerated so far coreg low dose will increase dopse be tolerant of bp if greater than 88 na fluid restriction lft better Subjective Cardiovascular: Denies: lightheadedness, palpitations Respiratory: Reports: shortness of breath Gastrointestinal/Abdominal: Reports: constipated, Denies: abdominal pain Genitourinary: Reports: burning Objective Last 24 Hour Vital Signs Date Time Temp Pulse Resp B/P Pulse Ox O2 Delivery O2 Flow Rate FiO2 11/10/16 16:18 98.1 111 19 103/84 97 Room Air 11/10/16 13:35 97.0 11/10/16 12:00 97.0 112 18 109/78 98 Room Air 11/10/16 08:52 101 98/78 11/10/16 08:00 97.0 101 18 98/78 97 Room Air 11/10/16 04:00 97.9 99 18 120/57 98 Room Air 11/10/16 00:00 97.7 99 20 100/41 100 Room Air 11/09/16 20:50 96 102/70 General Appearance: no apparent distress, alert Cardiovascular: normal rate, regular rhythm Respiratory/Chest: lungs clear, normal breath sounds Abdomen: normal bowel sounds, non tender, soft Extremities: severe edema Intake and Output 11/09/16 11/10/16 19:00 07:00 Intake Total 480 ml 600 ml Output Total 240 ml 450 ml Balance 240 ml 150 ml Intake Oral 480 ml 600 ml Output Urine Total 240 ml 450 ml # Voids 1 1 KARSONBALJIT NINA Nov 10, 2016 20:05
[2016-11-10] MEDS ORDERED: Milk of Magnesia 30ml Ud ORAL ONE (20:15)
--- NOTE | 2016-11-10 22:37 | Pulmonology Progress Note ---
Assessment/Plan Problems: (1) Pleural effusion (2) Abdominal pain (3) Ascites (4) Alcoholic cardiomyopathy (5) Tachycardia (6) ETOH abuse Assessment/Plan episode of hypotension worsening kidney functin EF 10% increased wbc ? etiology, ID follows. . Subjective ROS Limited/Unobtainable: Yes Constitutional: Reports: anorexia, fatigue Respiratory: Reports: dyspnea at rest, productive cough, shortness of breath Allergies: Coded Allergies: No Known Allergies (Unverified , 10/25/16) Objective Last 24 Hour Vital Signs Date Time Temp Pulse Resp B/P Pulse Ox O2 Delivery O2 Flow Rate FiO2 11/10/16 21:49 113 131/82 11/10/16 20:36 96.4 109 19 100/63 99 Room Air 11/10/16 16:18 98.1 111 19 103/84 97 Room Air 11/10/16 13:35 97.0 11/10/16 12:00 97.0 112 18 109/78 98 Room Air 11/10/16 08:52 101 98/78 11/10/16 08:00 97.0 101 18 98/78 97 Room Air 11/10/16 04:00 97.9 99 18 120/57 98 Room Air 11/10/16 00:00 97.7 99 20 100/41 100 Room Air Intake and Output 11/09/16 11/10/16 19:00 07:00 Intake Total 480 ml 600 ml Output Total 240 ml 450 ml Balance 240 ml 150 ml Intake Oral 480 ml 600 ml Output Urine Total 240 ml 450 ml # Voids 1 1 General Appearance: no acute distress HEENT: normocephalic, atraumatic, anicteric, PERRL Respiratory/Chest: chest wall non-tender, decreased breath sounds, accessory muscle use, crackles/rales, rhonchi, expiratory wheezing, inspiratory wheezing, pleural rub Cardiovascular: normal peripheral pulses, normal rate, regular rhythm, no JVD Abdomen: normal bowel sounds, soft, non tender, no organomegaly Genitourinary: normal external genitalia Extremities: no cyanosis Skin: no rash, no lesions 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: 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, no motor/sensory deficits Current Medications Medications (Trade) Dose Ordered Sig/Baudilio Route PRN Reason Start Time Stop Time Status Last Admin Dose Admin Acetaminophen (Tylenol) 650 mg Q4H PRN ORAL fever 10/30/16 21:00 4/17/17 20:59 Al Hydroxide/Mg Hydroxide (Mylanta II) 30 ml Q6H PRN ORAL dyspepsia 10/30/16 21:00 11/29/16 20:59 11/05/16 15:00 Carvedilol (Coreg) 6.25 mg EVERY 12 HOURS ORAL 11/10/16 21:00 12/10/16 20:59 Dextrose (Dextrose 50%) STAT PRN IV Hypoglycemia 10/30/16 21:00 11/29/16 20:59 Diphenhydramine HCl (Benadryl) 25 mg Q6H PRN ORAL Itching/Pruritis 10/30/16 21:00 11/29/16 20:59 Furosemide (Lasix) 40 mg DAILY IV 11/07/16 09:00 12/07/16 08:59 11/10/16 08:52 Lisinopril (Zestril) 2.5 mg BID ORAL 11/10/16 21:00 12/10/16 20:59 Morphine Sulfate (Morphine Sulfate) 2 mg Q4H PRN IVP Severe Pain (Pain Scale 7-10) 11/07/16 12:00 11/14/16 11:59 11/10/16 17:24 Nitroglycerin (Ntg) 0.4 mg Q5M X 3 DOSES PRN SL Prn Chest Pain 10/30/16 21:00 11/29/16 20:59 Ondansetron HCl (Zofran) 4 mg Q6H PRN IVP Nausea & Vomiting 10/30/16 21:00 11/29/16 20:59 11/07/16 18:54 Polyethylene Glycol (Miralax) 17 gm HSPRN PRN ORAL Constipation 10/31/16 18:00 11/30/16 17:59 Promethazine HCl/ Codeine (Phenergan with Codeine) 5 ml Q6H PRN ORAL For Cough 11/07/16 23:30 12/07/16 23:29 11/09/16 23:45 Thiamine HCl (Vitamin B1) 100 mg DAILY ORAL 10/31/16 09:00 11/30/16 08:59 11/10/16 08:52 RHONDA PARKINSON Nov 10, 2016 22:37
[2016-11-10] MEDS: Carvedilol 6.25mg Tab ORAL SCH (22:53)
[2016-11-10] MEDS: Lisinopril 2.5mg tab ORAL SCH (22:53)
[2016-11-11] VITALS (7 sets, daily range): BP systolic 99–113; BP diastolic 69–85
[2016-11-11 07:21] LABS: BASOPHILS % (AUTO) 1.4 % (0.0-2.0); EOSINOPHILS % (AUTO) 0.3 % (0.0-3.0); LYMPHOCYTES % (AUTO) 24.9 % (20.0-45.0); MEAN CORPUSCULAR HEMOGLOBIN 29.4 PG (27.0-31.0); MEAN CORPUSCULAR VOLUME 92 FL (80-99); MEAN PLATELET VOLUME 7.2 FL (6.5-10.1); MONOCYTES % (AUTO) 9.3 % (1.0-10.0); NEUTROPHILS % (AUTO) 64.1 % (45.0-75.0); PLATELET COUNT 241 K/UL (150-450); RED BLOOD COUNT 4.09 M/UL (4.70-6.10); RED CELL DISTRIBUTION WIDTH 17.8 % (11.6-14.8); WHITE BLOOD COUNT 12.2 K/UL (4.8-10.8)
--- NOTE | 2016-11-11 07:23 | Infectious Diseases Prog Note ---
Assessment/Plan Assessment/Plan ASSESSMENT: 41 y/o male with: // Possible acalculous cholecystitis SP Rx - HIDA: Normal HIDA scan - US: Gallbladder wall thickening, no stones. Cannot r/o acute acalculous cholecystitis // Shock SP - off pressors. Septic vs cardiogenic // Leukocytosis - persistent, improved, . May be non-infectious. 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 No radiographically evident complication - SP thoracentesis 10/13: Cx(-) // NKDA // Full Code PLAN: - monitor pt off of ABX ( 11/06 SP zosyn d# 10 / ) - monitor CBC, temperatures, re-culture if acute change - monitor CMP - monitor CXR Subjective Constitutional: Denies: anorexia, chills, drenching sweats, fatigue, fever, no symptoms, other Allergies: Coded Allergies: No Known Allergies (Unverified , 10/25/16) Objective Vital Signs Last 24 Hour Vital Signs Date Time Temp Pulse Resp B/P Pulse Ox O2 Delivery O2 Flow Rate FiO2 11/11/16 04:00 98.6 93 20 113/75 97 Room Air 11/11/16 00:00 97.7 105 18 109/76 95 Room Air 11/10/16 22:53 109 111/79 11/10/16 22:53 111/79 11/10/16 22:52 109 111/79 11/10/16 21:49 113 131/82 11/10/16 20:36 96.4 109 19 100/63 99 Room Air 11/10/16 16:18 98.1 111 19 103/84 97 Room Air 11/10/16 13:35 97.0 11/10/16 12:00 97.0 112 18 109/78 98 Room Air 11/10/16 08:52 101 98/78 11/10/16 08:00 97.0 101 18 98/78 97 Room Air Height (Feet): 5 Height (Inches): 6.00 Weight (Pounds): 181 HEENT: atraumatic Respiratory/Chest: lungs clear, normal breath sounds Cardiovascular: regular rhythm Abdomen: soft, non tender, no organomegaly Laboratory Tests Test 11/11/16 05:25 White Blood Count Pending Red Blood Count Pending Hemoglobin Pending Hematocrit Pending Mean Corpuscular Volume Pending Mean Corpuscular Hemoglobin Pending Mean Corpuscular Hemoglobin Concent Pending Red Cell Distribution Width Pending Platelet Count Pending Mean Platelet Volume Pending Neutrophils (%) (Auto) Pending Lymphocytes (%) (Auto) Pending Monocytes (%) (Auto) Pending Eosinophils (%) (Auto) Pending Basophils (%) (Auto) Pending Sodium Level Pending Potassium Level Pending Chloride Level Pending Carbon Dioxide Level Pending Blood Urea Nitrogen Pending Creatinine Pending Estimat Glomerular Filtration Rate Pending Glucose Level Pending Calcium Level Pending Total Bilirubin Pending Aspartate Amino Transf (AST/SGOT) Pending Alanine Aminotransferase (ALT/SGPT) Pending Alkaline Phosphatase Pending Total Protein Pending Albumin Pending Globulin Pending Current Medications Medications (Trade) Dose Ordered Sig/Baudilio Route PRN Reason Start Time Stop Time Status Last Admin Dose Admin Acetaminophen (Tylenol) 650 mg Q4H PRN ORAL fever 10/30/16 21:00 11/29/16 20:59 Al Hydroxide/Mg Hydroxide (Mylanta II) 30 ml Q6H PRN ORAL dyspepsia 10/30/16 21:00 11/29/16 20:59 11/05/16 15:00 Carvedilol (Coreg) 6.25 mg EVERY 12 HOURS ORAL 11/10/16 21:00 12/10/16 20:59 Dextrose (Dextrose 50%) STAT PRN IV Hypoglycemia 10/30/16 21:00 11/29/16 20:59 Diphenhydramine HCl (Benadryl) 25 mg Q6H PRN ORAL Itching/Pruritis 10/30/16 21:00 11/29/16 20:59 Furosemide (Lasix) 40 mg DAILY IV 11/07/16 09:00 12/07/16 08:59 11/10/16 08:52 Lisinopril (Zestril) 2.5 mg BID ORAL 11/10/16 21:00 12/10/16 20:59 Morphine Sulfate (Morphine Sulfate) 2 mg Q4H PRN IVP Severe Pain (Pain Scale 7-10) 11/07/16 12:00 11/14/16 11:59 11/10/16 17:24 Nitroglycerin (Ntg) 0.4 mg Q5M X 3 DOSES PRN SL Prn Chest Pain 10/30/16 21:00 11/29/16 20:59 Ondansetron HCl (Zofran) 4 mg Q6H PRN IVP Nausea & Vomiting 10/30/16 21:00 11/29/16 20:59 11/07/16 18:54 Polyethylene Glycol (Miralax) 17 gm HSPRN PRN ORAL Constipation 10/31/16 18:00 11/30/16 17:59 Promethazine HCl/ Codeine (Phenergan with Codeine) 5 ml Q6H PRN ORAL For Cough 11/07/16 23:30 12/07/16 23:29 11/09/16 23:45 Thiamine HCl (Vitamin B1) 100 mg DAILY ORAL 10/31/16 09:00 11/30/16 08:59 11/10/16 08:52 RAMÓN CASTELLON M.D. Nov 11, 2016 07:23
[2016-11-11 07:53] LABS: ALANINE AMINOTRANSFERASE 158 U/L (3-41); ANION GAP 20 (5-15); ASPARTATE AMINO TRANSFERASE 34 U/L (5-40); CALCIUM 7.9 mg/dL (8.6-10.2); CARBON DIOXIDE 25 mEQ/L (20-30); CHLORIDE 95 mEQ/L (98-107); CREATININE 1.1 mg/dL (0.7-1.2); GLOMERULAR FILTRATION RATE > 60 mL/min (>60); HEMOLYSIS 30; POTASSIUM 3.9 mEQ/L (3.4-4.9); SODIUM 140 mEQ/L (135-145); TOTAL PROTEIN 5.3 g/dL (6.6-8.7)
[2016-11-11 08:06] LABS: BILIRUBIN,DIRECT 1.3 mg/dL (0.1-0.3)
[2016-11-11] MEDS: Lisinopril 2.5mg tab ORAL SCH ×2 (08:37→18:00)
[2016-11-11] MEDS: Carvedilol 6.25mg Tab ORAL SCH ×2 (08:37→22:24)
[2016-11-11] MEDS: Thiamine 100mg tab ORAL SCH (08:58)
[2016-11-11] MEDS: Morphine Sulfate 2mg/ml Inj IVP PRN ×2 (11:37→18:03)
--- NOTE | 2016-11-11 13:14 | GI Progress Note ---
Assessment/Plan Problems: (1) Pleural effusion ICD Codes: J90 - Pleural effusion, not elsewhere classified SNOMED: 06934328 (2) Hypoalbuminemia ICD Codes: E88.09 - Other disorders of plasma-protein metabolism, not elsewhere classified SNOMED: 058964182 (3) ETOH abuse ICD Codes: F10.10 - Alcohol abuse, uncomplicated SNOMED: 71006306, 47527414 (4) Ascites ICD Codes: R18.8 - Other ascites SNOMED: 775905075 (5) Anemia ICD Codes: D64.9 - Anemia, unspecified SNOMED: 567873681 (6) Abdominal pain ICD Codes: R10.9 - Unspecified abdominal pain SNOMED: 67923015 Status: unchanged Status Narrative Discussed with Dr. Dominguez. Assessment/Plan APCT reviewed >> s/p thoracentesis >> 800cc Abd U/S reviewed >>Trace ascites. Gallbladder wall thickening, no stones. Negative for dilated ducts. Hepatomegaly, see full report. lipase negative iron deficient >> venofer OB stool negative GI procedures on hold for now with EF of 10% abx repeat lfts>>> improving zofran prn H2 fu labs Subjective Subjective SOB improved abdominal pain improved Objective Last 24 Hour Vital Signs Date Time Temp Pulse Resp B/P Pulse Ox O2 Delivery O2 Flow Rate FiO2 11/11/16 12:00 97.7 69 20 111/85 95 Room Air 11/11/16 08:37 100 99/69 11/11/16 08:37 99/69 11/11/16 08:06 97.2 100 19 99/69 95 Room Air 11/11/16 04:00 98.6 93 20 113/75 97 Room Air 11/11/16 00:00 97.7 105 18 109/76 95 Room Air 11/10/16 22:53 109 111/79 11/10/16 22:53 111/79 11/10/16 22:52 109 111/79 11/10/16 21:49 113 131/82 11/10/16 20:36 96.4 109 19 100/63 99 Room Air 11/10/16 16:18 98.1 111 19 103/84 97 Room Air 11/10/16 13:35 97.0 Intake and Output 11/10/16 11/11/16 19:00 07:00 Intake Total 360 ml 240 ml Output Total 200 ml 2000 ml Balance 160 ml -1760 ml Intake Oral 360 ml 240 ml Output Urine Total 200 ml 2000 ml # Voids 1 Laboratory Tests Test 11/11/16 05:25 White Blood Count 12.2 K/UL (4.8-10.8) H Red Blood Count 4.09 M/UL (4.70-6.10) L Hemoglobin 12.0 G/DL (14.2-18.0) L Hematocrit 37.6 % (42.0-52.0) L Mean Corpuscular Volume 92 FL (80-99) Mean Corpuscular Hemoglobin 29.4 PG (27.0-31.0) Mean Corpuscular Hemoglobin Concent 32.0 G/DL (32.0-36.0) Red Cell Distribution Width 17.8 % (11.6-14.8) H Platelet Count 241 K/UL (150-450) Mean Platelet Volume 7.2 FL (6.5-10.1) Neutrophils (%) (Auto) 64.1 % (45.0-75.0) Lymphocytes (%) (Auto) 24.9 % (20.0-45.0) Monocytes (%) (Auto) 9.3 % (1.0-10.0) Eosinophils (%) (Auto) 0.3 % (0.0-3.0) Basophils (%) (Auto) 1.4 % (0.0-2.0) Sodium Level 140 mEQ/L (135-145) Potassium Level 3.9 mEQ/L (3.4-4.9) Chloride Level 95 mEQ/L (98-107) L Carbon Dioxide Level 25 mEQ/L (20-30) Anion Gap 20 (5-15) H Blood Urea Nitrogen 27 mg/dL (7-23) H Creatinine 1.1 mg/dL (0.7-1.2) Estimat Glomerular Filtration Rate > 60 mL/min (>60) Glucose Level 91 mg/dL (74-106) Calcium Level 7.9 mg/dL (8.6-10.2) L Total Bilirubin 2.2 mg/dL (0.0-1.2) H Direct Bilirubin 1.3 mg/dL (0.1-0.3) H Aspartate Amino Transf (AST/SGOT) 34 U/L (5-40) Alanine Aminotransferase (ALT/SGPT) 158 U/L (3-41) H Alkaline Phosphatase 146 U/L (40-129) H Total Protein 5.3 g/dL (6.6-8.7) L Albumin 2.7 g/dL (3.5-5.2) L Globulin 2.6 g/dL Albumin/Globulin Ratio 1.0 (1.0-2.7) Height (Feet): 5 Height (Inches): 6.00 Weight (Pounds): 181 General Appearance: alert Cardiovascular: normal rate, tachycardia Respiratory/Chest: normal breath sounds, no respiratory distress Abdominal Exam: normal bowel sounds, soft Melanie Briones N.Chiquis Nov 11, 2016 13:14
[2016-11-11] MEDS: Promethazine/Codeine 5ml UD ORAL PRN (18:05)
--- NOTE | 2016-11-11 18:47 | Cardiology Progress Note ---
Assessment/Plan Assessment/Plan abd pain cardiomyopathy chf acute on chronic rv apical filling defect no confirmed on echo renal wedge deformity etohism pleural effusion ascites abn ekg tachy ? related to withdrawl hypotension resolved transminiitis probably passive congestion right heart failrue due to left heaert failure diuretics bid has edema of sig degree cr stable with diuretics acei low dose tolerated so far will consider increase in am coreg tolerated increaed dose be tolerant of bp if greater than 88 na fluid restriction lft better dulcolox suppository Subjective Cardiovascular: Denies: chest pain, lightheadedness Respiratory: Reports: shortness of breath Gastrointestinal/Abdominal: Reports: constipated, Denies: abdominal pain Genitourinary: Denies: burning Objective Last 24 Hour Vital Signs Date Time Temp Pulse Resp B/P Pulse Ox O2 Delivery O2 Flow Rate FiO2 11/11/16 18:00 105/84 11/11/16 16:00 97.7 121 22 105/84 90 Room Air 11/11/16 12:07 97.7 11/11/16 12:00 97.7 69 20 111/85 95 Room Air 11/11/16 08:37 100 99/69 11/11/16 08:37 99/69 11/11/16 08:06 97.2 100 19 99/69 95 Room Air 11/11/16 04:00 98.6 93 20 113/75 97 Room Air 11/11/16 00:00 97.7 105 18 109/76 95 Room Air 11/10/16 22:53 109 111/79 11/10/16 22:53 111/79 11/10/16 22:52 109 111/79 11/10/16 21:49 113 131/82 11/10/16 20:36 96.4 109 19 100/63 99 Room Air General Appearance: alert Neck: no JVD Cardiovascular: normal rate, regular rhythm Respiratory/Chest: crackles/rales Abdomen: normal bowel sounds, non tender, soft Extremities: moderate edema Intake and Output 11/10/16 11/11/16 19:00 07:00 Intake Total 360 ml 240 ml Output Total 200 ml 2000 ml Balance 160 ml -1760 ml Intake Oral 360 ml 240 ml Output Urine Total 200 ml 2000 ml # Voids 1 Laboratory Tests Test 11/11/16 05:25 White Blood Count 12.2 K/UL (4.8-10.8) H Red Blood Count 4.09 M/UL (4.70-6.10) L Hemoglobin 12.0 G/DL (14.2-18.0) L Hematocrit 37.6 % (42.0-52.0) L Mean Corpuscular Volume 92 FL (80-99) Mean Corpuscular Hemoglobin 29.4 PG (27.0-31.0) Mean Corpuscular Hemoglobin Concent 32.0 G/DL (32.0-36.0) Red Cell Distribution Width 17.8 % (11.6-14.8) H Platelet Count 241 K/UL (150-450) Mean Platelet Volume 7.2 FL (6.5-10.1) Neutrophils (%) (Auto) 64.1 % (45.0-75.0) Lymphocytes (%) (Auto) 24.9 % (20.0-45.0) Monocytes (%) (Auto) 9.3 % (1.0-10.0) Eosinophils (%) (Auto) 0.3 % (0.0-3.0) Basophils (%) (Auto) 1.4 % (0.0-2.0) Sodium Level 140 mEQ/L (135-145) Potassium Level 3.9 mEQ/L (3.4-4.9) Chloride Level 95 mEQ/L (98-107) L Carbon Dioxide Level 25 mEQ/L (20-30) Anion Gap 20 (5-15) H Blood Urea Nitrogen 27 mg/dL (7-23) H Creatinine 1.1 mg/dL (0.7-1.2) Estimat Glomerular Filtration Rate > 60 mL/min (>60) Glucose Level 91 mg/dL (74-106) Calcium Level 7.9 mg/dL (8.6-10.2) L Total Bilirubin 2.2 mg/dL (0.0-1.2) H Direct Bilirubin 1.3 mg/dL (0.1-0.3) H Aspartate Amino Transf (AST/SGOT) 34 U/L (5-40) Alanine Aminotransferase (ALT/SGPT) 158 U/L (3-41) H Alkaline Phosphatase 146 U/L (40-129) H Total Protein 5.3 g/dL (6.6-8.7) L Albumin 2.7 g/dL (3.5-5.2) L Globulin 2.6 g/dL Albumin/Globulin Ratio 1.0 (1.0-2.7) BALJIT FRANCOIS Nov 11, 2016 18:47
[2016-11-11] MEDS ORDERED: Bisacodyl EC 5mg tab ORAL ONE (19:00)
--- NOTE | 2016-11-11 22:14 | Pulmonology Progress Note ---
Assessment/Plan Problems: (1) Pleural effusion (2) Abdominal pain (3) Ascites (4) Alcoholic cardiomyopathy (5) Tachycardia (6) ETOH abuse Assessment/Plan episode of hypotension worsening kidney functin EF 10% increased wbc ? etiology, ID follows. . Subjective ROS Limited/Unobtainable: No Constitutional: Reports: anorexia, fatigue Respiratory: Reports: dyspnea at rest, dyspnea on exertion, pleuritic pain, productive cough, sputum Allergies: Coded Allergies: No Known Allergies (Unverified , 10/25/16) Objective Last 24 Hour Vital Signs Date Time Temp Pulse Resp B/P Pulse Ox O2 Delivery O2 Flow Rate FiO2 11/11/16 22:05 130 99/79 11/11/16 20:00 97.7 121 22 105/84 90 Room Air 11/11/16 18:00 105/84 11/11/16 16:00 97.7 121 22 105/84 90 Room Air 11/11/16 12:07 97.7 11/11/16 12:00 97.7 69 20 111/85 95 Room Air 11/11/16 08:37 100 99/69 11/11/16 08:37 99/69 11/11/16 08:06 97.2 100 19 99/69 95 Room Air 11/11/16 04:00 98.6 93 20 113/75 97 Room Air 11/11/16 00:00 97.7 105 18 109/76 95 Room Air 11/10/16 22:53 109 111/79 11/10/16 22:53 111/79 11/10/16 22:52 109 111/79 Intake and Output 11/10/16 11/11/16 19:00 07:00 Intake Total 360 ml 240 ml Output Total 200 ml 2000 ml Balance 160 ml -1760 ml Intake Oral 360 ml 240 ml Output Urine Total 200 ml 2000 ml # Voids 1 General Appearance: no acute distress HEENT: normocephalic, atraumatic Respiratory/Chest: chest wall non-tender, decreased breath sounds, accessory muscle use, crackles/rales, rhonchi, stridor, expiratory wheezing, pleural rub Cardiovascular: normal peripheral pulses, normal rate, regular rhythm, no JVD Abdomen: normal bowel sounds, soft, non tender, no organomegaly, non distended Genitourinary: normal external genitalia Extremities: no cyanosis Skin: no rash, no lesions 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, no motor/sensory deficits Laboratory Tests 11/11/16 05:25: White Blood Count 12.2H, Red Blood Count 4.09L, Hemoglobin 12.0L, Hematocrit 37.6L, Mean Corpuscular Volume 92, Mean Corpuscular Hemoglobin 29.4, Mean Corpuscular Hemoglobin Concent 32.0, Red Cell Distribution Width 17.8H, Platelet Count 241, Mean Platelet Volume 7.2, Neutrophils (%) (Auto) 64.1, Lymphocytes (%) (Auto) 24.9, Monocytes (%) (Auto) 9.3, Eosinophils (%) (Auto) 0.3, Basophils (%) (Auto) 1.4, Sodium Level 140, Potassium Level 3.9, Chloride Level 95L, Carbon Dioxide Level 25, Anion Gap 20H, Blood Urea Nitrogen 27H, Creatinine 1.1, Estimat Glomerular Filtration Rate > 60, Glucose Level 91, Calcium Level 7.9L, Total Bilirubin 2.2H, Direct Bilirubin 1.3H, Aspartate Amino Transf (AST/SGOT) 34, Alanine Aminotransferase (ALT/SGPT) 158H, Alkaline Phosphatase 146H, Total Protein 5.3L, Albumin 2.7L, Globulin 2.6, Albumin/ Globulin Ratio 1.0 Current Medications Medications (Trade) Dose Ordered Sig/Baudilio Route PRN Reason Start Time Stop Time Status Last Admin Dose Admin Acetaminophen (Tylenol) 650 mg Q4H PRN ORAL fever 10/30/16 21:00 11/29/16 20:59 Al Hydroxide/Mg Hydroxide (Mylanta II) 30 ml Q6H PRN ORAL dyspepsia 10/30/16 21:00 11/29/16 20:59 11/05/16 15:00 Carvedilol (Coreg) 6.25 mg EVERY 12 HOURS ORAL 11/10/16 21:00 12/10/16 20:59 Dextrose (Dextrose 50%) STAT PRN IV Hypoglycemia 10/30/16 21:00 11/29/16 20:59 Diphenhydramine HCl (Benadryl) 25 mg Q6H PRN ORAL Itching/Pruritis 10/30/16 21:00 11/29/16 20:59 Furosemide (Lasix) 40 mg DAILY IV 11/12/16 09:00 12/07/16 08:59 Lisinopril (Zestril) 2.5 mg BID ORAL 11/10/16 21:00 12/10/16 20:59 Morphine Sulfate (Morphine Sulfate) 2 mg Q4H PRN IVP Severe Pain (Pain Scale 7-10) 11/07/16 12:00 11/14/16 11:59 11/11/16 18:03 Nitroglycerin (Ntg) 0.4 mg Q5M X 3 DOSES PRN SL Prn Chest Pain 10/30/16 21:00 11/29/16 20:59 Ondansetron HCl (Zofran) 4 mg Q6H PRN IVP Nausea & Vomiting 10/30/16 21:00 11/29/16 20:59 11/07/16 18:54 Polyethylene Glycol (Miralax) 17 gm HSPRN PRN ORAL Constipation 10/31/16 18:00 11/30/16 17:59 Promethazine HCl/ Codeine (Phenergan with Codeine) 5 ml Q6H PRN ORAL For Cough 11/07/16 23:30 12/07/16 23:29 11/11/16 18:05 Thiamine HCl (Vitamin B1) 100 mg DAILY ORAL 10/31/16 09:00 11/30/16 08:59 11/11/16 08:58 RHONDA PARKINSON Nov 11, 2016 22:14
[2016-11-12] VITALS (9 sets, daily range): BP systolic 93–124; BP diastolic 61–81
[2016-11-12] MEDS: Morphine Sulfate 2mg/ml Inj IVP PRN ×4 (02:19→22:48)
--- NOTE | 2016-11-12 06:18 | Infectious Diseases Prog Note ---
Assessment/Plan Assessment/Plan ASSESSMENT: 41 y/o male with: // Possible acalculous cholecystitis SP Rx - HIDA: Normal HIDA scan - US: Gallbladder wall thickening, no stones. Cannot r/o acute acalculous cholecystitis // Shock SP - off pressors. Septic vs cardiogenic // Leukocytosis - persistent, improved, . May be non-infectious. Cx(-), no response to empiric broad spectrum ABX ( DVT, renal infarct, apical thrombus contributing ) // cardiomyopathy // Elevated LFTs / acute liver injury, m/l shock liver - improved - negative: hepatitis panel // ARF ?HRS - improved // Acute LLE DVT // Right renal infarct // Acute on chronic systolic and diastolic CHF exacerbation // NICMO with possible apical thrombus - TTE: EF 10%, grade II diastolic dysfunction, mod TR, pulm HTN, mod-sev MR // Right pleural effusion - CXR: Resolved right pleural effusion, post thoracentesis. No radiographically evident complication - SP thoracentesis 10/13: Cx(-) // NKDA // Full Code PLAN: - monitor pt off of ABX ( 11/06 SP zosyn d# 10 / 10 ) - monitor CBC, temperatures, re-culture if acute change - monitor CMP - monitor CXR Subjective Constitutional: Denies: anorexia, chills, drenching sweats, fatigue, fever, no symptoms, other Allergies: Coded Allergies: No Known Allergies (Unverified , 10/25/16) Objective Vital Signs Last 24 Hour Vital Signs Date Time Temp Pulse Resp B/P Pulse Ox O2 Delivery O2 Flow Rate FiO2 11/12/16 04:00 97.7 106 20 103/69 96 Room Air 11/12/16 00:00 98.0 101 20 107/71 95 Room Air 11/11/16 22:24 130 99/79 11/11/16 22:05 130 99/79 11/11/16 20:00 97.7 121 22 105/84 90 Room Air 11/11/16 18:00 105/84 11/11/16 16:00 97.7 121 22 105/84 90 Room Air 11/11/16 12:07 97.7 11/11/16 12:00 97.7 69 20 111/85 95 Room Air 11/11/16 08:37 100 99/69 11/11/16 08:37 99/69 11/11/16 08:06 97.2 100 19 99/69 95 Room Air Height (Feet): 5 Height (Inches): 6.00 Weight (Pounds): 181 HEENT: anicteric Respiratory/Chest: normal breath sounds Cardiovascular: regular rhythm Abdomen: no organomegaly Current Medications Medications (Trade) Dose Ordered Sig/Baudilio Route PRN Reason Start Time Stop Time Status Last Admin Dose Admin Acetaminophen (Tylenol) 650 mg Q4H PRN ORAL fever 10/30/16 21:00 11/29/16 20:59 Al Hydroxide/Mg Hydroxide (Mylanta II) 30 ml Q6H PRN ORAL dyspepsia 10/30/16 21:00 11/29/16 20:59 11/05/16 15:00 Carvedilol (Coreg) 6.25 mg EVERY 12 HOURS ORAL 11/10/16 21:00 12/10/16 20:59 Dextrose (Dextrose 50%) STAT PRN IV Hypoglycemia 10/30/16 21:00 11/29/16 20:59 Diphenhydramine HCl (Benadryl) 25 mg Q6H PRN ORAL Itching/Pruritis 10/30/16 21:00 11/29/16 20:59 Furosemide (Lasix) 40 mg DAILY IV 11/12/16 09:00 12/07/16 08:59 Lisinopril (Zestril) 2.5 mg BID ORAL 11/10/16 21:00 12/10/16 20:59 Morphine Sulfate (Morphine Sulfate) 2 mg Q4H PRN IVP Severe Pain (Pain Scale 7-10) 11/07/16 12:00 11/14/16 11:59 11/12/16 02:19 Nitroglycerin (Ntg) 0.4 mg Q5M X 3 DOSES PRN SL Prn Chest Pain 10/30/16 21:00 11/29/16 20:59 Ondansetron HCl (Zofran) 4 mg Q6H PRN IVP Nausea & Vomiting 10/30/16 21:00 11/29/16 20:59 11/12/16 02:18 Polyethylene Glycol (Miralax) 17 gm HSPRN PRN ORAL Constipation 10/31/16 18:00 11/30/16 17:59 Promethazine HCl/ Codeine (Phenergan with Codeine) 5 ml Q6H PRN ORAL For Cough 11/07/16 23:30 12/07/16 23:29 11/11/16 18:05 Thiamine HCl (Vitamin B1) 100 mg DAILY ORAL 10/31/16 09:00 11/30/16 08:59 11/11/16 08:58 RAMÓN CASTELLON M.D. Nov 12, 2016 06:18
[2016-11-12 06:41] LABS: BASOPHILS % (AUTO) 1.3 % (0.0-2.0); EOSINOPHILS % (AUTO) 0.1 % (0.0-3.0); LYMPHOCYTES % (AUTO) 20.3 % (20.0-45.0); MEAN CORPUSCULAR HEMOGLOBIN 29.1 PG (27.0-31.0); MEAN CORPUSCULAR HGB CONC 31.2 G/DL (32.0-36.0); MEAN CORPUSCULAR VOLUME 93 FL (80-99); MEAN PLATELET VOLUME 7.7 FL (6.5-10.1); MONOCYTES % (AUTO) 8.6 % (1.0-10.0); NEUTROPHILS % (AUTO) 69.7 % (45.0-75.0); PLATELET COUNT 215 K/UL (150-450); RED BLOOD COUNT 4.03 M/UL (4.70-6.10); RED CELL DISTRIBUTION WIDTH 17.9 % (11.6-14.8); WHITE BLOOD COUNT 12.5 K/UL (4.8-10.8)
[2016-11-12 07:01] LABS: ALANINE AMINOTRANSFERASE 146 U/L (3-41); ALBUMIN/GLOBULIN RATIO 0.8 (1.0-2.7); ANION GAP 19 (5-15); ASPARTATE AMINO TRANSFERASE 55 U/L (5-40); CALCIUM 8.2 mg/dL (8.6-10.2); CARBON DIOXIDE 24 mEQ/L (20-30); CHLORIDE 93 mEQ/L (98-107); CREATININE 1.2 mg/dL (0.7-1.2); GLOMERULAR FILTRATION RATE > 60 mL/min (>60); HEMOLYSIS 3; POTASSIUM 3.5 mEQ/L (3.4-4.9); SODIUM 136 mEQ/L (135-145); TOTAL PROTEIN 5.5 g/dL (6.6-8.7)
[2016-11-12 07:32] LABS: BILIRUBIN,DIRECT 1.3 mg/dL (0.1-0.3)
[2016-11-12] MEDS: Thiamine 100mg tab ORAL SCH (08:25)
--- NOTE | 2016-11-12 08:28 | Pulmonology Progress Note ---
Assessment/Plan Assessment/Plan ASSESSMENT s/p cardiac shock syndrome ascites alcoholic nonischemic cardiomyopathy ETOH abuse acute on chronic CHF systolic and diastolic R heart failure 2 to Lt heart failure R pleural effusion s/p thoracentesis shocked liver anemia hypotension -resolved acute DVT posterior tibial vein moderate pulmonary HTN moderate to severe MR moderate TR R renal infarct vs focal nephritis R ventricle filling defect, possible apical thrombus Acute renal failure? hepatorenal syndrome possible acalculous cholecystitis, s/p Rx PLAN OF CARE on [facility] floor BP stable, s/p initially in ICU pressors s/p IVF diuretics, monitor I/O, renal parameters, lytes ECHO with EF <10%, RVSP of 54, mod to sev MR, mod TR troponin negative cardio follows creat down to normal Librium prn O2 HHN prn CXR with right pleural effusion, s/p tap abx, pleural fluid cx negative all cx UTD negative ID follows GI follows HIDA negative CTA/P and abdominal US noted , per GI : GI procedures on hold, pt unstable for procedures given EF < 10% stool OB trend LFT , trending down Venofer monitor HH, Thiamine and Folic acid DVT prophylaxis pain management DNR/DNI status Condition grave, overall prognosis poor case discussed and evaluated by supervising physician Subjective Allergies: Coded Allergies: No Known Allergies (Unverified , 10/25/16) Subjective LFT and bili trending down more awake and alert, weak Objective Last 24 Hour Vital Signs Date Time Temp Pulse Resp B/P Pulse Ox O2 Delivery O2 Flow Rate FiO2 11/12/16 04:00 97.7 106 20 103/69 96 Room Air 11/12/16 00:00 98.0 101 20 107/71 95 Room Air 11/11/16 22:24 130 99/79 11/11/16 22:05 130 99/79 11/11/16 20:00 97.7 121 22 105/84 90 Room Air 11/11/16 18:00 105/84 11/11/16 16:00 97.7 121 22 105/84 90 Room Air 11/11/16 12:07 97.7 11/11/16 12:00 97.7 69 20 111/85 95 Room Air 11/11/16 08:37 100 99/69 11/11/16 08:37 99/69 Intake and Output 11/11/16 11/12/16 19:00 07:00 Intake Total 360 ml 300 ml Output Total 700 ml Balance 360 ml -400 ml Intake Oral 360 ml 300 ml Output Urine Total 700 ml # Bowel Movements 1 Objective Status: awake, responsive Condition: serious HEENT: atraumatic, normocephalic Neck: full ROM Lungs: clear Heart: HR/BP stable, + 1 edema BLE Abdomen: soft, non-tender, active bowel sounds Extremities: other - + 1 edema BLE Laboratory Tests 11/12/16 05:25: White Blood Count 12.5H, Red Blood Count 4.03L, Hemoglobin 11.7L, Hematocrit 37.6L, Mean Corpuscular Volume 93, Mean Corpuscular Hemoglobin 29.1, Mean Corpuscular Hemoglobin Concent 31.2L, Red Cell Distribution Width 17.9H, Platelet Count 215, Mean Platelet Volume 7.7, Neutrophils (%) (Auto) 69.7, Lymphocytes (%) (Auto) 20.3, Monocytes (%) (Auto) 8.6, Eosinophils (%) (Auto) 0.1, Basophils (%) (Auto) 1.3, Sodium Level 136, Potassium Level 3.5, Chloride Level 93L, Carbon Dioxide Level 24, Anion Gap 19H, Blood Urea Nitrogen 31H, Creatinine 1.2, Estimat Glomerular Filtration Rate > 60, Glucose Level 111H, Calcium Level 8.2L, Total Bilirubin 2.2H, Direct Bilirubin 1.3H, Aspartate Amino Transf (AST/SGOT) 55H, Alanine Aminotransferase (ALT/SGPT) 146H, Alkaline Phosphatase 141H, Total Protein 5.5L, Albumin 2.5L, Globulin 3.0, Albumin/ Globulin Ratio 0.8L Current Medications Medications (Trade) Dose Ordered Sig/Baudilio Route PRN Reason Start Time Stop Time Status Last Admin Dose Admin Acetaminophen (Tylenol) 650 mg Q4H PRN ORAL fever 10/30/16 21:00 11/29/16 20:59 Al Hydroxide/Mg Hydroxide (Mylanta II) 30 ml Q6H PRN ORAL dyspepsia 10/30/16 21:00 11/29/16 20:59 11/05/16 15:00 Carvedilol (Coreg) 6.25 mg EVERY 12 HOURS ORAL 11/10/16 21:00 12/10/16 20:59 Dextrose (Dextrose 50%) STAT PRN IV Hypoglycemia 10/30/16 21:00 11/29/16 20:59 Diphenhydramine HCl (Benadryl) 25 mg Q6H PRN ORAL Itching/Pruritis 10/30/16 21:00 11/29/16 20:59 Furosemide (Lasix) 40 mg DAILY IV 11/12/16 09:00 12/07/16 08:59 Lisinopril (Zestril) 2.5 mg BID ORAL 11/10/16 21:00 12/10/16 20:59 Morphine Sulfate (Morphine Sulfate) 2 mg Q4H PRN IVP Severe Pain (Pain Scale 7-10) 11/07/16 12:00 11/14/16 11:59 11/12/16 02:19 Nitroglycerin (Ntg) 0.4 mg Q5M X 3 DOSES PRN SL Prn Chest Pain 10/30/16 21:00 11/29/16 20:59 Ondansetron HCl (Zofran) 4 mg Q6H PRN IVP Nausea & Vomiting 10/30/16 21:00 11/29/16 20:59 11/12/16 02:18 Polyethylene Glycol (Miralax) 17 gm HSPRN PRN ORAL Constipation 10/31/16 18:00 11/30/16 17:59 Promethazine HCl/ Codeine (Phenergan with Codeine) 5 ml Q6H PRN ORAL For Cough 11/07/16 23:30 12/07/16 23:29 11/11/16 18:05 Thiamine HCl (Vitamin B1) 100 mg DAILY ORAL 10/31/16 09:00 11/30/16 08:59 11/11/16 08:58 [facility] NP Nov 12, 2016 08:28
[2016-11-12] MEDS: Lisinopril 2.5mg tab ORAL SCH ×2 (09:00→19:01)
[2016-11-12] MEDS: Carvedilol 6.25mg Tab ORAL SCH ×2 (09:00→22:02)
--- NOTE | 2016-11-12 12:57 | GI Progress Note ---
Assessment/Plan Problems: (1) Pleural effusion ICD Codes: J90 - Pleural effusion, not elsewhere classified SNOMED: 99792549 (2) Hypoalbuminemia ICD Codes: E88.09 - Other disorders of plasma-protein metabolism, not elsewhere classified SNOMED: 706597604 (3) ETOH abuse ICD Codes: F10.10 - Alcohol abuse, uncomplicated SNOMED: 60044441, 27874686 (4) Ascites ICD Codes: R18.8 - Other ascites SNOMED: 071319751 (5) Anemia ICD Codes: D64.9 - Anemia, unspecified SNOMED: 646209155 (6) Abdominal pain ICD Codes: R10.9 - Unspecified abdominal pain SNOMED: 44560318 Status: stable Status Narrative Discussed with Dr. Dominguez. Assessment/Plan APCT reviewed >> s/p thoracentesis >> 800cc Abd U/S reviewed >>Trace ascites. Gallbladder wall thickening, no stones. Negative for dilated ducts. Hepatomegaly, see full report. lipase negative iron deficient >> venofer OB stool negative GI procedures on hold for now with EF of 10% abx repeat lfts>>> improving zofran prn H2 fu labs Subjective Subjective abdominal pain minimal Objective Last 24 Hour Vital Signs Date Time Temp Pulse Resp B/P Pulse Ox O2 Delivery O2 Flow Rate FiO2 11/12/16 09:00 102 105/72 11/12/16 09:00 102/69 11/12/16 04:00 97.7 106 20 103/69 96 Room Air 11/12/16 00:00 98.0 101 20 107/71 95 Room Air 11/11/16 22:24 130 99/79 11/11/16 22:05 130 99/79 11/11/16 20:00 97.7 121 22 105/84 90 Room Air 11/11/16 18:00 105/84 11/11/16 16:00 97.7 121 22 105/84 90 Room Air Intake and Output 11/11/16 11/12/16 19:00 07:00 Intake Total 360 ml 300 ml Output Total 700 ml Balance 360 ml -400 ml Intake Oral 360 ml 300 ml Output Urine Total 700 ml # Bowel Movements 1 Laboratory Tests Test 11/12/16 05:25 White Blood Count 12.5 K/UL (4.8-10.8) H Red Blood Count 4.03 M/UL (4.70-6.10) L Hemoglobin 11.7 G/DL (14.2-18.0) L Hematocrit 37.6 % (42.0-52.0) L Mean Corpuscular Volume 93 FL (80-99) Mean Corpuscular Hemoglobin 29.1 PG (27.0-31.0) Mean Corpuscular Hemoglobin Concent 31.2 G/DL (32.0-36.0) L Red Cell Distribution Width 17.9 % (11.6-14.8) H Platelet Count 215 K/UL (150-450) Mean Platelet Volume 7.7 FL (6.5-10.1) Neutrophils (%) (Auto) 69.7 % (45.0-75.0) Lymphocytes (%) (Auto) 20.3 % (20.0-45.0) Monocytes (%) (Auto) 8.6 % (1.0-10.0) Eosinophils (%) (Auto) 0.1 % (0.0-3.0) Basophils (%) (Auto) 1.3 % (0.0-2.0) Sodium Level 136 mEQ/L (135-145) Potassium Level 3.5 mEQ/L (3.4-4.9) Chloride Level 93 mEQ/L (98-107) L Carbon Dioxide Level 24 mEQ/L (20-30) Anion Gap 19 (5-15) H Blood Urea Nitrogen 31 mg/dL (7-23) H Creatinine 1.2 mg/dL (0.7-1.2) Estimat Glomerular Filtration Rate > 60 mL/min (>60) Glucose Level 111 mg/dL (74-106) H Calcium Level 8.2 mg/dL (8.6-10.2) L Total Bilirubin 2.2 mg/dL (0.0-1.2) H Direct Bilirubin 1.3 mg/dL (0.1-0.3) H Aspartate Amino Transf (AST/SGOT) 55 U/L (5-40) H Alanine Aminotransferase (ALT/SGPT) 146 U/L (3-41) H Alkaline Phosphatase 141 U/L (40-129) H Total Protein 5.5 g/dL (6.6-8.7) L Albumin 2.5 g/dL (3.5-5.2) L Globulin 3.0 g/dL Albumin/Globulin Ratio 0.8 (1.0-2.7) L Height (Feet): 5 Height (Inches): 6.00 Weight (Pounds): 182 General Appearance: no apparent distress, alert Cardiovascular: normal rate, tachycardia Respiratory/Chest: normal breath sounds, no respiratory distress Abdominal Exam: ascites Extremities: normal range of motion Melanie Briones N.P. Nov 12, 2016 12:57
--- NOTE | 2016-11-12 18:42 | Cardiology Progress Note ---
Assessment/Plan Assessment/Plan abd pain cardiomyopathy chf acute on chronic rv apical filling defect not confirmed on echo renal wedge deformity etohism pleural effusion ascites abn ekg tachy ? related to withdrawl hypotension resolved transminiitis probably passive congestion right heart failrue due to left heaert failure diuretics bid has edema of sig degree cr stable with diuretics acei low dose tolerated s coreg tolerated increaed dose to 9.375 bid be tolerant of bp if greater than 88 na fluid restriction dulcolox suppository Subjective Cardiovascular: Reports: lightheadedness, Denies: chest pain Respiratory: Reports: shortness of breath Gastrointestinal/Abdominal: Reports: constipated, Denies: abdominal pain Genitourinary: Denies: burning Objective Last 24 Hour Vital Signs Date Time Temp Pulse Resp B/P Pulse Ox O2 Delivery O2 Flow Rate FiO2 11/12/16 16:00 95.9 114 22 110/77 96 Room Air 11/12/16 13:11 97.7 11/12/16 12:00 96.8 70 20 110/61 95 Room Air 11/12/16 09:00 102 105/72 11/12/16 09:00 102/69 11/12/16 08:00 97.0 100 20 110/75 93 Room Air 11/12/16 04:00 97.7 106 20 103/69 96 Room Air 11/12/16 00:00 98.0 101 20 107/71 95 Room Air 11/11/16 22:24 130 99/79 11/11/16 22:05 130 99/79 11/11/16 20:00 97.7 121 22 105/84 90 Room Air General Appearance: no apparent distress, alert, other - now mary bed Neck: no JVD Cardiovascular: normal rate, tachycardia Respiratory/Chest: crackles/rales - lef mid Abdomen: normal bowel sounds, non tender, soft Extremities: moderate edema Intake and Output 11/11/16 11/12/16 19:00 07:00 Intake Total 360 ml 300 ml Output Total 700 ml Balance 360 ml -400 ml Intake Oral 360 ml 300 ml Output Urine Total 700 ml # Bowel Movements 1 Laboratory Tests Test 11/12/16 05:25 White Blood Count 12.5 K/UL (4.8-10.8) H Red Blood Count 4.03 M/UL (4.70-6.10) L Hemoglobin 11.7 G/DL (14.2-18.0) L Hematocrit 37.6 % (42.0-52.0) L Mean Corpuscular Volume 93 FL (80-99) Mean Corpuscular Hemoglobin 29.1 PG (27.0-31.0) Mean Corpuscular Hemoglobin Concent 31.2 G/DL (32.0-36.0) L Red Cell Distribution Width 17.9 % (11.6-14.8) H Platelet Count 215 K/UL (150-450) Mean Platelet Volume 7.7 FL (6.5-10.1) Neutrophils (%) (Auto) 69.7 % (45.0-75.0) Lymphocytes (%) (Auto) 20.3 % (20.0-45.0) Monocytes (%) (Auto) 8.6 % (1.0-10.0) Eosinophils (%) (Auto) 0.1 % (0.0-3.0) Basophils (%) (Auto) 1.3 % (0.0-2.0) Sodium Level 136 mEQ/L (135-145) Potassium Level 3.5 mEQ/L (3.4-4.9) Chloride Level 93 mEQ/L (98-107) L Carbon Dioxide Level 24 mEQ/L (20-30) Anion Gap 19 (5-15) H Blood Urea Nitrogen 31 mg/dL (7-23) H Creatinine 1.2 mg/dL (0.7-1.2) Estimat Glomerular Filtration Rate > 60 mL/min (>60) Glucose Level 111 mg/dL (74-106) H Calcium Level 8.2 mg/dL (8.6-10.2) L Total Bilirubin 2.2 mg/dL (0.0-1.2) H Direct Bilirubin 1.3 mg/dL (0.1-0.3) H Aspartate Amino Transf (AST/SGOT) 55 U/L (5-40) H Alanine Aminotransferase (ALT/SGPT) 146 U/L (3-41) H Alkaline Phosphatase 141 U/L (40-129) H Total Protein 5.5 g/dL (6.6-8.7) L Albumin 2.5 g/dL (3.5-5.2) L Globulin 3.0 g/dL Albumin/Globulin Ratio 0.8 (1.0-2.7) L DANESHRAD,BALJIT Nov 12, 2016 18:42
[2016-11-13] VITALS: BP 115/85
[2016-11-13 04:00] VITALS: BP 118/76
--- NOTE | 2016-11-13 07:01 | General Progress Note ---
Assessment/Plan Problem List: (1) Abdominal pain ICD Codes: R10.9 - Unspecified abdominal pain SNOMED: 86122816 (2) Alcoholic cardiomyopathy ICD Codes: I42.6 - Alcoholic cardiomyopathy SNOMED: 633022309 (3) Anemia ICD Codes: D64.9 - Anemia, unspecified SNOMED: 434100121 (4) Ascites ICD Codes: R18.8 - Other ascites SNOMED: 518562480 (5) Hypoalbuminemia ICD Codes: E88.09 - Other disorders of plasma-protein metabolism, not elsewhere classified SNOMED: 711581552 (6) ETOH abuse ICD Codes: F10.10 - Alcohol abuse, uncomplicated SNOMED: 19300866, 34644063 (7) Pleural effusion ICD Codes: J90 - Pleural effusion, not elsewhere classified SNOMED: 91574390 (8) Leukocytosis ICD Codes: D72.829 - Elevated white blood cell count, unspecified SNOMED: 777699776, 908209826 (9) Shock liver ICD Codes: K72.00 - Acute and subacute hepatic failure without coma SNOMED: 073512221 Assessment/Plan fu labs abx GI procedures on hold for now with EF of 10% repeat lfts>>> improving Subjective ROS Limited/Unobtainable: Yes Allergies: Coded Allergies: No Known Allergies (Unverified , 10/25/16) Subjective no event Objective Last 24 Hour Vital Signs Date Time Temp Pulse Resp B/P Pulse Ox O2 Delivery O2 Flow Rate FiO2 11/13/16 04:00 97.7 99 18 118/76 99 Room Air 11/13/16 00:00 97.0 120 20 115/85 97 Room Air 11/12/16 23:30 96.4 11/12/16 22:45 134 124/81 11/12/16 22:02 135 93/72 11/12/16 22:01 135 93/72 11/12/16 19:58 96.4 110 22 106/77 95 Room Air 11/12/16 19:01 97/77 11/12/16 19:00 124 94/77 11/12/16 16:00 95.9 114 22 110/77 96 Room Air 11/12/16 12:00 96.8 70 20 110/61 95 Room Air 11/12/16 09:00 102 105/72 11/12/16 09:00 102/69 11/12/16 08:00 97.0 100 20 110/75 93 Room Air Intake and Output 11/12/16 11/13/16 19:00 07:00 Intake Total 1000 ml Output Total 750 ml Balance 250 ml Intake Oral 1000 ml Output Urine Total 750 ml Height (Feet): 5 Height (Inches): 6.00 Weight (Pounds): 186 General Appearance: no apparent distress EENT: normal ENT inspection Neck: supple Cardiovascular: normal rate Respiratory/Chest: decreased breath sounds Abdomen: normal bowel sounds, non tender, soft Extremities: non-tender ADRIAN BERG Nov 13, 2016 07:01
[2016-11-13 08:00] VITALS: BP 99/75
[2016-11-13] MEDS: Lisinopril 2.5mg tab ORAL SCH ×2 (09:00→17:48)
[2016-11-13] MEDS: Carvedilol 6.25mg Tab ORAL SCH ×2 (09:00→21:00)
[2016-11-13] MEDS: Thiamine 100mg tab ORAL SCH (09:17)
[2016-11-13 10:39] LABS: BASOPHILS % (AUTO) 1.4 % (0.0-2.0); EOSINOPHILS % (AUTO) 0.2 % (0.0-3.0); LYMPHOCYTES % (AUTO) 18.3 % (20.0-45.0); MEAN CORPUSCULAR HEMOGLOBIN 29.1 PG (27.0-31.0); MEAN CORPUSCULAR HGB CONC 31.2 G/DL (32.0-36.0); MEAN CORPUSCULAR VOLUME 93 FL (80-99); MEAN PLATELET VOLUME 7.8 FL (6.5-10.1); MONOCYTES % (AUTO) 7.9 % (1.0-10.0); NEUTROPHILS % (AUTO) 72.3 % (45.0-75.0); PLATELET COUNT 213 K/UL (150-450); RED BLOOD COUNT 4.13 M/UL (4.70-6.10); WHITE BLOOD COUNT 11.3 K/UL (4.8-10.8)
[2016-11-13 10:53] LABS: ALBUMIN/GLOBULIN RATIO 0.8 (1.0-2.7); CALCIUM 8.1 mg/dL (8.6-10.2); CREATININE 1.4 mg/dL (0.7-1.2); GLOMERULAR FILTRATION RATE 56.4 mL/min (>60); POTASSIUM 3.7 mEQ/L (3.4-4.9); TOTAL PROTEIN 5.3 g/dL (6.6-8.7)
[2016-11-13 11:05] LABS: BILIRUBIN,DIRECT 1.6 mg/dL (0.1-0.3)
--- NOTE | 2016-11-13 11:39 | Pulmonology Progress Note ---
Assessment/Plan Assessment/Plan ASSESSMENT s/p cardiac shock syndrome ascites alcoholic nonischemic cardiomyopathy ETOH abuse acute on chronic CHF systolic and diastolic R heart failure 2 to Lt heart failure R pleural effusion s/p thoracentesis shocked liver anemia hypotension -resolved acute DVT posterior tibial vein moderate pulmonary HTN moderate to severe MR moderate TR R renal infarct vs focal nephritis R ventricle filling defect, possible apical thrombus Acute renal failure? hepatorenal syndrome possible acalculous cholecystitis, s/p Rx PLAN OF CARE on [facility] floor BP stable, s/p initially in ICU pressors s/p IVF diuretics, monitor I/O, renal parameters, lytes ECHO with EF <10%, RVSP of 54, mod to sev MR, mod TR troponin negative cardio follows creat down to normal Librium prn (s/p) O2 HHN prn CXR with right pleural effusion, s/p tap abx, pleural fluid cx negative all cx UTD negative ID follows GI follows HIDA negative CTA/P and abdominal US noted , per GI : GI procedures on hold, pt unstable for procedures given EF < 10% stool OB trend LFT , trending down s/p Venofer monitor HH, Thiamine and Folic acid DVT prophylaxis pain management DNR/DNI status Condition grave, overall prognosis poor case discussed and evaluated by supervising physician Subjective Allergies: Coded Allergies: No Known Allergies (Unverified , 10/25/16) Subjective mild leukocytosis LFT and bili trending down more awake and alert, weak no abdominal pain, no nausea. vomiting Objective Last 24 Hour Vital Signs Date Time Temp Pulse Resp B/P Pulse Ox O2 Delivery O2 Flow Rate FiO2 11/13/16 09:00 88 99/75 11/13/16 09:00 99/75 11/13/16 08:00 97.9 88 16 99/75 97 Room Air 11/13/16 04:00 97.7 99 18 118/76 99 Room Air 11/13/16 00:00 97.0 120 20 115/85 97 Room Air 11/12/16 23:30 96.4 11/12/16 22:45 134 124/81 11/12/16 22:02 135 93/72 11/12/16 22:01 135 93/72 11/12/16 19:58 96.4 110 22 106/77 95 Room Air 11/12/16 19:01 97/77 11/12/16 19:00 124 94/77 11/12/16 16:00 95.9 114 22 110/77 96 Room Air 11/12/16 12:00 96.8 70 20 110/61 95 Room Air Intake and Output 11/12/16 11/13/16 19:00 07:00 Intake Total 1000 ml Output Total 750 ml Balance 250 ml Intake Oral 1000 ml Output Urine Total 750 ml Objective Status: awake, responsive Condition: serious HEENT: atraumatic, normocephalic, icteric sclera Neck: full ROM Lungs: clear Heart: HR/BP stable, + 1 edema BLE Abdomen: soft, non-tender, active bowel sounds Extremities: other - + 1 edema BLE Laboratory Tests 11/13/16 10:27: White Blood Count 11.3H, Red Blood Count 4.13L, Hemoglobin 12.0L, Hematocrit 38.5L, Mean Corpuscular Volume 93, Mean Corpuscular Hemoglobin 29.1, Mean Corpuscular Hemoglobin Concent 31.2L, Red Cell Distribution Width 18.0H, Platelet Count 213, Mean Platelet Volume 7.8, Neutrophils (%) (Auto) 72.3, Lymphocytes (%) (Auto) 18.3L, Monocytes (%) (Auto) 7.9, Eosinophils (%) (Auto) 0.2, Basophils (%) (Auto) 1.4, Sodium Level 133L, Potassium Level 3.7, Chloride Level 90L, Carbon Dioxide Level 27, Anion Gap 16H, Blood Urea Nitrogen 31H, Creatinine 1.4H, Estimat Glomerular Filtration Rate 56.4, Glucose Level 123H, Calcium Level 8.1L, Total Bilirubin 2.5H, Direct Bilirubin 1.6H, Aspartate Amino Transf (AST/SGOT) 47H, Alanine Aminotransferase (ALT/SGPT) 124H, Alkaline Phosphatase 136H, Total Protein 5.3L, Albumin 2.5L, Globulin 2.8, Albumin/ Globulin Ratio 0.8L Current Medications Medications (Trade) Dose Ordered Sig/Baudilio Route PRN Reason Start Time Stop Time Status Last Admin Dose Admin Acetaminophen (Tylenol) 650 mg Q4H PRN ORAL fever 10/30/16 21:00 11/29/16 20:59 Al Hydroxide/Mg Hydroxide (Mylanta II) 30 ml Q6H PRN ORAL dyspepsia 10/30/16 21:00 11/29/16 20:59 11/05/16 15:00 Carvedilol (Coreg) 9.375 mg EVERY 12 HOURS ORAL 11/12/16 21:00 12/12/16 20:59 Dextrose (Dextrose 50%) STAT PRN IV Hypoglycemia 10/30/16 21:00 11/29/16 20:59 Diphenhydramine HCl (Benadryl) 25 mg Q6H PRN ORAL Itching/Pruritis 10/30/16 21:00 11/29/16 20:59 Furosemide (Lasix) 40 mg DAILY IV 11/12/16 09:00 12/07/16 08:59 11/13/16 09:17 Lisinopril (Zestril) 2.5 mg BID ORAL 11/10/16 21:00 12/10/16 20:59 Morphine Sulfate (Morphine Sulfate) 2 mg Q4H PRN IVP Severe Pain (Pain Scale 7-10) 11/07/16 12:00 11/14/16 11:59 11/12/16 22:48 Nitroglycerin (Ntg) 0.4 mg Q5M X 3 DOSES PRN SL Prn Chest Pain 10/30/16 21:00 11/29/16 20:59 Ondansetron HCl (Zofran) 4 mg Q6H PRN IVP Nausea & Vomiting 10/30/16 21:00 11/29/16 20:59 11/12/16 02:18 Polyethylene Glycol (Miralax) 17 gm HSPRN PRN ORAL Constipation 10/31/16 18:00 11/30/16 17:59 Promethazine HCl/ Codeine (Phenergan with Codeine) 5 ml Q6H PRN ORAL For Cough 11/07/16 23:30 12/07/16 23:29 11/11/16 18:05 Thiamine HCl (Vitamin B1) 100 mg DAILY ORAL 10/31/16 09:00 11/30/16 08:59 11/13/16 09:17 [facility] Pat[facility] NP Nov 13, 2016 11:39
[2016-11-13 11:42] VITALS: BP 99/72
--- NOTE | 2016-11-13 12:22 | Cardiology Progress Note ---
Assessment/Plan Assessment/Plan abd pain cardiomyopathy chf acute on chronic rv apical filling defect not confirmed on echo renal wedge deformity etohism pleural effusion ascites abn ekg tachy ? related to withdrawl hypotension resolved transminiitis probably passive congestion right heart failrue due to left heaert failure he feel bettter but cr increased to day cxr in am has edema of sig degree cr increased will not give extra diuretic tonite acei low dose tolerated s coreg tolerated increaed dose to 9.375 bid be tolerant of bp if greater than 88 na fluid restriction dulcolox suppository Subjective Cardiovascular: Denies: chest pain, lightheadedness Respiratory: Reports: shortness of breath Gastrointestinal/Abdominal: Denies: abdominal pain Genitourinary: Denies: burning Objective Last 24 Hour Vital Signs Date Time Temp Pulse Resp B/P Pulse Ox O2 Delivery O2 Flow Rate FiO2 11/13/16 11:42 96.4 96 16 99/72 92 Room Air 11/13/16 09:00 88 99/75 11/13/16 09:00 99/75 11/13/16 08:00 97.9 88 16 99/75 97 Room Air 11/13/16 04:00 97.7 99 18 118/76 99 Room Air 11/13/16 00:00 97.0 120 20 115/85 97 Room Air 11/12/16 23:30 96.4 11/12/16 22:45 134 124/81 11/12/16 22:02 135 93/72 11/12/16 22:01 135 93/72 11/12/16 19:58 96.4 110 22 106/77 95 Room Air 11/12/16 19:01 97/77 11/12/16 19:00 124 94/77 11/12/16 16:00 95.9 114 22 110/77 96 Room Air General Appearance: alert Cardiovascular: normal rate, regular rhythm Respiratory/Chest: decreased breath sounds Abdomen: normal bowel sounds, non tender, soft Intake and Output 11/12/16 11/13/16 19:00 07:00 Intake Total 1000 ml Output Total 750 ml Balance 250 ml Intake Oral 1000 ml Output Urine Total 750 ml Laboratory Tests Test 11/13/16 10:27 White Blood Count 11.3 K/UL (4.8-10.8) H Red Blood Count 4.13 M/UL (4.70-6.10) L Hemoglobin 12.0 G/DL (14.2-18.0) L Hematocrit 38.5 % (42.0-52.0) L Mean Corpuscular Volume 93 FL (80-99) Mean Corpuscular Hemoglobin 29.1 PG (27.0-31.0) Mean Corpuscular Hemoglobin Concent 31.2 G/DL (32.0-36.0) L Red Cell Distribution Width 18.0 % (11.6-14.8) H Platelet Count 213 K/UL (150-450) Mean Platelet Volume 7.8 FL (6.5-10.1) Neutrophils (%) (Auto) 72.3 % (45.0-75.0) Lymphocytes (%) (Auto) 18.3 % (20.0-45.0) L Monocytes (%) (Auto) 7.9 % (1.0-10.0) Eosinophils (%) (Auto) 0.2 % (0.0-3.0) Basophils (%) (Auto) 1.4 % (0.0-2.0) Sodium Level 133 mEQ/L (135-145) L Potassium Level 3.7 mEQ/L (3.4-4.9) Chloride Level 90 mEQ/L (98-107) L Carbon Dioxide Level 27 mEQ/L (20-30) Anion Gap 16 (5-15) H Blood Urea Nitrogen 31 mg/dL (7-23) H Creatinine 1.4 mg/dL (0.7-1.2) H Estimat Glomerular Filtration Rate 56.4 mL/min (>60) Glucose Level 123 mg/dL (74-106) H Calcium Level 8.1 mg/dL (8.6-10.2) L Total Bilirubin 2.5 mg/dL (0.0-1.2) H Direct Bilirubin 1.6 mg/dL (0.1-0.3) H Aspartate Amino Transf (AST/SGOT) 47 U/L (5-40) H Alanine Aminotransferase (ALT/SGPT) 124 U/L (3-41) H Alkaline Phosphatase 136 U/L (40-129) H Total Protein 5.3 g/dL (6.6-8.7) L Albumin 2.5 g/dL (3.5-5.2) L Globulin 2.8 g/dL Albumin/Globulin Ratio 0.8 (1.0-2.7) BALJIT TORRES Nov 13, 2016 12:22
[2016-11-13] MEDS: Morphine Sulfate 2mg/ml Inj IVP PRN ×2 (14:13→19:38)
[2016-11-13 16:00] VITALS: BP 108/74
[2016-11-13 20:00] VITALS: BP 103/75
[2016-11-14] VITALS (7 sets, daily range): BP systolic 94–110; BP diastolic 67–87
--- NOTE | 2016-11-14 08:03 | General Progress Note ---
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 - Alcoholic cardiomyopathy SNOMED: 026346077 (3) Anemia ICD Codes: D64.9 - Anemia, unspecified SNOMED: 765558981 (4) Ascites ICD Codes: R18.8 - Other ascites SNOMED: 449759755 (5) Hypoalbuminemia ICD Codes: E88.09 - Other disorders of plasma-protein metabolism, not elsewhere classified SNOMED: 070574955 (6) ETOH abuse ICD Codes: F10.10 - Alcohol abuse, uncomplicated SNOMED: 21752019, 68201449 (7) Pleural effusion ICD Codes: J90 - Pleural effusion, not elsewhere classified SNOMED: 86001314 (8) Leukocytosis ICD Codes: D72.829 - Elevated white blood cell count, unspecified SNOMED: 421509337, 008222044 (9) Shock liver ICD Codes: K72.00 - Acute and subacute hepatic failure without coma SNOMED: 995099828 Assessment/Plan fu labs abx GI procedures on hold for now with EF of 10% repeat lfts>>> improving Subjective ROS Limited/Unobtainable: Yes Allergies: Coded Allergies: No Known Allergies (Unverified , 10/25/16) Subjective no event Objective Last 24 Hour Vital Signs Date Time Temp Pulse Resp B/P Pulse Ox O2 Delivery O2 Flow Rate FiO2 11/14/16 04:00 97.5 110 20 102/77 93 Room Air 11/14/16 00:00 98.1 107 20 94/67 90 Room Air 11/13/16 21:00 110 103/75 11/13/16 20:08 96.4 11/13/16 20:00 97.2 110 22 103/75 97 Room Air 11/13/16 17:48 108/74 11/13/16 16:00 98.4 121 20 108/74 100 Room Air 11/13/16 11:42 96.4 96 16 99/72 92 Room Air 11/13/16 09:00 88 99/75 11/13/16 09:00 99/75 Intake and Output 11/13/16 11/14/16 19:00 07:00 Intake Total 720 ml 600 ml Balance 720 ml 600 ml Intake Oral 720 ml 600 ml # Voids 2 2 Laboratory Tests 11/13/16 10:27: White Blood Count 11.3H, Red Blood Count 4.13L, Hemoglobin 12.0L, Hematocrit 38.5L, Mean Corpuscular Volume 93, Mean Corpuscular Hemoglobin 29.1, Mean Corpuscular Hemoglobin Concent 31.2L, Red Cell Distribution Width 18.0H, Platelet Count 213, Mean Platelet Volume 7.8, Neutrophils (%) (Auto) 72.3, Lymphocytes (%) (Auto) 18.3L, Monocytes (%) (Auto) 7.9, Eosinophils (%) (Auto) 0.2, Basophils (%) (Auto) 1.4, Sodium Level 133L, Potassium Level 3.7, Chloride Level 90L, Carbon Dioxide Level 27, Anion Gap 16H, Blood Urea Nitrogen 31H, Creatinine 1.4H, Estimat Glomerular Filtration Rate 56.4, Glucose Level 123H, Calcium Level 8.1L, Total Bilirubin 2.5H, Direct Bilirubin 1.6H, Aspartate Amino Transf (AST/SGOT) 47H, Alanine Aminotransferase (ALT/SGPT) 124H, Alkaline Phosphatase 136H, Total Protein 5.3L, Albumin 2.5L, Globulin 2.8, Albumin/ Globulin Ratio 0.8L Height (Feet): 5 Height (Inches): 6.00 Weight (Pounds): 184 General Appearance: alert EENT: normal ENT inspection Neck: supple Cardiovascular: normal rate Respiratory/Chest: decreased breath sounds Abdomen: normal bowel sounds, non tender, soft Extremities: non-tender ADRIAN BERG Nov 14, 2016 08:03
[2016-11-14] MEDS: Thiamine 100mg tab ORAL SCH (08:50)
[2016-11-14] MEDS: Carvedilol 6.25mg Tab ORAL SCH ×2 (08:50→20:45)
[2016-11-14] MEDS: Lisinopril 2.5mg tab ORAL SCH ×2 (08:52→18:00)
--- NOTE | 2016-11-14 10:27 | Diagnostic Imaging Report ---
Clinical history: Shortness of breath Technique: Portable AP chest radiograph was obtained. Comparison: 11/09/16. Findings: There is no significant interval change in the interval, allowing for differences in technique and positioning. Impression: Cardiomegaly with mild pulmonary edema and small effusions. Pneumonia at the left lung base is not excluded. Overall pulmonary aeration appears stable.
--- NOTE | 2016-11-14 10:55 | Pulmonology Progress Note ---
Assessment/Plan Assessment/Plan ASSESSMENT s/p cardiac shock syndrome ascites alcoholic nonischemic cardiomyopathy ETOH abuse acute on chronic CHF systolic and diastolic R heart failure 2 to Lt heart failure R pleural effusion s/p thoracentesis shocked liver anemia hypotension -resolved acute DVT posterior tibial vein moderate pulmonary HTN moderate to severe MR moderate TR R renal infarct vs focal nephritis R ventricle filling defect, possible apical thrombus Acute renal failure? hepatorenal syndrome possible acalculous cholecystitis, s/p Rx homeless PLAN OF CARE on [facility] floor BP stable, s/p initially in ICU pressors s/p IVF diuretics, monitor I/O, renal parameters, lytes ECHO with EF <10%, RVSP of 54, mod to sev MR, mod TR troponin negative cardio follows creat down to normal Librium prn (s/p) O2 HHN prn CXR with right pleural effusion, s/p tap abx, pleural fluid cx negative all cx UTD negative ID follows GI follows HIDA negative CTA/P and abdominal US noted , per GI : GI procedures on hold, pt unstable for procedures given EF < 10% stool OB trend LFT , trending down s/p Venofer monitor HH, Thiamine and Folic acid DVT prophylaxis pain management DNR/DNI status Condition grave, overall prognosis poor 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 vomiting wants to go home Objective Last 24 Hour Vital Signs Date Time Temp Pulse Resp B/P Pulse Ox O2 Delivery O2 Flow Rate FiO2 11/14/16 08:52 110/87 11/14/16 08:50 95 110/87 11/14/16 08:00 98.2 95 15 110/87 96 Room Air 11/14/16 04:00 97.5 110 20 102/77 93 Room Air 11/14/16 00:00 98.1 107 20 94/67 90 Room Air 11/13/16 21:00 110 103/75 11/13/16 20:08 96.4 11/13/16 20:00 97.2 110 22 103/75 97 Room Air 11/13/16 17:48 108/74 11/13/16 16:00 98.4 121 20 108/74 100 Room Air 11/13/16 11:42 96.4 96 16 99/72 92 Room Air Intake and Output 11/13/16 11/14/16 19:00 07:00 Intake Total 720 ml 600 ml Balance 720 ml 600 ml Intake Oral 720 ml 600 ml # Voids 2 2 Objective Status: awake, responsive Condition: serious HEENT: atraumatic, normocephalic, icteric sclera Neck: full ROM Lungs: clear Heart: HR/BP stable, + 1 edema BLE Abdomen: soft, non-tender, active bowel sounds Extremities: other - + 1 edema BLE Current Medications Medications (Trade) Dose Ordered Sig/Baudilio Route PRN Reason Start Time Stop Time Status Last Admin Dose Admin Acetaminophen (Tylenol) 650 mg Q4H PRN ORAL fever 10/30/16 21:00 11/29/16 20:59 Al Hydroxide/Mg Hydroxide (Mylanta II) 30 ml Q6H PRN ORAL dyspepsia 10/30/16 21:00 11/29/16 20:59 11/05/16 15:00 Carvedilol (Coreg) 9.375 mg EVERY 12 HOURS ORAL 11/12/16 21:00 12/12/16 20:59 Dextrose (Dextrose 50%) STAT PRN IV Hypoglycemia 10/30/16 21:00 11/29/16 20:59 Diphenhydramine HCl (Benadryl) 25 mg Q6H PRN ORAL Itching/Pruritis 10/30/16 21:00 11/29/16 20:59 Folic Acid (Folate) 1 mg DAILY ORAL 11/14/16 13:00 12/14/16 12:59 Furosemide (Lasix) 40 mg DAILY IV 11/12/16 09:00 12/07/16 08:59 11/14/16 08:50 Lisinopril (Zestril) 2.5 mg BID ORAL 11/10/16 21:00 12/10/16 20:59 Morphine Sulfate (Morphine Sulfate) 2 mg Q4H PRN IVP Severe Pain (Pain Scale 7-10) 11/13/16 12:00 11/20/16 11:59 11/13/16 19:38 Nitroglycerin (Ntg) 0.4 mg Q5M X 3 DOSES PRN SL Prn Chest Pain 10/30/16 21:00 11/29/16 20:59 Ondansetron HCl (Zofran) 4 mg Q6H PRN IVP Nausea & Vomiting 10/30/16 21:00 11/29/16 20:59 11/12/16 02:18 Polyethylene Glycol (Miralax) 17 gm HSPRN PRN ORAL Constipation 10/31/16 18:00 11/30/16 17:59 Promethazine HCl/ Codeine (Phenergan with Codeine) 5 ml Q6H PRN ORAL For Cough 11/07/16 23:30 12/07/16 23:29 11/11/16 18:05 Thiamine HCl (Vitamin B1) 100 mg DAILY ORAL 10/31/16 09:00 11/30/16 08:59 11/14/16 08:50 [facility] ([facility])Anabel NP Nov 14, 2016 10:55
[2016-11-14] MEDS ORDERED: COREG6.25 MG ORAL (10:59)
[2016-11-14] MEDS ORDERED: THIAMINE HCL100 MG ORAL (10:59)
[2016-11-14] MEDS ORDERED: LISINOPRIL5 MG ORAL (10:59)
[2016-11-14] MEDS ORDERED: FOLIC ACID1 MG ORAL (10:59)
[2016-11-14] MEDS ORDERED: LASIX40 MG ORAL (11:00)
[2016-11-14] MEDS ORDERED: POTASSIUM CHLO20 ME2 ORAL (11:02)
[2016-11-14] MEDS: Morphine Sulfate 2mg/ml Inj IVP PRN ×2 (12:47→20:00)
--- NOTE | 2016-11-14 13:35 | Cardiology Progress Note ---
Assessment/Plan Assessment/Plan abd pain cardiomyopathy chf acute on chronic rv apical filling defect not confirmed on echo renal wedge deformity etohism pleural effusion ascites abn ekg tachy ? related to withdrawl hypotension resolved transminiitis probably passive congestion right heart failrue due to left heaert failure he feel bettter cxr in am has edema of sig degree acei low dose tolerated s coreg tolerated increaed dose to 9.375 bid be tolerant of bp if greater than 88 na fluid restriction again d/w tp no labs today Subjective Cardiovascular: Denies: chest pain, irregular heart rate, lightheadedness, palpitations Respiratory: Denies: shortness of breath Gastrointestinal/Abdominal: Denies: abdominal pain Genitourinary: Denies: burning Objective Last 24 Hour Vital Signs Date Time Temp Pulse Resp B/P Pulse Ox O2 Delivery O2 Flow Rate FiO2 11/14/16 08:52 110/87 11/14/16 08:50 95 110/87 11/14/16 08:00 98.2 95 15 110/87 96 Room Air 11/14/16 04:00 97.5 110 20 102/77 93 Room Air 11/14/16 00:00 98.1 107 20 94/67 90 Room Air 11/13/16 21:00 110 103/75 11/13/16 20:08 96.4 11/13/16 20:00 97.2 110 22 103/75 97 Room Air 11/13/16 17:48 108/74 11/13/16 16:00 98.4 121 20 108/74 100 Room Air General Appearance: no apparent distress, alert Neck: supple Cardiovascular: normal rate, regular rhythm Abdomen: normal bowel sounds, non tender, soft Extremities: moderate edema Intake and Output 11/13/16 11/14/16 19:00 07:00 Intake Total 720 ml 600 ml Balance 720 ml 600 ml Intake Oral 720 ml 600 ml # Voids 2 2 BALJIT FRANCOIS Nov 14, 2016 13:35
[2016-11-15] VITALS: BP 103/73
[2016-11-15] MEDS: Morphine Sulfate 2mg/ml Inj IVP PRN ×2 (00:35→15:48)
[2016-11-15 04:21] VITALS: BP 107/76
[2016-11-15 08:20] VITALS: BP 110/70
--- NOTE | 2016-11-15 09:58 | Infectious Diseases Prog Note ---
Assessment/Plan Assessment/Plan ASSESSMENT: 41 y/o male with: // Possible acalculous cholecystitis SP Rx - HIDA: Normal HIDA scan - US: Gallbladder wall thickening, no stones. Cannot r/o acute acalculous cholecystitis // Shock SP - off pressors. Septic vs cardiogenic // Leukocytosis - mild , persistent, improved, . May be non-infectious. Cx(-), no response to empiric broad spectrum ABX ( DVT, renal infarct, apical thrombus contributing ) // cardiomyopathy // Elevated LFTs / acute liver injury, m/l shock liver - improved - negative: hepatitis panel // ARF ?HRS - improved // Acute LLE DVT // Right renal infarct // Acute on chronic systolic and diastolic CHF exacerbation // NICMO with possible apical thrombus - TTE: EF 10%, grade II diastolic dysfunction, mod TR, pulm HTN, mod-sev MR // Right pleural effusion - CXR: Resolved right pleural effusion, post thoracentesis. No radiographically evident complication - SP thoracentesis 10/13: Cx(-) // NKDA // Full Code PLAN: - monitor pt off of ABX ( 11/06 SP zosyn d# 10 / ) - monitor CBC, temperatures, re-culture if acute change - monitor CMP - monitor CXR Subjective Constitutional: Denies: anorexia, chills, drenching sweats, fatigue, fever, no symptoms, other Allergies: Coded Allergies: No Known Allergies (Unverified , 10/25/16) Objective Vital Signs Last 24 Hour Vital Signs Date Time Temp Pulse Resp B/P Pulse Ox O2 Delivery O2 Flow Rate FiO2 11/15/16 08:20 96.8 88 20 110/70 98 Room Air 11/15/16 04:21 97.3 102 20 107/76 94 Room Air 11/15/16 01:10 96.8 11/15/16 00:00 96.8 63 20 103/73 97 Room Air 11/14/16 20:45 112 104/69 11/14/16 20:41 97.7 112 18 104/69 99 Room Air 11/14/16 18:00 109/76 11/14/16 16:59 98.6 95 17 109/76 97 Room Air 11/14/16 12:00 96.0 118 20 108/81 98 Room Air 118 Height (Feet): 5 Height (Inches): 6.00 Weight (Pounds): 185 HEENT: mucous membranes moist Respiratory/Chest: no respiratory distress Cardiovascular: regular rhythm Abdomen: soft, non tender Current Medications Medications (Trade) Dose Ordered Sig/Baudilio Route PRN Reason Start Time Stop Time Status Last Admin Dose Admin Acetaminophen (Tylenol) 650 mg Q4H PRN ORAL fever 10/30/16 21:00 11/29/16 20:59 Al Hydroxide/Mg Hydroxide (Mylanta II) 30 ml Q6H PRN ORAL dyspepsia 10/30/16 21:00 11/29/16 20:59 11/05/16 15:00 Carvedilol (Coreg) 9.375 mg EVERY 12 HOURS ORAL 11/12/16 21:00 12/12/16 20:59 Dextrose (Dextrose 50%) STAT PRN IV Hypoglycemia 10/30/16 21:00 11/29/16 20:59 Diphenhydramine HCl (Benadryl) 25 mg Q6H PRN ORAL Itching/Pruritis 10/30/16 21:00 11/29/16 20:59 Folic Acid (Folate) 1 mg DAILY ORAL 11/14/16 13:00 12/14/16 12:59 11/14/16 12:46 Furosemide (Lasix) 40 mg DAILY IV 11/12/16 09:00 12/07/16 08:59 11/14/16 08:50 Lisinopril (Zestril) 2.5 mg BID ORAL 11/10/16 21:00 12/10/16 20:59 Morphine Sulfate (Morphine Sulfate) 2 mg Q4H PRN IVP Severe Pain (Pain Scale 7-10) 11/13/16 12:00 11/20/16 11:59 11/15/16 00:35 Nitroglycerin (Ntg) 0.4 mg Q5M X 3 DOSES PRN SL Prn Chest Pain 10/30/16 21:00 11/29/16 20:59 Ondansetron HCl (Zofran) 4 mg Q6H PRN IVP Nausea & Vomiting 10/30/16 21:00 11/29/16 20:59 11/12/16 02:18 Polyethylene Glycol (Miralax) 17 gm HSPRN PRN ORAL Constipation 10/31/16 18:00 11/30/16 17:59 Promethazine HCl/ Codeine (Phenergan with Codeine) 5 ml Q6H PRN ORAL For Cough 11/07/16 23:30 12/07/16 23:29 11/11/16 18:05 Thiamine HCl (Vitamin B1) 100 mg DAILY ORAL 10/31/16 09:00 11/30/16 08:59 11/14/16 08:50 RAMÓN CASTELLON M.D. Nov 15, 2016 09:58
[2016-11-15] MEDS: Carvedilol 6.25mg Tab ORAL SCH (10:00)
[2016-11-15] MEDS: Thiamine 100mg tab ORAL SCH (10:00)
[2016-11-15] MEDS: Lisinopril 2.5mg tab ORAL SCH ×3 (10:01→21:05)
--- NOTE | 2016-11-15 10:21 | GI Progress Note ---
Assessment/Plan Problems: (1) Pleural effusion ICD Codes: J90 - Pleural effusion, not elsewhere classified SNOMED: 79660806 (2) Hypoalbuminemia ICD Codes: E88.09 - Other disorders of plasma-protein metabolism, not elsewhere classified SNOMED: 773547090 (3) ETOH abuse ICD Codes: F10.10 - Alcohol abuse, uncomplicated SNOMED: 50168576, 24117715 (4) Ascites ICD Codes: R18.8 - Other ascites SNOMED: 744238384 (5) Anemia ICD Codes: D64.9 - Anemia, unspecified SNOMED: 587373745 (6) Abdominal pain ICD Codes: R10.9 - Unspecified abdominal pain SNOMED: 93784650 Status: stable Status Narrative Discussed with Dr. Dominguez. Assessment/Plan APCT reviewed >> s/p thoracentesis >> 800cc Abd U/S reviewed >>Trace ascites. Gallbladder wall thickening, no stones. Negative for dilated ducts. Hepatomegaly, see full report. lipase negative iron deficient >> venofer OB stool negative GI procedures on hold for now with EF of 10% abx repeat lfts zofran prn H2 fu labs Subjective Subjective abdominal pain minimal Objective Last 24 Hour Vital Signs Date Time Temp Pulse Resp B/P Pulse Ox O2 Delivery O2 Flow Rate FiO2 11/15/16 10:01 110/70 11/15/16 10:00 88 110/70 11/15/16 08:20 96.8 88 20 110/70 98 Room Air 11/15/16 04:21 97.3 102 20 107/76 94 Room Air 11/15/16 01:10 96.8 11/15/16 00:00 96.8 63 20 103/73 97 Room Air 11/14/16 20:45 112 104/69 11/14/16 20:41 97.7 112 18 104/69 99 Room Air 11/14/16 18:00 109/76 11/14/16 16:59 98.6 95 17 109/76 97 Room Air 11/14/16 12:00 96.0 118 20 108/81 98 Room Air 118 Intake and Output 11/14/16 11/15/16 19:00 07:00 Intake Total 480 ml 360 ml Balance 480 ml 360 ml Intake Oral 480 ml 360 ml # Voids 2 2 Height (Feet): 5 Height (Inches): 6.00 Weight (Pounds): 185 General Appearance: no apparent distress, alert Cardiovascular: normal rate Respiratory/Chest: no respiratory distress Abdominal Exam: normal bowel sounds, non tender, soft Melanie Briones N.P. Nov 15, 2016 10:21
[2016-11-15 11:47] VITALS: BP 117/86
[2016-11-15] MEDS: Promethazine/Codeine 5ml UD ORAL PRN ×2 (13:13→21:06)
--- NOTE | 2016-11-15 13:23 | Diagnostic Imaging Report ---
Indication: Cough Technique: One view of the chest Comparison: 11/14/2016 Findings: There are bilateral basilar infiltrates and left-sided pleural fluid again demonstrated. Retrocardiac consolidation appears slightly less dense on the previous study The heart is enlarged. Impression: Persistent bilateral infiltrates, with slight improvement in the retrocardiac region over one day. Cardiomegaly
[2016-11-15 16:01] VITALS: BP 90/61
--- NOTE | 2016-11-15 19:14 | Cardiology Progress Note ---
Assessment/Plan Assessment/Plan abd pain cardiomyopathy chf acute on chronic rv apical filling defect not confirmed on echo renal wedge deformity etohism pleural effusion ascites abn ekg tachy ? related to withdrawl hypotension resolved transminiitis probably passive congestion right heart failrue due to left heaert failure he feel better cxr reviewed has edema of sig degree acei has been held due ot low bp coreg held due to low bp be tolerant of bp if greater than 88 na fluid restriction again no labs today either ! d/w rn switch to po lasix Subjective Cardiovascular: Reports: lightheadedness, Denies: chest pain, irregular heart rate, palpitations Respiratory: Denies: shortness of breath Gastrointestinal/Abdominal: Denies: abdominal pain Genitourinary: Denies: burning Objective Last 24 Hour Vital Signs Date Time Temp Pulse Resp B/P Pulse Ox O2 Delivery O2 Flow Rate FiO2 11/15/16 17:19 90/61 11/15/16 16:01 96.4 100 20 90/61 97 Room Air 11/15/16 11:47 96.4 120 20 117/86 94 Room Air 11/15/16 10:01 110/70 11/15/16 10:00 88 110/70 11/15/16 08:20 96.8 88 20 110/70 98 Room Air 11/15/16 04:21 97.3 102 20 107/76 94 Room Air 11/15/16 01:10 96.8 11/15/16 00:00 96.8 63 20 103/73 97 Room Air 11/14/16 20:45 112 104/69 11/14/16 20:41 97.7 112 18 104/69 99 Room Air General Appearance: no apparent distress, alert Neck: JVD Cardiovascular: normal rate, regular rhythm Respiratory/Chest: decreased breath sounds, crackles/rales Abdomen: normal bowel sounds, non tender, soft Extremities: severe edema Intake and Output 11/14/16 11/15/16 19:00 07:00 Intake Total 480 ml 360 ml Balance 480 ml 360 ml Intake Oral 480 ml 360 ml # Voids 2 2 BALJIT FRANCOIS Nov 15, 2016 19:14
--- NOTE | 2016-11-15 19:51 | Pulmonology Progress Note ---
Assessment/Plan Problems: (1) Pleural effusion (2) Abdominal pain (3) Ascites (4) Alcoholic cardiomyopathy (5) Tachycardia (6) ETOH abuse Assessment/Plan no major changes still feeing week awaiting placement Subjective Interval Events: no new complains Allergies: Coded Allergies: No Known Allergies (Unverified , 10/25/16) Objective Last 24 Hour Vital Signs Date Time Temp Pulse Resp B/P Pulse Ox O2 Delivery O2 Flow Rate FiO2 11/15/16 17:19 90/61 11/15/16 16:01 96.4 100 20 90/61 97 Room Air 11/15/16 11:47 96.4 120 20 117/86 94 Room Air 11/15/16 10:01 110/70 11/15/16 10:00 88 110/70 11/15/16 08:20 96.8 88 20 110/70 98 Room Air 11/15/16 04:21 97.3 102 20 107/76 94 Room Air 11/15/16 01:10 96.8 11/15/16 00:00 96.8 63 20 103/73 97 Room Air 11/14/16 20:45 112 104/69 11/14/16 20:41 97.7 112 18 104/69 99 Room Air Intake and Output 11/14/16 11/15/16 19:00 07:00 Intake Total 480 ml 360 ml Balance 480 ml 360 ml Intake Oral 480 ml 360 ml # Voids 2 2 General Appearance: cachetic HEENT: normocephalic Respiratory/Chest: chest wall non-tender, lungs clear Cardiovascular: normal peripheral pulses, normal rate Abdomen: normal bowel sounds Current Medications Medications (Trade) Dose Ordered Sig/Baudilio Route PRN Reason Start Time Stop Time Status Last Admin Dose Admin Acetaminophen (Tylenol) 650 mg Q4H PRN ORAL fever 10/30/16 21:00 11/29/16 20:59 Al Hydroxide/Mg Hydroxide (Mylanta II) 30 ml Q6H PRN ORAL dyspepsia 10/30/16 21:00 11/29/16 20:59 11/05/16 15:00 Carvedilol (Coreg) 3.125 mg EVERY 12 HOURS ORAL 11/15/16 21:00 12/15/16 20:59 Dextrose (Dextrose 50%) STAT PRN IV Hypoglycemia 10/30/16 21:00 11/29/16 20:59 Diphenhydramine HCl (Benadryl) 25 mg Q6H PRN ORAL Itching/Pruritis 10/30/16 21:00 11/29/16 20:59 Folic Acid (Folate) 1 mg DAILY ORAL 11/14/16 13:00 12/14/16 12:59 11/15/16 10:00 Furosemide (Lasix) 40 mg EVERY 12 HOURS ORAL 11/15/16 21:00 12/15/16 20:59 Lisinopril (Zestril) 2.5 mg BID ORAL 11/15/16 21:00 12/15/16 20:59 Morphine Sulfate (Morphine Sulfate) 2 mg Q4H PRN IVP Severe Pain (Pain Scale 7-10) 11/13/16 12:00 11/20/16 11:59 11/15/16 15:48 Nitroglycerin (Ntg) 0.4 mg Q5M X 3 DOSES PRN SL Prn Chest Pain 10/30/16 21:00 11/29/16 20:59 Ondansetron HCl (Zofran) 4 mg Q6H PRN IVP Nausea & Vomiting 10/30/16 21:00 11/29/16 20:59 11/12/16 02:18 Polyethylene Glycol (Miralax) 17 gm HSPRN PRN ORAL Constipation 10/31/16 18:00 11/30/16 17:59 Promethazine HCl/ Codeine (Phenergan with Codeine) 5 ml Q6H PRN ORAL For Cough 11/07/16 23:30 12/07/16 23:29 11/15/16 13:13 Thiamine HCl (Vitamin B1) 100 mg DAILY ORAL 10/31/16 09:00 11/30/16 08:59 11/15/16 10:00 RHONDA PARKINSON Nov 15, 2016 19:51
[2016-11-15 20:00] VITALS: BP 96/69
[2016-11-16] VITALS (7 sets, daily range): BP systolic 96–121; BP diastolic 62–80
[2016-11-16 07:09] LABS: BASOPHILS % (AUTO) 1.6 % (0.0-2.0); EOSINOPHILS % (AUTO) 0.9 % (0.0-3.0); LYMPHOCYTES % (AUTO) 23.9 % (20.0-45.0); MEAN CORPUSCULAR HEMOGLOBIN 29.3 PG (27.0-31.0); MEAN CORPUSCULAR HGB CONC 31.3 G/DL (32.0-36.0); MEAN CORPUSCULAR VOLUME 94 FL (80-99); MONOCYTES % (AUTO) 8.3 % (1.0-10.0); NEUTROPHILS % (AUTO) 65.3 % (45.0-75.0); PLATELET COUNT 169 K/UL (150-450); RED BLOOD COUNT 4.18 M/UL (4.70-6.10); RED CELL DISTRIBUTION WIDTH 18.3 % (11.6-14.8); WHITE BLOOD COUNT 8.9 K/UL (4.8-10.8)
[2016-11-16 07:25] LABS: ALANINE AMINOTRANSFERASE 88 U/L (3-41); ALBUMIN/GLOBULIN RATIO 0.8 (1.0-2.7); ANION GAP 19 (5-15); ASPARTATE AMINO TRANSFERASE 43 U/L (5-40); CALCIUM 7.9 mg/dL (8.6-10.2); CARBON DIOXIDE 23 mEQ/L (20-30); CHLORIDE 93 mEQ/L (98-107); GLOMERULAR FILTRATION RATE > 60 mL/min (>60); HEMOLYSIS 120; POTASSIUM 3.9 mEQ/L (3.4-4.9); SODIUM 135 mEQ/L (135-145); TOTAL PROTEIN 5.5 g/dL (6.6-8.7)
[2016-11-16 07:36] LABS: BILIRUBIN,DIRECT 1.1 mg/dL (0.1-0.3)
[2016-11-16] MEDS: Lisinopril 2.5mg tab ORAL SCH ×2 (09:01→17:41)
[2016-11-16] MEDS: Thiamine 100mg tab ORAL SCH (09:01)
--- NOTE | 2016-11-16 09:54 | Infectious Diseases Prog Note ---
Assessment/Plan Assessment/Plan ASSESSMENT: 41 y/o male with: // Possible acalculous cholecystitis SP Rx - HIDA: Normal HIDA scan - US: Gallbladder wall thickening, no stones. Cannot r/o acute acalculous cholecystitis // Shock SP - off pressors. 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 No radiographically evident complication - SP thoracentesis 10/13: Cx(-) // NKDA // Full Code PLAN: - monitor pt off of ABX ( 11/06 SP zosyn d# / ) - monitor CBC, temperatures, re-culture if acute change - monitor CMP - monitor CXR Subjective Constitutional: Denies: anorexia, chills, drenching sweats, fatigue, fever, no symptoms, other Allergies: Coded Allergies: No Known Allergies (Unverified , 10/25/16) Objective Vital Signs Last 24 Hour Vital Signs Date Time Temp Pulse Resp B/P Pulse Ox O2 Delivery O2 Flow Rate FiO2 11/16/16 09:01 109/62 11/16/16 09:00 94 109/62 11/16/16 07:49 97.4 94 18 109/62 94 Room Air 11/16/16 04:00 97.6 99 18 97/67 94 Room Air 11/16/16 00:00 97.3 101 18 99/66 91 Room Air 11/15/16 21:05 96/69 11/15/16 21:05 98 96/69 11/15/16 20:00 98.1 98 20 96/69 99 Room Air 11/15/16 17:19 90/61 11/15/16 16:01 96.4 100 20 90/61 97 Room Air 11/15/16 11:47 96.4 120 20 117/86 94 Room Air 11/15/16 10:01 110/70 11/15/16 10:00 88 110/70 Height (Feet): 5 Height (Inches): 6.00 Weight (Pounds): 183 HEENT: atraumatic Respiratory/Chest: normal breath sounds Cardiovascular: normal rate Abdomen: soft, non tender Extremities: no cyanosis Laboratory Tests Test 11/16/16 04:55 White Blood Count 8.9 K/UL (4.8-10.8) Red Blood Count 4.18 M/UL (4.70-6.10) L Hemoglobin 12.3 G/DL (14.2-18.0) L Hematocrit 39.1 % (42.0-52.0) L Mean Corpuscular Volume 94 FL (80-99) Mean Corpuscular Hemoglobin 29.3 PG (27.0-31.0) Mean Corpuscular Hemoglobin Concent 31.3 G/DL (32.0-36.0) L Red Cell Distribution Width 18.3 % (11.6-14.8) H Platelet Count 169 K/UL (150-450) Mean Platelet Volume 8.0 FL (6.5-10.1) Neutrophils (%) (Auto) 65.3 % (45.0-75.0) Lymphocytes (%) (Auto) 23.9 % (20.0-45.0) Monocytes (%) (Auto) 8.3 % (1.0-10.0) Eosinophils (%) (Auto) 0.9 % (0.0-3.0) Basophils (%) (Auto) 1.6 % (0.0-2.0) Sodium Level 135 mEQ/L (135-145) Potassium Level 3.9 mEQ/L (3.4-4.9) Chloride Level 93 mEQ/L (98-107) L Carbon Dioxide Level 23 mEQ/L (20-30) Anion Gap 19 (5-15) H Blood Urea Nitrogen 22 mg/dL (7-23) Creatinine 1.0 mg/dL (0.7-1.2) Estimat Glomerular Filtration Rate > 60 mL/min (>60) Glucose Level 85 mg/dL (74-106) Calcium Level 7.9 mg/dL (8.6-10.2) L Total Bilirubin 2.6 mg/dL (0.0-1.2) H Direct Bilirubin 1.1 mg/dL (0.1-0.3) H Aspartate Amino Transf (AST/SGOT) 43 U/L (5-40) H Alanine Aminotransferase (ALT/SGPT) 88 U/L (3-41) H Alkaline Phosphatase 150 U/L (40-129) H Total Protein 5.5 g/dL (6.6-8.7) L Albumin 2.6 g/dL (3.5-5.2) L Globulin 2.9 g/dL Albumin/Globulin Ratio 0.8 (1.0-2.7) L Current Medications Medications (Trade) Dose Ordered Sig/Baudilio Route PRN Reason Start Time Stop Time Status Last Admin Dose Admin Acetaminophen (Tylenol) 650 mg Q4H PRN ORAL fever 10/30/16 21:00 11/29/16 20:59 Al Hydroxide/Mg Hydroxide (Mylanta II) 30 ml Q6H PRN ORAL dyspepsia 10/30/16 21:00 11/29/16 20:59 11/05/16 15:00 Carvedilol (Coreg) 3.125 mg EVERY 12 HOURS ORAL 11/15/16 21:00 12/15/16 20:59 11/16/16 09:00 Dextrose (Dextrose 50%) STAT PRN IV Hypoglycemia 10/30/16 21:00 11/29/16 20:59 Diphenhydramine HCl (Benadryl) 25 mg Q6H PRN ORAL Itching/Pruritis 10/30/16 21:00 11/29/16 20:59 Folic Acid (Folate) 1 mg DAILY ORAL 11/14/16 13:00 12/14/16 12:59 11/16/16 09:01 Furosemide (Lasix) 40 mg EVERY 12 HOURS ORAL 11/15/16 21:00 12/15/16 20:59 11/16/16 09:01 Lisinopril (Zestril) 2.5 mg BID ORAL 11/15/16 21:00 12/15/16 20:59 11/16/16 09:01 Morphine Sulfate (Morphine Sulfate) 2 mg Q4H PRN IVP Severe Pain (Pain Scale 7-10) 11/13/16 12:00 11/20/16 11:59 11/15/16 15:48 Nitroglycerin (Ntg) 0.4 mg Q5M X 3 DOSES PRN SL Prn Chest Pain 10/30/16 21:00 11/29/16 20:59 Ondansetron HCl (Zofran) 4 mg Q6H PRN IVP Nausea & Vomiting 10/30/16 21:00 11/29/16 20:59 11/12/16 02:18 Polyethylene Glycol (Miralax) 17 gm HSPRN PRN ORAL Constipation 10/31/16 18:00 11/30/16 17:59 Promethazine HCl/ Codeine (Phenergan with Codeine) 5 ml Q6H PRN ORAL For Cough 11/07/16 23:30 12/07/16 23:29 11/15/16 21:06 Thiamine HCl (Vitamin B1) 100 mg DAILY ORAL 10/31/16 09:00 11/30/16 08:59 11/16/16 09:01 RAMÓN CASTELLON M.D. Nov 16, 2016 09:54
--- NOTE | 2016-11-16 10:25 | GI Progress Note ---
Assessment/Plan Problems: (1) Pleural effusion ICD Codes: J90 - Pleural effusion, not elsewhere classified SNOMED: 32491942 (2) Hypoalbuminemia ICD Codes: E88.09 - Other disorders of plasma-protein metabolism, not elsewhere classified SNOMED: 545258874 (3) ETOH abuse ICD Codes: F10.10 - Alcohol abuse, uncomplicated SNOMED: 00551066, 18538055 (4) Ascites ICD Codes: R18.8 - Other ascites SNOMED: 824283712 (5) Anemia ICD Codes: D64.9 - Anemia, unspecified SNOMED: 314256634 (6) Abdominal pain ICD Codes: R10.9 - Unspecified abdominal pain SNOMED: 92056444 Status: stable Status Narrative Discussed with Dr. Dominguez. Assessment/Plan APCT reviewed >> s/p thoracentesis >> 800cc Abd U/S reviewed >>Trace ascites. Gallbladder wall thickening, no stones. Negative for dilated ducts. Hepatomegaly, see full report. lipase negative iron deficient >> venofer OB stool negative ok for DC per GI standpoint GI procedures on hold for now with EF of 10% stable H&H abx repeat lfts zofran prn H2 fu labs Subjective Gastrointestinal/Abdominal: Reports: no symptoms Subjective abdominal pain minimal Objective Last 24 Hour Vital Signs Date Time Temp Pulse Resp B/P Pulse Ox O2 Delivery O2 Flow Rate FiO2 11/16/16 09:01 109/62 11/16/16 09:00 94 109/62 11/16/16 07:49 97.4 94 18 109/62 94 Room Air 11/16/16 04:00 97.6 99 18 97/67 94 Room Air 11/16/16 00:00 97.3 101 18 99/66 91 Room Air 11/15/16 21:05 96/69 11/15/16 21:05 98 96/69 11/15/16 20:00 98.1 98 20 96/69 99 Room Air 11/15/16 17:19 90/61 11/15/16 16:01 96.4 100 20 90/61 97 Room Air 11/15/16 11:47 96.4 120 20 117/86 94 Room Air Intake and Output 11/15/16 11/16/16 19:00 07:00 Intake Total 360 ml 1065 ml Balance 360 ml 1065 ml Intake Oral 360 ml 1065 ml # Voids 2 4 Laboratory Tests Test 11/16/16 04:55 White Blood Count 8.9 K/UL (4.8-10.8) Red Blood Count 4.18 M/UL (4.70-6.10) L Hemoglobin 12.3 G/DL (14.2-18.0) L Hematocrit 39.1 % (42.0-52.0) L Mean Corpuscular Volume 94 FL (80-99) Mean Corpuscular Hemoglobin 29.3 PG (27.0-31.0) Mean Corpuscular Hemoglobin Concent 31.3 G/DL (32.0-36.0) L Red Cell Distribution Width 18.3 % (11.6-14.8) H Platelet Count 169 K/UL (150-450) Mean Platelet Volume 8.0 FL (6.5-10.1) Neutrophils (%) (Auto) 65.3 % (45.0-75.0) Lymphocytes (%) (Auto) 23.9 % (20.0-45.0) Monocytes (%) (Auto) 8.3 % (1.0-10.0) Eosinophils (%) (Auto) 0.9 % (0.0-3.0) Basophils (%) (Auto) 1.6 % (0.0-2.0) Sodium Level 135 mEQ/L (135-145) Potassium Level 3.9 mEQ/L (3.4-4.9) Chloride Level 93 mEQ/L (98-107) L Carbon Dioxide Level 23 mEQ/L (20-30) Anion Gap 19 (5-15) H Blood Urea Nitrogen 22 mg/dL (7-23) Creatinine 1.0 mg/dL (0.7-1.2) Estimat Glomerular Filtration Rate > 60 mL/min (>60) Glucose Level 85 mg/dL (74-106) Calcium Level 7.9 mg/dL (8.6-10.2) L Total Bilirubin 2.6 mg/dL (0.0-1.2) H Direct Bilirubin 1.1 mg/dL (0.1-0.3) H Aspartate Amino Transf (AST/SGOT) 43 U/L (5-40) H Alanine Aminotransferase (ALT/SGPT) 88 U/L (3-41) H Alkaline Phosphatase 150 U/L (40-129) H Total Protein 5.5 g/dL (6.6-8.7) L Albumin 2.6 g/dL (3.5-5.2) L Globulin 2.9 g/dL Albumin/Globulin Ratio 0.8 (1.0-2.7) L Height (Feet): 5 Height (Inches): 6.00 Weight (Pounds): 183 General Appearance: alert Cardiovascular: normal rate Respiratory/Chest: normal breath sounds, no respiratory distress Abdominal Exam: normal bowel sounds, non tender, soft Extremities: normal range of motion Melanie Briones N.P. Nov 16, 2016 10:25
[2016-11-16 14:34] LABS: TROPONIN I < 0.30 ng/mL (<=0.30)
[2016-11-16] MEDS: Morphine Sulfate 2mg/ml Inj IVP PRN (15:42)
--- NOTE | 2016-11-16 22:18 | Consultation ---
DATE OF CONSULTATION: 11/15/2016 HISTORY OF PRESENT ILLNESS: This is a 41-year-old male with a history of ethanol abuse, has been admitted to the hospital due to diffuse abdominal pain. No nausea or vomiting. Psychiatry was consulted as the patient has been presenting with cognitive impairment and started speaking only Egyptian. During the evaluation, the patient was able to communicate in Israeli. There he has not been presenting with any anxiety and agitation or behavior issues. He requested to be discharged against medical advice. During the evaluation, he was unable to understand process, communicate, nor associated information was given to him in regards to his medical condition. PAST PSYCHIATRIC HISTORY: He has a history of anxiety disorder. PAST MEDICAL HISTORY: Significant for anemia, hypoalbuminemia, leukocytosis, sepsis, arthritis, pleural effusion and liver disease. ALLERGIES: No known drug allergies. SUBSTANCE ABUSE HISTORY: Mainly alcohol and marijuana. MENTAL STATUS EXAMINATION: Alert and oriented x3. Mood is depressed. Affect is constricted. Congruent mood. Thought process is concrete. Thought content, there is no suicidal or homicidal ideation. ASSESSMENT: AXIS I: Alcohol dependence. AXIS II: Deferred. AXIS III: As above. AXIS IV: Moderate. AXIS V: 50. PLAN: 1. The patient lacks capacity to leave against medical advice and he is not holdable, however, he may not leave against medical advice. What I meant was not holdable and 5150 hold. 2. No medication at this time. 3. Please feel free to contact me . Chio Hwang M.D. DR: Radha JOB#: [id number] CC:
[2016-11-17 04:00] VITALS: BP 101/74
[2016-11-17] MEDS: Lisinopril 2.5mg tab ORAL SCH ×2 (08:08→18:00)
[2016-11-17] MEDS: Thiamine 100mg tab ORAL SCH (08:08)
[2016-11-17 08:28] VITALS: BP 99/71
--- NOTE | 2016-11-17 10:15 | GI Progress Note ---
Assessment/Plan Problems: (1) Pleural effusion ICD Codes: J90 - Pleural effusion, not elsewhere classified SNOMED: 46705107 (2) Hypoalbuminemia ICD Codes: E88.09 - Other disorders of plasma-protein metabolism, not elsewhere classified SNOMED: 654535236 (3) ETOH abuse ICD Codes: F10.10 - Alcohol abuse, uncomplicated SNOMED: 16709318, 77250608 (4) Ascites ICD Codes: R18.8 - Other ascites SNOMED: 342179021 (5) Anemia ICD Codes: D64.9 - Anemia, unspecified SNOMED: 161885447 (6) Abdominal pain ICD Codes: R10.9 - Unspecified abdominal pain SNOMED: 85223452 Status: stable Status Narrative Discussed with Dr. Dominguez. Assessment/Plan APCT reviewed >> s/p thoracentesis >> 800cc Abd U/S reviewed >>Trace ascites. Gallbladder wall thickening, no stones. Negative for dilated ducts. Hepatomegaly, see full report. lipase negative iron deficient >> venofer OB stool negative hep panel negative refused labs today ok for DC per GI standpoint GI procedures on hold for now with EF of 10% stable H&H abx repeat lfts zofran prn H2 fu labs ETOH cessation Subjective Subjective abdominal pain improved refused labs Objective Last 24 Hour Vital Signs Date Time Temp Pulse Resp B/P Pulse Ox O2 Delivery O2 Flow Rate FiO2 11/17/16 08:28 96.9 87 19 99/71 94 Room Air 11/17/16 08:08 99/71 11/17/16 08:08 87 99/71 11/17/16 04:00 97.9 84 18 101/74 95 Room Air 11/17/16 00:13 96 11/16/16 23:55 96.6 138 19 96/73 99 Room Air 11/16/16 21:13 70 121/66 11/16/16 19:00 96.0 70 18 121/66 98 Room Air 11/16/16 17:41 100/69 11/16/16 16:12 96.3 11/16/16 16:00 96.3 112 18 100/69 98 Room Air 11/16/16 13:28 127/82 11/16/16 12:00 96.3 103 18 111/80 100 Room Air Intake and Output 11/16/16 11/17/16 19:00 07:00 Intake Total 600 ml 915 ml Balance 600 ml 915 ml Intake Oral 600 ml 915 ml # Voids 3 4 Laboratory Tests Test 11/16/16 14:00 Troponin I < 0.30 ng/mL (<=0.30) Height (Feet): 5 Height (Inches): 6.00 Weight (Pounds): 185 General Appearance: no apparent distress, alert Cardiovascular: normal rate Respiratory/Chest: normal breath sounds, no respiratory distress Abdominal Exam: normal bowel sounds, non tender Extremities: normal range of motion Melanie Briones N.P. Nov 17, 2016 10:15
[2016-11-17 12:03] VITALS: BP 100/75
[2016-11-17] MEDS: Morphine Sulfate 2mg/ml Inj IVP PRN (15:36)
[2016-11-17 16:00] VITALS: BP 93/64
--- NOTE | 2016-11-17 19:18 | Infectious Diseases Prog Note ---
Assessment/Plan Assessment/Plan ASSESSMENT: 41 y/o male with: // Possible acalculous cholecystitis SP Rx - HIDA: Normal HIDA scan - US: Gallbladder wall thickening, no stones. Cannot r/o acute acalculous cholecystitis // Shock SP - off pressors. 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 No radiographically evident complication - SP thoracentesis 10/13: Cx(-) // NKDA // Full Code PLAN: - monitor pt off of ABX ( 11/06 SP zosyn d# / ) - monitor CBC, temperatures, re-culture if acute change - monitor CMP - monitor CXR Subjective Constitutional: Denies: anorexia, chills, drenching sweats, fatigue, fever, no symptoms, other Allergies: Coded Allergies: No Known Allergies (Unverified , 10/25/16) Objective Vital Signs Last 24 Hour Vital Signs Date Time Temp Pulse Resp B/P Pulse Ox O2 Delivery O2 Flow Rate FiO2 11/17/16 18:00 93/64 11/17/16 16:00 97.0 98 18 93/64 100 Room Air 11/17/16 12:03 97.0 89 19 100/75 94 Room Air 11/17/16 08:28 96.9 87 19 99/71 94 Room Air 11/17/16 08:08 99/71 11/17/16 08:08 87 99/71 11/17/16 04:00 97.9 84 18 101/74 95 Room Air 11/17/16 00:13 96 11/16/16 23:55 96.6 138 19 96/73 99 Room Air 11/16/16 21:13 70 121/66 Height (Feet): 5 Height (Inches): 6.00 Weight (Pounds): 185 HEENT: anicteric Respiratory/Chest: normal breath sounds Cardiovascular: regularly irregular Abdomen: no organomegaly Current Medications Medications (Trade) Dose Ordered Sig/Baudilio Route PRN Reason Start Time Stop Time Status Last Admin Dose Admin Acetaminophen (Tylenol) 650 mg Q4H PRN ORAL fever 10/30/16 21:00 11/29/16 20:59 Al Hydroxide/Mg Hydroxide (Mylanta II) 30 ml Q6H PRN ORAL dyspepsia 10/30/16 21:00 11/29/16 20:59 11/05/16 15:00 Carvedilol (Coreg) 3.125 mg EVERY 12 HOURS ORAL 11/15/16 21:00 12/15/16 20:59 11/17/16 08:08 Dextrose (Dextrose 50%) STAT PRN IV Hypoglycemia 10/30/16 21:00 11/29/16 20:59 Diphenhydramine HCl (Benadryl) 25 mg Q6H PRN ORAL Itching/Pruritis 10/30/16 21:00 11/29/16 20:59 Folic Acid (Folate) 1 mg DAILY ORAL 11/14/16 13:00 12/14/16 12:59 11/17/16 08:08 Furosemide (Lasix) 40 mg EVERY 12 HOURS ORAL 11/15/16 21:00 12/15/16 20:59 11/17/16 08:08 Lisinopril (Zestril) 2.5 mg BID ORAL 11/15/16 21:00 12/15/16 20:59 11/17/16 08:08 Morphine Sulfate (Morphine Sulfate) 2 mg Q4H PRN IVP Severe Pain (Pain Scale 7-10) 11/13/16 12:00 11/20/16 11:59 11/17/16 15:36 Nitroglycerin (Ntg) 0.4 mg Q5M X 3 DOSES PRN SL Prn Chest Pain 10/30/16 21:00 11/29/16 20:59 11/16/16 13:28 Ondansetron HCl (Zofran) 4 mg Q6H PRN IVP Nausea & Vomiting 10/30/16 21:00 11/29/16 20:59 11/17/16 15:36 Polyethylene Glycol (Miralax) 17 gm HSPRN PRN ORAL Constipation 10/31/16 18:00 11/30/16 17:59 Promethazine HCl/ Codeine (Phenergan with Codeine) 5 ml Q6H PRN ORAL For Cough 11/07/16 23:30 12/07/16 23:29 11/15/16 21:06 Thiamine HCl (Vitamin B1) 100 mg DAILY ORAL 10/31/16 09:00 11/30/16 08:59 11/17/16 08:08 RAMÓN CASTELLON M.D. Nov 17, 2016 19:18
[2016-11-17 20:00] VITALS: BP 103/69
--- NOTE | 2016-11-17 20:54 | Cardiology Progress Note ---
Assessment/Plan Status: stable, progressing Status Narrative Nonischemic , probable alcoholic , cardiomyopathy w/ severe depression of LV systolic function Changed to oral lasix. I/os inaccurate, but wt has increased. Assessment/Plan will increase lasix to 60 mg bid. Continue coreg, lisinopril - unable to titrate due to low bp Follow wts, as i/os inaccurate, labs, renal fxn Subjective ROS Limited/Unobtainable: No Subjective Cardiolology for Dr. Hoffman no c/o dyspnea or pain Objective Last 24 Hour Vital Signs Date Time Temp Pulse Resp B/P Pulse Ox O2 Delivery O2 Flow Rate FiO2 11/17/16 20:00 96.0 120 18 103/69 98 Room Air 11/17/16 18:00 93/64 11/17/16 16:00 97.0 98 18 93/64 100 Room Air 11/17/16 12:03 97.0 89 19 100/75 94 Room Air 11/17/16 08:28 96.9 87 19 99/71 94 Room Air 11/17/16 08:08 99/71 11/17/16 08:08 87 99/71 11/17/16 04:00 97.9 84 18 101/74 95 Room Air 11/17/16 00:13 96 11/16/16 23:55 96.6 138 19 96/73 99 Room Air 11/16/16 21:13 70 121/66 General Appearance: WD/WN, no apparent distress, alert, severe distress Neck: supple, no JVD Rhythm: NSR Cardiovascular: normal rate, regular rhythm, no gallop/murmur Respiratory/Chest: lungs clear Abdomen: non tender, soft, other - mild distension Extremities: moderate edema - 2+ pitting edema of feet- calf bilat Intake and Output 11/16/16 11/17/16 19:00 07:00 Intake Total 600 ml 915 ml Balance 600 ml 915 ml Intake Oral 600 ml 915 ml # Voids 3 4 KINGSTON KHAN Nov 17, 2016 20:54
--- NOTE | 2016-11-17 23:10 | Cardiology Report ---
APPROVED REPORT EKG Measurement Heart [id number] Sinus tachycardia Septal infarct, age undetermined Lateral infarct, age undetermined Abnormal ECG
--- NOTE | 2016-11-17 23:18 | Pulmonology Progress Note ---
Assessment/Plan Problems: (1) Pleural effusion (2) Abdominal pain (3) Ascites (4) Alcoholic cardiomyopathy (5) Tachycardia (6) ETOH abuse Assessment/Plan no major changes still feeing week awaiting placement Subjective ROS Limited/Unobtainable: Yes Constitutional: Reports: anorexia, fatigue Respiratory: Reports: dry cough, dyspnea at rest, dyspnea on exertion, productive cough, shortness of breath, sputum Neurologic: Reports: confusion, weakness Allergies: Coded Allergies: No Known Allergies (Unverified , 10/25/16) Objective Last 24 Hour Vital Signs Date Time Temp Pulse Resp B/P Pulse Ox O2 Delivery O2 Flow Rate FiO2 11/17/16 21:09 120 103/69 11/17/16 20:00 96.0 120 18 103/69 98 Room Air 11/17/16 18:00 93/64 11/17/16 16:00 97.0 98 18 93/64 100 Room Air 11/17/16 12:03 97.0 89 19 100/75 94 Room Air 11/17/16 08:28 96.9 87 19 99/71 94 Room Air 11/17/16 08:08 99/71 11/17/16 08:08 87 99/71 11/17/16 04:00 97.9 84 18 101/74 95 Room Air 11/17/16 00:13 96 11/16/16 23:55 96.6 138 19 96/73 99 Room Air Intake and Output 11/16/16 11/17/16 19:00 07:00 Intake Total 600 ml 915 ml Balance 600 ml 915 ml Intake Oral 600 ml 915 ml # Voids 3 4 General Appearance: no acute distress HEENT: normocephalic, atraumatic, PERRL Respiratory/Chest: chest wall non-tender, decreased breath sounds, accessory muscle use, crackles/rales, rhonchi, expiratory wheezing, pleural rub Cardiovascular: normal peripheral pulses, normal rate, regular rhythm, no JVD Abdomen: hypoactive bowel sounds, distended, guarding, tender, rebound tenderness, mass, hepatomegaly Genitourinary: normal external genitalia Extremities: no cyanosis Skin: no rash, rash, lesions 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, responsive, disoriented Current Medications Medications (Trade) Dose Ordered Sig/Baudilio Route PRN Reason Start Time Stop Time Status Last Admin Dose Admin Acetaminophen (Tylenol) 650 mg Q4H PRN ORAL fever 10/30/16 21:00 11/29/16 20:59 Al Hydroxide/Mg Hydroxide (Mylanta II) 30 ml Q6H PRN ORAL dyspepsia 10/30/16 21:00 11/29/16 20:59 11/05/16 15:00 Carvedilol (Coreg) 3.125 mg EVERY 12 HOURS ORAL 11/15/16 21:00 12/15/16 20:59 11/17/16 21:09 Dextrose (Dextrose 50%) STAT PRN IV Hypoglycemia 10/30/16 21:00 11/29/16 20:59 Diphenhydramine HCl (Benadryl) 25 mg Q6H PRN ORAL Itching/Pruritis 10/30/16 21:00 11/29/16 20:59 Folic Acid (Folate) 1 mg DAILY ORAL 11/14/16 13:00 12/14/16 12:59 11/17/16 08:08 Furosemide (Lasix) 60 mg EVERY 12 HOURS ORAL 11/17/16 21:00 12/17/16 20:59 11/17/16 21:09 Lisinopril (Zestril) 2.5 mg BID ORAL 11/15/16 21:00 12/15/16 20:59 11/17/16 08:08 Morphine Sulfate (Morphine Sulfate) 2 mg Q4H PRN IVP Severe Pain (Pain Scale 7-10) 11/13/16 12:00 11/20/16 11:59 11/17/16 15:36 Nitroglycerin (Ntg) 0.4 mg Q5M X 3 DOSES PRN SL Prn Chest Pain 10/30/16 21:00 11/29/16 20:59 11/16/16 13:28 Ondansetron HCl (Zofran) 4 mg Q6H PRN IVP Nausea & Vomiting 10/30/16 21:00 11/29/16 20:59 11/17/16 15:36 Polyethylene Glycol (Miralax) 17 gm HSPRN PRN ORAL Constipation 10/31/16 18:00 11/30/16 17:59 Promethazine HCl/ Codeine (Phenergan with Codeine) 5 ml Q6H PRN ORAL For Cough 11/07/16 23:30 12/07/16 23:29 11/15/16 21:06 Thiamine HCl (Vitamin B1) 100 mg DAILY ORAL 10/31/16 09:00 11/30/16 08:59 11/17/16 08:08 RHONDA PARKINSON Nov 17, 2016 23:18
[2016-11-17] MEDS: Mylanta II UD 30ml ORAL PRN (23:33)
[2016-11-18] VITALS: BP 96/69
[2016-11-18] MEDS: Morphine Sulfate 2mg/ml Inj IVP PRN ×3 (02:51→17:40)
[2016-11-18 04:00] VITALS: BP 103/70
[2016-11-18 07:00] LABS: BASOPHILS % (AUTO) 1.8 % (0.0-2.0); EOSINOPHILS % (AUTO) 0.5 % (0.0-3.0); LYMPHOCYTES % (AUTO) 25.2 % (20.0-45.0); MEAN CORPUSCULAR HEMOGLOBIN 28.8 PG (27.0-31.0); MEAN CORPUSCULAR HGB CONC 31.3 G/DL (32.0-36.0); MEAN CORPUSCULAR VOLUME 92 FL (80-99); MEAN PLATELET VOLUME 9.1 FL (6.5-10.1); NEUTROPHILS % (AUTO) 64.5 % (45.0-75.0); PLATELET COUNT 196 K/UL (150-450); RED BLOOD COUNT 4.18 M/UL (4.70-6.10); RED CELL DISTRIBUTION WIDTH 17.6 % (11.6-14.8); WHITE BLOOD COUNT 9.1 K/UL (4.8-10.8)
[2016-11-18 07:33] LABS: ANION GAP 16 (5-15); CARBON DIOXIDE 26 mEQ/L (20-30); CHLORIDE 90 mEQ/L (98-107); GLOMERULAR FILTRATION RATE > 60 mL/min (>60); HEMOLYSIS 19; POTASSIUM 3.3 mEQ/L (3.4-4.9); SODIUM 132 mEQ/L (135-145)
[2016-11-18 07:48] VITALS: BP 108/68
[2016-11-18] MEDS: Lisinopril 2.5mg tab ORAL SCH ×2 (08:38→17:39)
[2016-11-18] MEDS: Thiamine 100mg tab ORAL SCH (08:47)
--- NOTE | 2016-11-18 09:39 | Infectious Diseases Prog Note ---
Assessment/Plan Assessment/Plan ASSESSMENT: 41 y/o male with: // Possible acalculous cholecystitis SP Rx - HIDA: Normal HIDA scan - US: Gallbladder wall thickening, no stones. Cannot r/o acute acalculous cholecystitis // Shock SP - off pressors. 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 No radiographically evident complication - SP thoracentesis 10/13: Cx(-) // NKDA // Full Code PLAN: - monitor pt off of ABX ( 11/06 SP zosyn d# / ) - monitor CBC, temperatures, re-culture if acute change - monitor CMP - monitor CXR - awaiting placement Subjective Constitutional: Denies: anorexia, chills, drenching sweats, fatigue, fever, no symptoms, other Allergies: Coded Allergies: No Known Allergies (Unverified , 10/25/16) Objective Vital Signs Last 24 Hour Vital Signs Date Time Temp Pulse Resp B/P Pulse Ox O2 Delivery O2 Flow Rate FiO2 11/18/16 08:38 108/68 11/18/16 08:37 89 108/68 11/18/16 07:48 97.2 89 20 108/68 96 Room Air 11/18/16 04:00 96.8 102 20 103/70 95 Room Air 11/18/16 03:21 97.2 11/18/16 00:00 97.2 112 20 96/69 97 Room Air 11/17/16 21:09 120 103/69 11/17/16 20:00 96.0 120 18 103/69 98 Room Air 11/17/16 18:00 93/64 11/17/16 16:00 97.0 98 18 93/64 100 Room Air 11/17/16 12:03 97.0 89 19 100/75 94 Room Air Height (Feet): 5 Height (Inches): 6.00 Weight (Pounds): 189 HEENT: atraumatic Respiratory/Chest: no accessory muscle use Cardiovascular: regular rhythm Abdomen: no organomegaly Laboratory Tests Test 11/18/16 05:50 White Blood Count 9.1 K/UL (4.8-10.8) Red Blood Count 4.18 M/UL (4.70-6.10) L Hemoglobin 12.1 G/DL (14.2-18.0) L Hematocrit 38.5 % (42.0-52.0) L Mean Corpuscular Volume 92 FL (80-99) Mean Corpuscular Hemoglobin 28.8 PG (27.0-31.0) Mean Corpuscular Hemoglobin Concent 31.3 G/DL (32.0-36.0) L Red Cell Distribution Width 17.6 % (11.6-14.8) H Platelet Count 196 K/UL (150-450) Mean Platelet Volume 9.1 FL (6.5-10.1) Neutrophils (%) (Auto) 64.5 % (45.0-75.0) Lymphocytes (%) (Auto) 25.2 % (20.0-45.0) Monocytes (%) (Auto) 8.0 % (1.0-10.0) Eosinophils (%) (Auto) 0.5 % (0.0-3.0) Basophils (%) (Auto) 1.8 % (0.0-2.0) Sodium Level 132 mEQ/L (135-145) L Potassium Level 3.3 mEQ/L (3.4-4.9) L Chloride Level 90 mEQ/L (98-107) L Carbon Dioxide Level 26 mEQ/L (20-30) Anion Gap 16 (5-15) H Blood Urea Nitrogen 19 mg/dL (7-23) Creatinine 1.0 mg/dL (0.7-1.2) Estimat Glomerular Filtration Rate > 60 mL/min (>60) Glucose Level 109 mg/dL (74-106) H Calcium Level 8.0 mg/dL (8.6-10.2) L Current Medications Medications (Trade) Dose Ordered Sig/Baudilio Route PRN Reason Start Time Stop Time Status Last Admin Dose Admin Acetaminophen (Tylenol) 650 mg Q4H PRN ORAL fever 10/30/16 21:00 11/29/16 20:59 Al Hydroxide/Mg Hydroxide (Mylanta II) 30 ml Q6H PRN ORAL dyspepsia 10/30/16 21:00 11/29/16 20:59 11/17/16 23:33 Carvedilol (Coreg) 3.125 mg EVERY 12 HOURS ORAL 11/15/16 21:00 12/15/16 20:59 11/17/16 21:09 Dextrose (Dextrose 50%) STAT PRN IV Hypoglycemia 10/30/16 21:00 11/29/16 20:59 Diphenhydramine HCl (Benadryl) 25 mg Q6H PRN ORAL Itching/Pruritis 10/30/16 21:00 11/29/16 20:59 Folic Acid (Folate) 1 mg DAILY ORAL 11/14/16 13:00 12/14/16 12:59 11/18/16 08:47 Furosemide (Lasix) 60 mg EVERY 12 HOURS ORAL 11/17/16 21:00 12/17/16 20:59 11/18/16 08:48 Lisinopril (Zestril) 2.5 mg BID ORAL 11/15/16 21:00 12/15/16 20:59 11/17/16 08:08 Morphine Sulfate (Morphine Sulfate) 2 mg Q4H PRN IVP Severe Pain (Pain Scale 7-10) 11/13/16 12:00 11/20/16 11:59 11/18/16 02:51 Nitroglycerin (Ntg) 0.4 mg Q5M X 3 DOSES PRN SL Prn Chest Pain 10/30/16 21:00 11/29/16 20:59 11/16/16 13:28 Ondansetron HCl (Zofran) 4 mg Q6H PRN IVP Nausea & Vomiting 10/30/16 21:00 11/29/16 20:59 11/17/16 15:36 Polyethylene Glycol (Miralax) 17 gm HSPRN PRN ORAL Constipation 10/31/16 18:00 11/30/16 17:59 Promethazine HCl/ Codeine (Phenergan with Codeine) 5 ml Q6H PRN ORAL For Cough 11/07/16 23:30 12/07/16 23:29 11/15/16 21:06 Thiamine HCl (Vitamin B1) 100 mg DAILY ORAL 10/31/16 09:00 11/30/16 08:59 11/18/16 08:47 RAMÓN CASTELLON M.D. Nov 18, 2016 09:39
--- NOTE | 2016-11-18 10:21 | GI Progress Note ---
Assessment/Plan Problems: (1) Pleural effusion ICD Codes: J90 - Pleural effusion, not elsewhere classified SNOMED: 49076414 (2) Hypoalbuminemia ICD Codes: E88.09 - Other disorders of plasma-protein metabolism, not elsewhere classified SNOMED: 950242386 (3) ETOH abuse ICD Codes: F10.10 - Alcohol abuse, uncomplicated SNOMED: 27530506, 50283232 (4) Ascites ICD Codes: R18.8 - Other ascites SNOMED: 152475623 (5) Anemia ICD Codes: D64.9 - Anemia, unspecified SNOMED: 520253981 (6) Abdominal pain ICD Codes: R10.9 - Unspecified abdominal pain SNOMED: 91317336 Status: doing well, stable Status Narrative Discussed with Dr. Dominguez. Assessment/Plan APCT reviewed >> s/p thoracentesis >> 800cc Abd U/S reviewed >>Trace ascites. Gallbladder wall thickening, no stones. Negative for dilated ducts. Hepatomegaly, see full report. lipase negative iron deficient >> venofer OB stool negative hep panel negative refused labs today ok for DC per GI standpoint GI procedures on hold for now with EF of 10% stable H&H abx repeat lfts zofran prn H2 fu labs ETOH cessation Subjective Gastrointestinal/Abdominal: Reports: no symptoms Subjective Objective Last 24 Hour Vital Signs Date Time Temp Pulse Resp B/P Pulse Ox O2 Delivery O2 Flow Rate FiO2 11/18/16 08:38 108/68 11/18/16 08:37 89 108/68 11/18/16 07:48 97.2 89 20 108/68 96 Room Air 11/18/16 04:00 96.8 102 20 103/70 95 Room Air 11/18/16 03:21 97.2 11/18/16 00:00 97.2 112 20 96/69 97 Room Air 11/17/16 21:09 120 103/69 11/17/16 20:00 96.0 120 18 103/69 98 Room Air 11/17/16 18:00 93/64 11/17/16 16:00 97.0 98 18 93/64 100 Room Air 11/17/16 12:03 97.0 89 19 100/75 94 Room Air Intake and Output 11/17/16 11/18/16 18:59 06:59 Intake Total 480 ml 120 ml Output Total 320 ml 300 ml Balance 160 ml -180 ml Intake Oral 480 ml 120 ml Output Urine Total 320 ml 300 ml # Voids 3 1 Laboratory Tests Test 11/18/16 05:50 White Blood Count 9.1 K/UL (4.8-10.8) Red Blood Count 4.18 M/UL (4.70-6.10) L Hemoglobin 12.1 G/DL (14.2-18.0) L Hematocrit 38.5 % (42.0-52.0) L Mean Corpuscular Volume 92 FL (80-99) Mean Corpuscular Hemoglobin 28.8 PG (27.0-31.0) Mean Corpuscular Hemoglobin Concent 31.3 G/DL (32.0-36.0) L Red Cell Distribution Width 17.6 % (11.6-14.8) H Platelet Count 196 K/UL (150-450) Mean Platelet Volume 9.1 FL (6.5-10.1) Neutrophils (%) (Auto) 64.5 % (45.0-75.0) Lymphocytes (%) (Auto) 25.2 % (20.0-45.0) Monocytes (%) (Auto) 8.0 % (1.0-10.0) Eosinophils (%) (Auto) 0.5 % (0.0-3.0) Basophils (%) (Auto) 1.8 % (0.0-2.0) Sodium Level 132 mEQ/L (135-145) L Potassium Level 3.3 mEQ/L (3.4-4.9) L Chloride Level 90 mEQ/L (98-107) L Carbon Dioxide Level 26 mEQ/L (20-30) Anion Gap 16 (5-15) H Blood Urea Nitrogen 19 mg/dL (7-23) Creatinine 1.0 mg/dL (0.7-1.2) Estimat Glomerular Filtration Rate > 60 mL/min (>60) Glucose Level 109 mg/dL (74-106) H Calcium Level 8.0 mg/dL (8.6-10.2) L Height (Feet): 5 Height (Inches): 6.00 Weight (Pounds): 189 General Appearance: no apparent distress, alert Cardiovascular: normal rate Respiratory/Chest: normal breath sounds, no respiratory distress Abdominal Exam: normal bowel sounds, non tender, soft Extremities: normal range of motion Melanie Briones N.P. Nov 18, 2016 10:21
[2016-11-18 12:15] VITALS: BP 103/69
[2016-11-18 16:11] VITALS: BP 101/65
--- NOTE | 2016-11-18 18:25 | Cardiology Progress Note ---
Assessment/Plan Assessment/Plan abd pain cardiomyopathy chf acute on chronic rv apical filling defect not confirmed on echo renal wedge deformity etohism pleural effusion ascites abn ekg tachy ? related to withdrawl hypotension resolved transminiitis probably passive congestion right heart failrue due to left heaert failure he feels ok cxr reviewed has edema of sig degree acei lwo dose coreg low acevedo bid be tolerant of bp if greater than 88 na fluid restriction again d/w rn on po lasix not much more i can offer him here Subjective Cardiovascular: Denies: chest pain, lightheadedness, palpitations Respiratory: Denies: shortness of breath Gastrointestinal/Abdominal: Denies: abdominal pain Genitourinary: Denies: burning Objective Last 24 Hour Vital Signs Date Time Temp Pulse Resp B/P Pulse Ox O2 Delivery O2 Flow Rate FiO2 11/18/16 17:39 101/65 11/18/16 16:11 97.4 59 21 101/65 96 Room Air 11/18/16 13:44 97.3 11/18/16 12:15 97.3 111 21 103/69 96 Room Air 11/18/16 08:38 108/68 11/18/16 08:37 89 108/68 11/18/16 07:48 97.2 89 20 108/68 96 Room Air 11/18/16 04:00 96.8 102 20 103/70 95 Room Air 11/18/16 00:00 97.2 112 20 96/69 97 Room Air 11/17/16 21:09 120 103/69 11/17/16 20:00 96.0 120 18 103/69 98 Room Air General Appearance: alert Neck: no JVD Cardiovascular: normal rate Respiratory/Chest: lungs clear Abdomen: non tender, soft Extremities: severe edema Intake and Output 11/17/16 11/18/16 19:00 07:00 Intake Total 480 ml 120 ml Output Total 320 ml 300 ml Balance 160 ml -180 ml Intake Oral 480 ml 120 ml Output Urine Total 320 ml 300 ml # Voids 3 1 Laboratory Tests Test 11/18/16 05:50 White Blood Count 9.1 K/UL (4.8-10.8) Red Blood Count 4.18 M/UL (4.70-6.10) L Hemoglobin 12.1 G/DL (14.2-18.0) L Hematocrit 38.5 % (42.0-52.0) L Mean Corpuscular Volume 92 FL (80-99) Mean Corpuscular Hemoglobin 28.8 PG (27.0-31.0) Mean Corpuscular Hemoglobin Concent 31.3 G/DL (32.0-36.0) L Red Cell Distribution Width 17.6 % (11.6-14.8) H Platelet Count 196 K/UL (150-450) Mean Platelet Volume 9.1 FL (6.5-10.1) Neutrophils (%) (Auto) 64.5 % (45.0-75.0) Lymphocytes (%) (Auto) 25.2 % (20.0-45.0) Monocytes (%) (Auto) 8.0 % (1.0-10.0) Eosinophils (%) (Auto) 0.5 % (0.0-3.0) Basophils (%) (Auto) 1.8 % (0.0-2.0) Sodium Level 132 mEQ/L (135-145) L Potassium Level 3.3 mEQ/L (3.4-4.9) L Chloride Level 90 mEQ/L (98-107) L Carbon Dioxide Level 26 mEQ/L (20-30) Anion Gap 16 (5-15) H Blood Urea Nitrogen 19 mg/dL (7-23) Creatinine 1.0 mg/dL (0.7-1.2) Estimat Glomerular Filtration Rate > 60 mL/min (>60) Glucose Level 109 mg/dL (74-106) H Calcium Level 8.0 mg/dL (8.6-10.2) L BALJIT FRANCOIS Nov 18, 2016 18:25
[2016-11-18 20:00] VITALS: BP 87/67
--- NOTE | 2016-11-18 23:33 | Pulmonology Progress Note ---
Assessment/Plan Problems: (1) Pleural effusion (2) Abdominal pain (3) Ascites (4) Alcoholic cardiomyopathy (5) Tachycardia (6) ETOH abuse Assessment/Plan no major changes still feeing week awaiting placement Subjective ROS Limited/Unobtainable: No Constitutional: Reports: anorexia, chills, fatigue Respiratory: Reports: dyspnea on exertion, pleuritic pain, productive cough, shortness of breath, sputum Gastrointestinal/Abdominal: Reports: bloating, nausea, vomiting Allergies: Coded Allergies: No Known Allergies (Unverified , 10/25/16) Objective Last 24 Hour Vital Signs Date Time Temp Pulse Resp B/P Pulse Ox O2 Delivery O2 Flow Rate FiO2 11/18/16 20:40 96 87/67 11/18/16 20:00 97.0 96 20 87/67 98 Room Air 11/18/16 17:39 101/65 11/18/16 16:11 97.4 59 21 101/65 96 Room Air 11/18/16 13:44 97.3 11/18/16 12:15 97.3 111 21 103/69 96 Room Air 11/18/16 08:38 108/68 11/18/16 08:37 89 108/68 11/18/16 07:48 97.2 89 20 108/68 96 Room Air 11/18/16 04:00 96.8 102 20 103/70 95 Room Air 11/18/16 00:00 97.2 112 20 96/69 97 Room Air Intake and Output 11/17/16 11/18/16 19:00 07:00 Intake Total 480 ml 120 ml Output Total 320 ml 300 ml Balance 160 ml -180 ml Intake Oral 480 ml 120 ml Output Urine Total 320 ml 300 ml # Voids 3 1 General Appearance: no acute distress HEENT: normocephalic, atraumatic, PERRL Respiratory/Chest: chest wall non-tender, decreased breath sounds, accessory muscle use, rhonchi Cardiovascular: normal peripheral pulses, normal rate, regular rhythm Abdomen: hypoactive bowel sounds, distended, guarding, tender, rebound tenderness, mass, hepatomegaly Genitourinary: normal external genitalia Extremities: no cyanosis 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: 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, no motor/sensory deficits Laboratory Tests 11/18/16 05:50: White Blood Count 9.1, Red Blood Count 4.18L, Hemoglobin 12.1L, Hematocrit 38.5L , Mean Corpuscular Volume 92, Mean Corpuscular Hemoglobin 28.8, Mean Corpuscular Hemoglobin Concent 31.3L, Red Cell Distribution Width 17.6H, Platelet Count 196, Mean Platelet Volume 9.1, Neutrophils (%) (Auto) 64.5, Lymphocytes (%) (Auto) 25.2, Monocytes (%) (Auto) 8.0, Eosinophils (%) (Auto) 0.5, Basophils (%) (Auto) 1.8, Sodium Level 132L, Potassium Level 3.3L, Chloride Level 90L, Carbon Dioxide Level 26, Anion Gap 16H, Blood Urea Nitrogen 19, Creatinine 1.0, Estimat Glomerular Filtration Rate > 60, Glucose Level 109H , Calcium Level 8.0L Current Medications Medications (Trade) Dose Ordered Sig/Baudilio Route PRN Reason Start Time Stop Time Status Last Admin Dose Admin Acetaminophen (Tylenol) 650 mg Q4H PRN ORAL fever 10/30/16 21:00 11/29/16 20:59 Al Hydroxide/Mg Hydroxide (Mylanta II) 30 ml Q6H PRN ORAL dyspepsia 10/30/16 21:00 11/29/16 20:59 11/17/16 23:33 Carvedilol (Coreg) 3.125 mg EVERY 12 HOURS ORAL 11/15/16 21:00 12/15/16 20:59 11/17/16 21:09 Dextrose (Dextrose 50%) STAT PRN IV Hypoglycemia 10/30/16 21:00 11/29/16 20:59 Diphenhydramine HCl (Benadryl) 25 mg Q6H PRN ORAL Itching/Pruritis 10/30/16 21:00 11/29/16 20:59 Folic Acid (Folate) 1 mg DAILY ORAL 11/14/16 13:00 12/14/16 12:59 11/18/16 08:47 Furosemide (Lasix) 60 mg EVERY 12 HOURS ORAL 11/17/16 21:00 12/17/16 20:59 11/18/16 20:55 Lisinopril (Zestril) 2.5 mg BID ORAL 11/15/16 21:00 12/15/16 20:59 11/18/16 17:39 Morphine Sulfate (Morphine Sulfate) 2 mg Q4H PRN IVP Severe Pain (Pain Scale 7-10) 11/13/16 12:00 11/20/16 11:59 11/18/16 17:40 Nitroglycerin (Ntg) 0.4 mg Q5M X 3 DOSES PRN SL Prn Chest Pain 10/30/16 21:00 11/29/16 20:59 11/16/16 13:28 Ondansetron HCl (Zofran) 4 mg Q6H PRN IVP Nausea & Vomiting 10/30/16 21:00 11/29/16 20:59 11/17/16 15:36 Polyethylene Glycol (Miralax) 17 gm HSPRN PRN ORAL Constipation 10/31/16 18:00 11/30/16 17:59 Promethazine HCl/ Codeine (Phenergan with Codeine) 5 ml Q6H PRN ORAL For Cough 11/07/16 23:30 12/07/16 23:29 11/15/16 21:06 Quetiapine Fumarate (SEROquel) 25 mg BEDTIME ORAL 11/18/16 21:00 12/18/16 20:59 11/18/16 20:54 Thiamine HCl (Vitamin B1) 100 mg DAILY ORAL 10/31/16 09:00 11/30/16 08:59 11/18/16 08:47 RHONDA PARKINSON Nov 18, 2016 23:32
[2016-11-19] VITALS (8 sets, daily range): BP systolic 95–154; BP diastolic 60–84
[2016-11-19] MEDS: Morphine Sulfate 2mg/ml Inj IVP PRN ×3 (04:14→20:59)
[2016-11-19] MEDS: Lisinopril 2.5mg tab ORAL SCH ×3 (07:39→18:32)
[2016-11-19] MEDS: Thiamine 100mg tab ORAL SCH (07:49)
--- NOTE | 2016-11-19 10:05 | GI Progress Note ---
Assessment/Plan Problems: (1) Pleural effusion ICD Codes: J90 - Pleural effusion, not elsewhere classified SNOMED: 27495324 (2) Hypoalbuminemia ICD Codes: E88.09 - Other disorders of plasma-protein metabolism, not elsewhere classified SNOMED: 450269528 (3) ETOH abuse ICD Codes: F10.10 - Alcohol abuse, uncomplicated SNOMED: 90309900, 36106527 (4) Ascites ICD Codes: R18.8 - Other ascites SNOMED: 022984548 (5) Anemia ICD Codes: D64.9 - Anemia, unspecified SNOMED: 372356648 (6) Abdominal pain ICD Codes: R10.9 - Unspecified abdominal pain SNOMED: 33327244 Status: stable Status Narrative Discussed with Dr. Dominguez. Assessment/Plan APCT reviewed >> s/p thoracentesis >> 800cc Abd U/S reviewed >>Trace ascites. Gallbladder wall thickening, no stones. Negative for dilated ducts. Hepatomegaly, see full report. lipase negative iron deficient >> venofer OB stool negative hep panel negative refused labs today ok for DC per GI standpoint GI procedures on hold for now with EF of 10% stable H&H abx repeat lfts zofran prn H2 fu labs ETOH cessation Subjective Gastrointestinal/Abdominal: Reports: no symptoms Subjective Objective Last 24 Hour Vital Signs Date Time Temp Pulse Resp B/P Pulse Ox O2 Delivery O2 Flow Rate FiO2 11/19/16 08:00 97.2 92 18 95/69 95 Room Air 11/19/16 07:39 95/69 11/19/16 07:39 92 95/69 11/19/16 04:45 97.5 11/19/16 04:00 96.3 95 20 133/60 98 Room Air 11/19/16 00:00 97.5 95 19 98/69 96 Room Air 11/18/16 20:40 96 87/67 11/18/16 20:00 97.0 96 20 87/67 98 Room Air 11/18/16 17:39 101/65 11/18/16 16:11 97.4 59 21 101/65 96 Room Air 11/18/16 12:15 97.3 111 21 103/69 96 Room Air Intake and Output 11/18/16 11/19/16 19:00 07:00 Intake Total 720 ml 480 ml Balance 720 ml 480 ml Intake Oral 720 ml 480 ml # Voids 1 1 Height (Feet): 5 Height (Inches): 6.00 Weight (Pounds): 186 General Appearance: no apparent distress, alert Cardiovascular: normal rate Respiratory/Chest: normal breath sounds, no respiratory distress Abdominal Exam: normal bowel sounds, non tender, soft Extremities: normal range of motion Objective no changes Melanie Briones N.P. Nov 19, 2016 10:05
--- NOTE | 2016-11-19 20:42 | Pulmonology Progress Note ---
Assessment/Plan Problems: (1) Pleural effusion (2) Abdominal pain (3) Ascites (4) Alcoholic cardiomyopathy (5) Tachycardia (6) ETOH abuse Assessment/Plan no major changes still feeing week awaiting placement Subjective ROS Limited/Unobtainable: No Respiratory: Reports: dry cough, dyspnea at rest, dyspnea on exertion, productive cough, shortness of breath, sputum, wheezing Neurologic: Reports: confusion, weakness Musculoskeletal: Reports: pain, stiffness, swelling Allergies: Coded Allergies: No Known Allergies (Unverified , 10/25/16) Objective Last 24 Hour Vital Signs Date Time Temp Pulse Resp B/P Pulse Ox O2 Delivery O2 Flow Rate FiO2 11/19/16 18:32 104/68 11/19/16 16:00 97.9 103 22 104/68 98 Room Air 11/19/16 14:36 92 107/82 11/19/16 13:32 154/84 11/19/16 12:00 97.7 112 20 154/84 96 Room Air 11/19/16 08:00 97.2 92 18 95/69 95 Room Air 11/19/16 07:39 95/69 11/19/16 07:39 92 95/69 11/19/16 04:45 97.5 11/19/16 04:00 96.3 95 20 133/60 98 Room Air 11/19/16 00:00 97.5 95 19 98/69 96 Room Air Intake and Output 11/18/16 11/19/16 19:00 07:00 Intake Total 720 ml 480 ml Balance 720 ml 480 ml Intake Oral 720 ml 480 ml # Voids 1 1 General Appearance: no acute distress HEENT: normocephalic, atraumatic, PERRL Respiratory/Chest: chest wall non-tender, decreased breath sounds, accessory muscle use, crackles/rales, rhonchi, pleural rub Cardiovascular: normal peripheral pulses, normal rate, regular rhythm, no JVD Abdomen: hypoactive bowel sounds, distended, guarding, tender, rebound tenderness, mass, hepatomegaly Genitourinary: normal external genitalia Extremities: no cyanosis 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: 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, responsive, disoriented Current Medications Medications (Trade) Dose Ordered Sig/Baudilio Route PRN Reason Start Time Stop Time Status Last Admin Dose Admin Acetaminophen (Tylenol) 650 mg Q4H PRN ORAL fever 10/30/16 21:00 11/29/16 20:59 Al Hydroxide/Mg Hydroxide (Mylanta II) 30 ml Q6H PRN ORAL dyspepsia 10/30/16 21:00 11/29/16 20:59 11/17/16 23:33 Carvedilol (Coreg) 3.125 mg EVERY 12 HOURS ORAL 11/15/16 21:00 12/15/16 20:59 11/17/16 21:09 Dextrose (Dextrose 50%) STAT PRN IV Hypoglycemia 10/30/16 21:00 11/29/16 20:59 Diphenhydramine HCl (Benadryl) 25 mg Q6H PRN ORAL Itching/Pruritis 10/30/16 21:00 11/29/16 20:59 Folic Acid (Folate) 1 mg DAILY ORAL 11/14/16 13:00 12/14/16 12:59 11/19/16 07:49 Furosemide (Lasix) 60 mg EVERY 12 HOURS ORAL 11/17/16 21:00 12/17/16 20:59 11/19/16 07:50 Lisinopril (Zestril) 2.5 mg BID ORAL 11/15/16 21:00 12/15/16 20:59 11/19/16 18:32 Morphine Sulfate (Morphine Sulfate) 2 mg Q4H PRN IVP Severe Pain (Pain Scale 7-10) 11/13/16 12:00 11/20/16 11:59 11/19/16 16:40 Nitroglycerin (Ntg) 0.4 mg Q5M X 3 DOSES PRN SL Prn Chest Pain 10/30/16 21:00 11/29/16 20:59 11/16/16 13:28 Ondansetron HCl (Zofran) 4 mg Q6H PRN IVP Nausea & Vomiting 10/30/16 21:00 11/29/16 20:59 11/17/16 15:36 Polyethylene Glycol (Miralax) 17 gm HSPRN PRN ORAL Constipation 10/31/16 18:00 11/30/16 17:59 Promethazine HCl/ Codeine (Phenergan with Codeine) 5 ml Q6H PRN ORAL For Cough 11/07/16 23:30 12/07/16 23:29 11/15/16 21:06 Quetiapine Fumarate (SEROquel) 25 mg BEDTIME ORAL 11/18/16 21:00 12/18/16 20:59 11/18/16 20:54 Thiamine HCl (Vitamin B1) 100 mg DAILY ORAL 10/31/16 09:00 11/30/16 08:59 11/19/16 07:49 RHONDA PARKINSON Nov 19, 2016 20:42
[2016-11-20 00:39] VITALS: BP 96/79
[2016-11-20 04:00] VITALS: BP 103/60
[2016-11-20 08:41] VITALS: BP 93/63
[2016-11-20] MEDS: Lisinopril 2.5mg tab ORAL SCH ×2 (08:42→18:32)
[2016-11-20] MEDS: Thiamine 100mg tab ORAL SCH (08:42)
--- NOTE | 2016-11-20 10:52 | Infectious Diseases Prog Note ---
Assessment/Plan Assessment/Plan ASSESSMENT: 41 y/o male with: // Possible acalculous cholecystitis SP Rx - HIDA: Normal HIDA scan - US: Gallbladder wall thickening, no stones. Cannot r/o acute acalculous cholecystitis // Shock SP - off pressors. 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 No radiographically evident complication - SP thoracentesis 10/13: Cx(-) // NKDA // Full Code PLAN: - monitor pt off of ABX ( 11/06 SP zosyn d# / ) - monitor CBC, temperatures, re-culture if acute change - monitor CMP - monitor CXR - awaiting placement Subjective Constitutional: Denies: anorexia, chills, drenching sweats, fatigue, fever, no symptoms, other Allergies: Coded Allergies: No Known Allergies (Unverified , 10/25/16) Objective Vital Signs Last 24 Hour Vital Signs Date Time Temp Pulse Resp B/P Pulse Ox O2 Delivery O2 Flow Rate FiO2 11/20/16 08:42 93/63 11/20/16 08:42 102 93/63 11/20/16 08:41 97.5 102 20 93/63 93 Room Air 11/20/16 04:00 96.8 89 19 103/60 96 Room Air 11/20/16 04:00 96.8 89 19 103/60 96 Room Air 11/20/16 00:39 97.0 91 20 96/79 92 Room Air 11/19/16 20:58 99 105/77 11/19/16 20:00 97.0 99 22 105/77 96 Room Air 11/19/16 18:32 104/68 11/19/16 16:00 97.9 103 22 104/68 98 Room Air 11/19/16 14:36 92 107/82 11/19/16 13:32 154/84 11/19/16 12:00 97.7 112 20 154/84 96 Room Air Height (Feet): 5 Height (Inches): 6.00 Weight (Pounds): 184 HEENT: anicteric Respiratory/Chest: no respiratory distress Cardiovascular: regularly irregular Abdomen: non distended Current Medications Medications (Trade) Dose Ordered Sig/Baudilio Route PRN Reason Start Time Stop Time Status Last Admin Dose Admin Acetaminophen (Tylenol) 650 mg Q4H PRN ORAL fever 10/30/16 21:00 11/29/16 20:59 Al Hydroxide/Mg Hydroxide (Mylanta II) 30 ml Q6H PRN ORAL dyspepsia 10/30/16 21:00 11/29/16 20:59 11/17/16 23:33 Carvedilol (Coreg) 3.125 mg EVERY 12 HOURS ORAL 11/15/16 21:00 12/15/16 20:59 11/20/16 08:42 Dextrose (Dextrose 50%) STAT PRN IV Hypoglycemia 10/30/16 21:00 11/29/16 20:59 Diphenhydramine HCl (Benadryl) 25 mg Q6H PRN ORAL Itching/Pruritis 10/30/16 21:00 11/29/16 20:59 Folic Acid (Folate) 1 mg DAILY ORAL 11/14/16 13:00 12/14/16 12:59 11/20/16 08:42 Furosemide (Lasix) 60 mg EVERY 12 HOURS ORAL 11/17/16 21:00 12/17/16 20:59 11/20/16 08:42 Lisinopril (Zestril) 2.5 mg BID ORAL 11/15/16 21:00 12/15/16 20:59 11/19/16 18:32 Morphine Sulfate (Morphine Sulfate) 2 mg Q4H PRN IVP Severe Pain (Pain Scale 7-10) 11/13/16 12:00 11/20/16 11:59 11/19/16 20:59 Nitroglycerin (Ntg) 0.4 mg Q5M X 3 DOSES PRN SL Prn Chest Pain 10/30/16 21:00 11/29/16 20:59 11/16/16 13:28 Ondansetron HCl (Zofran) 4 mg Q6H PRN IVP Nausea & Vomiting 10/30/16 21:00 11/29/16 20:59 11/17/16 15:36 Polyethylene Glycol (Miralax) 17 gm HSPRN PRN ORAL Constipation 10/31/16 18:00 11/30/16 17:59 Promethazine HCl/ Codeine (Phenergan with Codeine) 5 ml Q6H PRN ORAL For Cough 11/07/16 23:30 12/07/16 23:29 11/15/16 21:06 Quetiapine Fumarate (SEROquel) 25 mg BEDTIME ORAL 11/18/16 21:00 12/18/16 20:59 11/19/16 20:58 Thiamine HCl (Vitamin B1) 100 mg DAILY ORAL 10/31/16 09:00 11/30/16 08:59 11/20/16 08:42 RAMÓN CASTELLON M.D. Nov 20, 2016 10:52
[2016-11-20 12:22] VITALS: BP 98/59
[2016-11-20 16:00] VITALS: BP 112/74
[2016-11-20] MEDS: Promethazine/Codeine 5ml UD ORAL PRN (18:32)
[2016-11-20 20:00] VITALS: BP 104/72
--- NOTE | 2016-11-20 21:23 | Cardiology Progress Note ---
Assessment/Plan Assessment/Plan continue current medications f/u labs Subjective Subjective doing the same Objective Last 24 Hour Vital Signs Date Time Temp Pulse Resp B/P Pulse Ox O2 Delivery O2 Flow Rate FiO2 11/20/16 20:45 94 104/72 11/20/16 20:00 96.6 94 22 104/72 99 Room Air 11/20/16 18:32 112/74 11/20/16 16:00 96.8 99 20 112/74 100 Room Air 11/20/16 12:22 97.3 88 19 98/59 96 Room Air 11/20/16 08:42 93/63 11/20/16 08:42 102 93/63 11/20/16 08:41 97.5 102 20 93/63 93 Room Air 11/20/16 04:00 96.8 89 19 103/60 96 Room Air 11/20/16 04:00 96.8 89 19 103/60 96 Room Air 11/20/16 00:39 97.0 91 20 96/79 92 Room Air General Appearance: mild distress EENT: PERRL/EOMI Neck: JVD Rhythm: NSR Cardiovascular: tachycardia Respiratory/Chest: crackles/rales Abdomen: soft Intake and Output 11/19/16 11/20/16 19:00 07:00 Intake Total 280 ml 370 ml Output Total 200 ml Balance 280 ml 170 ml Intake Oral 280 ml 340 ml Other 30 ml Output Urine Total 200 ml # Voids 3 2 GÓMEZ KNAPP Nov 20, 2016 21:23
[2016-11-20 21:53] LABS: BASOPHILS % (AUTO) 1.3 % (0.0-2.0); EOSINOPHILS % (AUTO) 1.2 % (0.0-3.0); LYMPHOCYTES % (AUTO) 24.1 % (20.0-45.0); MEAN CORPUSCULAR HEMOGLOBIN 29.8 PG (27.0-31.0); MEAN CORPUSCULAR HGB CONC 32.4 G/DL (32.0-36.0); MEAN CORPUSCULAR VOLUME 92 FL (80-99); MEAN PLATELET VOLUME 7.7 FL (6.5-10.1); MONOCYTES % (AUTO) 6.8 % (1.0-10.0); NEUTROPHILS % (AUTO) 66.6 % (45.0-75.0); PLATELET COUNT 184 K/UL (150-450); RED BLOOD COUNT 3.98 M/UL (4.70-6.10); RED CELL DISTRIBUTION WIDTH 17.4 % (11.6-14.8); WHITE BLOOD COUNT 8.8 K/UL (4.8-10.8)
[2016-11-20 22:23] LABS: ANION GAP 13 (5-15); CALCIUM 7.7 mg/dL (8.6-10.2); CARBON DIOXIDE 26 mEQ/L (20-30); CHLORIDE 91 mEQ/L (98-107); CREATININE 0.9 mg/dL (0.7-1.2); GLOMERULAR FILTRATION RATE > 60 mL/min (>60); HEMOLYSIS 3; POTASSIUM 3.2 mEQ/L (3.4-4.9); SODIUM 130 mEQ/L (135-145)
--- NOTE | 2016-11-20 23:28 | Pulmonology Progress Note ---
Assessment/Plan Problems: (1) Pleural effusion (2) Abdominal pain (3) Ascites (4) Alcoholic cardiomyopathy (5) Tachycardia (6) ETOH abuse Assessment/Plan no major changes still feeing week awaiting placement Subjective ROS Limited/Unobtainable: No Respiratory: Reports: dyspnea at rest, dyspnea on exertion, pleuritic pain, productive cough, shortness of breath, wheezing Allergies: Coded Allergies: No Known Allergies (Unverified , 10/25/16) Objective Last 24 Hour Vital Signs Date Time Temp Pulse Resp B/P Pulse Ox O2 Delivery O2 Flow Rate FiO2 11/20/16 20:45 94 104/72 11/20/16 20:00 96.6 94 22 104/72 99 Room Air 11/20/16 18:32 112/74 11/20/16 16:00 96.8 99 20 112/74 100 Room Air 11/20/16 12:22 97.3 88 19 98/59 96 Room Air 11/20/16 08:42 93/63 11/20/16 08:42 102 93/63 11/20/16 08:41 97.5 102 20 93/63 93 Room Air 11/20/16 04:00 96.8 89 19 103/60 96 Room Air 11/20/16 04:00 96.8 89 19 103/60 96 Room Air 11/20/16 00:39 97.0 91 20 96/79 92 Room Air Intake and Output 11/19/16 11/20/16 19:00 07:00 Intake Total 280 ml 370 ml Output Total 200 ml Balance 280 ml 170 ml Intake Oral 280 ml 340 ml Other 30 ml Output Urine Total 200 ml # Voids 3 2 General Appearance: no acute distress HEENT: normocephalic, atraumatic, PERRL Respiratory/Chest: chest wall non-tender, decreased breath sounds, accessory muscle use, crackles/rales, rhonchi, pleural rub Cardiovascular: normal peripheral pulses, normal rate, regular rhythm, no JVD Abdomen: normal bowel sounds, soft, non tender, no organomegaly, non distended Genitourinary: normal external genitalia Extremities: no cyanosis Skin: no rash, no lesions 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: 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, no motor/sensory deficits Laboratory Tests 11/20/16 21:35: White Blood Count 8.8, Red Blood Count 3.98L, Hemoglobin 11.9L, Hematocrit 36.7L , Mean Corpuscular Volume 92, Mean Corpuscular Hemoglobin 29.8, Mean Corpuscular Hemoglobin Concent 32.4, Red Cell Distribution Width 17.4H, Platelet Count 184, Mean Platelet Volume 7.7, Neutrophils (%) (Auto) 66.6, Lymphocytes (%) (Auto) 24.1, Monocytes (%) (Auto) 6.8, Eosinophils (%) (Auto) 1.2, Basophils (%) (Auto) 1.3, Sodium Level 130L, Potassium Level 3.2L, Chloride Level 91L, Carbon Dioxide Level 26, Anion Gap 13, Blood Urea Nitrogen 17, Creatinine 0.9, Estimat Glomerular Filtration Rate > 60, Glucose Level 125H , Calcium Level 7.7L Current Medications Medications (Trade) Dose Ordered Sig/Baudilio Route PRN Reason Start Time Stop Time Status Last Admin Dose Admin Acetaminophen (Tylenol) 650 mg Q4H PRN ORAL fever 10/30/16 21:00 11/29/16 20:59 Al Hydroxide/Mg Hydroxide (Mylanta II) 30 ml Q6H PRN ORAL dyspepsia 10/30/16 21:00 11/29/16 20:59 11/17/16 23:33 Carvedilol (Coreg) 3.125 mg EVERY 12 HOURS ORAL 11/15/16 21:00 12/15/16 20:59 11/20/16 20:45 Dextrose (Dextrose 50%) STAT PRN IV Hypoglycemia 10/30/16 21:00 11/29/16 20:59 Diphenhydramine HCl (Benadryl) 25 mg Q6H PRN ORAL Itching/Pruritis 10/30/16 21:00 11/29/16 20:59 11/20/16 20:46 Folic Acid (Folate) 1 mg DAILY ORAL 11/14/16 13:00 12/14/16 12:59 11/20/16 08:42 Furosemide (Lasix) 60 mg EVERY 12 HOURS ORAL 11/17/16 21:00 12/17/16 20:59 11/20/16 20:45 Lisinopril (Zestril) 2.5 mg BID ORAL 11/15/16 21:00 12/15/16 20:59 11/20/16 18:32 Nitroglycerin (Ntg) 0.4 mg Q5M X 3 DOSES PRN SL Prn Chest Pain 10/30/16 21:00 11/29/16 20:59 11/16/16 13:28 Ondansetron HCl (Zofran) 4 mg Q6H PRN IVP Nausea & Vomiting 10/30/16 21:00 11/29/16 20:59 11/17/16 15:36 Polyethylene Glycol (Miralax) 17 gm HSPRN PRN ORAL Constipation 10/31/16 18:00 11/30/16 17:59 Potassium Chloride (K-Dur) 40 meq DAILY ORAL 11/21/16 09:00 12/21/16 08:59 Promethazine HCl/ Codeine (Phenergan with Codeine) 5 ml Q6H PRN ORAL For Cough 11/07/16 23:30 12/07/16 23:29 11/20/16 18:32 Quetiapine Fumarate (SEROquel) 25 mg BEDTIME ORAL 11/18/16 21:00 12/18/16 20:59 11/20/16 20:45 Thiamine HCl (Vitamin B1) 100 mg DAILY ORAL 10/31/16 09:00 11/30/16 08:59 11/20/16 08:42 RHONDA PARKINSON Nov 20, 2016 23:28
[2016-11-21] VITALS: BP 103/73
[2016-11-21] MEDS: Morphine Sulfate 2mg/ml Inj IVP PRN ×2 (00:52→05:22)
[2016-11-21 04:00] VITALS: BP 97/64
[2016-11-21 07:46] VITALS: BP 105/76
[2016-11-21] MEDS: Lisinopril 2.5mg tab ORAL SCH (08:14)
[2016-11-21] MEDS: Thiamine 100mg tab ORAL SCH (08:17)
[2016-11-21 12:00] VITALS: BP 131/89
--- NOTE | 2016-11-22 00:08 | Progress Note ---
DATE: 11/19/2016 SUBJECTIVE: The patient was evaluated on Tuesday again for capacity to leave against medical advice. During the evaluation, the patient was more lucid and more illogical. He stated that he would like to be discharged against medical advice as he is now going to get better and wants to spend his life outside of the hospital. He was aware that the doctor has recommended heart and liver transplant and that is the patient's challenge. He is ready to stop drinking alcohol. He stated he has had difficulty coping with the stressors therefore he is using alcohol in order to decrease his anxiety. MENTAL STATUS EXAMINATION: Alert and oriented x4. Mood is depressed. Affect is constricted. Congruent mood. Thought process looks concrete. Thought content, no suicidal or homicidal ideation. No delusions. No ADH. Insight and judgment was fair. ASSESSMENT: Alcohol dependent. PLAN: 1.The patient has capacity to leave against medical advice. 2.The patient may not be retained in the hospital against his will. Chio Hwang M.D. DR: CRISTAL JOB#: [id number] CC: REAL
--- NOTE | 2016-11-22 11:05 | Discharge Summary ---
Discharge Summary Hospital Course Date of Admission Oct 25, 2016 at 20:30 Date of Discharge Nov 21, 2016 at 14:41 Admitting Diagnosis alcoholic cardiomyopathy, ascites HPI Ramez Godwin is a 41 year old male who was admitted on Oct 25, 2016 at 20:30 for Alcoholic Cardiomyopathy, Ascites Patient present with complaints of diffuse abdominal pain. He reports that about 20 days ago he stopped drinking he did consider himself an alcoholic prior to this. He had increased nausea denies any vomiting denies any diarrhea. Upon further questioning the patient has had some shortness of breath. He complains of also swelling to both of his legs/ Patient feels worse when laying down flat. Patient History Past Medical History: see triage record Pertinent Family History: none Reviewed Nursing Documentation: PMH: Agreed, PSxH: Agreed Nursing Documentation-PMH Past Medical History: No History, Except For Consultations Cardiology Infectious Diseases Pulmonary Gastroenterology Procedures EKG Diagnostic Results Rate: normal Rhythm: NSR ST Segments: other - Nonspecific ST and T-wave changes Rhythm Strip Diag. Results EP Interpretation: yes Rate: 110 Rhythm: no PVC's, no ectopy, other - sinus tach Chest X-Ray Diagnostic Results EP Interpretation: Yes Findings: no pneumothorax, other - Large right pleural effusion, cardiomegaly Number of Views: 1 CT/MRI/US Diagnostic Results CT/MRI/US Diagnostic Results : Impression Impression: Anasarca, with right-sided pleural effusion, ascites, and diffuse soft tissue edema Wedge-shaped perfusion defect in the lower pole the right kidney, could indicate an infarct or focal nephritis Gallbladder wall edema, probably related to the above, but acalculous cholecystitis or cholecystitis from occult calculi is also a possibility. Consider nuclear medicine hepatobiliary scan if there is high clinical suspicion Marked cardiomegaly. 2 cm filling defect in the apex of the right cardiac ventricle is nonspecific, could represent thrombus, tumor. Consider echocardiography for further evaluation Bilateral basilar pulmonary parenchymal opacities, likely combination of atelectasis and infiltrates versus edema Hepatomegaly Procedure: US ABD Complete Indication: Abdominal pain Impression: Trace ascites, also described on recent CT Bilateral pleural effusions Small pericardial effusion Gallbladder wall thickening, no stones. Gallbladder wall thickening is probably secondary to the process that is causing the ascites and pleural fluid, but acute acalculous cholecystitis cannot be completely ruled out. Consider hepatobiliary nuclear scan if there is high clinical suspicion Negative for dilated ducts Hepatomegaly Service Date: 10/25/16 Procedure: US Thoracentesis/Paracentesis Indications: Pleural effusion Findings: Followup sonography demonstrates complete resolution of pleural fluid. Impression: Successful ultrasound-guided thoracentesis, yielding 800 milliliters of fluid Hospital Course Medical Decision Making Diagnostic Impression: Primary Impression: Alcoholic cardiomyopathy Additional Impressions: Pleural effusion Ascites ER Course Initially patient's main complaint was abdominal pain nausea vomiting After the patient had further workup initiated Appear to be remaining tachycardic imaging study was obtained which showed significant effusion the lower lobe on the right side Further evaluation reveals concern for possible cardiomyopathy and heart failure given the edema patient was provided with diuretics at this time requires further inpatient care Hospital Course Assessment/Plan Problem List: (1) Pleural effusion ICD Codes: J90 - Pleural effusion, not elsewhere classified SNOMED: 56473707 (2) Abdominal pain ICD Codes: R10.9 - Unspecified abdominal pain SNOMED: 80475405 (3) ETOH abuse ICD Codes: F10.10 - Alcohol abuse, uncomplicated SNOMED: 45596336, 19108871 (4) Ascites ICD Codes: R18.8 - Other ascites SNOMED: 868774840 (5) Alcoholic cardiomyopathy ICD Codes: I42.6 - Alcoholic cardiomyopathy SNOMED: 545092899 Assessment/Plan diuresis cardiac work up echo thoracentesis CARDIOLOGY ASSESSMENT: 1. Abdominal pain. 2. Cardiomegaly. 3. Pleural effusion. 4. Ascites. 5. Alcoholism. 6. Wedge-shaped defects in the lower pole of the right kidney, questionable infarction or focal nephritis. 7. Filling defect in the apex of the right ventricle reported on the CT scan. RECOMMENDATIONS: Dr. Bello, this patient was seen in cardiac consultation. Although he has some pleural effusion, he really does not complain significant shortness of breath. He does have some shortness of breath and apparently appears to be intermittent. He does have peripheral edema in his lower extremities. He has had abnormalities on his EKG. Certainly , alcoholism can induce a cardiomyopathy in light of his significant cardiomegaly that was apparently reported on the CT scan. We will repeat cardiac enzymes with diuretics, and certainly would require BIBI inhibitors if he does get diagnosed with cardiomyopathy for treatment. Abstinence from alcohol is imperative, and I have explained that to the patient. INFECTIOUS DISEASES LABORATORY AND DIAGNOSTIC DATA: Labs: White blood cells 26, hemoglobin 13, and platelets 180,000. Thoracentesis shows red blood cells with 315 white blood cells. BUN 31 and creatinine 2.3. ALT, AST, and alkaline phosphatase unremarkable. Ascitic fluid culture is pending. IMAGIN. Doppler showed thrombosis of posterior tibial vein. 2. Chest x-ray showed right pleural effusion resolved. 3. Ultrasound of the abdomen showed trace ascites. 4. Chest x-ray showed mild cardiomegaly. 5. CT of the abdomen showed right-sided pleural effusion and gallbladder wall edema. ASSESSMENT: The patient is a 41-year-old male who came to the hospital with abdominal pain. The patient is confused, possible hepatic encephalopathy. We will check ammonia level. The source is not clear. CT scan did not show any ascitic fluid. The patient underwent thoracocentesis of pleural effusion. Findings on pleural effusion did not show evidence of complicated pleural effusion versus empyema. The source of leukocytosis is not totally clear, although the patient may benefit from empiric treatment until we get further information from cultures. Also, the patient's leukocytosis could be due to the patient's lower extremity venous thrombosis. PLAN: 1. We will start the patient on Zosyn. 2. Monitor CBC. 3. Monitor BMP. 4. We will check ammonia level. 5. Need for anticoagulation will defer to the primary care. 6. Based on the patient's clinical course and labs, we will do further recommendations. Gastroenterology Problems: (1) Anemia (2) Hypoalbuminemia (3) ETOH abuse (4) Ascites (5) Abdominal pain Plan APCT reviewed >> ordered paracentesis, send fluid r/o SBP >> negative for malignant cells anemia work up lipase negative OB stool uncollected >> negative abdominal U/S pending monitor H&H, transfuse prn zofran prn H2 fu labs ETOH cessation PSYCHOLOGY ASSESSMENT: AXIS I: Alcohol dependence. AXIS II: Deferred. AXIS III: As above. AXIS IV: Moderate. AXIS V: 50. PLAN: 1. The patient lacks capacity to leave against medical advice and he is not holdable, however, he may not leave against medical advice. What I meant was not holdable and 5150 hold. 2. No medication at this time. FINAL HOSPITAL COURSE ASSESSMENT: 41 y/o male with: // Possible acalculous cholecystitis SP Rx - HIDA: Normal HIDA scan - US: Gallbladder wall thickening, no stones. Cannot r/o acute acalculous cholecystitis // Shock SP - off pressors. 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 No radiographically evident complication - SP thoracentesis 10/13: Cx(-) // NKDA // Full Code PLAN: - monitor pt off of ABX ( 11/06 SP zosyn d# ) - monitor CBC, temperatures, re-culture if acute change - monitor CMP - monitor CXR - awaiting placement Pt wanted to leave AMA. Spoke with , she evaluated pt, and she said that he is able to leave against medical advice. PSYCHOLOGY ASSESSMENT: Alcohol dependent. PLAN: 1.The patient has capacity to leave against medical advice. 2.The patient may not be retained in the hospital against his will. Discharge order given. (1) Pleural effusion (2) Abdominal pain (3) Ascites (4) Alcoholic cardiomyopathy (5) Tachycardia (6) ETOH abuse Discharge Medications Discontinued Medications: Famotidine (Pepcid) 40 Mg Tablet 40 MG PO DAILY, #14 TAB 0 Refills Discharge Condition Upon Discharge: stable Discharge Disposition Patient was discharged to Home (01) Discharge Diagnoses: (1) Shock liver (2) Cardiac shock syndrome (3) Leukocytosis (4) Sepsis (5) Tachycardia (6) ETOH abuse (7) Hypoalbuminemia (8) Anemia (9) Abdominal pain (10) Pleural effusion (11) Alcoholic cardiomyopathy Discharge Instructions Discharge Instructions Special Instructions NURSE NOTES: WHEELED DOWN TO THE LOBBY VIA WHEELCHAIR ALONG WITH HIS PERSONAL BELONGINGS. REMOVED ARM BAND. NO C/O PAIN/DISCOMFORT. Melanie Briones N.P. Nov 22, 2016 11:05
== END 2016-11-21 14:41 | disposition home or self-care (01) | DRG 720 ==
LOC: EDBD 15:18 → EMR 15:45 → 2E 20:30 → EDBEDREQ 22:54 → 2E 23:50 → ICU 10-28 22:35 → 4W 10-30 20:40
PROC: 0W993ZZ Drainage of Right Pleural Cavity, Percutaneous Approach (ICD-10-PCS; principal; 2016-10-25)
PROC: 06HM33Z Insertion of Infusion Device into Right Femoral Vein, Percutaneous Approach (ICD-10-PCS; 2016-10-29)
DX: A41.9 Sepsis, unspecified organism (principal); K72.00 Acute and subacute hepatic failure without coma; R65.21 Severe sepsis with septic shock; J90 Pleural effusion, not elsewhere classified; I50.43 Acute on chronic combined systolic (congestive) and diastolic (congestive) heart failure; N17.9 Acute kidney failure, unspecified; R18.8 Other ascites; I42.6 Alcoholic cardiomyopathy; I82.4Z2 Acute embolism and thrombosis of unspecified deep veins of left distal lower extremity; E88.09 Other disorders of plasma-protein metabolism, not elsewhere classified; K81.9 Cholecystitis, unspecified; F10.20 Alcohol dependence, uncomplicated; F12.90 Cannabis use, unspecified, uncomplicated; I82.442 Acute embolism and thrombosis of left tibial vein; R74.0 Nonspecific elevation of levels of transaminase and lactic acid dehydrogenase [LDH]; Z59.0 Homelessness; I34.0 Nonrheumatic mitral (valve) insufficiency
CPT/HCPCS: 36415; 71010; 74177; 76700; 76942; 78266; 80048; 80053; 82140; 82150; 82248; 82270; 82550; 82607; 82728; 82746; 83540; 83550; 83690; 83735; 83880; 84100; 84439; 84443; 84484; 85007; 85025; 85044; 85610; 85730; 86705; 86709; 86803; 87040; 87070; 87081; 87086; 87205; 87340; 88104; 89051; 93005; 93306; 93970; 94664; J2405; J8499

== ENCOUNTER 2016-11-24 14:39 | Inpatient (IN) | payer MEDICAID ==
[~2016-11-24] VITALS: Ht 182.9 cm; Wt 72.2 kg
[~2016-11-24 14:39] MED LIST: COREG6.25 MG ORAL; FOLIC ACID1 MG ORAL; LASIX40 MG ORAL; LISINOPRIL5 MG ORAL; PEPCID40 MG PO; POTASSIUM CHLO20 ME2 ORAL; THIAMINE HCL100 MG ORAL
[2016-11-24 15:30] VITALS: BP 101/83
[2016-11-24] MEDS ORDERED: LORazepam Inj 2mg/ml 1ml IV ONE ×3 (16:00→18:00)
[2016-11-24 16:08] LABS: BASOPHILS % (AUTO) 1.3 % (0.0-2.0); EOSINOPHILS % (AUTO) 0.1 % (0.0-3.0); LYMPHOCYTES % (AUTO) 25.6 % (20.0-45.0); MEAN CORPUSCULAR HEMOGLOBIN 30.3 PG (27.0-31.0); MEAN CORPUSCULAR HGB CONC 32.6 G/DL (32.0-36.0); MEAN CORPUSCULAR VOLUME 93 FL (80-99); MEAN PLATELET VOLUME 8.3 FL (6.5-10.1); MONOCYTES % (AUTO) 6.2 % (1.0-10.0); NEUTROPHILS % (AUTO) 66.8 % (45.0-75.0); PLATELET COUNT 243 K/UL (150-450); RED BLOOD COUNT 4.63 M/UL (4.70-6.10); RED CELL DISTRIBUTION WIDTH 17.3 % (11.6-14.8); WHITE BLOOD COUNT 11.2 K/UL (4.8-10.8)
[2016-11-24 16:30] LABS: TROPONIN I < 0.30 ng/mL (<=0.30)
[2016-11-24 16:33] LABS: ACETAMINOPHEN < 10 ug/mL (10-30); ALANINE AMINOTRANSFERASE 45 U/L (3-41); ALBUMIN/GLOBULIN RATIO 0.9 (1.0-2.7); ALCOHOL < 10 mg/dL; ANION GAP 20 (5-15); ASPARTATE AMINO TRANSFERASE 30 U/L (5-40); CALCIUM 8.2 mg/dL (8.6-10.2); CARBON DIOXIDE 22 mEQ/L (20-30); CHLORIDE 91 mEQ/L (98-107); CREATININE 1.2 mg/dL (0.7-1.2); GLOMERULAR FILTRATION RATE > 60 mL/min (>60); HEMOLYSIS 45; POTASSIUM 4.3 mEQ/L (3.4-4.9); SODIUM 133 mEQ/L (135-145); TOTAL PROTEIN 6.2 g/dL (6.6-8.7)
[2016-11-24 16:44] LABS: CKMB < 1.5 ng/mL (< 6.7)
[2016-11-24] MEDS ORDERED: NKM (16:46)
[2016-11-24 16:54] LABS: BILIRUBIN,DIRECT 1.3 mg/dL (0.1-0.3)
[2016-11-24 17:18] VITALS: BP 110/92
[2016-11-24] MEDS ORDERED: Miralax 17gm pkt ORAL PRN (18:45)
[2016-11-24] MEDS ORDERED: LORazepam Inj 2mg/ml 1ml IV PRN (18:45)
[2016-11-24] MEDS ORDERED: chlordiazePOXIDE 25mg Cap ORAL PRN (18:45)
[2016-11-24] MEDS ORDERED: Mylanta II UD 30ml ORAL PRN (18:45)
[2016-11-24] MEDS ORDERED: Morphine Sulfate 2mg/ml Inj IVP PRN (18:45)
[2016-11-24 19:20] VITALS: BP 113/80
--- NOTE | 2016-11-24 19:34 | Emergency Room Report ---
History of Present Illness General Chief Complaint: Alcohol Intoxication Source: Patient, EMS Present Illness HPI 41-year-old male presents to ED for evaluation. Patient states he's been drinking all day and feels weak with abdominal pain. No nausea or vomiting. No chest pain shortness of breath. Per triage patient is tachycardic. Patient denies drug use. Patient states he was recently admitted to the hospital and discharged. Denies any fevers or chills. Pain in abdomen is sharp, 5/10, nonradiating. No other aggravating or relieving factors. Denies any other associated symptom Allergies: Coded Allergies: No Known Allergies (Unverified , 10/25/16) Patient History Past Medical History: HTN, CHF Past Surgical History: none Pertinent Family History: none Social History: Reports: alcohol use, Denies: drug use, smoking Immunizations: UTD Reviewed Nursing Documentation: PMH: Agreed, PSxH: Agreed Nursing Documentation-PMH Hx Cardiac Problems: Yes Hx Hypertension: Yes Hx Cancer: No Hx Gastrointestinal Problems: Yes History Of Psychiatric Problem: Yes - substance abuse Hx Neurological Problems: Yes Hx Headaches: Yes Review of Systems All Other Systems: negative except mentioned in HPI Physical Exam Vital Signs Date Time Temp Pulse Resp B/P Pulse Ox O2 Delivery O2 Flow Rate FiO2 11/24/16 14:36 147 18 100/89 11/24/16 15:30 96.6 99 Room Air Sp02 EP Interpretation: reviewed, normal General Appearance: cachetic, thin Head: normocephalic Eyes: bilateral eye PERRL, bilateral eye normal inspection ENT: normal ENT inspection Neck: normal inspection Respiratory: chest non-tender, lungs clear, normal breath sounds, speaking full sentences Cardiovascular #1: tachycardia Gastrointestinal: normal bowel sounds, non tender, soft, no guarding, no rebound, distended Rectal: deferred Genitourinary: no CVA tenderness Musculoskeletal: swelling - 2+ pitting edema b/l LE Neurologic: alert, oriented x3, responsive, motor strength/tone normal, sensory intact, speech normal Psychiatric: normal inspection Skin: normal inspection, normal color Lymphatic: normal inspection Medical Decision Making Diagnostic Impression: Primary Impression: Alcoholic cardiomyopathy Additional Impressions: ETOH abuse Shock liver Tachycardia ER Course Hospital Course 41-year-old male presents ED complaining of abd pain, stating he is in withdrawal. Chronic history of alcohol use Differential diagnoses include: Alcohol intoxication, drug abuse, opioid withdrawal, alcohol withdrawal, dehydration, drug seeking behavior Clinical course Patient placed on stretcher. 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 After initial history and physical I ordered labs, IV fluids, Ativan Labs reviewed-electrolytes okay, hemoglobin/hematocrit stable, no leukocytosis, alcohol level < 10, LFTs elevated EKG-sinus tachycardia, no acute change Patient given multiple rounds of Ativan without resolution of symptoms I reviewed EMR; patient was admitted for nearly one month for treatment of alcoholic cardiomyopathy and liver disease. Patient has ejection fraction of 10 %. Prognosis is poor for this patient. Tachycardia will persist despite fluids and medications because of his poor ejection fraction. Patient also has extensive ascites because of his liver disease extending from his extremities to his abdomen. Patient will be made DO NOT RESUSCITATE given his poor prognosis Case discussed with Dr. Bello and he agreed to except the patient to his service for further care and support i. I feel this is a highly complex case requiring extensive working including EKG/Rhythm strip, Xray/CT/US, Blood/urine lab work, repeat exams while in ED, and administration of strong opiates/narcotics for pain control, admission to hospital or close patient follow up. Diagnosis - alcohol cardiomyopathy, ETOH abuse, shock liver, tachycardia Admitted to floor in serious condition Labs Test 11/24/16 15:42 White Blood Count 11.2 K/UL (4.8-10.8) Red Blood Count 4.63 M/UL (4.70-6.10) Hemoglobin 14.0 G/DL (14.2-18.0) Hematocrit 42.9 % (42.0-52.0) Mean Corpuscular Volume 93 FL (80-99) Mean Corpuscular Hemoglobin 30.3 PG (27.0-31.0) Mean Corpuscular Hemoglobin Concent 32.6 G/DL (32.0-36.0) Red Cell Distribution Width 17.3 % (11.6-14.8) Platelet Count 243 K/UL (150-450) Mean Platelet Volume 8.3 FL (6.5-10.1) Neutrophils (%) (Auto) 66.8 % (45.0-75.0) Lymphocytes (%) (Auto) 25.6 % (20.0-45.0) Monocytes (%) (Auto) 6.2 % (1.0-10.0) Eosinophils (%) (Auto) 0.1 % (0.0-3.0) Basophils (%) (Auto) 1.3 % (0.0-2.0) Sodium Level 133 mEQ/L (135-145) Potassium Level 4.3 mEQ/L (3.4-4.9) Chloride Level 91 mEQ/L (98-107) Carbon Dioxide Level 22 mEQ/L (20-30) Anion Gap 20 (5-15) Blood Urea Nitrogen 16 mg/dL (7-23) Creatinine 1.2 mg/dL (0.7-1.2) Estimat Glomerular Filtration Rate > 60 mL/min (>60) Glucose Level 133 mg/dL (74-106) Calcium Level 8.2 mg/dL (8.6-10.2) Total Bilirubin 2.5 mg/dL (0.0-1.2) Direct Bilirubin 1.3 mg/dL (0.1-0.3) Aspartate Amino Transf (AST/SGOT) 30 U/L (5-40) Alanine Aminotransferase (ALT/SGPT) 45 U/L (3-41) Alkaline Phosphatase 149 U/L (40-129) Total Creatine Kinase 47 U/L (38-174) Creatine Kinase MB < 1.5 ng/mL (< 6.7) Creatine Kinase MB Relative Index Troponin I < 0.30 ng/mL (<=0.30) Total Protein 6.2 g/dL (6.6-8.7) Albumin 3.0 g/dL (3.5-5.2) Globulin 3.2 g/dL Albumin/Globulin Ratio 0.9 (1.0-2.7) Salicylates Level 2 mg/dL (10-30) Acetaminophen Level < 10 ug/mL (10-30) Serum Alcohol < 10 mg/dL EKG Diagnostic Results Rate: tachycardiac Rhythm: NSR ST Segments: no acute changes ASA given to the pt in ED: No Rhythm Strip Diag. Results EP Interpretation: yes Rhythm: NSR, no PVC's, no ectopy Last Vital Signs Date Time Temp Pulse Resp B/P Pulse Ox O2 Delivery O2 Flow Rate FiO2 11/24/16 17:18 96.4 142 20 110/92 99 Room Air Status: improved Disposition: ADMITTED INPATIENT Condition: Serious Referrals: NOT CHOSEN IPA/,REFERRING (PCP) LIBORIO BUTLER M.D. Nov 24, 2016 19:33
[2016-11-24] MEDS ORDERED: Folic Acid 1 MG, Magnesium Sulfate 2,000 MG, Multivitamin - 12 Injection 10 ML in NS w/... IV SCH (21:00)
[2016-11-24] MEDS ORDERED: Thiamine HCl 100 MG in NS 55 ML IVPB SCH (21:00)
[2016-11-24] MEDS ORDERED: Thiamine 100 MG ivpb IVPB SCH ×2 (21:00)
[2016-11-24] MEDS ORDERED: Heparin 5000 units/ml inj SUBQ SCH (21:00)
[2016-11-24 21:20] VITALS: BP 115/84
[2016-11-24 21:35] VITALS: BP 137/57
[2016-11-24] MEDS: Morphine Sulfate 4mg/ml Inj IVP PRN (21:50)
[2016-11-25] VITALS: BP 91/58
[2016-11-25 04:00] VITALS: BP 104/74
[2016-11-25] MEDS: Morphine Sulfate 4mg/ml Inj IVP PRN ×3 (04:11→20:28)
[2016-11-25 07:21] LABS: ALANINE AMINOTRANSFERASE 35 U/L (3-41); ALBUMIN/GLOBULIN RATIO 0.8 (1.0-2.7); ANION GAP 14 (5-15); ASPARTATE AMINO TRANSFERASE 17 U/L (5-40); CALCIUM 7.8 mg/dL (8.6-10.2); CARBON DIOXIDE 25 mEQ/L (20-30); CHLORIDE 97 mEQ/L (98-107); CREATININE 0.9 mg/dL (0.7-1.2); GLOMERULAR FILTRATION RATE > 60 mL/min (>60); POTASSIUM 3.6 mEQ/L (3.4-4.9); SODIUM 136 mEQ/L (135-145); TOTAL PROTEIN 5.5 g/dL (6.6-8.7)
[2016-11-25 07:22] LABS: BASOPHILS % (AUTO) 1.8 % (0.0-2.0); EOSINOPHILS % (AUTO) 0.4 % (0.0-3.0); LYMPHOCYTES % (AUTO) 35.5 % (20.0-45.0); MEAN CORPUSCULAR HEMOGLOBIN 27.9 PG (27.0-31.0); MEAN CORPUSCULAR HGB CONC 30.7 G/DL (32.0-36.0); MEAN CORPUSCULAR VOLUME 91 FL (80-99); MEAN PLATELET VOLUME 8.3 FL (6.5-10.1); MONOCYTES % (AUTO) 12.3 % (1.0-10.0); NEUTROPHILS % (AUTO) 50.1 % (45.0-75.0); PLATELET COUNT 226 K/UL (150-450); RED BLOOD COUNT 3.96 M/UL (4.70-6.10); RED CELL DISTRIBUTION WIDTH 17.3 % (11.6-14.8); WHITE BLOOD COUNT 8.2 K/UL (4.8-10.8)
[2016-11-25 07:39] LABS: BILIRUBIN,DIRECT 1.1 mg/dL (0.1-0.3); HEMOLYSIS 3
[2016-11-25 08:00] VITALS: BP 100/74
[2016-11-25 12:00] VITALS: BP 109/76
[2016-11-25 16:00] VITALS: BP 109/82
--- NOTE | 2016-11-25 16:12 | History and Physical ---
History of Present Illness General Date patient seen: Nov 25, 2016 Reason for Hospitalization: Alcohol Intoxication Present Illness HPI 41-year-old male with hx of end stage liver and heart disease, presents to ED for evaluation of weakness with abdominal pain. Patient was tachycardic in ER. He was admitted for further management. Allergies: Coded Allergies: No Known Allergies (Unverified , 10/25/16) Medication History Scheduled No Known Medications* (NKM - No Known Medications*), 0 ., (Reported) Discontinued Medications Famotidine (Pepcid), 40 MG PO DAILY Discontinued Reason: MD discontinued med Patient History Healthcare decision maker NONE Resuscitation status Do Not Intubate Advanced Directive on File Past Medical/Surgical History Past Medical/Surgical History: (1) Alcoholic liver disease (2) Alcoholic cardiomyopathy Review of Systems All Other Systems: negative except mentioned in HPI Physical Exam General Appearance: WD/WN Lines, tubes and drains: peripheral HEENT: normocephalic, atraumatic Neck: non-tender, normal alignment Respiratory/Chest: chest wall non-tender, lungs clear Cardiovascular/Chest: normal peripheral pulses, normal rate Abdomen: normal bowel sounds Genitourinary/Rectal: normal genital exam Extremities: normal range of motion Last 24 Hour Vital Signs Date Time Temp Pulse Resp B/P Pulse Ox O2 Delivery O2 Flow Rate FiO2 11/25/16 12:00 96.0 133 18 109/76 96 Room Air 11/25/16 08:00 96.0 102 18 100/74 99 Room Air 11/25/16 04:41 97.2 11/25/16 04:00 97.5 110 22 104/74 98 Room Air 11/25/16 00:00 97.2 52 22 91/58 99 Room Air 11/24/16 21:35 97.0 122 24 137/57 98 Room Air 11/24/16 21:20 98.0 130 20 115/84 99 Nasal Cannula 2.0 11/24/16 21:20 98.0 130 20 115/84 99 Nasal Cannula 2.0 11/24/16 19:20 97.2 135 21 113/80 96 Nasal Cannula 2.0 11/24/16 17:18 96.4 142 20 110/92 99 Room Air Intake and Output 11/24/16 11/25/16 19:00 07:00 Intake Total 0 ml 1181 ml Balance 0 ml 1181 ml Intake Oral 0 ml IV Total 1181 ml # Bowel Movements 1 Laboratory Tests Test 11/25/16 05:10 White Blood Count 8.2 K/UL (4.8-10.8) Red Blood Count 3.96 M/UL (4.70-6.10) L Hemoglobin 11.0 G/DL (14.2-18.0) L Hematocrit 36.0 % (42.0-52.0) L Mean Corpuscular Volume 91 FL (80-99) Mean Corpuscular Hemoglobin 27.9 PG (27.0-31.0) Mean Corpuscular Hemoglobin Concent 30.7 G/DL (32.0-36.0) L Red Cell Distribution Width 17.3 % (11.6-14.8) H Platelet Count 226 K/UL (150-450) Mean Platelet Volume 8.3 FL (6.5-10.1) Neutrophils (%) (Auto) 50.1 % (45.0-75.0) Lymphocytes (%) (Auto) 35.5 % (20.0-45.0) Monocytes (%) (Auto) 12.3 % (1.0-10.0) H Eosinophils (%) (Auto) 0.4 % (0.0-3.0) Basophils (%) (Auto) 1.8 % (0.0-2.0) Sodium Level 136 mEQ/L (135-145) Potassium Level 3.6 mEQ/L (3.4-4.9) Chloride Level 97 mEQ/L (98-107) L Carbon Dioxide Level 25 mEQ/L (20-30) Anion Gap 14 (5-15) Blood Urea Nitrogen 16 mg/dL (7-23) Creatinine 0.9 mg/dL (0.7-1.2) Estimat Glomerular Filtration Rate > 60 mL/min (>60) Glucose Level 97 mg/dL (74-106) Calcium Level 7.8 mg/dL (8.6-10.2) L Total Bilirubin 2.2 mg/dL (0.0-1.2) H Direct Bilirubin 1.1 mg/dL (0.1-0.3) H Aspartate Amino Transf (AST/SGOT) 17 U/L (5-40) Alanine Aminotransferase (ALT/SGPT) 35 U/L (3-41) Alkaline Phosphatase 124 U/L (40-129) Total Protein 5.5 g/dL (6.6-8.7) L Albumin 2.6 g/dL (3.5-5.2) L Globulin 2.9 g/dL Albumin/Globulin Ratio 0.8 (1.0-2.7) L Height (Feet): 6 Height (Inches): 0.00 Weight (Pounds): 150 Medications Current Medications Medications (Trade) Dose Ordered Sig/Baudilio Route PRN Reason Start Time Stop Time Status Last Admin Dose Admin Acetaminophen (Tylenol) 650 mg Q4H PRN ORAL T>100.5 11/24/16 18:45 12/24/16 18:44 Al Hydroxide/Mg Hydroxide (Mylanta II) 30 ml Q6H PRN ORAL dyspepsia 11/24/16 18:45 12/24/16 18:44 Chlordiazepoxide (Librium) 25 mg Q6H PRN ORAL Agitation 11/24/16 18:45 12/01/16 18:44 Dextrose STAT PRN IV Hypoglycemia 11/24/16 18:45 12/24/16 18:44 Folic Acid/ Magnesium Sulfate/ Multivitamins/ Sodium Chloride (Folvite/ Magnesium Sulfate/ M.v.i.-12/NS w/ KCl 20mEq) 1,014.2 ml @ 125 mls/ hr Q24H IV 11/24/16 21:00 12/24/16 20:59 11/24/16 20:49 Lorazepam (Ativan 2mg/ml 1ml) 2 mg Q1H PRN IV seizures 11/24/16 18:45 12/01/16 18:44 Morphine Sulfate 4 mg 4 mg Q4H PRN IVP PAIN 4-10 11/24/16 18:55 12/01/16 18:44 11/25/16 14:27 Ondansetron HCl (Zofran) 4 mg Q6H PRN IVP Nausea & Vomiting 11/24/16 18:45 12/24/16 18:44 Thiamine HCl/ Sodium Chloride (Vitamin B1/ Sodium Chloride) 56 ml @ 112 mls/hr Q24H IVPB 11/24/16 21:00 12/24/16 20:59 11/25/16 00:12 Zolpidem Tartrate (Ambien) 5 mg HSPRN PRN ORAL Insomnia 11/24/16 21:00 12/24/16 20:59 Assessment/Plan Problem List: (1) Alcoholic liver disease ICD Codes: K70.9 - Alcoholic liver disease, unspecified SNOMED: 10769753 (2) Alcoholic cardiomyopathy ICD Codes: I42.6 - Alcoholic cardiomyopathy SNOMED: 311911224 (3) ETOH abuse ICD Codes: F10.10 - Alcohol abuse, uncomplicated SNOMED: 75497257, 58059133 (4) Pleural effusion ICD Codes: J90 - Pleural effusion, not elsewhere classified SNOMED: 39498640 Assessment/Plan symptomatic treatment banana bag pt needs to be hospice care RHONDA PARKINSON Nov 25, 2016 16:12
[2016-11-25 20:00] VITALS: BP 121/91
[2016-11-26] VITALS (17 sets, daily range): BP systolic 101–153; BP diastolic 70–94
[2016-11-26] MEDS: Morphine Sulfate 4mg/ml Inj IVP PRN ×2 (09:40→16:32)
[2016-11-26] MEDS ORDERED: Heparin 5000 units/ml inj IV ONE (10:15)
[2016-11-26] MEDS ORDERED: Heparin 25,000u/D5W 500ml 500 ML IV SCH (10:15)
--- NOTE | 2016-11-26 10:47 | Pulmonology Progress Note ---
Assessment/Plan Assessment/Plan ASSESSMENT alcoholic cardiomyopathy ETOH intoxication ETOH abuse shock liver end stage liver disease acute DVT, likely present on admission ascites coagulopathy PLAN OF CARE [facility] floor Venous Duplex + acute DVT RLE CFV and acute DVR LLE popliteal IVC filter after coagulopathy corrected, plan for Tuesday ( more appropriate than a/coagulation) vit K x 1 today, check INR in am banana bag symptomatic treatment Librium prn agitation, w/drawal, Ativan prn seizure a/emetic prn pain management bowel regimen DNR/DNI status overall prognosis poor palliative care appropriate SS eval patient is homeless, will need placement case discussed and evaluated by supervising physician Subjective Allergies: Coded Allergies: No Known Allergies (Unverified , 10/25/16) Subjective on RA sat stable + abdominal pain, no nausea, able to tolerate diet + hand tremor remains tachycardic, but less denies chest pain, SOB, cough Objective Last 24 Hour Vital Signs Date Time Temp Pulse Resp B/P Pulse Ox O2 Delivery O2 Flow Rate FiO2 11/26/16 10:10 97.2 11/26/16 08:00 97.2 105 19 111/81 100 Room Air 11/26/16 04:43 97.1 100 22 104/77 93 Room Air 11/26/16 00:00 97.2 62 22 125/70 93 Nasal Cannula 11/25/16 20:00 96.3 62 22 121/91 96 Room Air 11/25/16 16:00 96.4 134 20 109/82 85 Nasal Cannula 2.0 11/25/16 12:00 96.0 133 18 109/76 96 Room Air Intake and Output 11/25/16 11/26/16 19:00 07:00 Intake Total 360 ml Balance 360 ml Intake Oral 360 ml # Voids 5 General Appearance: no acute distress, other - awake, responsive HEENT: normocephalic, atraumatic, anicteric, other - icterus Respiratory/Chest: no accessory muscle use, decreased breath sounds Cardiovascular: normal peripheral pulses, regular rhythm, tachycardia Abdomen: normal bowel sounds - sodt, distended, Genitourinary: normal external genitalia Extremities: other - +1 edema ble 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: alert, responsive Musculoskeletal: normal muscle bulk Current Medications Medications (Trade) Dose Ordered Sig/Baudilio Route PRN Reason Start Time Stop Time Status Last Admin Dose Admin Acetaminophen (Tylenol) 650 mg Q4H PRN ORAL T>100.5 11/24/16 18:45 12/24/16 18:44 Al Hydroxide/Mg Hydroxide (Mylanta II) 30 ml Q6H PRN ORAL dyspepsia 11/24/16 18:45 12/24/16 18:44 Chlordiazepoxide (Librium) 25 mg Q6H PRN ORAL Agitation 11/24/16 18:45 12/01/16 18:44 Dextrose (Dextrose 50%) STAT PRN IV Hypoglycemia 11/24/16 18:45 12/24/16 18:44 Enoxaparin Sodium (Lovenox) 70 mg EVERY 12 HOURS SUBQ 11/26/16 21:00 12/26/16 20:59 UNV Lorazepam (Ativan 2mg/ml 1ml) 2 mg Q1H PRN IV seizures 11/24/16 18:45 12/01/16 18:44 Morphine Sulfate (Morphine Sulfate) 4 mg Q4H PRN IVP PAIN 4-10 or RR>20 11/25/16 18:55 12/02/16 18:54 11/26/16 09:40 Ondansetron HCl (Zofran) 4 mg Q6H PRN IVP Nausea & Vomiting 11/24/16 18:45 12/24/16 18:44 Warfarin Sodium (Coumadin per pharmacy) 1 ea DAILY PRN MISC Per rx protocol 11/26/16 10:30 12/26/16 10:29 UNV Zolpidem Tartrate (Ambien) 5 mg HSPRN PRN ORAL Insomnia 11/24/16 21:00 12/24/16 20:59 [facility] Center[facility]meida NP Nov 26, 2016 10:47
[2016-11-26] MEDS ORDERED: Enoxaparin 60mg Inj SUBQ SCH (11:00)
[2016-11-26 12:07] LABS: INR 1.7 (0.9-1.1); PROTHROMBIN TIME 18.1 SEC (9.30-11.50)
[2016-11-26] MEDS ORDERED: Phytonadione 5 MG in D5W 55 ML IVPB ONE (14:00)
[2016-11-26] MEDS ORDERED: Heparin 2000 units/Ns 1000ml INJ ONE (15:00)
[2016-11-26] MEDS ORDERED: Lidocaine 1% Plain 30 ml INJ ONE (15:00)
[2016-11-26] MEDS ORDERED: Phytonadione 10 MG in D5W 55 ML IVPB ONE (15:00)
[2016-11-26] MEDS ORDERED: Sodium Bicarbonate 8.4% 50ml Inj IV ONE (15:00)
--- NOTE | 2016-11-26 17:11 | Diagnostic Imaging Report ---
Indications: Bilateral lower extremity deep venous thrombosis; cardiomyopathy secondary to chronic liver disease precludes safe long-term anticoagulation Technique: Procedure, indications, risks, alternatives were explained to the patient, who understands and gives written consent to proceed. Strict aseptic technique was utilized, including hand washing, use of hat and mask, use of sterile gown and gloves, sterile ultrasound gel and probe cover, prepping of right neck base skin with 2% chlorhexidine solution, and application of full body sterile barrier over this area. Skin and subcutaneous soft tissues were infiltrated with 1% lidocaine and sodium bicarbonate. A small dermatotomy was made, through which the right internal jugular vein was punctured percutaneously under direct sonographic guidance with a 19-gauge Seldinger needle. Exchange was made over a guidewire for a 5 Stateless hook flush catheter. This was advanced through the superior vena cava and inferior vena cava into the right common iliac vein. Nonionic iodine contrast was injected and digital subtraction images of the inferior vena cava obtained. The percutaneous tract was dilated over a guidewire, then a 7 Stateless introducer sheath advanced over the guidewire under direct fluoroscopic guidance into the infrarenal segment of the inferior vena cava. A Nash Vena Tech permanent filter was deployed into and advanced through the sheath to its distal end, sheath withdrawn and filter deployed in the immediate infrarenal inferior vena cava. The sheath was carefully advanced adjacent to the filter, contrast injected and followup images obtained. The sheath was removed and right neck puncture site manually compressed to achieve hemostasis, then cleansed and bandaged. The patient tolerated the procedures well without immediate complications and was returned to his room in stable condition. Total fluoroscopy time: 1.3 minutes. Dose-area product: 1042 dGy-cm2 Findings: Comparison: None The bilateral common iliac veins and inferior vena cava are patent and normal in caliber without intraluminal filling defect. The right renal vein joins the inferior vena cava at the L1-2 level. The left renal vein joins the inferior vena cava at the L1-L2 level. Final images demonstrate successful deployment of filter in the inferior vena cava immediately below renal veins, well centered. Contrast flows freely through the filter. IMPRESSION: Inferior venacavogram within normal limits. Placement of permanent filter in the infrarenal inferior vena cava. .
[2016-11-27 00:10] VITALS: BP 140/80
[2016-11-27 04:23] VITALS: BP 130/88
[2016-11-27 04:55] LABS: BASOPHILS % (AUTO) 1.4 % (0.0-2.0); EOSINOPHILS % (AUTO) 0.2 % (0.0-3.0); LYMPHOCYTES % (AUTO) 26.7 % (20.0-45.0); MEAN CORPUSCULAR HEMOGLOBIN 28.3 PG (27.0-31.0); MEAN CORPUSCULAR HGB CONC 31.3 G/DL (32.0-36.0); MEAN CORPUSCULAR VOLUME 90 FL (80-99); MONOCYTES % (AUTO) 6.8 % (1.0-10.0); NEUTROPHILS % (AUTO) 64.9 % (45.0-75.0); PLATELET COUNT 248 K/UL (150-450); RED BLOOD COUNT 4.62 M/UL (4.70-6.10); RED CELL DISTRIBUTION WIDTH 17.2 % (11.6-14.8); WHITE BLOOD COUNT 9.1 K/UL (4.8-10.8)
[2016-11-27 05:00] LABS: INR 1.8 (0.9-1.1); PROTHROMBIN TIME 18.7 SEC (9.30-11.50)
[2016-11-27 05:14] LABS: ALBUMIN/GLOBULIN RATIO 0.8 (1.0-2.7); CALCIUM 8.6 mg/dL (8.6-10.2); CREATININE 1.4 mg/dL (0.7-1.2); GLOMERULAR FILTRATION RATE 56.4 mL/min (>60); POTASSIUM 4.3 mEQ/L (3.4-4.9); TOTAL PROTEIN 5.6 g/dL (6.6-8.7)
[2016-11-27] MEDS: Morphine Sulfate 4mg/ml Inj IVP PRN ×4 (05:16→20:00)
[2016-11-27 06:25] LABS: BILIRUBIN,DIRECT 1.5 mg/dL (0.1-0.3)
[2016-11-27 07:56] VITALS: BP 97/56
[2016-11-27] MEDS: Lactulose 20gm/30ml UDC ORAL SCH ×2 (10:56→16:57)
[2016-11-27 12:00] VITALS: BP 103/78
--- NOTE | 2016-11-27 13:52 | Pulmonology Progress Note ---
Assessment/Plan Assessment/Plan ASSESSMENT alcoholic cardiomyopathy ETOH intoxication ETOH abuse shock liver end stage liver disease acute DVT, likely present on admission s/p IVC filter 11/26 ascites s/p paracentesis 11/26 coagulopathy acute renal failure elevated LFT PLAN OF CARE [facility] floor Venous Duplex + acute DVT RLE CFV and acute DVR LLE popliteal s/p IVC filter s/p banana bag symptomatic treatment s/p paracentesis 11/26 Librium prn agitation, w/drawal, Ativan prn seizure check ammonia a/emetic prn pain management bowel regimen DNR/DNI status overall prognosis poor palliative care appropriate SS eval patient is homeless, will need placement case discussed and evaluated by supervising physician Subjective Allergies: Coded Allergies: No Known Allergies (Unverified , 10/25/16) Subjective on RA sat stable no nausea, able to tolerate diet + hand tremor denies chest pain, SOB, cough s/p IVC filter 11/26 s/p paracentesis 11/26 worsening renal paarmnerts and LFT today Objective Last 24 Hour Vital Signs Date Time Temp Pulse Resp B/P Pulse Ox O2 Delivery O2 Flow Rate FiO2 11/27/16 12:00 97.5 116 20 103/78 99 Room Air 11/27/16 10:39 97.2 11/27/16 07:56 97.2 108 20 97/56 99 Room Air 11/27/16 07:56 97.2 108 20 97/56 99 Room Air 11/27/16 04:23 97.5 89 18 130/88 93 Room Air 11/27/16 00:10 98.1 100 19 140/80 94 Room Air 11/26/16 20:34 96.8 121 18 153/75 96 Room Air 11/26/16 16:00 97.5 143 21 101/71 99 Room Air 11/26/16 15:10 127 22 108/74 100 Nasal Cannula 2.0 11/26/16 15:05 126 22 114/94 100 Nasal Cannula 2.0 11/26/16 15:00 123 14 108/88 100 Nasal Cannula 2.0 11/26/16 14:55 124 28 110/86 100 Nasal Cannula 2.0 11/26/16 14:50 135 19 109/86 100 Nasal Cannula 2.0 11/26/16 14:45 133 26 109/88 100 Nasal Cannula 2.0 11/26/16 14:40 133 25 120/84 100 Nasal Cannula 2.0 11/26/16 14:35 133 21 115/84 99 Nasal Cannula 2.0 11/26/16 14:25 134 24 134/82 99 Nasal Cannula 2.0 11/26/16 14:23 142 21 2.0 11/26/16 14:14 133 20 117/94 99 Nasal Cannula 2.0 Intake and Output 11/26/16 11/27/16 18:59 06:59 Intake Total 1612 ml 600 ml Output Total 3050 ml Balance -1438 ml 600 ml Intake Oral 1500 ml 600 ml IV Total 112 ml Output Urine Total 750 ml Other 2300 ml # Voids 4 3 Objective General Appearance: no acute distress, awake, responsive HEENT: normocephalic, atraumatic, anicteric, icterus Respiratory/Chest: no accessory muscle use, decreased breath sounds Cardiovascular: normal peripheral pulses, regular rhythm, tachycardia Abdomen: normal bowel sounds - soft, distended, Genitourinary: normal external genitalia Extremities: other - +@ edema BLE 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: alert, responsive Musculoskeletal: normal muscle bulk Microbiology Date/Time Source Procedure Growth Status 11/24/16 21:00 Nasal Nares MRSA Culture - Final NO METHICILLIN RESISTANT STAPH AUREUS... Complete 11/24/16 21:00 Rectum VRE Culture - Final NO VANCOMYCIN RESISTANT ENTEROCOCCUS ... Complete Laboratory Tests 11/27/16 04:00: White Blood Count 9.1, Red Blood Count 4.62L, Hemoglobin 13.1L, Hematocrit 41.7L , Mean Corpuscular Volume 90, Mean Corpuscular Hemoglobin 28.3, Mean Corpuscular Hemoglobin Concent 31.3L, Red Cell Distribution Width 17.2H, Platelet Count 248, Mean Platelet Volume 8.0, Neutrophils (%) (Auto) 64.9, Lymphocytes (%) (Auto) 26.7, Monocytes (%) (Auto) 6.8, Eosinophils (%) (Auto) 0.2, Basophils (%) (Auto) 1.4, Prothrombin Time 18.7H, Prothromb Time International Ratio 1.8H, Sodium Level 134L, Potassium Level 4.3, Chloride Level 94L, Carbon Dioxide Level 19L, Anion Gap 21H, Blood Urea Nitrogen 28H, Creatinine 1.4H, Estimat Glomerular Filtration Rate 56.4, Glucose Level 109H, Calcium Level 8.6, Total Bilirubin 2.5H, Direct Bilirubin 1.5H, Aspartate Amino Transf (AST/SGOT) 107H, Alanine Aminotransferase (ALT/SGPT) 65H, Alkaline Phosphatase 134H, Total Protein 5.6L, Albumin 2.5L, Globulin 3.1, Albumin/ Globulin Ratio 0.8L Current Medications Medications (Trade) Dose Ordered Sig/Baudilio Route PRN Reason Start Time Stop Time Status Last Admin Dose Admin Acetaminophen (Tylenol) 650 mg Q4H PRN ORAL T>100.5 11/24/16 18:45 12/24/16 18:44 Al Hydroxide/Mg Hydroxide (Mylanta II) 30 ml Q6H PRN ORAL dyspepsia 11/24/16 18:45 12/24/16 18:44 Chlordiazepoxide (Librium) 25 mg Q6H PRN ORAL Agitation 11/24/16 18:45 12/01/16 18:44 Dextrose (Dextrose 50%) STAT PRN IV Hypoglycemia 11/24/16 18:45 12/24/16 18:44 Lactulose (Cephulac) 20 gm BID ORAL 11/27/16 10:45 12/27/16 10:44 11/27/16 10:56 Lorazepam (Ativan 2mg/ml 1ml) 2 mg Q1H PRN IV seizures 11/24/16 18:45 12/01/16 18:44 Morphine Sulfate (Morphine Sulfate) 4 mg Q4H PRN IVP PAIN 4-10 or RR>20 11/25/16 18:55 12/02/16 18:54 11/27/16 10:09 Ondansetron HCl (Zofran) 4 mg Q6H PRN IVP Nausea & Vomiting 11/24/16 18:45 12/24/16 18:44 Zolpidem Tartrate (Ambien) 5 mg HSPRN PRN ORAL Insomnia 11/24/16 21:00 12/24/16 20:59 Anabel Ritter NP ([facility]) Nov 27, 2016 13:52
[2016-11-27 16:00] VITALS: BP 97/57
[2016-11-27 20:00] VITALS: BP 122/79
[2016-11-28] VITALS (7 sets, daily range): BP systolic 92–121; BP diastolic 41–80
[2016-11-28] MEDS: Morphine Sulfate 4mg/ml Inj IVP PRN ×3 (02:46→20:00)
[2016-11-28 04:32] LABS: BASOPHILS % (AUTO) 1.7 % (0.0-2.0); EOSINOPHILS % (AUTO) 1.1 % (0.0-3.0); LYMPHOCYTES % (AUTO) 23.3 % (20.0-45.0); MEAN CORPUSCULAR HEMOGLOBIN 29.4 PG (27.0-31.0); MEAN CORPUSCULAR HGB CONC 32.3 G/DL (32.0-36.0); MEAN CORPUSCULAR VOLUME 91 FL (80-99); MEAN PLATELET VOLUME 8.6 FL (6.5-10.1); MONOCYTES % (AUTO) 6.6 % (1.0-10.0); NEUTROPHILS % (AUTO) 67.2 % (45.0-75.0); PLATELET COUNT 218 K/UL (150-450); RED BLOOD COUNT 4.18 M/UL (4.70-6.10); RED CELL DISTRIBUTION WIDTH 17.7 % (11.6-14.8); WHITE BLOOD COUNT 7.5 K/UL (4.8-10.8)
[2016-11-28 04:44] LABS: INR 1.6 (0.9-1.1); PROTHROMBIN TIME 16.5 SEC (9.30-11.50)
[2016-11-28 04:50] LABS: AMMONIA 25 umol/L (16-60)
[2016-11-28 04:53] LABS: ALANINE AMINOTRANSFERASE 49 U/L (3-41); ALBUMIN/GLOBULIN RATIO 0.8 (1.0-2.7); ANION GAP 17 (5-15); ASPARTATE AMINO TRANSFERASE 44 U/L (5-40); CARBON DIOXIDE 23 mEQ/L (20-30); CHLORIDE 95 mEQ/L (98-107); CREATININE 1.1 mg/dL (0.7-1.2); GLOMERULAR FILTRATION RATE > 60 mL/min (>60); HEMOLYSIS 2; POTASSIUM 3.5 mEQ/L (3.4-4.9); SODIUM 135 mEQ/L (135-145); TOTAL PROTEIN 5.1 g/dL (6.6-8.7)
[2016-11-28 05:34] LABS: BILIRUBIN,DIRECT 1.1 mg/dL (0.1-0.3)
[2016-11-28] MEDS: Lactulose 20gm/30ml UDC ORAL SCH ×2 (08:15→17:56)
--- NOTE | 2016-11-28 12:32 | Pulmonology Progress Note ---
Assessment/Plan Assessment/Plan ASSESSMENT alcoholic cardiomyopathy ETOH intoxication ETOH abuse shock liver end stage liver disease acute DVT, likely present on admission s/p IVC filter 11/26 ascites s/p paracentesis 11/26 coagulopathy acute kidney injury - resolving elevated LFT PLAN OF CARE [facility] floor Venous Duplex + acute DVT RLE CFV and acute DVR LLE popliteal s/p IVC filter s/p banana bag symptomatic treatment s/p paracentesis 11/26 Librium prn agitation, w/drawal, Ativan prn seizure ammonia -25 a/emetic prn pain management bowel regimen DNR/DNI status overall prognosis poor palliative care appropriate SS eval patient is homeless, need placement case discussed and evaluated by supervising physician Subjective Allergies: Coded Allergies: No Known Allergies (Unverified , 10/25/16) Subjective on RA sat stable no nausea, able to tolerate diet + hand tremor denies chest pain, SOB, cough s/p IVC filter 11/26 s/p paracentesis 11/26 Objective Last 24 Hour Vital Signs Date Time Temp Pulse Resp B/P Pulse Ox O2 Delivery O2 Flow Rate FiO2 11/28/16 10:50 97.0 11/28/16 07:46 97.0 115 18 101/73 95 Room Air 11/28/16 04:00 98.2 99 20 97/69 100 Room Air 11/28/16 00:00 98.0 102 19 121/66 96 Room Air 11/27/16 20:00 97.2 100 20 122/79 94 Room Air 11/27/16 16:00 98.1 120 19 97/57 95 Nasal Cannula 11/27/16 16:00 98.1 120 19 97/57 95 Room Air Intake and Output 11/27/16 11/28/16 19:00 07:00 Intake Total 2160 ml 480 ml Balance 2160 ml 480 ml Intake Oral 2160 ml 480 ml # Voids 7 1 Objective General Appearance: no acute distress, awake, responsive HEENT: normocephalic, atraumatic, anicteric, icterus Respiratory/Chest: no accessory muscle use, decreased breath sounds Cardiovascular: normal peripheral pulses, regular rhythm, tachycardia Abdomen: normal bowel sounds, soft, distended, Genitourinary: normal external genitalia Extremities: other - +@ edema BLE 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: alert, responsive Musculoskeletal: normal muscle bulk Laboratory Tests 11/28/16 03:50: White Blood Count 7.5, Red Blood Count 4.18L, Hemoglobin 12.3L, Hematocrit 37.9L , Mean Corpuscular Volume 91, Mean Corpuscular Hemoglobin 29.4, Mean Corpuscular Hemoglobin Concent 32.3, Red Cell Distribution Width 17.7H, Platelet Count 218, Mean Platelet Volume 8.6, Neutrophils (%) (Auto) 67.2, Lymphocytes (%) (Auto) 23.3, Monocytes (%) (Auto) 6.6, Eosinophils (%) (Auto) 1.1, Basophils (%) (Auto) 1.7, Prothrombin Time 16.5H, Prothromb Time International Ratio 1.6H, Sodium Level 135, Potassium Level 3.5, Chloride Level 95L, Carbon Dioxide Level 23, Anion Gap 17H, Blood Urea Nitrogen 25H, Creatinine 1.1, Estimat Glomerular Filtration Rate > 60, Glucose Level 120H, Calcium Level 8.0L, Total Bilirubin 2.2H, Direct Bilirubin 1.1H, Aspartate Amino Transf (AST/SGOT) 44H, Alanine Aminotransferase (ALT/SGPT) 49H, Alkaline Phosphatase 130H, Ammonia 25, Total Protein 5.1L, Albumin 2.3L, Globulin 2.8, Albumin/Globulin Ratio 0.8L Current Medications Medications (Trade) Dose Ordered Sig/Baudilio Route PRN Reason Start Time Stop Time Status Last Admin Dose Admin Acetaminophen (Tylenol) 650 mg Q4H PRN ORAL T>100.5 11/24/16 18:45 12/24/16 18:44 Al Hydroxide/Mg Hydroxide (Mylanta II) 30 ml Q6H PRN ORAL dyspepsia 11/24/16 18:45 12/24/16 18:44 Chlordiazepoxide (Librium) 25 mg Q6H PRN ORAL Agitation 11/24/16 18:45 12/01/16 18:44 Dextrose (Dextrose 50%) STAT PRN IV Hypoglycemia 11/24/16 18:45 12/24/16 18:44 Lactulose (Cephulac) 20 gm BID ORAL 11/27/16 10:45 12/27/16 10:44 11/28/16 08:15 Lorazepam (Ativan 2mg/ml 1ml) 2 mg Q1H PRN IV seizures 11/24/16 18:45 12/01/16 18:44 Morphine Sulfate (Morphine Sulfate) 4 mg Q4H PRN IVP PAIN 4-10 or RR>20 11/25/16 18:55 12/02/16 18:54 11/28/16 10:20 Ondansetron HCl (Zofran) 4 mg Q6H PRN IVP Nausea & Vomiting 11/24/16 18:45 12/24/16 18:44 Zolpidem Tartrate (Ambien) 5 mg HSPRN PRN ORAL Insomnia 11/24/16 21:00 12/24/16 20:59 [facility] QuintanaNuv[facility] HealthAnabel Patton NP Nov 28, 2016 12:32
[2016-11-29 04:00] VITALS: BP 102/66
[2016-11-29] MEDS: Morphine Sulfate 4mg/ml Inj IVP PRN ×4 (04:08→21:23)
[2016-11-29 06:32] LABS: BASOPHILS % (AUTO) 1.6 % (0.0-2.0); EOSINOPHILS % (AUTO) 0.4 % (0.0-3.0); LYMPHOCYTES % (AUTO) 25.1 % (20.0-45.0); MEAN CORPUSCULAR HEMOGLOBIN 28.4 PG (27.0-31.0); MEAN CORPUSCULAR HGB CONC 31.3 G/DL (32.0-36.0); MEAN CORPUSCULAR VOLUME 91 FL (80-99); MEAN PLATELET VOLUME 9.5 FL (6.5-10.1); MONOCYTES % (AUTO) 7.5 % (1.0-10.0); NEUTROPHILS % (AUTO) 65.4 % (45.0-75.0); PLATELET COUNT 208 K/UL (150-450); RED BLOOD COUNT 4.28 M/UL (4.70-6.10); RED CELL DISTRIBUTION WIDTH 17.8 % (11.6-14.8); WHITE BLOOD COUNT 7.8 K/UL (4.8-10.8)
[2016-11-29 06:35] LABS: INR 1.4 (0.9-1.1); PROTHROMBIN TIME 14.8 SEC (9.30-11.50)
[2016-11-29 07:19] LABS: ALANINE AMINOTRANSFERASE 42 U/L (3-41); ALBUMIN/GLOBULIN RATIO 0.8 (1.0-2.7); ANION GAP 17 (5-15); ASPARTATE AMINO TRANSFERASE 30 U/L (5-40); CALCIUM 7.9 mg/dL (8.6-10.2); CARBON DIOXIDE 23 mEQ/L (20-30); CHLORIDE 95 mEQ/L (98-107); CREATININE 1.1 mg/dL (0.7-1.2); GLOMERULAR FILTRATION RATE > 60 mL/min (>60); HEMOLYSIS 4; POTASSIUM 3.7 mEQ/L (3.4-4.9); SODIUM 135 mEQ/L (135-145); TOTAL PROTEIN 5.3 g/dL (6.6-8.7)
[2016-11-29 07:34] LABS: BILIRUBIN,DIRECT 1.2 mg/dL (0.1-0.3)
[2016-11-29 08:00] VITALS: BP 106/71
[2016-11-29] MEDS: Lactulose 20gm/30ml UDC ORAL SCH ×2 (08:35→18:19)
[2016-11-29 12:00] VITALS: BP 111/76
[2016-11-29 20:00] VITALS: BP_SYST 103; BP_SYST 141; BP_DIAS 69; BP_DIAS 80
--- NOTE | 2016-11-29 22:21 | Pulmonology Progress Note ---
Assessment/Plan Problems: (1) Alcoholic liver disease (2) Alcoholic cardiomyopathy (3) ETOH abuse (4) Pleural effusion Assessment/Plan stable pt/ot dc planning Subjective ROS Limited/Unobtainable: No Allergies: Coded Allergies: No Known Allergies (Unverified , 10/25/16) Objective Last 24 Hour Vital Signs Date Time Temp Pulse Resp B/P Pulse Ox O2 Delivery O2 Flow Rate FiO2 11/29/16 20:00 97.0 104 18 103/69 93 Room Air 11/29/16 12:00 96.9 103 18 111/76 93 Room Air 11/29/16 08:00 97.2 117 21 106/71 90 Room Air 11/29/16 04:00 96.8 101 19 102/66 92 Nasal Cannula 2.0 11/28/16 23:41 96.8 132 18 93/68 96 Nasal Cannula 2.0 Intake and Output 11/28/16 11/29/16 19:00 07:00 Intake Total 360 ml Balance 360 ml Intake Oral 360 ml # Voids 1 1 Objective General Appearance: WD/WN, no apparent distress Lines, tubes and drains: peripheral HEENT: normocephalic, atraumatic Neck: non-tender, supple Respiratory/Chest: chest wall non-tender, rhonchi - bilaterally Cardiovascular/Chest: normal peripheral pulses, normal rate Abdomen: normal bowel sounds Genitourinary/Rectal: normal genital exam Extremities: normal range of motion Laboratory Tests 11/29/16 05:30: White Blood Count 7.8, Red Blood Count 4.28L, Hemoglobin 12.1L, Hematocrit 38.8L , Mean Corpuscular Volume 91, Mean Corpuscular Hemoglobin 28.4, Mean Corpuscular Hemoglobin Concent 31.3L, Red Cell Distribution Width 17.8H, Platelet Count 208, Mean Platelet Volume 9.5, Neutrophils (%) (Auto) 65.4, Lymphocytes (%) (Auto) 25.1, Monocytes (%) (Auto) 7.5, Eosinophils (%) (Auto) 0.4, Basophils (%) (Auto) 1.6, Prothrombin Time 14.8H, Prothromb Time International Ratio 1.4H, Sodium Level 135, Potassium Level 3.7, Chloride Level 95L, Carbon Dioxide Level 23, Anion Gap 17H, Blood Urea Nitrogen 25H, Creatinine 1.1, Estimat Glomerular Filtration Rate > 60, Glucose Level 121H, Calcium Level 7.9L, Total Bilirubin 2.2H, Direct Bilirubin 1.2H, Aspartate Amino Transf (AST/SGOT) 30, Alanine Aminotransferase (ALT/SGPT) 42H, Alkaline Phosphatase 141H, Total Protein 5.3L, Albumin 2.4L, Globulin 2.9, Albumin/ Globulin Ratio 0.8L Current Medications Medications (Trade) Dose Ordered Sig/Baudilio Route PRN Reason Start Time Stop Time Status Last Admin Dose Admin Acetaminophen (Tylenol) 650 mg Q4H PRN ORAL T>100.5 11/24/16 18:45 12/24/16 18:44 Al Hydroxide/Mg Hydroxide (Mylanta II) 30 ml Q6H PRN ORAL dyspepsia 11/24/16 18:45 12/24/16 18:44 Chlordiazepoxide (Librium) 25 mg Q6H PRN ORAL Agitation 11/24/16 18:45 12/01/16 18:44 Dextrose (Dextrose 50%) STAT PRN IV Hypoglycemia 11/24/16 18:45 12/24/16 18:44 Lactulose (Cephulac) 20 gm BID ORAL 11/27/16 10:45 12/27/16 10:44 11/29/16 18:19 Lorazepam (Ativan 2mg/ml 1ml) 2 mg Q1H PRN IV seizures 11/24/16 18:45 12/01/16 18:44 Morphine Sulfate (Morphine Sulfate) 4 mg Q4H PRN IVP PAIN 4-10 or RR>20 11/25/16 18:55 12/02/16 18:54 11/29/16 21:23 Ondansetron HCl (Zofran) 4 mg Q6H PRN IVP Nausea & Vomiting 11/24/16 18:45 12/24/16 18:44 Zolpidem Tartrate (Ambien) 5 mg HSPRN PRN ORAL Insomnia 11/24/16 21:00 12/24/16 20:59 RHONDA PARKINSON Nov 29, 2016 22:21
[2016-11-30] VITALS: BP 108/69
[2016-11-30] MEDS: Zolpidem 5mg tab ORAL PRN (01:55)
[2016-11-30 04:00] VITALS: BP 104/54
[2016-11-30] MEDS: Morphine Sulfate 4mg/ml Inj IVP PRN ×4 (04:45→22:35)
[2016-11-30 08:00] VITALS: BP 97/65
[2016-11-30] MEDS: Lactulose 20gm/30ml UDC ORAL SCH ×2 (08:32→17:06)
--- NOTE | 2016-11-30 10:24 | Cardiology Report ---
APPROVED REPORT EKG Measurement Heart [id number] Atrial flutter (likely atypical) with RVR Left axis deviation Septal infarct, age undetermined Abnormal ECG
[2016-11-30 11:56] VITALS: BP 108/53
[2016-11-30 16:00] VITALS: BP 110/78
--- NOTE | 2016-11-30 18:39 | Pulmonology Progress Note ---
Assessment/Plan Problems: (1) Alcoholic liver disease (2) Alcoholic cardiomyopathy (3) ETOH abuse (4) Pleural effusion Assessment/Plan stable pt/ot dc planning Subjective ROS Limited/Unobtainable: No Allergies: Coded Allergies: No Known Allergies (Unverified , 10/25/16) Objective Last 24 Hour Vital Signs Date Time Temp Pulse Resp B/P Pulse Ox O2 Delivery O2 Flow Rate FiO2 11/30/16 18:19 97.0 11/30/16 16:00 97.0 93 20 110/78 94 Room Air 11/30/16 11:56 97.0 109 20 108/53 100 Room Air 11/30/16 08:00 96.8 98 18 97/65 95 Room Air 11/30/16 04:00 97.9 121 18 104/54 92 Room Air 11/30/16 00:39 100 11/30/16 00:00 96.4 158 18 108/69 91 Room Air 11/29/16 20:00 97.0 104 18 103/69 93 Room Air Intake and Output 11/29/16 11/30/16 19:00 07:00 Intake Total 600 ml 375 ml Balance 600 ml 375 ml Intake Oral 600 ml 375 ml # Voids 1 Objective General Appearance: WD/WN, no apparent distress Lines, tubes and drains: peripheral HEENT: normocephalic, atraumatic Neck: non-tender, supple Respiratory/Chest: chest wall non-tender, rhonchi - bilaterally Cardiovascular/Chest: normal peripheral pulses, normal rate Abdomen: normal bowel sounds Genitourinary/Rectal: normal genital exam Extremities: normal range of motion Current Medications Medications (Trade) Dose Ordered Sig/Baudilio Route PRN Reason Start Time Stop Time Status Last Admin Dose Admin Acetaminophen (Tylenol) 650 mg Q4H PRN ORAL T>100.5 11/24/16 18:45 12/24/16 18:44 Al Hydroxide/Mg Hydroxide (Mylanta II) 30 ml Q6H PRN ORAL dyspepsia 11/24/16 18:45 12/24/16 18:44 Chlordiazepoxide (Librium) 25 mg Q6H PRN ORAL Agitation 11/24/16 18:45 12/01/16 18:44 Dextrose (Dextrose 50%) STAT PRN IV Hypoglycemia 11/24/16 18:45 12/24/16 18:44 Lactulose (Cephulac) 20 gm BID ORAL 11/27/16 10:45 12/27/16 10:44 11/30/16 17:06 Lorazepam (Ativan 2mg/ml 1ml) 2 mg Q1H PRN IV seizures 11/24/16 18:45 12/01/16 18:44 Morphine Sulfate (Morphine Sulfate) 4 mg Q4H PRN IVP PAIN 4-10 or RR>20 11/25/16 18:55 12/02/16 18:54 11/30/16 17:49 Ondansetron HCl (Zofran) 4 mg Q6H PRN IVP Nausea & Vomiting 11/24/16 18:45 12/24/16 18:44 Zolpidem Tartrate (Ambien) 5 mg HSPRN PRN ORAL Insomnia 11/24/16 21:00 12/24/16 20:59 11/30/16 01:55 RHONDA PARKINSON Nov 30, 2016 18:39
[2016-11-30 20:00] VITALS: BP 109/67
[2016-12-01] VITALS (7 sets, daily range): BP systolic 100–115; BP diastolic 75–86
[2016-12-01] MEDS: Morphine Sulfate 4mg/ml Inj IVP PRN ×3 (05:30→20:43)
[2016-12-01] MEDS: Lactulose 20gm/30ml UDC ORAL SCH ×2 (08:28→17:17)
--- NOTE | 2016-12-01 11:54 | GI Initial Consult Note ---
History of Present Illness General Date patient seen: Dec 01, 2016 Time patient seen: 11:00 Reason for Hospitalization: Alcohol Intoxication Referring physician: RHONDA FELIPE Reason for Consultation: LIVER CIRRHOSIS Present Illness HPI 41-year-old male presents to ED for evaluation. Patient states he's been drinking all day and feels weak with abdominal pain. No nausea or vomiting. No chest pain shortness of breath. Per triage patient is tachycardic. Patient denies drug use. Patient states he was recently admitted to the hospital and discharged. Denies any fevers or chills. Pain in abdomen is sharp, 5/10, nonradiating. No other aggravating or relieving factors. Denies any other associated symptom GI CONSULT: HPI as noted above. GI consulted for liver cirrhosis. Pt was seen previously a few weeks prior and discharged to facility where he left AMA and now is [place] [facility] He presents with abdominal pain and liver cirrhosis. Home Meds Reported Medications No Known Medications* (NKM - No Known Medications*) ., 0 ., 0 Refills 11/24/16 Allergies: Coded Allergies: No Known Allergies (Unverified , 10/25/16) Patient History History Provided By: Patient PMH Narrative Past Medical History: HTN, CHF Past Surgical History: none Pertinent Family History: none Social History: Reports: alcohol use, Denies: drug use, smoking Immunizations: UTD Reviewed Nursing Documentation: PMH: Agreed, PSxH: Agreed Nursing Documentation-PMH Hx Cardiac Problems: Yes Hx Hypertension: Yes Hx Cancer: No Hx Gastrointestinal Problems: Yes History Of Psychiatric Problem: Yes - substance abuse Hx Neurological Problems: Yes Hx Headaches: Yes Social History: Reports: alcohol use Review of Systems All Other Systems: limited Physical Exam Vital Signs Date Time Temp Pulse Resp B/P Pulse Ox O2 Delivery O2 Flow Rate FiO2 11/27/16 07:56 97.2 108 20 97/56 99 Room Air 11/28/16 20:00 2.0 Sp02 EP Interpretation: reviewed General Appearance: well appearing, no apparent distress, alert Head: normocephalic EENT: normal ENT inspection Neck: supple Respiratory: normal breath sounds, no respiratory distress Cardiovascular: normal rate Gastrointestinal: normal inspection, non tender, soft Rectal: deferred Neurologic: alert Psychiatric: normal inspection Skin: normal inspection Lymphatic: normal inspection Current Medications Current Medications Medications (Trade) Dose Ordered Sig/Baudilio Route PRN Reason Start Time Stop Time Status Last Admin Dose Admin Acetaminophen (Tylenol) 650 mg Q4H PRN ORAL T>100.5 11/24/16 18:45 12/24/16 18:44 Al Hydroxide/Mg Hydroxide (Mylanta II) 30 ml Q6H PRN ORAL dyspepsia 11/24/16 18:45 12/24/16 18:44 Chlordiazepoxide (Librium) 25 mg Q6H PRN ORAL Agitation 11/24/16 18:45 12/01/16 18:44 Dextrose (Dextrose 50%) STAT PRN IV Hypoglycemia 11/24/16 18:45 12/24/16 18:44 Lactulose (Cephulac) 20 gm BID ORAL 11/27/16 10:45 12/27/16 10:44 12/01/16 08:28 Lorazepam (Ativan 2mg/ml 1ml) 2 mg Q1H PRN IV seizures 11/24/16 18:45 12/01/16 18:44 Morphine Sulfate (Morphine Sulfate) 4 mg Q4H PRN IVP PAIN 4-10 or RR>20 11/25/16 18:55 12/02/16 18:54 12/01/16 05:30 Ondansetron HCl (Zofran) 4 mg Q6H PRN IVP Nausea & Vomiting 11/24/16 18:45 12/24/16 18:44 12/01/16 05:31 Zolpidem Tartrate (Ambien) 5 mg HSPRN PRN ORAL Insomnia 11/24/16 21:00 12/24/16 20:59 11/30/16 01:55 GI: Plan Problems: (1) Alcoholic liver disease (2) Pleural effusion (3) Hypoalbuminemia (4) Anemia (5) Abdominal pain (6) Alcoholic cardiomyopathy (7) ETOH abuse Plan GI procedures on hold for now with EF of 10% BLE + 2 >> Lasix monitor H&H, transfuse prn fu abdominal U/S zofran prn H2 fu labs pt scheduled for discharge, recommendations avoid ETOH low sodium diet rehab center fu with PCP Discussed with Dr. Dominguez. Thank you for referring this patient. Melanie Broines N.P. Dec 01, 2016 11:54
--- NOTE | 2016-12-01 18:20 | Pulmonology Progress Note ---
Assessment/Plan Problems: (1) Alcoholic liver disease (2) Alcoholic cardiomyopathy (3) ETOH abuse (4) Pleural effusion Assessment/Plan stable pt/ot dc planning dnr/dni Subjective ROS Limited/Unobtainable: No Allergies: Coded Allergies: No Known Allergies (Unverified , 10/25/16) Objective Last 24 Hour Vital Signs Date Time Temp Pulse Resp B/P Pulse Ox O2 Delivery O2 Flow Rate FiO2 12/01/16 16:00 96.4 122 20 100/79 97 Room Air 12/01/16 13:36 96.8 12/01/16 12:00 96.8 125 16 105/78 99 Room Air 12/01/16 08:00 97.3 117 18 103/76 100 Room Air 12/01/16 04:00 97.7 121 18 115/75 93 Room Air 12/01/16 00:00 97.8 125 18 106/77 90 Room Air 11/30/16 20:00 97.6 140 18 109/67 94 Room Air Intake and Output 11/30/16 12/01/16 19:00 07:00 Intake Total 360 ml 300 ml Balance 360 ml 300 ml Intake Oral 360 ml 300 ml # Voids 3 3 # Bowel Movements 1 Objective General Appearance: WD/WN, no apparent distress Lines, tubes and drains: peripheral HEENT: normocephalic, atraumatic Neck: non-tender, supple Respiratory/Chest: chest wall non-tender, rhonchi - bilaterally Cardiovascular/Chest: normal peripheral pulses, normal rate Abdomen: normal bowel sounds Genitourinary/Rectal: normal genital exam Extremities: normal range of motion Current Medications Medications (Trade) Dose Ordered Sig/Baudilio Route PRN Reason Start Time Stop Time Status Last Admin Dose Admin Acetaminophen (Tylenol) 650 mg Q4H PRN ORAL T>100.5 11/24/16 18:45 12/24/16 18:44 Al Hydroxide/Mg Hydroxide (Mylanta II) 30 ml Q6H PRN ORAL dyspepsia 11/24/16 18:45 12/24/16 18:44 Chlordiazepoxide (Librium) 25 mg Q6H PRN ORAL Agitation 11/24/16 18:45 12/01/16 18:44 Dextrose (Dextrose 50%) STAT PRN IV Hypoglycemia 11/24/16 18:45 12/24/16 18:44 Lactulose (Cephulac) 20 gm BID ORAL 11/27/16 10:45 12/27/16 10:44 12/01/16 17:17 Lorazepam (Ativan 2mg/ml 1ml) 2 mg Q1H PRN IV seizures 11/24/16 18:45 12/01/16 18:44 Morphine Sulfate (Morphine Sulfate) 4 mg Q4H PRN IVP PAIN 4-10 or RR>20 11/25/16 18:55 12/02/16 18:54 12/01/16 13:06 Ondansetron HCl (Zofran) 4 mg Q6H PRN IVP Nausea & Vomiting 11/24/16 18:45 12/24/16 18:44 12/01/16 05:31 Zolpidem Tartrate (Ambien) 5 mg HSPRN PRN ORAL Insomnia 11/24/16 21:00 12/24/16 20:59 11/30/16 01:55 RHONDA PARKINSON Dec 01, 2016 18:20
[2016-12-02 03:52] VITALS: BP 101/75
[2016-12-02] MEDS: Morphine Sulfate 4mg/ml Inj IVP PRN ×3 (05:46→17:28)
[2016-12-02 08:19] VITALS: BP 106/73
[2016-12-02] MEDS: Lactulose 20gm/30ml UDC ORAL SCH ×2 (09:00→17:26)
--- NOTE | 2016-12-02 10:48 | GI Progress Note ---
Assessment/Plan Problems: (1) Abdominal pain ICD Codes: R10.9 - Unspecified abdominal pain SNOMED: 67689041 (2) Hypoalbuminemia ICD Codes: E88.09 - Other disorders of plasma-protein metabolism, not elsewhere classified SNOMED: 150237173 (3) Anemia ICD Codes: D64.9 - Anemia, unspecified SNOMED: 167068803 (4) Alcoholic liver disease ICD Codes: K70.9 - Alcoholic liver disease, unspecified SNOMED: 25350145 (5) Alcoholic cardiomyopathy ICD Codes: I42.6 - Alcoholic cardiomyopathy SNOMED: 881110266 (6) ETOH abuse ICD Codes: F10.10 - Alcohol abuse, uncomplicated SNOMED: 29809730, 40001318 Status: unchanged Status Narrative Discussed with Dr. Dominguez. Assessment/Plan GI procedures on hold for now with EF of 10% BLE + 2 >> Lasix monitor H&H, transfuse prn fu abdominal U/S zofran prn H2 fu labs pt scheduled for discharge, recommendations avoid ETOH low sodium diet rehab center fu with PCP Subjective Gastrointestinal/Abdominal: Reports: no symptoms Objective Last 24 Hour Vital Signs Date Time Temp Pulse Resp B/P Pulse Ox O2 Delivery O2 Flow Rate FiO2 12/02/16 08:19 97.7 114 20 106/73 94 Room Air 12/02/16 03:52 96.7 126 18 101/75 94 Room Air 12/01/16 23:39 97.6 124 18 106/79 90 Room Air 12/01/16 20:00 97.5 127 19 104/86 90 Room Air 12/01/16 16:00 96.4 122 20 100/79 97 Room Air 12/01/16 13:36 96.8 12/01/16 12:00 96.8 125 16 105/78 99 Room Air Intake and Output 12/01/16 12/02/16 19:00 07:00 Intake Total 600 ml 320 ml Balance 600 ml 320 ml Intake Oral 600 ml 320 ml # Voids 2 2 Height (Feet): 6 Height (Inches): 0.00 Weight (Pounds): 150 General Appearance: no apparent distress, alert Cardiovascular: normal rate Respiratory/Chest: normal breath sounds, no respiratory distress Abdominal Exam: normal bowel sounds, non tender, soft Extremities: normal range of motion Melanie Briones N.PMignon Dec 02, 2016 10:48
[2016-12-02 12:19] VITALS: BP 104/79
[2016-12-02 16:00] VITALS: BP 113/88
--- NOTE | 2016-12-02 19:15 | Pulmonology Progress Note ---
Assessment/Plan Problems: (1) Alcoholic liver disease (2) Alcoholic cardiomyopathy (3) ETOH abuse (4) Pleural effusion Assessment/Plan stable pt/ot dc planning dnr/dni f/u GI recommendations Subjective ROS Limited/Unobtainable: No Allergies: Coded Allergies: No Known Allergies (Unverified , 10/25/16) Objective Last 24 Hour Vital Signs Date Time Temp Pulse Resp B/P Pulse Ox O2 Delivery O2 Flow Rate FiO2 12/02/16 16:00 98.0 116 20 113/88 99 Room Air 12/02/16 12:19 98.2 114 20 104/79 95 Room Air 12/02/16 08:19 97.7 114 20 106/73 94 Room Air 12/02/16 03:52 96.7 126 18 101/75 94 Room Air 12/01/16 23:39 97.6 124 18 106/79 90 Room Air 12/01/16 20:00 97.5 127 19 104/86 90 Room Air Intake and Output 12/01/16 12/02/16 19:00 07:00 Intake Total 600 ml 320 ml Balance 600 ml 320 ml Intake Oral 600 ml 320 ml # Voids 2 2 Objective General Appearance: WD/WN, no apparent distress Lines, tubes and drains: peripheral HEENT: normocephalic, atraumatic Neck: non-tender, supple Respiratory/Chest: chest wall non-tender, rhonchi - bilaterally Cardiovascular/Chest: normal peripheral pulses, normal rate Abdomen: normal bowel sounds Genitourinary/Rectal: normal genital exam Extremities: normal range of motion Current Medications Medications (Trade) Dose Ordered Sig/Baudilio Route PRN Reason Start Time Stop Time Status Last Admin Dose Admin Acetaminophen (Tylenol) 650 mg Q4H PRN ORAL T>100.5 11/24/16 18:45 12/24/16 18:44 Al Hydroxide/Mg Hydroxide (Mylanta II) 30 ml Q6H PRN ORAL dyspepsia 11/24/16 18:45 12/24/16 18:44 Dextrose (Dextrose 50%) STAT PRN IV Hypoglycemia 11/24/16 18:45 12/24/16 18:44 Furosemide (Lasix) 40 mg DAILY IV 12/02/16 11:00 01/01/17 10:59 12/02/16 11:28 Lactulose (Cephulac) 20 gm BID ORAL 11/27/16 10:45 12/27/16 10:44 12/02/16 17:26 Ondansetron HCl (Zofran) 4 mg Q6H PRN IVP Nausea & Vomiting 11/24/16 18:45 12/24/16 18:44 12/01/16 05:31 Zolpidem Tartrate (Ambien) 5 mg HSPRN PRN ORAL Insomnia 11/24/16 21:00 12/24/16 20:59 11/30/16 01:55 RHONDA PARKINSON Dec 02, 2016 19:15
[2016-12-02 20:00] VITALS: BP 113/74
[2016-12-02] MEDS ORDERED: Morphine Sulfate 4mg/ml Inj IM PRN (21:45)
--- NOTE | 2016-12-02 23:21 | Diagnostic Imaging Report ---
APPROVED REPORT CPT Code: 48037 Present Symptoms Comments: R/O DVT Past History DVT :Left RIGHT LEG: Venous imaging reveals acute thrombus in the common femoral vein. The proximal greater saphenous vein is also thrombosed. Imaging also reveals patency of the superficial femoral, popliteal and calf veins. LEFT LEG: Venous imaging reveals acute thrombus in the calf vein (posterior tibial). Imaging also reveals patency of the common femoral, popliteal and calf veins (anterior tibial and peroneal). The greater saphenous vein is within normal limits. INGRIS Brar was informed at 0820 hours.
[2016-12-03] VITALS: BP 115/71
[2016-12-03 04:00] VITALS: BP 107/79
[2016-12-03] MEDS: Morphine Sulfate 4mg/ml Inj IVP PRN ×2 (05:01→18:21)
[2016-12-03 06:24] LABS: ALBUMIN/GLOBULIN RATIO 0.6 (1.0-2.7); CALCIUM 8.5 mg/dL (8.6-10.2); CREATININE 1.7 mg/dL (0.7-1.2); GLOMERULAR FILTRATION RATE 45.1 mL/min (>60); POTASSIUM 5.3 mEQ/L (3.4-4.9); TOTAL PROTEIN 6.4 g/dL (6.6-8.7)
[2016-12-03 08:21] VITALS: BP 100/75
[2016-12-03] MEDS: Lactulose 20gm/30ml UDC ORAL SCH ×2 (08:43→18:08)
[2016-12-03 09:37] LABS: BILIRUBIN,DIRECT 1.5 mg/dL (0.1-0.3)
[2016-12-03 10:06] LABS: BASOPHILS % (AUTO) 0.8 % (0.0-2.0); EOSINOPHILS % (AUTO) 0.1 % (0.0-3.0); LYMPHOCYTES % (AUTO) 24.8 % (20.0-45.0); MEAN CORPUSCULAR HEMOGLOBIN 28.3 PG (27.0-31.0); MEAN CORPUSCULAR HGB CONC 30.7 G/DL (32.0-36.0); MEAN CORPUSCULAR VOLUME 92 FL (80-99); MEAN PLATELET VOLUME 8.4 FL (6.5-10.1); MONOCYTES % (AUTO) 11.1 % (1.0-10.0); NEUTROPHILS % (AUTO) 63.3 % (45.0-75.0); PLATELET COUNT 149 K/UL (150-450); RED BLOOD COUNT 4.85 M/UL (4.70-6.10); RED CELL DISTRIBUTION WIDTH 18.2 % (11.6-14.8)
--- NOTE | 2016-12-03 10:22 | GI Progress Note ---
Assessment/Plan Problems: (1) Abdominal pain ICD Codes: R10.9 - Unspecified abdominal pain SNOMED: 99198343 (2) Hypoalbuminemia ICD Codes: E88.09 - Other disorders of plasma-protein metabolism, not elsewhere classified SNOMED: 176106019 (3) Anemia ICD Codes: D64.9 - Anemia, unspecified SNOMED: 137559572 (4) Alcoholic liver disease ICD Codes: K70.9 - Alcoholic liver disease, unspecified SNOMED: 69128006 (5) Alcoholic cardiomyopathy ICD Codes: I42.6 - Alcoholic cardiomyopathy SNOMED: 820229550 (6) ETOH abuse ICD Codes: F10.10 - Alcohol abuse, uncomplicated SNOMED: 97758164, 91635764 Status: unchanged Status Narrative Discussed with Dr. Dominguez. Assessment/Plan GI procedures on hold for now with EF of 10% BUE/BLE + 3 >> Lasix BID monitor H&H, transfuse prn fu abdominal U/S zofran prn H2 fu labs pt scheduled for discharge, recommendations avoid ETOH low sodium diet rehab center fu with PCP Subjective Gastrointestinal/Abdominal: Reports: no symptoms Objective Last 24 Hour Vital Signs Date Time Temp Pulse Resp B/P Pulse Ox O2 Delivery O2 Flow Rate FiO2 12/03/16 08:21 98.4 129 20 100/75 95 Room Air 12/03/16 04:00 97.5 115 20 107/79 92 Room Air 12/03/16 00:00 97.7 106 18 115/71 93 Room Air 12/02/16 20:00 97.0 110 20 113/74 92 Room Air 12/02/16 16:00 98.0 116 20 113/88 99 Room Air 12/02/16 12:19 98.2 114 20 104/79 95 Room Air Intake and Output 12/02/16 12/03/16 19:00 07:00 Intake Total 480 ml 120 ml Balance 480 ml 120 ml Intake Oral 480 ml 120 ml # Voids 1 2 Laboratory Tests Test 12/03/16 05:15 12/03/16 09:15 Sodium Level 125 mEQ/L (135-145) L Potassium Level 5.3 mEQ/L (3.4-4.9) H Chloride Level 87 mEQ/L (98-107) L Carbon Dioxide Level 14 mEQ/L (20-30) L Anion Gap 24 (5-15) H Blood Urea Nitrogen 38 mg/dL (7-23) H Creatinine 1.7 mg/dL (0.7-1.2) H Estimat Glomerular Filtration Rate 45.1 mL/min (>60) Glucose Level 144 mg/dL (74-106) H Calcium Level 8.5 mg/dL (8.6-10.2) L Total Bilirubin 3.0 mg/dL (0.0-1.2) H Direct Bilirubin 1.5 mg/dL (0.1-0.3) H Aspartate Amino Transf (AST/SGOT) 46 U/L (5-40) H Alanine Aminotransferase (ALT/SGPT) 44 U/L (3-41) H Alkaline Phosphatase 171 U/L (40-129) H Total Protein 6.4 g/dL (6.6-8.7) L Albumin 2.6 g/dL (3.5-5.2) L Globulin 3.8 g/dL Albumin/Globulin Ratio 0.6 (1.0-2.7) L White Blood Count 10.0 K/UL (4.8-10.8) Red Blood Count 4.85 M/UL (4.70-6.10) Hemoglobin 13.7 G/DL (14.2-18.0) L Hematocrit 44.7 % (42.0-52.0) Mean Corpuscular Volume 92 FL (80-99) Mean Corpuscular Hemoglobin 28.3 PG (27.0-31.0) Mean Corpuscular Hemoglobin Concent 30.7 G/DL (32.0-36.0) L Red Cell Distribution Width 18.2 % (11.6-14.8) H Platelet Count 149 K/UL (150-450) L Mean Platelet Volume 8.4 FL (6.5-10.1) Neutrophils (%) (Auto) 63.3 % (45.0-75.0) Lymphocytes (%) (Auto) 24.8 % (20.0-45.0) Monocytes (%) (Auto) 11.1 % (1.0-10.0) H Eosinophils (%) (Auto) 0.1 % (0.0-3.0) Basophils (%) (Auto) 0.8 % (0.0-2.0) Height (Feet): 6 Height (Inches): 0.00 Weight (Pounds): 150 General Appearance: no apparent distress, alert Cardiovascular: normal rate Respiratory/Chest: no respiratory distress Abdominal Exam: normal bowel sounds, non tender, soft, ascites Extremities: normal range of motion Melanie Briones N.P. Dec 03, 2016 10:22
[2016-12-03] MEDS ORDERED: Sodium Polystyrene Sulfonate 15gm Powder ORAL ONE (10:45)
[2016-12-03 11:51] VITALS: BP 111/78
[2016-12-03 16:06] VITALS: BP 103/76
[2016-12-03 20:00] VITALS: BP 108/70
--- NOTE | 2016-12-03 22:11 | Pulmonology Progress Note ---
Assessment/Plan Problems: (1) Alcoholic liver disease (2) Alcoholic cardiomyopathy (3) ETOH abuse (4) Pleural effusion Assessment/Plan stable pt/ot dc planning dnr/dni f/u GI recommendations Subjective Allergies: Coded Allergies: No Known Allergies (Unverified , 10/25/16) Objective Last 24 Hour Vital Signs Date Time Temp Pulse Resp B/P Pulse Ox O2 Delivery O2 Flow Rate FiO2 12/03/16 16:06 98.6 111 20 103/76 95 Room Air 12/03/16 11:51 98.2 114 20 111/78 100 Room Air 12/03/16 08:21 98.4 129 20 100/75 95 Room Air 12/03/16 04:00 97.5 115 20 107/79 92 Room Air 12/03/16 00:00 97.7 106 18 115/71 93 Room Air Intake and Output 12/02/16 12/03/16 19:00 07:00 Intake Total 480 ml 120 ml Balance 480 ml 120 ml Intake Oral 480 ml 120 ml # Voids 1 2 Objective General Appearance: WD/WN, no apparent distress Lines, tubes and drains: peripheral HEENT: normocephalic, atraumatic Neck: non-tender, supple Respiratory/Chest: chest wall non-tender, rhonchi - bilaterally Cardiovascular/Chest: normal peripheral pulses, normal rate Abdomen: normal bowel sounds Genitourinary/Rectal: normal genital exam Extremities: normal range of motion Laboratory Tests 12/03/16 05:15: Sodium Level 125L, Potassium Level 5.3H, Chloride Level 87L, Carbon Dioxide Level 14L, Anion Gap 24H, Blood Urea Nitrogen 38H, Creatinine 1.7H, Estimat Glomerular Filtration Rate 45.1, Glucose Level 144H, Calcium Level 8.5L, Total Bilirubin 3.0H, Direct Bilirubin 1.5H, Aspartate Amino Transf (AST/SGOT) 46H, Alanine Aminotransferase (ALT/SGPT) 44H, Alkaline Phosphatase 171H, Total Protein 6.4L, Albumin 2.6L, Globulin 3.8, Albumin/Globulin Ratio 0.6L 12/03/16 09:15: White Blood Count 10.0, Red Blood Count 4.85, Hemoglobin 13.7L, Hematocrit 44.7 , Mean Corpuscular Volume 92, Mean Corpuscular Hemoglobin 28.3, Mean Corpuscular Hemoglobin Concent 30.7L, Red Cell Distribution Width 18.2H, Platelet Count 149L, Mean Platelet Volume 8.4, Neutrophils (%) (Auto) 63.3, Lymphocytes (%) (Auto) 24.8, Monocytes (%) (Auto) 11.1H, Eosinophils (%) (Auto) 0.1, Basophils (%) (Auto) 0.8 Current Medications Medications (Trade) Dose Ordered Sig/Baudilio Route PRN Reason Start Time Stop Time Status Last Admin Dose Admin Acetaminophen (Tylenol) 650 mg Q4H PRN ORAL T>100.5 11/24/16 18:45 12/24/16 18:44 Al Hydroxide/Mg Hydroxide (Mylanta II) 30 ml Q6H PRN ORAL dyspepsia 11/24/16 18:45 12/24/16 18:44 Dextrose (Dextrose 50%) STAT PRN IV Hypoglycemia 11/24/16 18:45 12/24/16 18:44 Furosemide (Lasix) 40 mg Q12HR IV 12/03/16 21:00 01/02/17 20:59 12/03/16 21:24 Lactulose (Cephulac) 20 gm BID ORAL 11/27/16 10:45 12/27/16 10:44 12/03/16 18:08 Morphine Sulfate (Morphine Sulfate) 4 mg Q4H PRN IVP For Pain 4-10 12/03/16 05:45 12/10/16 05:44 12/03/16 18:21 Ondansetron HCl (Zofran) 4 mg Q6H PRN IVP Nausea & Vomiting 11/24/16 18:45 12/24/16 18:44 12/01/16 05:31 Zolpidem Tartrate (Ambien) 5 mg HSPRN PRN ORAL Insomnia 11/24/16 21:00 12/24/16 20:59 11/30/16 01:55 RHONDA PARKINSON Dec 03, 2016 22:11
[2016-12-04] VITALS: BP 103/75
[2016-12-04] MEDS: Morphine Sulfate 4mg/ml Inj IVP PRN ×4 (01:20→17:21)
[2016-12-04 04:00] VITALS: BP 97/67
[2016-12-04 07:16] LABS: BASOPHILS % (AUTO) 0.9 % (0.0-2.0); EOSINOPHILS % (AUTO) 0.3 % (0.0-3.0); LYMPHOCYTES % (AUTO) 21.9 % (20.0-45.0); MEAN CORPUSCULAR HEMOGLOBIN 28.3 PG (27.0-31.0); MEAN CORPUSCULAR HGB CONC 31.2 G/DL (32.0-36.0); MEAN CORPUSCULAR VOLUME 91 FL (80-99); MEAN PLATELET VOLUME 9.2 FL (6.5-10.1); PLATELET COUNT 144 K/UL (150-450); RED CELL DISTRIBUTION WIDTH 17.8 % (11.6-14.8); WHITE BLOOD COUNT 8.6 K/UL (4.8-10.8)
[2016-12-04 07:23] LABS: INR 1.8 (0.9-1.1); PROTHROMBIN TIME 18.5 SEC (9.30-11.50)
[2016-12-04 08:00] VITALS: BP 111/76
[2016-12-04 08:00] LABS: ALBUMIN/GLOBULIN RATIO 0.8 (1.0-2.7); CALCIUM 8.3 mg/dL (8.6-10.2); CREATININE 1.7 mg/dL (0.7-1.2); GLOMERULAR FILTRATION RATE 45.1 mL/min (>60); POTASSIUM 4.1 mEQ/L (3.4-4.9); TOTAL PROTEIN 5.6 g/dL (6.6-8.7)
[2016-12-04 08:20] LABS: BILIRUBIN,DIRECT 1.6 mg/dL (0.1-0.3)
[2016-12-04] MEDS: Lactulose 20gm/30ml UDC ORAL SCH ×2 (09:11→17:20)
--- NOTE | 2016-12-04 10:05 | General Progress Note ---
Assessment/Plan Problem List: (1) ETOH abuse ICD Codes: F10.10 - Alcohol abuse, uncomplicated SNOMED: 23324190, 84780134 (2) Shock liver ICD Codes: K72.00 - Acute and subacute hepatic failure without coma SNOMED: 787118137 (3) Alcoholic cardiomyopathy ICD Codes: I42.6 - Alcoholic cardiomyopathy SNOMED: 849127756 (4) Anemia ICD Codes: D64.9 - Anemia, unspecified SNOMED: 378577440 Assessment/Plan monitor H&H placement per primary team hold GI procedure given low EF Subjective ROS Limited/Unobtainable: Yes Allergies: Coded Allergies: No Known Allergies (Unverified , 10/25/16) All Systems: reviewed and negative except above Objective Last 24 Hour Vital Signs Date Time Temp Pulse Resp B/P Pulse Ox O2 Delivery O2 Flow Rate FiO2 12/04/16 08:00 97.5 116 17 111/76 95 Room Air 108 12/04/16 04:00 96.6 107 22 97/67 92 Room Air 12/04/16 01:50 97.5 12/04/16 00:00 97.7 98 22 103/75 97 Room Air 12/03/16 20:00 97.5 103 22 108/70 95 Room Air 12/03/16 16:06 98.6 111 20 103/76 95 Room Air 12/03/16 11:51 98.2 114 20 111/78 100 Room Air Intake and Output 12/03/16 12/04/16 19:00 07:00 Intake Total 240 ml Output Total 200 ml Balance 240 ml -200 ml Intake Oral 240 ml Output Urine Total 200 ml Laboratory Tests 12/04/16 05:10: Sodium Level 129L, Potassium Level 4.1, Chloride Level 89L, Carbon Dioxide Level 20, Anion Gap 20H, Blood Urea Nitrogen 41H, Creatinine 1.7H, Estimat Glomerular Filtration Rate 45.1, Glucose Level 108H, Calcium Level 8.3L, Total Bilirubin 3.0H, Direct Bilirubin 1.6H, Aspartate Amino Transf (AST/SGOT) 30, Alanine Aminotransferase (ALT/SGPT) 39, Alkaline Phosphatase 151H, Total Protein 5.6L, Albumin 2.5L, Globulin 3.1, Albumin/Globulin Ratio 0.8L 12/04/16 05:15: White Blood Count 8.6, Red Blood Count 4.50L, Hemoglobin 12.7L, Hematocrit 40.7L , Mean Corpuscular Volume 91, Mean Corpuscular Hemoglobin 28.3, Mean Corpuscular Hemoglobin Concent 31.2L, Red Cell Distribution Width 17.8H, Platelet Count 144L, Mean Platelet Volume 9.2, Neutrophils (%) (Auto) 67.0, Lymphocytes (%) (Auto) 21.9, Monocytes (%) (Auto) 10.0, Eosinophils (%) (Auto) 0.3, Basophils (%) (Auto) 0.9, Prothrombin Time 18.5H, Prothromb Time International Ratio 1.8H, Activated Partial Thromboplast Time 33 Height (Feet): 6 Height (Inches): 0.00 Weight (Pounds): 150 General Appearance: no apparent distress EENT: normal ENT inspection Neck: supple Cardiovascular: normal rate Respiratory/Chest: decreased breath sounds Abdomen: normal bowel sounds, non tender, soft Extremities: non-tender ADRIAN BERG Dec 04, 2016 10:05
[2016-12-04 12:00] VITALS: BP 106/52
[2016-12-04 16:00] VITALS: BP 106/70
--- NOTE | 2016-12-04 18:50 | Pulmonology Progress Note ---
Assessment/Plan Problems: (1) Alcoholic liver disease (2) Alcoholic cardiomyopathy (3) ETOH abuse (4) Pleural effusion Assessment/Plan stable pt/ot dc planning dnr/dni f/u GI recommendations Subjective ROS Limited/Unobtainable: No Allergies: Coded Allergies: No Known Allergies (Unverified , 10/25/16) Objective Last 24 Hour Vital Signs Date Time Temp Pulse Resp B/P Pulse Ox O2 Delivery O2 Flow Rate FiO2 12/04/16 16:00 96.3 100 19 106/70 100 12/04/16 12:00 97.5 129 18 106/52 96 Room Air 12/04/16 08:00 97.5 116 17 111/76 95 Room Air 108 12/04/16 04:00 96.6 107 22 97/67 92 Room Air 12/04/16 01:50 97.5 12/04/16 00:00 97.7 98 22 103/75 97 Room Air 12/03/16 20:00 97.5 103 22 108/70 95 Room Air Intake and Output 12/03/16 12/04/16 19:00 07:00 Intake Total 240 ml Output Total 200 ml Balance 240 ml -200 ml Intake Oral 240 ml Output Urine Total 200 ml Objective General Appearance: WD/WN, no apparent distress Lines, tubes and drains: peripheral HEENT: normocephalic, atraumatic Neck: non-tender, supple Respiratory/Chest: chest wall non-tender, rhonchi - bilaterally Cardiovascular/Chest: normal peripheral pulses, normal rate Abdomen: normal bowel sounds Genitourinary/Rectal: normal genital exam Extremities: normal range of motion Laboratory Tests 12/04/16 05:10: Sodium Level 129L, Potassium Level 4.1, Chloride Level 89L, Carbon Dioxide Level 20, Anion Gap 20H, Blood Urea Nitrogen 41H, Creatinine 1.7H, Estimat Glomerular Filtration Rate 45.1, Glucose Level 108H, Calcium Level 8.3L, Total Bilirubin 3.0H, Direct Bilirubin 1.6H, Aspartate Amino Transf (AST/SGOT) 30, Alanine Aminotransferase (ALT/SGPT) 39, Alkaline Phosphatase 151H, Total Protein 5.6L, Albumin 2.5L, Globulin 3.1, Albumin/Globulin Ratio 0.8L 12/04/16 05:15: White Blood Count 8.6, Red Blood Count 4.50L, Hemoglobin 12.7L, Hematocrit 40.7L , Mean Corpuscular Volume 91, Mean Corpuscular Hemoglobin 28.3, Mean Corpuscular Hemoglobin Concent 31.2L, Red Cell Distribution Width 17.8H, Platelet Count 144L, Mean Platelet Volume 9.2, Neutrophils (%) (Auto) 67.0, Lymphocytes (%) (Auto) 21.9, Monocytes (%) (Auto) 10.0, Eosinophils (%) (Auto) 0.3, Basophils (%) (Auto) 0.9, Prothrombin Time 18.5H, Prothromb Time International Ratio 1.8H, Activated Partial Thromboplast Time 33 Current Medications Medications (Trade) Dose Ordered Sig/Baudilio Route PRN Reason Start Time Stop Time Status Last Admin Dose Admin Acetaminophen (Tylenol) 650 mg Q4H PRN ORAL T>100.5 11/24/16 18:45 12/24/16 18:44 Al Hydroxide/Mg Hydroxide (Mylanta II) 30 ml Q6H PRN ORAL dyspepsia 11/24/16 18:45 12/24/16 18:44 Dextrose (Dextrose 50%) STAT PRN IV Hypoglycemia 11/24/16 18:45 12/24/16 18:44 Furosemide (Lasix) 40 mg Q12HR IV 12/03/16 21:00 01/02/17 20:59 12/04/16 09:11 Lactulose (Cephulac) 20 gm BID ORAL 11/27/16 10:45 12/27/16 10:44 12/04/16 17:20 Morphine Sulfate (Morphine Sulfate) 4 mg Q4H PRN IVP For Pain 4-10 12/03/16 05:45 12/10/16 05:44 12/04/16 17:21 Ondansetron HCl (Zofran) 4 mg Q6H PRN IVP Nausea & Vomiting 11/24/16 18:45 12/24/16 18:44 12/01/16 05:31 Zolpidem Tartrate (Ambien) 5 mg HSPRN PRN ORAL Insomnia 11/24/16 21:00 12/24/16 20:59 11/30/16 01:55 RHONDA PARKINSON Dec 04, 2016 18:50
[2016-12-04 20:00] VITALS: BP 113/72
[2016-12-05] VITALS (7 sets, daily range): BP systolic 98–109; BP diastolic 48–79
[2016-12-05] MEDS: Morphine Sulfate 4mg/ml Inj IVP PRN ×3 (00:54→18:24)
[2016-12-05] MEDS: Lactulose 20gm/30ml UDC ORAL SCH ×2 (08:38→17:24)
--- NOTE | 2016-12-05 09:33 | General Progress Note ---
Assessment/Plan Problem List: (1) ETOH abuse ICD Codes: F10.10 - Alcohol abuse, uncomplicated SNOMED: 11802808, 57990804 (2) Shock liver ICD Codes: K72.00 - Acute and subacute hepatic failure without coma SNOMED: 269364680 (3) Alcoholic cardiomyopathy ICD Codes: I42.6 - Alcoholic cardiomyopathy SNOMED: 576519420 (4) Anemia ICD Codes: D64.9 - Anemia, unspecified SNOMED: 590214333 Assessment/Plan monitor H&H placement per primary team hold GI procedure given low EF Subjective ROS Limited/Unobtainable: No Allergies: Coded Allergies: No Known Allergies (Unverified , 10/25/16) Objective Last 24 Hour Vital Signs Date Time Temp Pulse Resp B/P Pulse Ox O2 Delivery O2 Flow Rate FiO2 12/05/16 08:00 97.0 94 16 109/73 93 Room Air 12/05/16 05:28 96.8 12/05/16 04:00 97.2 111 22 108/74 100 Room Air 12/05/16 00:00 97.9 127 22 100/72 98 Room Air 12/04/16 20:00 96.8 115 22 113/72 93 Room Air 12/04/16 16:00 96.3 100 19 106/70 100 12/04/16 12:00 97.5 129 18 106/52 96 Room Air Intake and Output 12/04/16 12/05/16 19:00 07:00 Intake Total 1440 ml Output Total 350 ml Balance 1440 ml -350 ml Intake Oral 1440 ml Output Urine Total 350 ml # Voids 4 # Bowel Movements 1 Height (Feet): 6 Height (Inches): 0.00 Weight (Pounds): 150 General Appearance: no apparent distress EENT: normal ENT inspection Neck: supple Cardiovascular: normal rate Respiratory/Chest: decreased breath sounds Abdomen: normal bowel sounds, non tender, soft Extremities: non-tender ADRIAN BERG Dec 05, 2016 09:33
--- NOTE | 2016-12-05 23:21 | Pulmonology Progress Note ---
Assessment/Plan Problems: (1) Alcoholic liver disease (2) Alcoholic cardiomyopathy (3) ETOH abuse (4) Pleural effusion Assessment/Plan stable pt/ot dc planning dnr/dni f/u GI recommendations Subjective Allergies: Coded Allergies: No Known Allergies (Unverified , 10/25/16) Objective Last 24 Hour Vital Signs Date Time Temp Pulse Resp B/P Pulse Ox O2 Delivery O2 Flow Rate FiO2 12/05/16 20:00 97.9 118 18 98/70 100 Room Air 12/05/16 16:00 96.0 120 20 108/79 97 Nasal Cannula 3.0 12/05/16 12:00 96.6 104 18 104/75 97 Room Air 12/05/16 08:00 97.0 94 16 109/73 93 Room Air 12/05/16 05:28 96.8 12/05/16 04:00 97.2 111 22 108/74 100 Room Air 12/05/16 00:00 97.9 127 22 100/72 98 Room Air Intake and Output 12/04/16 12/05/16 19:00 07:00 Intake Total 1440 ml Output Total 350 ml Balance 1440 ml -350 ml Intake Oral 1440 ml Output Urine Total 350 ml # Voids 4 # Bowel Movements 2 Objective General Appearance: WD/WN, no apparent distress Lines, tubes and drains: peripheral HEENT: normocephalic, atraumatic Neck: non-tender, supple Respiratory/Chest: chest wall non-tender, rhonchi - bilaterally Cardiovascular/Chest: normal peripheral pulses, normal rate Abdomen: normal bowel sounds Genitourinary/Rectal: normal genital exam Extremities: normal range of motion Current Medications Medications (Trade) Dose Ordered Sig/Baudilio Route PRN Reason Start Time Stop Time Status Last Admin Dose Admin Acetaminophen (Tylenol) 650 mg Q4H PRN ORAL T>100.5 11/24/16 18:45 12/24/16 18:44 Al Hydroxide/Mg Hydroxide (Mylanta II) 30 ml Q6H PRN ORAL dyspepsia 11/24/16 18:45 12/24/16 18:44 12/05/16 17:24 Dextrose (Dextrose 50%) STAT PRN IV Hypoglycemia 11/24/16 18:45 12/24/16 18:44 Furosemide (Lasix) 40 mg Q12HR IV 12/03/16 21:00 01/02/17 20:59 12/05/16 21:38 Lactulose (Cephulac) 20 gm BID ORAL 11/27/16 10:45 12/27/16 10:44 12/05/16 17:24 Morphine Sulfate (Morphine Sulfate) 4 mg Q4H PRN IVP For Pain 4-12/03/16 05:45 12/10/16 05:44 12/05/16 18:24 Ondansetron HCl (Zofran) 4 mg Q6H PRN IVP Nausea & Vomiting 11/24/16 18:45 12/24/16 18:44 12/05/16 20:38 Zolpidem Tartrate (Ambien) 5 mg HSPRN PRN ORAL Insomnia 11/24/16 21:00 12/24/16 20:59 11/30/16 01:55 RHONDA PARKINSON Dec 05, 2016 23:21
[2016-12-06] VITALS: BP 105/70
[2016-12-06] MEDS: Morphine Sulfate 4mg/ml Inj IVP PRN ×3 (00:18→10:06)
[2016-12-06 04:00] VITALS: BP 109/77
[2016-12-06 08:44] VITALS: BP 105/73
[2016-12-06] MEDS: Lactulose 20gm/30ml UDC ORAL SCH ×2 (10:06→17:39)
--- NOTE | 2016-12-06 10:50 | GI Progress Note ---
Assessment/Plan Problems: (1) Abdominal pain ICD Codes: R10.9 - Unspecified abdominal pain SNOMED: 74950678 (2) Hypoalbuminemia ICD Codes: E88.09 - Other disorders of plasma-protein metabolism, not elsewhere classified SNOMED: 573946071 (3) Anemia ICD Codes: D64.9 - Anemia, unspecified SNOMED: 510237451 (4) Alcoholic liver disease ICD Codes: K70.9 - Alcoholic liver disease, unspecified SNOMED: 17871461 (5) Alcoholic cardiomyopathy ICD Codes: I42.6 - Alcoholic cardiomyopathy SNOMED: 155674253 (6) ETOH abuse ICD Codes: F10.10 - Alcohol abuse, uncomplicated SNOMED: 20734374, 61520872 Status: unchanged Status Narrative Discussed with Dr. Dominguez. Assessment/Plan GI procedures on hold for now with EF of 10% BUE/BLE + 3 >> Lasix BID monitor H&H, transfuse prn zofran prn H2 fu labs avoid ETOH low sodium diet placement per primary Subjective Gastrointestinal/Abdominal: Reports: no symptoms Subjective extremity edema Objective Last 24 Hour Vital Signs Date Time Temp Pulse Resp B/P Pulse Ox O2 Delivery O2 Flow Rate FiO2 12/06/16 08:44 97.2 105 21 105/73 98 Room Air 12/06/16 05:46 97.7 12/06/16 04:00 97.7 118 18 109/77 96 Room Air 12/06/16 00:00 97.8 123 18 105/70 97 Room Air 12/05/16 20:00 97.9 118 18 98/70 100 Room Air 12/05/16 16:00 96.0 120 20 108/79 97 Nasal Cannula 3.0 12/05/16 12:00 96.6 104 18 104/75 97 Room Air Intake and Output 12/05/16 12/06/16 19:00 07:00 Intake Total 680 ml 360 ml Balance 680 ml 360 ml Intake Oral 680 ml 360 ml # Voids 3 2 Height (Feet): 6 Height (Inches): 0.00 Weight (Pounds): 150 General Appearance: no apparent distress, alert Cardiovascular: normal rate Respiratory/Chest: normal breath sounds, no respiratory distress Abdominal Exam: normal bowel sounds, non tender, soft Extremities: normal range of motion, other - BUE/BLE +3 BrionesMelanie gay N.P. Dec 06, 2016 10:50
[2016-12-06 12:00] VITALS: BP 113/76
[2016-12-06] MEDS: Furosemide 40mg tab ORAL SCH ×2 (12:36→20:54)
[2016-12-06] MEDS: Norco 5mg/325mg tab ORAL PRN ×3 (12:37→22:00)
[2016-12-06 16:00] VITALS: BP 99/73
--- NOTE | 2016-12-06 19:18 | Pulmonology Progress Note ---
Assessment/Plan Problems: (1) Alcoholic liver disease (2) Alcoholic cardiomyopathy (3) ETOH abuse (4) Pleural effusion Assessment/Plan stable pt/ot dc planning dnr/dni f/u GI recommendations Subjective ROS Limited/Unobtainable: No Allergies: Coded Allergies: No Known Allergies (Unverified , 10/25/16) Objective Last 24 Hour Vital Signs Date Time Temp Pulse Resp B/P Pulse Ox O2 Delivery O2 Flow Rate FiO2 12/06/16 16:00 97.5 105 19 99/73 100 Nasal Cannula 12/06/16 12:00 97.2 128 20 113/76 91 Nasal Cannula 12/06/16 08:44 97.2 105 21 105/73 98 Room Air 12/06/16 05:46 97.7 12/06/16 04:00 97.7 118 18 109/77 96 Room Air 12/06/16 00:00 97.8 123 18 105/70 97 Room Air 12/05/16 20:00 97.9 118 18 98/70 100 Room Air Intake and Output 12/05/16 12/06/16 19:00 07:00 Intake Total 680 ml 360 ml Balance 680 ml 360 ml Intake Oral 680 ml 360 ml # Voids 3 2 Objective General Appearance: WD/WN, no apparent distress Lines, tubes and drains: peripheral HEENT: normocephalic, atraumatic Neck: non-tender, supple Respiratory/Chest: chest wall non-tender, rhonchi - bilaterally Cardiovascular/Chest: normal peripheral pulses, normal rate Abdomen: normal bowel sounds Genitourinary/Rectal: normal genital exam Extremities: normal range of motion Current Medications Medications (Trade) Dose Ordered Sig/Baudilio Route PRN Reason Start Time Stop Time Status Last Admin Dose Admin Acetaminophen (Tylenol) 650 mg Q4H PRN ORAL T>100.5 11/24/16 18:45 12/24/16 18:44 Acetaminophen/ Hydrocodone Bitart ([place] 5/325) 1 tab Q4H PRN ORAL Moderate Pain (Pain Scale 4-6) 12/06/16 12:15 12/13/16 12:14 12/06/16 17:39 Al Hydroxide/Mg Hydroxide (Mylanta II) 30 ml Q6H PRN ORAL dyspepsia 11/24/16 18:45 12/24/16 18:44 12/05/16 17:24 Dextrose (Dextrose 50%) STAT PRN IV Hypoglycemia 11/24/16 18:45 12/24/16 18:44 Furosemide (Lasix) 40 mg EVERY 12 HOURS ORAL 12/06/16 12:15 01/05/17 12:14 12/06/16 12:36 Lactulose (Cephulac) 20 gm BID ORAL 11/27/16 10:45 12/27/16 10:44 12/06/16 17:39 Ondansetron HCl (Zofran) 4 mg Q6H PRN IVP Nausea & Vomiting 11/24/16 18:45 12/24/16 18:44 12/05/16 20:38 Zolpidem Tartrate (Ambien) 5 mg HSPRN PRN ORAL Insomnia 11/24/16 21:00 12/24/16 20:59 11/30/16 01:55 RHONDA PARKINSON Dec 06, 2016 19:18
[2016-12-06 20:00] VITALS: BP 105/70
[2016-12-07] VITALS (7 sets, daily range): BP systolic 99–116; BP diastolic 66–81
[2016-12-07] MEDS: Norco 5mg/325mg tab ORAL PRN ×3 (04:01→21:08)
[2016-12-07] MEDS: Lactulose 20gm/30ml UDC ORAL SCH ×2 (09:35→18:00)
[2016-12-07] MEDS: Furosemide 40mg tab ORAL SCH ×2 (09:39→20:46)
--- NOTE | 2016-12-07 09:42 | GI Progress Note ---
Assessment/Plan Problems: (1) Abdominal pain ICD Codes: R10.9 - Unspecified abdominal pain SNOMED: 41060778 (2) Hypoalbuminemia ICD Codes: E88.09 - Other disorders of plasma-protein metabolism, not elsewhere classified SNOMED: 500282085 (3) Anemia ICD Codes: D64.9 - Anemia, unspecified SNOMED: 573736266 (4) Alcoholic liver disease ICD Codes: K70.9 - Alcoholic liver disease, unspecified SNOMED: 70449107 (5) Alcoholic cardiomyopathy ICD Codes: I42.6 - Alcoholic cardiomyopathy SNOMED: 020602387 (6) ETOH abuse ICD Codes: F10.10 - Alcohol abuse, uncomplicated SNOMED: 57243956, 72881955 Status: stable, unchanged Status Narrative Discussed with Dr. Dominguez. Assessment/Plan GI procedures on hold for now with EF of 10% BUE/BLE + 3 >> Lasix BID monitor H&H, transfuse prn zofran prn H2 fu labs avoid ETOH low sodium diet placement per primary Subjective Subjective extremity edema Objective Last 24 Hour Vital Signs Date Time Temp Pulse Resp B/P Pulse Ox O2 Delivery O2 Flow Rate FiO2 12/07/16 08:27 97.1 110 20 101/81 99 Room Air 12/07/16 05:00 96.4 12/07/16 03:57 96.4 122 18 99/77 93 Room Air 12/07/16 00:30 96 Nasal Cannula 2.0 12/07/16 00:00 97.8 137 18 105/81 90 Room Air 12/06/16 20:00 97.6 109 18 105/70 91 Room Air 12/06/16 16:00 97.5 105 19 99/73 100 Nasal Cannula 12/06/16 12:00 97.2 128 20 113/76 91 Nasal Cannula Intake and Output 12/06/16 12/07/16 19:00 07:00 Intake Total 220 ml Output Total 300 ml Balance -300 ml 220 ml Intake Oral 220 ml Output Urine Total 300 ml # Voids 2 Height (Feet): 6 Height (Inches): 0.00 Weight (Pounds): 188 General Appearance: no apparent distress, alert Cardiovascular: normal rate Respiratory/Chest: normal breath sounds, no respiratory distress Abdominal Exam: normal bowel sounds, non tender, soft, distended, ascites Extremities: other - All extremity +3 edema Briones,Melanie Santhosh N.P. Dec 07, 2016 09:42
[2016-12-07 13:09] LABS: BASOPHILS % (AUTO) 0.7 % (0.0-2.0); EOSINOPHILS % (AUTO) 0.2 % (0.0-3.0); LYMPHOCYTES % (AUTO) 14.4 % (20.0-45.0); MEAN CORPUSCULAR HEMOGLOBIN 27.7 PG (27.0-31.0); MEAN CORPUSCULAR HGB CONC 30.6 G/DL (32.0-36.0); MEAN CORPUSCULAR VOLUME 90 FL (80-99); MEAN PLATELET VOLUME 8.5 FL (6.5-10.1); MONOCYTES % (AUTO) 9.3 % (1.0-10.0); NEUTROPHILS % (AUTO) 75.4 % (45.0-75.0); PLATELET COUNT 143 K/UL (150-450); RED BLOOD COUNT 4.68 M/UL (4.70-6.10); RED CELL DISTRIBUTION WIDTH 18.5 % (11.6-14.8); WHITE BLOOD COUNT 11.3 K/UL (4.8-10.8)
[2016-12-07 13:20] LABS: CALCIUM 8.3 mg/dL (8.6-10.2); CREATININE 1.5 mg/dL (0.7-1.2); GLOMERULAR FILTRATION RATE 52.1 mL/min (>60); POTASSIUM 3.5 mEQ/L (3.4-4.9)
--- NOTE | 2016-12-07 23:23 | Pulmonology Progress Note ---
Assessment/Plan Problems: (1) Alcoholic liver disease (2) Alcoholic cardiomyopathy (3) ETOH abuse (4) Pleural effusion Assessment/Plan stable pt/ot dc planning dnr/dni f/u GI recommendations Subjective ROS Limited/Unobtainable: No Allergies: Coded Allergies: No Known Allergies (Unverified , 10/25/16) Objective Last 24 Hour Vital Signs Date Time Temp Pulse Resp B/P Pulse Ox O2 Delivery O2 Flow Rate FiO2 12/07/16 22:07 97.7 12/07/16 20:00 97.7 134 18 109/68 97 Room Air 12/07/16 16:10 98.0 112 20 116/80 99 Room Air 12/07/16 12:27 98.2 114 20 110/73 100 Room Air 12/07/16 08:27 97.1 110 20 101/81 99 Room Air 12/07/16 03:57 96.4 122 18 99/77 93 Room Air 12/07/16 00:30 96 Nasal Cannula 2.0 12/07/16 00:00 97.8 137 18 105/81 90 Room Air Intake and Output 12/06/16 12/07/16 19:00 07:00 Intake Total 220 ml Output Total 300 ml Balance -300 ml 220 ml Intake Oral 220 ml Output Urine Total 300 ml # Voids 2 Objective General Appearance: WD/WN, no apparent distress Lines, tubes and drains: peripheral HEENT: normocephalic, atraumatic Neck: non-tender, supple Respiratory/Chest: chest wall non-tender, rhonchi - bilaterally Cardiovascular/Chest: normal peripheral pulses, normal rate Abdomen: normal bowel sounds Genitourinary/Rectal: normal genital exam Extremities: normal range of motion Laboratory Tests 12/07/16 12:15: White Blood Count 11.3H, Red Blood Count 4.68L, Hemoglobin 12.9L, Hematocrit 42.3, Mean Corpuscular Volume 90, Mean Corpuscular Hemoglobin 27.7, Mean Corpuscular Hemoglobin Concent 30.6L, Red Cell Distribution Width 18.5H, Platelet Count 143L, Mean Platelet Volume 8.5, Neutrophils (%) (Auto) 75.4H, Lymphocytes (%) (Auto) 14.4L, Monocytes (%) (Auto) 9.3, Eosinophils (%) (Auto) 0.2, Basophils (%) (Auto) 0.7, Sodium Level 132L, Potassium Level 3.5, Chloride Level 92L, Carbon Dioxide Level 25, Anion Gap 15, Blood Urea Nitrogen 38H, Creatinine 1.5H, Estimat Glomerular Filtration Rate 52.1, Glucose Level 126H, Calcium Level 8.3L Current Medications Medications (Trade) Dose Ordered Sig/Baudilio Route PRN Reason Start Time Stop Time Status Last Admin Dose Admin Acetaminophen (Tylenol) 650 mg Q4H PRN ORAL T>100.5 11/24/16 18:45 12/24/16 18:44 Acetaminophen/ Hydrocodone Bitart ([place] 5/325) 1 tab Q4H PRN ORAL Moderate Pain (Pain Scale 4-6) 12/06/16 12:15 12/13/16 12:14 12/07/16 21:08 Al Hydroxide/Mg Hydroxide (Mylanta II) 30 ml Q6H PRN ORAL dyspepsia 11/24/16 18:45 12/24/16 18:44 12/05/16 17:24 Dextrose (Dextrose 50%) STAT PRN IV Hypoglycemia 11/24/16 18:45 12/24/16 18:44 Furosemide (Lasix) 40 mg EVERY 12 HOURS ORAL 12/06/16 12:15 01/05/17 12:14 12/07/16 20:46 Lactulose (Cephulac) 20 gm BID ORAL 11/27/16 10:45 12/27/16 10:44 12/07/16 18:00 Ondansetron HCl (Zofran) 4 mg Q6H PRN IVP Nausea & Vomiting 11/24/16 18:45 12/24/16 18:44 12/05/16 20:38 Zolpidem Tartrate (Ambien) 5 mg HSPRN PRN ORAL Insomnia 11/24/16 21:00 12/24/16 20:59 11/30/16 01:55 RHONDA PARKINSON Dec 07, 2016 23:23
[2016-12-08 04:00] VITALS: BP 102/78
[2016-12-08] MEDS: Norco 5mg/325mg tab ORAL PRN ×3 (04:15→13:26)
[2016-12-08 08:00] VITALS: BP 109/68
[2016-12-08] MEDS: Furosemide 40mg tab ORAL SCH ×2 (09:10→20:56)
[2016-12-08] MEDS: Lactulose 20gm/30ml UDC ORAL SCH ×2 (09:30→18:20)
[2016-12-08 11:48] LABS: BASOPHILS % (AUTO) 0.6 % (0.0-2.0); EOSINOPHILS % (AUTO) 0.3 % (0.0-3.0); LYMPHOCYTES % (AUTO) 18.1 % (20.0-45.0); MEAN CORPUSCULAR HEMOGLOBIN 27.6 PG (27.0-31.0); MEAN CORPUSCULAR HGB CONC 30.3 G/DL (32.0-36.0); MEAN CORPUSCULAR VOLUME 91 FL (80-99); MEAN PLATELET VOLUME 8.9 FL (6.5-10.1); MONOCYTES % (AUTO) 7.1 % (1.0-10.0); PLATELET COUNT 151 K/UL (150-450); RED BLOOD COUNT 4.73 M/UL (4.70-6.10); RED CELL DISTRIBUTION WIDTH 18.7 % (11.6-14.8)
[2016-12-08 11:56] LABS: ANION GAP 19 (5-15); CALCIUM 8.1 mg/dL (8.6-10.2); CARBON DIOXIDE 24 mEQ/L (20-30); CHLORIDE 88 mEQ/L (98-107); CREATININE 1.3 mg/dL (0.7-1.2); GLOMERULAR FILTRATION RATE > 60 mL/min (>60); HEMOLYSIS 3; POTASSIUM 3.5 mEQ/L (3.4-4.9); SODIUM 131 mEQ/L (135-145)
[2016-12-08 12:00] VITALS: BP 105/76
--- NOTE | 2016-12-08 12:27 | GI Progress Note ---
Assessment/Plan Problems: (1) Abdominal pain ICD Codes: R10.9 - Unspecified abdominal pain SNOMED: 65197921 (2) Hypoalbuminemia ICD Codes: E88.09 - Other disorders of plasma-protein metabolism, not elsewhere classified SNOMED: 170832504 (3) Anemia ICD Codes: D64.9 - Anemia, unspecified SNOMED: 956779911 (4) Alcoholic liver disease ICD Codes: K70.9 - Alcoholic liver disease, unspecified SNOMED: 60140262 (5) Alcoholic cardiomyopathy ICD Codes: I42.6 - Alcoholic cardiomyopathy SNOMED: 230884274 (6) ETOH abuse ICD Codes: F10.10 - Alcohol abuse, uncomplicated SNOMED: 35307040, 24158464 Status: stable Status Narrative Discussed with Dr. Dominguez. Assessment/Plan GI procedures on hold for now with EF of 10% BUE/BLE + 3 >> Lasix BID monitor H&H, transfuse prn zofran prn H2 fu labs avoid ETOH low sodium diet placement per primary Subjective Subjective extremity edema Objective Last 24 Hour Vital Signs Date Time Temp Pulse Resp B/P Pulse Ox O2 Delivery O2 Flow Rate FiO2 12/08/16 10:09 97.4 12/08/16 08:00 96.8 111 14 109/68 95 Room Air 12/08/16 04:00 96.7 133 19 102/78 90 Room Air 12/07/16 23:39 97.4 128 18 106/66 96 Room Air 12/07/16 20:00 97.7 134 18 109/68 97 Room Air 12/07/16 16:10 98.0 112 20 116/80 99 Room Air 12/07/16 12:27 98.2 114 20 110/73 100 Room Air Intake and Output 12/07/16 12/08/16 19:00 07:00 Intake Total 600 ml 175 ml Balance 600 ml 175 ml Intake Oral 600 ml 175 ml # Voids 1 1 Laboratory Tests Test 12/08/16 11:20 White Blood Count 12.0 K/UL (4.8-10.8) H Red Blood Count 4.73 M/UL (4.70-6.10) Hemoglobin 13.1 G/DL (14.2-18.0) L Hematocrit 43.1 % (42.0-52.0) Mean Corpuscular Volume 91 FL (80-99) Mean Corpuscular Hemoglobin 27.6 PG (27.0-31.0) Mean Corpuscular Hemoglobin Concent 30.3 G/DL (32.0-36.0) L Red Cell Distribution Width 18.7 % (11.6-14.8) H Platelet Count 151 K/UL (150-450) Mean Platelet Volume 8.9 FL (6.5-10.1) Neutrophils (%) (Auto) 74.0 % (45.0-75.0) Lymphocytes (%) (Auto) 18.1 % (20.0-45.0) L Monocytes (%) (Auto) 7.1 % (1.0-10.0) Eosinophils (%) (Auto) 0.3 % (0.0-3.0) Basophils (%) (Auto) 0.6 % (0.0-2.0) Sodium Level 131 mEQ/L (135-145) L Potassium Level 3.5 mEQ/L (3.4-4.9) Chloride Level 88 mEQ/L (98-107) L Carbon Dioxide Level 24 mEQ/L (20-30) Anion Gap 19 (5-15) H Blood Urea Nitrogen 34 mg/dL (7-23) H Creatinine 1.3 mg/dL (0.7-1.2) H Estimat Glomerular Filtration Rate > 60 mL/min (>60) Glucose Level 152 mg/dL (74-106) H Calcium Level 8.1 mg/dL (8.6-10.2) L Height (Feet): 6 Height (Inches): 0.00 Weight (Pounds): 185 General Appearance: no apparent distress, alert Cardiovascular: regular rhythm Respiratory/Chest: no respiratory distress Abdominal Exam: normal bowel sounds, non tender, soft, ascites Extremities: normal range of motion Objective all extremity edema +3 Melanie Briones N.P. Dec 08, 2016 12:27
[2016-12-08] MEDS: Morphine Sulfate 4mg/ml Inj IVP PRN ×2 (15:37→20:35)
[2016-12-08 16:00] VITALS: BP 99/72
--- NOTE | 2016-12-08 16:24 | Pulmonology Progress Note ---
Assessment/Plan Problems: (1) Alcoholic liver disease (2) Alcoholic cardiomyopathy (3) ETOH abuse (4) Pleural effusion Assessment/Plan stable pt/ot dc planning dnr/dni f/u GI recommendations Subjective ROS Limited/Unobtainable: No Allergies: Coded Allergies: No Known Allergies (Unverified , 10/25/16) Objective Last 24 Hour Vital Signs Date Time Temp Pulse Resp B/P Pulse Ox O2 Delivery O2 Flow Rate FiO2 12/08/16 16:07 97.0 12/08/16 14:25 97.0 12/08/16 12:00 97.0 111 20 105/76 99 Room Air 12/08/16 08:00 96.8 111 14 109/68 95 Room Air 12/08/16 04:00 96.7 133 19 102/78 90 Room Air 12/07/16 23:39 97.4 128 18 106/66 96 Room Air 12/07/16 20:00 97.7 134 18 109/68 97 Room Air Intake and Output 12/07/16 12/08/16 19:00 07:00 Intake Total 600 ml 175 ml Balance 600 ml 175 ml Intake Oral 600 ml 175 ml # Voids 1 1 Objective General Appearance: WD/WN, no apparent distress Lines, tubes and drains: peripheral HEENT: normocephalic, atraumatic Neck: non-tender, supple Respiratory/Chest: chest wall non-tender, rhonchi - bilaterally Cardiovascular/Chest: normal peripheral pulses, normal rate Abdomen: normal bowel sounds Genitourinary/Rectal: normal genital exam Extremities: normal range of motion Laboratory Tests 12/08/16 11:20: White Blood Count 12.0H, Red Blood Count 4.73, Hemoglobin 13.1L, Hematocrit 43.1 , Mean Corpuscular Volume 91, Mean Corpuscular Hemoglobin 27.6, Mean Corpuscular Hemoglobin Concent 30.3L, Red Cell Distribution Width 18.7H, Platelet Count 151, Mean Platelet Volume 8.9, Neutrophils (%) (Auto) 74.0, Lymphocytes (%) (Auto) 18.1L, Monocytes (%) (Auto) 7.1, Eosinophils (%) (Auto) 0.3, Basophils (%) (Auto) 0.6, Sodium Level 131L, Potassium Level 3.5, Chloride Level 88L, Carbon Dioxide Level 24, Anion Gap 19H, Blood Urea Nitrogen 34H, Creatinine 1.3H, Estimat Glomerular Filtration Rate > 60, Glucose Level 152H, Calcium Level 8.1L Current Medications Medications (Trade) Dose Ordered Sig/Baudilio Route PRN Reason Start Time Stop Time Status Last Admin Dose Admin Acetaminophen (Tylenol) 650 mg Q4H PRN ORAL T>100.5 11/24/16 18:45 12/24/16 18:44 Acetaminophen/ Hydrocodone Bitart ([place] 5/325) 1 tab Q4H PRN ORAL Moderate Pain (Pain Scale 4-6) 12/06/16 12:15 12/13/16 12:14 12/08/16 13:26 Al Hydroxide/Mg Hydroxide (Mylanta II) 30 ml Q6H PRN ORAL dyspepsia 11/24/16 18:45 12/24/16 18:44 12/05/16 17:24 Dextrose (Dextrose 50%) STAT PRN IV Hypoglycemia 11/24/16 18:45 12/24/16 18:44 Furosemide (Lasix) 40 mg EVERY 12 HOURS ORAL 12/06/16 12:15 01/05/17 12:14 12/08/16 09:10 Lactulose (Cephulac) 20 gm BID ORAL 11/27/16 10:45 12/27/16 10:44 12/08/16 09:30 Morphine Sulfate (Morphine Sulfate) 4 mg Q4H PRN IVP Severe Pain (Pain Scale 7-10) 12/08/16 15:00 12/15/16 14:59 12/08/16 15:37 Ondansetron HCl (Zofran) 4 mg Q6H PRN IVP Nausea & Vomiting 11/24/16 18:45 12/24/16 18:44 12/05/16 20:38 Zolpidem Tartrate (Ambien) 5 mg HSPRN PRN ORAL Insomnia 11/24/16 21:00 12/24/16 20:59 11/30/16 01:55 RHONDA PARKINSON Dec 08, 2016 16:24
[2016-12-08 20:00] VITALS: BP 127/72
[2016-12-09] VITALS (7 sets, daily range): BP systolic 93–130; BP diastolic 40–78
[2016-12-09] MEDS: Furosemide 40mg tab ORAL SCH ×2 (08:29→20:27)
[2016-12-09] MEDS: Lactulose 20gm/30ml UDC ORAL SCH ×2 (08:29→17:44)
[2016-12-09] MEDS: Morphine Sulfate 4mg/ml Inj IVP PRN ×3 (08:30→20:29)
--- NOTE | 2016-12-09 11:18 | GI Progress Note ---
Assessment/Plan Problems: (1) Abdominal pain ICD Codes: R10.9 - Unspecified abdominal pain SNOMED: 14534163 (2) Hypoalbuminemia ICD Codes: E88.09 - Other disorders of plasma-protein metabolism, not elsewhere classified SNOMED: 209533304 (3) Anemia ICD Codes: D64.9 - Anemia, unspecified SNOMED: 907659946 (4) Alcoholic liver disease ICD Codes: K70.9 - Alcoholic liver disease, unspecified SNOMED: 97782343 (5) Alcoholic cardiomyopathy ICD Codes: I42.6 - Alcoholic cardiomyopathy SNOMED: 962226174 (6) ETOH abuse ICD Codes: F10.10 - Alcohol abuse, uncomplicated SNOMED: 34977084, 12482865 Status: stable, unchanged Status Narrative Discussed with Dr. Dominguez. Assessment/Plan GI procedures on hold for now with EF of 10% BUE/BLE + 3 >> Lasix BID monitor H&H, transfuse prn zofran prn H2 fu labs avoid ETOH low sodium diet placement per primary Subjective Gastrointestinal/Abdominal: Reports: no symptoms Subjective extremity edema Objective Last 24 Hour Vital Signs Date Time Temp Pulse Resp B/P Pulse Ox O2 Delivery O2 Flow Rate FiO2 12/09/16 09:00 96.3 12/09/16 07:46 96.3 100 19 119/75 94 Room Air 12/09/16 04:10 97.0 107 20 104/40 100 Room Air 12/09/16 00:00 97.5 107 22 93/62 90 Room Air 12/08/16 20:00 97.3 126 24 127/72 94 Room Air 12/08/16 16:00 97.7 134 16 99/72 95 Room Air 12/08/16 14:25 97.0 12/08/16 12:00 97.0 111 20 105/76 99 Room Air Intake and Output 12/08/16 12/09/16 19:00 07:00 Intake Total 540 ml 120 ml Balance 540 ml 120 ml Intake Oral 540 ml 120 ml Laboratory Tests Test 12/08/16 11:20 White Blood Count 12.0 K/UL (4.8-10.8) H Red Blood Count 4.73 M/UL (4.70-6.10) Hemoglobin 13.1 G/DL (14.2-18.0) L Hematocrit 43.1 % (42.0-52.0) Mean Corpuscular Volume 91 FL (80-99) Mean Corpuscular Hemoglobin 27.6 PG (27.0-31.0) Mean Corpuscular Hemoglobin Concent 30.3 G/DL (32.0-36.0) L Red Cell Distribution Width 18.7 % (11.6-14.8) H Platelet Count 151 K/UL (150-450) Mean Platelet Volume 8.9 FL (6.5-10.1) Neutrophils (%) (Auto) 74.0 % (45.0-75.0) Lymphocytes (%) (Auto) 18.1 % (20.0-45.0) L Monocytes (%) (Auto) 7.1 % (1.0-10.0) Eosinophils (%) (Auto) 0.3 % (0.0-3.0) Basophils (%) (Auto) 0.6 % (0.0-2.0) Sodium Level 131 mEQ/L (135-145) L Potassium Level 3.5 mEQ/L (3.4-4.9) Chloride Level 88 mEQ/L (98-107) L Carbon Dioxide Level 24 mEQ/L (20-30) Anion Gap 19 (5-15) H Blood Urea Nitrogen 34 mg/dL (7-23) H Creatinine 1.3 mg/dL (0.7-1.2) H Estimat Glomerular Filtration Rate > 60 mL/min (>60) Glucose Level 152 mg/dL (74-106) H Calcium Level 8.1 mg/dL (8.6-10.2) L Height (Feet): 6 Height (Inches): 0.00 Weight (Pounds): 185 General Appearance: no apparent distress, alert Cardiovascular: normal rate, tachycardia Respiratory/Chest: normal breath sounds, no respiratory distress Abdominal Exam: normal bowel sounds, non tender, soft Extremities: normal range of motion Objective all extremity edema +3 >> improving Melanie Briones N.P. Dec 09, 2016 11:18
--- NOTE | 2016-12-09 16:53 | Pulmonology Progress Note ---
Assessment/Plan Problems: (1) Alcoholic liver disease (2) Alcoholic cardiomyopathy (3) ETOH abuse (4) Pleural effusion Assessment/Plan stable pt/ot dc planning dnr/dni f/u GI recommendations Subjective ROS Limited/Unobtainable: No Allergies: Coded Allergies: No Known Allergies (Unverified , 10/25/16) Objective Last 24 Hour Vital Signs Date Time Temp Pulse Resp B/P Pulse Ox O2 Delivery O2 Flow Rate FiO2 12/09/16 16:48 96.9 118 21 104/76 Room Air 12/09/16 16:16 97.9 12/09/16 12:05 97.9 121 21 102/78 92 Room Air 12/09/16 07:46 96.3 100 19 119/75 94 Room Air 12/09/16 04:10 97.0 107 20 104/40 100 Room Air 12/09/16 00:00 97.5 107 22 93/62 90 Room Air 12/08/16 20:00 97.3 126 24 127/72 94 Room Air Intake and Output 12/08/16 12/09/16 19:00 07:00 Intake Total 540 ml 120 ml Balance 540 ml 120 ml Intake Oral 540 ml 120 ml Objective General Appearance: WD/WN, no apparent distress Lines, tubes and drains: peripheral HEENT: normocephalic, atraumatic Neck: non-tender, supple Respiratory/Chest: chest wall non-tender, rhonchi - bilaterally Cardiovascular/Chest: normal peripheral pulses, normal rate Abdomen: normal bowel sounds Genitourinary/Rectal: normal genital exam Extremities: normal range of motion Current Medications Medications (Trade) Dose Ordered Sig/Baudilio Route PRN Reason Start Time Stop Time Status Last Admin Dose Admin Acetaminophen (Tylenol) 650 mg Q4H PRN ORAL T>100.5 11/24/16 18:45 12/24/16 18:44 Acetaminophen/ Hydrocodone Bitart ([place] 5/325) 1 tab Q4H PRN ORAL Moderate Pain (Pain Scale 4-6) 12/06/16 12:15 12/13/16 12:14 12/08/16 13:26 Al Hydroxide/Mg Hydroxide (Mylanta II) 30 ml Q6H PRN ORAL dyspepsia 11/24/16 18:45 12/24/16 18:44 12/05/16 17:24 Dextrose (Dextrose 50%) STAT PRN IV Hypoglycemia 11/24/16 18:45 12/24/16 18:44 Furosemide (Lasix) 40 mg EVERY 12 HOURS ORAL 12/06/16 12:15 01/05/17 12:14 12/09/16 08:29 Lactulose (Cephulac) 20 gm BID ORAL 11/27/16 10:45 12/27/16 10:44 12/09/16 08:29 Morphine Sulfate (Morphine Sulfate) 4 mg Q4H PRN IVP Severe Pain (Pain Scale 7-10) 12/08/16 15:00 12/15/16 14:59 12/09/16 15:46 Ondansetron HCl (Zofran) 4 mg Q6H PRN IVP Nausea & Vomiting 11/24/16 18:45 12/24/16 18:44 12/05/16 20:38 Zolpidem Tartrate (Ambien) 5 mg HSPRN PRN ORAL Insomnia 11/24/16 21:00 12/24/16 20:59 11/30/16 01:55 RHONDA PARKINSON Dec 09, 2016 16:53
[2016-12-10] VITALS: BP 112/80
[2016-12-10 04:00] VITALS: BP 98/62
[2016-12-10 07:28] LABS: BASOPHILS % (AUTO) 0.6 % (0.0-2.0); EOSINOPHILS % (AUTO) 0.1 % (0.0-3.0); LYMPHOCYTES % (AUTO) 19.6 % (20.0-45.0); MEAN CORPUSCULAR HEMOGLOBIN 28.1 PG (27.0-31.0); MEAN CORPUSCULAR VOLUME 91 FL (80-99); MEAN PLATELET VOLUME 8.3 FL (6.5-10.1); MONOCYTES % (AUTO) 7.9 % (1.0-10.0); NEUTROPHILS % (AUTO) 71.9 % (45.0-75.0); PLATELET COUNT 161 K/UL (150-450); RED BLOOD COUNT 4.38 M/UL (4.70-6.10); RED CELL DISTRIBUTION WIDTH 18.9 % (11.6-14.8); WHITE BLOOD COUNT 10.1 K/UL (4.8-10.8)
[2016-12-10 08:02] LABS: ALBUMIN/GLOBULIN RATIO 0.7 (1.0-2.7); CALCIUM 8.4 mg/dL (8.6-10.2); CREATININE 1.4 mg/dL (0.7-1.2); GLOMERULAR FILTRATION RATE 56.4 mL/min (>60); POTASSIUM 4.2 mEQ/L (3.4-4.9); TOTAL PROTEIN 5.8 g/dL (6.6-8.7)
[2016-12-10 08:19] LABS: BILIRUBIN,DIRECT 2.3 mg/dL (0.1-0.3)
[2016-12-10 08:22] VITALS: BP 101/78
[2016-12-10] MEDS: Morphine Sulfate 4mg/ml Inj IVP PRN ×2 (09:01→13:23)
[2016-12-10] MEDS: Lactulose 20gm/30ml UDC ORAL SCH ×2 (09:13→17:19)
[2016-12-10] MEDS: Furosemide 40mg tab ORAL SCH ×2 (09:13→20:49)
--- NOTE | 2016-12-10 09:37 | Pulmonology Progress Note ---
Assessment/Plan Assessment/Plan ASSESSMENT alcoholic nonischemic cardiomyopathy ETOH intoxication ETOH abuse systolic heart failure possible apical thrombus ( on last ECHO) end stage liver disease acute DVT bilateral LE , likely present on admission s/p IVC filter 11/26 ascites s/p paracentesis 11/26 coagulopathy acute renal failure moderate pulmonary HTN PLAN OF CARE MS floor Venous Duplex + acute DVT RLE CFV and acute DVR LLE popliteal s/p IVC filter s/p banana bag symptomatic treatment s/p paracentesis 11/26 Librium prn agitation, w/drawal, Ativan prn seizure check ammonia in am vit K x 1 a/emetic prn pain management bowel regimen DNR/DNI status overall prognosis poor , (EF 10%, possible apical thrombus, end stage liver disease) palliative care appropriate SS eval patient is homeless, will need placement case discussed and evaluated by supervising physician Subjective Allergies: Coded Allergies: No Known Allergies (Unverified , 10/25/16) Subjective on RA , sat stable no nausea, able to tolerate diet confused denies chest pain, SOB, cough s/p IVC filter 11/26 s/p paracentesis 11/26 INR-1.8 Objective Last 24 Hour Vital Signs Date Time Temp Pulse Resp B/P Pulse Ox O2 Delivery O2 Flow Rate FiO2 12/10/16 08:22 97.2 125 18 101/78 100 Room Air 12/10/16 04:00 98.8 105 20 98/62 98 Room Air 12/10/16 00:00 97.6 120 14 112/80 90 Room Air 12/09/16 20:59 96.9 12/09/16 20:00 96.4 135 24 130/67 91 Nasal Cannula 2.0 12/09/16 16:54 96.9 118 21 104/76 92 Room Air 2.0 12/09/16 16:48 96.9 118 21 104/76 Room Air 12/09/16 12:05 97.9 121 21 102/78 92 Room Air Intake and Output 12/09/16 12/10/16 19:00 07:00 Intake Total 480 ml 120 ml Balance 480 ml 120 ml Intake Oral 480 ml 120 ml # Voids 1 2 Objective General Appearance: no acute distress, awake, responsive HEENT: normocephalic, atraumatic, anicteric, icterus Respiratory/Chest: no accessory muscle use, decreased breath sounds Cardiovascular: normal peripheral pulses, regular rhythm, tachycardia Abdomen: normal bowel sounds, soft, distended, Genitourinary: normal external genitalia Extremities: other - +1 edema BLE 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: alert, responsive Musculoskeletal: normal muscle bulk Laboratory Tests 12/10/16 05:10: White Blood Count 10.1, Red Blood Count 4.38L, Hemoglobin 12.3L, Hematocrit 39.7L, Mean Corpuscular Volume 91, Mean Corpuscular Hemoglobin 28.1, Mean Corpuscular Hemoglobin Concent 31.0L, Red Cell Distribution Width 18.9H, Platelet Count 161, Mean Platelet Volume 8.3, Neutrophils (%) (Auto) 71.9, Lymphocytes (%) (Auto) 19.6L, Monocytes (%) (Auto) 7.9, Eosinophils (%) (Auto) 0.1, Basophils (%) (Auto) 0.6, Sodium Level 131L, Potassium Level 4.2, Chloride Level 87L, Carbon Dioxide Level 17L, Anion Gap 27H, Blood Urea Nitrogen 41H, Creatinine 1.4H, Estimat Glomerular Filtration Rate 56.4, Glucose Level 108H, Calcium Level 8.4L, Total Bilirubin 4.3H, Direct Bilirubin 2.3H, Aspartate Amino Transf (AST/SGOT) 22, Alanine Aminotransferase (ALT/SGPT) 22, Alkaline Phosphatase 231H, Total Protein 5.8L, Albumin 2.5L, Globulin 3.3, Albumin/ Globulin Ratio 0.7L Current Medications Medications (Trade) Dose Ordered Sig/Baudilio Route PRN Reason Start Time Stop Time Status Last Admin Dose Admin Acetaminophen (Tylenol) 650 mg Q4H PRN ORAL T>100.5 11/24/16 18:45 12/24/16 18:44 Acetaminophen/ Hydrocodone Bitart ([place] 5/325) 1 tab Q4H PRN ORAL Moderate Pain (Pain Scale 4-6) 12/06/16 12:15 12/13/16 12:14 12/08/16 13:26 Al Hydroxide/Mg Hydroxide (Mylanta II) 30 ml Q6H PRN ORAL dyspepsia 11/24/16 18:45 12/24/16 18:44 12/05/16 17:24 Dextrose (Dextrose 50%) STAT PRN IV Hypoglycemia 11/24/16 18:45 12/24/16 18:44 Furosemide (Lasix) 40 mg EVERY 12 HOURS ORAL 12/06/16 12:15 01/05/17 12:14 12/10/16 09:13 Lactulose (Cephulac) 20 gm BID ORAL 11/27/16 10:45 12/27/16 10:44 12/10/16 09:13 Morphine Sulfate (Morphine Sulfate) 4 mg Q4H PRN IVP Severe Pain (Pain Scale 7-10) 12/08/16 15:00 12/15/16 14:59 12/10/16 09:01 Ondansetron HCl (Zofran) 4 mg Q6H PRN IVP Nausea & Vomiting 11/24/16 18:45 12/24/16 18:44 12/05/16 20:38 Zolpidem Tartrate (Ambien) 5 mg HSPRN PRN ORAL Insomnia 11/24/16 21:00 12/24/16 20:59 11/30/16 01:55 [facility] Pat[facility] NP Dec 10, 2016 09:37
[2016-12-10 12:09] VITALS: BP 97/81
--- NOTE | 2016-12-10 12:25 | GI Progress Note ---
Assessment/Plan Problems: (1) Abdominal pain ICD Codes: R10.9 - Unspecified abdominal pain SNOMED: 93887898 (2) Hypoalbuminemia ICD Codes: E88.09 - Other disorders of plasma-protein metabolism, not elsewhere classified SNOMED: 519493693 (3) Anemia ICD Codes: D64.9 - Anemia, unspecified SNOMED: 312439846 (4) Alcoholic liver disease ICD Codes: K70.9 - Alcoholic liver disease, unspecified SNOMED: 94528862 (5) Alcoholic cardiomyopathy ICD Codes: I42.6 - Alcoholic cardiomyopathy SNOMED: 236118793 (6) ETOH abuse ICD Codes: F10.10 - Alcohol abuse, uncomplicated SNOMED: 10092052, 83683742 Status: stable, unchanged Status Narrative Discussed with Dr. Dominguez. Assessment/Plan GI procedures on hold for now with EF of 10% BUE/BLE + 3 >> Lasix BID ordered paracentesis monitor H&H, transfuse prn zofran prn H2 fu labs avoid ETOH low sodium diet placement per primary Subjective Subjective extremity edema Objective Last 24 Hour Vital Signs Date Time Temp Pulse Resp B/P Pulse Ox O2 Delivery O2 Flow Rate FiO2 12/10/16 12:09 95.7 135 17 97/81 96 Room Air 12/10/16 08:22 97.2 125 18 101/78 100 Room Air 12/10/16 04:00 98.8 105 20 98/62 98 Room Air 12/10/16 00:00 97.6 120 14 112/80 90 Room Air 12/09/16 20:59 96.9 12/09/16 20:00 96.4 135 24 130/67 91 Nasal Cannula 2.0 12/09/16 16:54 96.9 118 21 104/76 92 Room Air 2.0 12/09/16 16:48 96.9 118 21 104/76 Room Air Intake and Output 12/09/16 12/10/16 19:00 07:00 Intake Total 480 ml 120 ml Balance 480 ml 120 ml Intake Oral 480 ml 120 ml # Voids 1 2 Laboratory Tests Test 12/10/16 05:10 White Blood Count 10.1 K/UL (4.8-10.8) Red Blood Count 4.38 M/UL (4.70-6.10) L Hemoglobin 12.3 G/DL (14.2-18.0) L Hematocrit 39.7 % (42.0-52.0) L Mean Corpuscular Volume 91 FL (80-99) Mean Corpuscular Hemoglobin 28.1 PG (27.0-31.0) Mean Corpuscular Hemoglobin Concent 31.0 G/DL (32.0-36.0) L Red Cell Distribution Width 18.9 % (11.6-14.8) H Platelet Count 161 K/UL (150-450) Mean Platelet Volume 8.3 FL (6.5-10.1) Neutrophils (%) (Auto) 71.9 % (45.0-75.0) Lymphocytes (%) (Auto) 19.6 % (20.0-45.0) L Monocytes (%) (Auto) 7.9 % (1.0-10.0) Eosinophils (%) (Auto) 0.1 % (0.0-3.0) Basophils (%) (Auto) 0.6 % (0.0-2.0) Sodium Level 131 mEQ/L (135-145) L Potassium Level 4.2 mEQ/L (3.4-4.9) Chloride Level 87 mEQ/L (98-107) L Carbon Dioxide Level 17 mEQ/L (20-30) L Anion Gap 27 (5-15) H Blood Urea Nitrogen 41 mg/dL (7-23) H Creatinine 1.4 mg/dL (0.7-1.2) H Estimat Glomerular Filtration Rate 56.4 mL/min (>60) Glucose Level 108 mg/dL (74-106) H Calcium Level 8.4 mg/dL (8.6-10.2) L Total Bilirubin 4.3 mg/dL (0.0-1.2) H Direct Bilirubin 2.3 mg/dL (0.1-0.3) H Aspartate Amino Transf (AST/SGOT) 22 U/L (5-40) Alanine Aminotransferase (ALT/SGPT) 22 U/L (3-41) Alkaline Phosphatase 231 U/L (40-129) H Total Protein 5.8 g/dL (6.6-8.7) L Albumin 2.5 g/dL (3.5-5.2) L Globulin 3.3 g/dL Albumin/Globulin Ratio 0.7 (1.0-2.7) L Height (Feet): 6 Height (Inches): 0.00 Weight (Pounds): 182 General Appearance: no apparent distress, alert Cardiovascular: tachycardia Respiratory/Chest: no respiratory distress Abdominal Exam: ascites Extremities: normal range of motion Objective all extremity edema +3 >> slight improvement Melanie Briones N.P. Dec 10, 2016 12:25
[2016-12-10] MEDS ORDERED: Phytonadione 10 mg/mL 1ml amp SUBQ ONE (14:30)
[2016-12-10 16:03] VITALS: BP 95/60
[2016-12-10 20:00] VITALS: BP 116/73
[2016-12-11] VITALS (7 sets, daily range): BP systolic 97–116; BP diastolic 72–86
[2016-12-11] MEDS: Morphine Sulfate 4mg/ml Inj IVP PRN ×2 (03:11→13:44)
[2016-12-11] MEDS: Furosemide 40mg tab ORAL SCH ×2 (08:05→21:05)
[2016-12-11] MEDS: Lactulose 20gm/30ml UDC ORAL SCH ×2 (08:05→16:34)
--- NOTE | 2016-12-11 09:43 | Pulmonology Progress Note ---
Assessment/Plan Assessment/Plan ASSESSMENT alcoholic nonischemic cardiomyopathy ETOH intoxication ETOH abuse systolic heart failure possible apical thrombus ( on last ECHO) end stage liver disease acute DVT bilateral LE , likely present on admission s/p IVC filter 11/26 ascites s/p paracentesis 11/26 coagulopathy acute renal failure moderate pulmonary HTN PLAN OF CARE MS floor Venous Duplex + acute DVT RLE CFV and acute DVR LLE popliteal s/p IVC filter s/p banana bag symptomatic treatment s/p paracentesis 11/26 Librium prn agitation, w/drawal, Ativan prn seizure s/p vit K x 1 ammonia and INR this am pending a/emetic prn pain management bowel regimen DNR/DNI status overall prognosis poor , (EF 10%, possible apical thrombus, end stage liver disease) palliative care appropriate SS eval patient is homeless, need placement case discussed and evaluated by supervising physician Subjective Allergies: Coded Allergies: No Known Allergies (Unverified , 10/25/16) Subjective on RA , sat stable no nausea, able to tolerate diet confused denies chest pain, SOB, cough s/p IVC filter 11/26 s/p paracentesis 11/26 INR-1.8, vit K given 12/10 labs pending for this am Objective Last 24 Hour Vital Signs Date Time Temp Pulse Resp B/P Pulse Ox O2 Delivery O2 Flow Rate FiO2 12/11/16 08:18 96.3 104 21 112/75 95 Room Air 2.0 12/11/16 08:15 96.3 104 21 112/75 95 Room Air 12/11/16 04:00 97.5 119 18 105/73 92 Room Air 12/11/16 00:00 97.3 107 20 97/72 99 Room Air 12/10/16 20:00 96.1 110 20 116/73 100 Room Air 12/10/16 16:03 98.2 112 18 95/60 100 Room Air 12/10/16 12:09 95.7 135 17 97/81 96 Room Air Intake and Output 12/10/16 12/11/16 19:00 07:00 Intake Total 50 ml Balance 50 ml Intake Oral 50 ml # Voids 2 1 Objective General Appearance: no acute distress, awake, responsive HEENT: normocephalic, atraumatic, anicteric, icterus Respiratory/Chest: no accessory muscle use, decreased breath sounds Cardiovascular: normal peripheral pulses, regular rhythm, tachycardia Abdomen: normal bowel sounds, soft, distended, Genitourinary: normal external genitalia Extremities: other - +1 edema BLE 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: alert, responsive Musculoskeletal: normal muscle bulk Current Medications Medications (Trade) Dose Ordered Sig/Baudilio Route PRN Reason Start Time Stop Time Status Last Admin Dose Admin Acetaminophen (Tylenol) 650 mg Q4H PRN ORAL T>100.5 11/24/16 18:45 12/24/16 18:44 Acetaminophen/ Hydrocodone Bitart ([place] 5/325) 1 tab Q4H PRN ORAL Moderate Pain (Pain Scale 4-6) 12/06/16 12:15 12/13/16 12:14 12/08/16 13:26 Al Hydroxide/Mg Hydroxide (Mylanta II) 30 ml Q6H PRN ORAL dyspepsia 11/24/16 18:45 12/24/16 18:44 12/05/16 17:24 Dextrose (Dextrose 50%) STAT PRN IV Hypoglycemia 11/24/16 18:45 12/24/16 18:44 Furosemide (Lasix) 40 mg EVERY 12 HOURS ORAL 12/06/16 12:15 01/05/17 12:14 12/11/16 08:05 Lactulose (Cephulac) 20 gm BID ORAL 11/27/16 10:45 12/27/16 10:44 12/11/16 08:05 Morphine Sulfate (Morphine Sulfate) 4 mg Q4H PRN IVP Severe Pain (Pain Scale 7-10) 12/08/16 15:00 12/15/16 14:59 12/11/16 03:11 Ondansetron HCl (Zofran) 4 mg Q6H PRN IVP Nausea & Vomiting 11/24/16 18:45 12/24/16 18:44 12/05/16 20:38 Zolpidem Tartrate (Ambien) 5 mg HSPRN PRN ORAL Insomnia 11/24/16 21:00 12/24/16 20:59 11/30/16 01:55 Anabel Ritter NP ([place]) Dec 11, 2016 09:42
[2016-12-11] MEDS ORDERED: Norco 5mg/325mg tab ORAL PRN (12:15)
[2016-12-12] VITALS: BP 97/61
[2016-12-12] MEDS: Morphine Sulfate 10mg/ml Inj IVP PRN ×2 (02:45→12:52)
[2016-12-12 04:00] VITALS: BP 101/76
[2016-12-12 08:00] VITALS: BP 107/77
[2016-12-12 08:04] LABS: BASOPHILS % (AUTO) 0.6 % (0.0-2.0); EOSINOPHILS % (AUTO) 0.1 % (0.0-3.0); LYMPHOCYTES % (AUTO) 18.1 % (20.0-45.0); MEAN CORPUSCULAR HEMOGLOBIN 27.9 PG (27.0-31.0); MEAN CORPUSCULAR HGB CONC 30.8 G/DL (32.0-36.0); MEAN CORPUSCULAR VOLUME 91 FL (80-99); MEAN PLATELET VOLUME 7.9 FL (6.5-10.1); NEUTROPHILS % (AUTO) 73.2 % (45.0-75.0); PLATELET COUNT 124 K/UL (150-450); RED BLOOD COUNT 4.66 M/UL (4.70-6.10); RED CELL DISTRIBUTION WIDTH 19.2 % (11.6-14.8); WHITE BLOOD COUNT 10.2 K/UL (4.8-10.8)
[2016-12-12] MEDS: Lactulose 20gm/30ml UDC ORAL SCH ×2 (08:14→17:49)
[2016-12-12] MEDS: Furosemide 40mg tab ORAL SCH ×2 (08:14→20:30)
[2016-12-12 08:22] LABS: ALBUMIN/GLOBULIN RATIO 0.7 (1.0-2.7); CALCIUM 8.6 mg/dL (8.6-10.2); CREATININE 1.5 mg/dL (0.7-1.2); GLOMERULAR FILTRATION RATE 52.1 mL/min (>60); POTASSIUM 4.1 mEQ/L (3.4-4.9); TOTAL PROTEIN 6.2 g/dL (6.6-8.7)
[2016-12-12 08:55] LABS: BILIRUBIN,DIRECT 3.2 mg/dL (0.1-0.3)
[2016-12-12 11:50] VITALS: BP 95/73
--- NOTE | 2016-12-12 14:54 | Pulmonology Progress Note ---
Assessment/Plan Assessment/Plan ASSESSMENT alcoholic nonischemic cardiomyopathy ETOH intoxication ETOH abuse systolic heart failure possible apical thrombus ( on last ECHO) end stage liver disease acute DVT bilateral LE , likely present on admission s/p IVC filter 11/26 ascites s/p paracentesis 11/26 coagulopathy acute renal failure moderate pulmonary HTN PLAN OF CARE [facility] floor Venous Duplex + acute DVT RLE CFV and acute DVR LLE popliteal s/p IVC filter s/p banana bag symptomatic treatment s/p paracentesis 11/26 Librium prn agitation, w/drawal, Ativan prn seizure s/p vit K x 1 ammonia stable a/emetic prn pain management bowel regimen DNR/DNI status overall prognosis poor , (EF 10%, possible apical thrombus, end stage liver disease) palliative care appropriate SS eval patient is homeless, need placement case discussed and evaluated by supervising physician Subjective Allergies: Coded Allergies: No Known Allergies (Unverified , 10/25/16) Subjective on RA , sat stable no nausea, able to tolerate diet confused denies chest pain, SOB, cough s/p IVC filter 11/26 s/p paracentesis 11/26 INR-1.8, vit K given 12/10 Objective Last 24 Hour Vital Signs Date Time Temp Pulse Resp B/P Pulse Ox O2 Delivery O2 Flow Rate FiO2 12/12/16 13:22 97.3 12/12/16 11:50 97.3 101 22 95/73 100 Room Air 12/12/16 08:00 97.2 110 20 107/77 100 Room Air 12/12/16 04:00 96.8 80 18 101/76 91 Room Air 12/12/16 00:00 98.1 80 20 97/61 94 Room Air 12/11/16 20:00 97.2 75 18 105/82 94 Room Air 12/11/16 15:48 98.2 106 20 116/85 100 Room Air Intake and Output 12/11/16 12/12/16 19:00 07:00 Intake Total 460 ml 240 ml Balance 460 ml 240 ml Intake Oral 460 ml 240 ml # Voids 1 Objective General Appearance: no acute distress, awake, responsive HEENT: normocephalic, atraumatic, anicteric, icterus Respiratory/Chest: no accessory muscle use, decreased breath sounds Cardiovascular: normal peripheral pulses, regular rhythm, tachycardia Abdomen: normal bowel sounds, soft, distended, Genitourinary: normal external genitalia Extremities: other - +1 edema BLE 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: alert, responsive Musculoskeletal: normal muscle bulk Laboratory Tests 12/12/16 05:35: White Blood Count 10.2, Red Blood Count 4.66L, Hemoglobin 13.0L, Hematocrit 42.2 , Mean Corpuscular Volume 91, Mean Corpuscular Hemoglobin 27.9, Mean Corpuscular Hemoglobin Concent 30.8L, Red Cell Distribution Width 19.2H, Platelet Count 124L, Mean Platelet Volume 7.9, Neutrophils (%) (Auto) 73.2, Lymphocytes (%) (Auto) 18.1L, Monocytes (%) (Auto) 8.0, Eosinophils (%) (Auto) 0.1, Basophils (%) (Auto) 0.6, Sodium Level 133L, Potassium Level 4.1, Chloride Level 88L, Carbon Dioxide Level 20, Anion Gap 25H, Blood Urea Nitrogen 52H, Creatinine 1.5H, Estimat Glomerular Filtration Rate 52.1, Glucose Level 112H, Calcium Level 8.6, Total Bilirubin 4.9H, Direct Bilirubin 3.2H, Aspartate Amino Transf (AST/SGOT) 17, Alanine Aminotransferase (ALT/SGPT) 22, Alkaline Phosphatase 199H, Ammonia 30, Total Protein 6.2L, Albumin 2.7L, Globulin 3.5, Albumin/Globulin Ratio 0.7L Current Medications Medications (Trade) Dose Ordered Sig/Baudilio Route PRN Reason Start Time Stop Time Status Last Admin Dose Admin Acetaminophen (Tylenol) 650 mg Q4H PRN ORAL T>100.5 11/24/16 18:45 12/24/16 18:44 Acetaminophen/ Hydrocodone Bitart ([place] 5/325) 1 tab Q4H PRN ORAL Moderate Pain (Pain Scale 4-6) 12/11/16 12:15 12/18/16 12:14 Al Hydroxide/Mg Hydroxide (Mylanta II) 30 ml Q6H PRN ORAL dyspepsia 11/24/16 18:45 12/24/16 18:44 12/05/16 17:24 Dextrose (Dextrose 50%) STAT PRN IV Hypoglycemia 11/24/16 18:45 12/24/16 18:44 Furosemide (Lasix) 40 mg EVERY 12 HOURS ORAL 12/06/16 12:15 01/05/17 12:14 12/12/16 08:14 Lactulose (Cephulac) 20 gm BID ORAL 11/27/16 10:45 12/27/16 10:44 12/12/16 08:14 Morphine Sulfate (Morphine Sulfate) 6 mg Q4H PRN IVP Severe Pain (Pain Scale 7-10) 12/11/16 20:00 12/18/16 19:59 12/12/16 12:52 Ondansetron HCl (Zofran) 4 mg Q6H PRN IVP Nausea & Vomiting 11/24/16 18:45 12/24/16 18:44 12/05/16 20:38 Zolpidem Tartrate (Ambien) 5 mg HSPRN PRN ORAL Insomnia 11/24/16 21:00 12/24/16 20:59 11/30/16 01:55 [facility] NP Dec 12, 2016 14:54
[2016-12-12 16:07] VITALS: BP 97/79
[2016-12-12 19:52] VITALS: BP 124/87
[2016-12-13] VITALS: BP 100/73
[2016-12-13] MEDS: Morphine Sulfate 10mg/ml Inj IVP PRN ×2 (01:22→14:13)
[2016-12-13 03:46] VITALS: BP 112/85
[2016-12-13 06:41] LABS: INR 1.8 (0.9-1.1); PROTHROMBIN TIME 18.6 SEC (9.30-11.50)
[2016-12-13 08:00] VITALS: BP 121/78
[2016-12-13] MEDS: Furosemide 40mg tab ORAL SCH ×2 (08:28→20:44)
[2016-12-13] MEDS: Lactulose 20gm/30ml UDC ORAL SCH ×2 (08:28→18:00)
--- NOTE | 2016-12-13 10:45 | GI Progress Note ---
Assessment/Plan Problems: (1) Abdominal pain ICD Codes: R10.9 - Unspecified abdominal pain SNOMED: 07967903 (2) Hypoalbuminemia ICD Codes: E88.09 - Other disorders of plasma-protein metabolism, not elsewhere classified SNOMED: 643142419 (3) Anemia ICD Codes: D64.9 - Anemia, unspecified SNOMED: 755006244 (4) Alcoholic liver disease ICD Codes: K70.9 - Alcoholic liver disease, unspecified SNOMED: 73429096 (5) Alcoholic cardiomyopathy ICD Codes: I42.6 - Alcoholic cardiomyopathy SNOMED: 848001524 (6) ETOH abuse ICD Codes: F10.10 - Alcohol abuse, uncomplicated SNOMED: 84405633, 37618038 Status: stable, unchanged Status Narrative Discussed with Dr. Dominguez. Assessment/Plan GI procedures on hold for now with EF of 10% BUE/BLE + 3 >> Lasix BID paracentesis pending monitor H&H, transfuse prn zofran prn H2 fu labs avoid ETOH lactulose low sodium diet placement per primary Subjective Subjective extremity edema Objective Last 24 Hour Vital Signs Date Time Temp Pulse Resp B/P Pulse Ox O2 Delivery O2 Flow Rate FiO2 12/13/16 08:00 97.1 118 18 121/78 100 Nasal Cannula 2.0 12/13/16 03:46 97.9 106 21 112/85 96 Room Air 12/13/16 01:53 97.1 12/13/16 00:00 97.1 111 21 100/73 Room Air 12/12/16 19:52 98.1 137 19 124/87 83 Room Air 12/12/16 16:07 96.4 104 20 97/79 81 Nasal Cannula 12/12/16 11:50 97.3 101 22 95/73 100 Room Air Intake and Output 12/12/16 12/13/16 18:59 06:59 Intake Total 500 ml 580 ml Balance 500 ml 580 ml Intake Oral 500 ml 580 ml # Voids 2 1 Laboratory Tests Test 12/13/16 05:35 Prothrombin Time 18.6 SEC (9.30-11.50) H Prothromb Time International Ratio 1.8 (0.9-1.1) H Activated Partial Thromboplast Time 38 SEC (23-33) H Height (Feet): 6 Height (Inches): 0.00 Weight (Pounds): 189 General Appearance: no apparent distress, alert Cardiovascular: normal rate Respiratory/Chest: normal breath sounds, no respiratory distress Abdominal Exam: normal bowel sounds, non tender, soft Extremities: other - edema Objective all extremity edema +3 >> slight improvement Melanie Briones N.P. December 13, 2016 10:45
[2016-12-13 12:00] VITALS: BP 109/75
[2016-12-13 16:00] VITALS: BP 123/64
--- NOTE | 2016-12-13 16:35 | Diagnostic Imaging Report ---
Indications: Ascites Technique: Ultrasound used to localize optimal puncture site. Sterile prepping and draping right lower quadrant. Local anesthesia with 1% lidocaine. Under real-time ultrasound guidance, puncture peritoneal space using paracentesis needle. Stylet removed. Catheter placed to vacuum bottle suction. Bowel became attached to the catheter tip, necessitating repeat puncture with a Yueh needle. Total 2.1 liters of fluid aspirated. Patient tolerated procedure well, without immediate complication. Findings: Followup sonography demonstrates near-complete resolution of peritoneal fluid with a small amount of residual that could not be drained. Impression: Successful ultrasound-guided paracentesis, yielding 2.1 liters of fluid
[2016-12-13 20:02] VITALS: BP 102/70
--- NOTE | 2016-12-13 22:47 | Pulmonology Progress Note ---
Assessment/Plan Problems: (1) Alcoholic liver disease (2) Alcoholic cardiomyopathy (3) ETOH abuse (4) Pleural effusion Assessment/Plan stable pt/ot dc planning dnr/dni f/u GI recommendations Subjective ROS Limited/Unobtainable: No Allergies: Coded Allergies: No Known Allergies (Unverified , 10/25/16) Objective Last 24 Hour Vital Signs Date Time Temp Pulse Resp B/P Pulse Ox O2 Delivery O2 Flow Rate FiO2 12/13/16 20:02 95.9 122 25 102/70 97 Room Air 12/13/16 16:00 97.9 111 22 123/64 93 Room Air 12/13/16 12:00 97.7 125 20 109/75 99 Nasal Cannula 2.0 12/13/16 08:00 97.1 118 18 121/78 100 Nasal Cannula 2.0 12/13/16 03:46 97.9 106 21 112/85 96 Room Air 12/13/16 01:53 97.1 12/13/16 00:00 97.1 111 21 100/73 Room Air Intake and Output 12/12/16 12/13/16 19:00 07:00 Intake Total 500 ml 580 ml Balance 500 ml 580 ml Intake Oral 500 ml 580 ml # Voids 2 1 Objective General Appearance: WD/WN, no apparent distress Lines, tubes and drains: peripheral HEENT: normocephalic, atraumatic Neck: non-tender, supple Respiratory/Chest: chest wall non-tender, rhonchi - bilaterally Cardiovascular/Chest: normal peripheral pulses, normal rate Abdomen: normal bowel sounds Genitourinary/Rectal: normal genital exam Extremities: normal range of motion Laboratory Tests 12/13/16 05:35: Prothrombin Time 18.6H, Prothromb Time International Ratio 1.8H, Activated Partial Thromboplast Time 38H Current Medications Medications (Trade) Dose Ordered Sig/Baudilio Route PRN Reason Start Time Stop Time Status Last Admin Dose Admin Acetaminophen (Tylenol) 650 mg Q4H PRN ORAL T>100.5 11/24/16 18:45 12/24/16 18:44 Acetaminophen/ Hydrocodone Bitart ([place] 5/325) 1 tab Q4H PRN ORAL Moderate Pain (Pain Scale 4-6) 12/11/16 12:15 12/18/16 12:14 Al Hydroxide/Mg Hydroxide (Mylanta II) 30 ml Q6H PRN ORAL dyspepsia 11/24/16 18:45 12/24/16 18:44 12/05/16 17:24 Dextrose (Dextrose 50%) STAT PRN IV Hypoglycemia 11/24/16 18:45 12/24/16 18:44 Furosemide (Lasix) 40 mg EVERY 12 HOURS ORAL 12/06/16 12:15 01/05/17 12:14 12/13/16 20:44 Lactulose (Cephulac) 20 gm BID ORAL 11/27/16 10:45 12/27/16 10:44 12/13/16 08:28 Morphine Sulfate (Morphine Sulfate) 6 mg Q4H PRN IVP Severe Pain (Pain Scale 7-10) 12/11/16 20:00 12/18/16 19:59 12/13/16 14:13 Ondansetron HCl (Zofran) 4 mg Q6H PRN IVP Nausea & Vomiting 11/24/16 18:45 12/24/16 18:44 12/05/16 20:38 Zolpidem Tartrate (Ambien) 5 mg HSPRN PRN ORAL Insomnia 11/24/16 21:00 12/24/16 20:59 11/30/16 01:55 RHONDA PARKINSON December 13, 2016 22:47
[2016-12-14] VITALS: BP 102/70
[2016-12-14] MEDS: Morphine Sulfate 10mg/ml Inj IVP PRN ×4 (00:10→15:09)
[2016-12-14 04:25] VITALS: BP 103/69
[2016-12-14 08:00] VITALS: BP 101/77
[2016-12-14] MEDS: Furosemide 40mg tab ORAL SCH ×2 (09:30→21:14)
[2016-12-14] MEDS: Lactulose 20gm/30ml UDC ORAL SCH ×2 (09:31→17:25)
--- NOTE | 2016-12-14 11:17 | GI Progress Note ---
Assessment/Plan Problems: (1) Abdominal pain ICD Codes: R10.9 - Unspecified abdominal pain SNOMED: 47199475 (2) Hypoalbuminemia ICD Codes: E88.09 - Other disorders of plasma-protein metabolism, not elsewhere classified SNOMED: 218057551 (3) Anemia ICD Codes: D64.9 - Anemia, unspecified SNOMED: 239190359 (4) Alcoholic liver disease ICD Codes: K70.9 - Alcoholic liver disease, unspecified SNOMED: 54578141 (5) Alcoholic cardiomyopathy ICD Codes: I42.6 - Alcoholic cardiomyopathy SNOMED: 832030840 (6) ETOH abuse ICD Codes: F10.10 - Alcohol abuse, uncomplicated SNOMED: 22006988, 22036986 Status: unchanged Status Narrative Discussed with Dr. Dominguez. Assessment/Plan GI procedures on hold for now with EF of 10% BUE/BLE + 3 >> Lasix BID s/p paracentesis 12/13 >> yielding 2.1 liters of fluid. monitor H&H, transfuse prn zofran prn H2 fu labs avoid ETOH lactulose low sodium diet placement per primary Subjective Subjective extremity edema Objective Last 24 Hour Vital Signs Date Time Temp Pulse Resp B/P Pulse Ox O2 Delivery O2 Flow Rate FiO2 12/14/16 08:00 97.1 110 15 101/77 98 Room Air 12/14/16 07:08 96.3 12/14/16 04:25 96.3 114 25 103/69 100 Room Air 12/14/16 00:00 95.9 122 22 102/70 97 Room Air 12/13/16 20:02 95.9 122 25 102/70 97 Room Air 12/13/16 16:00 97.9 111 22 123/64 93 Room Air 12/13/16 12:00 97.7 125 20 109/75 99 Nasal Cannula 2.0 Intake and Output 12/13/16 12/14/16 19:00 07:00 Intake Total 720 ml Output Total 900 ml 550 ml Balance -180 ml -550 ml Intake Oral 720 ml Output Urine Total 900 ml 550 ml Height (Feet): 6 Height (Inches): 0.00 Weight (Pounds): 186 General Appearance: no apparent distress, alert Cardiovascular: normal rate Respiratory/Chest: normal breath sounds, no respiratory distress Abdominal Exam: normal bowel sounds, non tender, soft, ascites Objective all extremity edema +3 >> slight improvement Melanie Briones N.P. December 14, 2016 11:17
[2016-12-14 11:47] VITALS: BP 91/67
[2016-12-14 16:02] VITALS: BP 103/81
--- NOTE | 2016-12-14 16:40 | Pulmonology Progress Note ---
Assessment/Plan Problems: (1) Alcoholic liver disease (2) Alcoholic cardiomyopathy (3) ETOH abuse (4) Pleural effusion Assessment/Plan stable pt/ot dc planning dnr/dni f/u GI recommendations pt draining from paracentesis Subjective ROS Limited/Unobtainable: No Constitutional: Reports: no symptoms HEENT: Repors: no symptoms Respiratory: Reports: no symptoms Allergies: Coded Allergies: No Known Allergies (Unverified , 10/25/16) Objective Last 24 Hour Vital Signs Date Time Temp Pulse Resp B/P Pulse Ox O2 Delivery O2 Flow Rate FiO2 12/14/16 16:02 96.9 122 19 103/81 97 Room Air 12/14/16 11:47 96.9 134 15 91/67 98 Room Air 12/14/16 08:00 97.1 110 15 101/77 98 Room Air 12/14/16 07:08 96.3 12/14/16 04:25 96.3 114 25 103/69 100 Room Air 12/14/16 00:00 95.9 122 22 102/70 97 Room Air 12/13/16 20:02 95.9 122 25 102/70 97 Room Air Intake and Output 12/13/16 12/14/16 19:00 07:00 Intake Total 720 ml Output Total 900 ml 550 ml Balance -180 ml -550 ml Intake Oral 720 ml Output Urine Total 900 ml 550 ml Objective General Appearance: WD/WN, no apparent distress Lines, tubes and drains: peripheral HEENT: normocephalic, atraumatic Neck: non-tender, supple Respiratory/Chest: chest wall non-tender, rhonchi - bilaterally Cardiovascular/Chest: normal peripheral pulses, normal rate Abdomen: normal bowel sounds Genitourinary/Rectal: normal genital exam Extremities: normal range of motion Current Medications Medications (Trade) Dose Ordered Sig/Baudilio Route PRN Reason Start Time Stop Time Status Last Admin Dose Admin Acetaminophen (Tylenol) 650 mg Q4H PRN ORAL T>100.5 11/24/16 18:45 12/24/16 18:44 Acetaminophen/ Hydrocodone Bitart ([place] 5/325) 1 tab Q4H PRN ORAL Moderate Pain (Pain Scale 4-6) 12/11/16 12:15 12/18/16 12:14 Al Hydroxide/Mg Hydroxide (Mylanta II) 30 ml Q6H PRN ORAL dyspepsia 11/24/16 18:45 12/24/16 18:44 12/05/16 17:24 Dextrose (Dextrose 50%) STAT PRN IV Hypoglycemia 11/24/16 18:45 12/24/16 18:44 Furosemide (Lasix) 40 mg EVERY 12 HOURS ORAL 12/06/16 12:15 01/05/17 12:14 12/14/16 09:30 Hydromorphone HCl (Dilaudid) 1 mg Q4H PRN IVP For Pain 12/14/16 16:45 12/21/16 16:44 UNV Lactulose (Cephulac) 20 gm BID ORAL 11/27/16 10:45 12/27/16 10:44 12/14/16 09:31 Ondansetron HCl (Zofran) 4 mg Q6H PRN IVP Nausea & Vomiting 11/24/16 18:45 12/24/16 18:44 12/05/16 20:38 Zolpidem Tartrate (Ambien) 5 mg HSPRN PRN ORAL Insomnia 11/24/16 21:00 12/24/16 20:59 11/30/16 01:55 RHONDA PARKINSON December 14, 2016 16:40
[2016-12-14 20:00] VITALS: BP 121/80
[2016-12-15] VITALS: BP 90/69
[2016-12-15] MEDS: HYDROmorphone 1mg/ml Carpuject IVP PRN ×4 (01:06→19:52)
[2016-12-15 04:00] VITALS: BP 106/74
[2016-12-15 08:14] VITALS: BP 99/70
[2016-12-15 08:38] LABS: BASOPHILS % (AUTO) 0.9 % (0.0-2.0); LYMPHOCYTES % (AUTO) 14.1 % (20.0-45.0); MEAN CORPUSCULAR HEMOGLOBIN 27.6 PG (27.0-31.0); MEAN CORPUSCULAR HGB CONC 31.4 G/DL (32.0-36.0); MEAN CORPUSCULAR VOLUME 88 FL (80-99); MEAN PLATELET VOLUME 8.3 FL (6.5-10.1); MONOCYTES % (AUTO) 6.3 % (1.0-10.0); NEUTROPHILS % (AUTO) 78.7 % (45.0-75.0); PLATELET COUNT 106 K/UL (150-450); RED BLOOD COUNT 4.38 M/UL (4.70-6.10); RED CELL DISTRIBUTION WIDTH 18.8 % (11.6-14.8); WHITE BLOOD COUNT 10.3 K/UL (4.8-10.8)
[2016-12-15] MEDS: Furosemide 40mg tab ORAL SCH ×2 (08:40→20:37)
[2016-12-15] MEDS: Lactulose 20gm/30ml UDC ORAL SCH ×2 (08:41→17:52)
[2016-12-15 09:24] LABS: ANION GAP 18 (5-15); CALCIUM 8.2 mg/dL (8.6-10.2); CARBON DIOXIDE 24 mEQ/L (20-30); CHLORIDE 90 mEQ/L (98-107); CREATININE 1.2 mg/dL (0.7-1.2); GLOMERULAR FILTRATION RATE > 60 mL/min (>60); HEMOLYSIS 4; POTASSIUM 3.8 mEQ/L (3.4-4.9); SODIUM 132 mEQ/L (135-145)
--- NOTE | 2016-12-15 11:51 | GI Progress Note ---
Assessment/Plan Problems: (1) Abdominal pain ICD Codes: R10.9 - Unspecified abdominal pain SNOMED: 70143016 (2) Hypoalbuminemia ICD Codes: E88.09 - Other disorders of plasma-protein metabolism, not elsewhere classified SNOMED: 930101222 (3) Anemia ICD Codes: D64.9 - Anemia, unspecified SNOMED: 436392983 (4) Alcoholic liver disease ICD Codes: K70.9 - Alcoholic liver disease, unspecified SNOMED: 35220982 (5) Alcoholic cardiomyopathy ICD Codes: I42.6 - Alcoholic cardiomyopathy SNOMED: 115375589 (6) ETOH abuse ICD Codes: F10.10 - Alcohol abuse, uncomplicated SNOMED: 10574341, 24951007 Status: unchanged Status Narrative Discussed with Dr. Dominguez. Assessment/Plan GI procedures on hold for now with EF of 10% BUE/BLE + 3 >> Lasix BID s/p paracentesis 12/13 >> yielding 2.1 liters of fluid. colostomy care monitor H&H, transfuse prn zofran prn H2 fu labs avoid ETOH lactulose low sodium diet placement per primary Subjective Subjective extremity edema colostomy leakage Objective Last 24 Hour Vital Signs Date Time Temp Pulse Resp B/P Pulse Ox O2 Delivery O2 Flow Rate FiO2 12/15/16 08:14 97.8 18 99/70 99 Room Air 2.0 12/15/16 06:34 97.2 12/15/16 04:00 97.2 119 18 106/74 94 Room Air 12/15/16 00:00 96.8 129 18 90/69 92 Room Air 12/14/16 20:00 97.9 124 18 121/80 95 Room Air 12/14/16 16:02 96.9 122 19 103/81 97 Room Air Intake and Output 12/14/16 12/15/16 19:00 07:00 Intake Total 540 ml 520 ml Output Total 440 ml Balance 100 ml 520 ml Intake Oral 540 ml 520 ml Output Urine Total 440 ml # Voids 2 1 # Bowel Movements 1 Laboratory Tests Test 12/15/16 08:30 White Blood Count 10.3 K/UL (4.8-10.8) Red Blood Count 4.38 M/UL (4.70-6.10) L Hemoglobin 12.1 G/DL (14.2-18.0) L Hematocrit 38.5 % (42.0-52.0) L Mean Corpuscular Volume 88 FL (80-99) Mean Corpuscular Hemoglobin 27.6 PG (27.0-31.0) Mean Corpuscular Hemoglobin Concent 31.4 G/DL (32.0-36.0) L Red Cell Distribution Width 18.8 % (11.6-14.8) H Platelet Count 106 K/UL (150-450) L Mean Platelet Volume 8.3 FL (6.5-10.1) Neutrophils (%) (Auto) 78.7 % (45.0-75.0) H Lymphocytes (%) (Auto) 14.1 % (20.0-45.0) L Monocytes (%) (Auto) 6.3 % (1.0-10.0) Eosinophils (%) (Auto) 0.0 % (0.0-3.0) Basophils (%) (Auto) 0.9 % (0.0-2.0) Sodium Level 132 mEQ/L (135-145) L Potassium Level 3.8 mEQ/L (3.4-4.9) Chloride Level 90 mEQ/L (98-107) L Carbon Dioxide Level 24 mEQ/L (20-30) Anion Gap 18 (5-15) H Blood Urea Nitrogen 47 mg/dL (7-23) H Creatinine 1.2 mg/dL (0.7-1.2) Estimat Glomerular Filtration Rate > 60 mL/min (>60) Glucose Level 129 mg/dL (74-106) H Calcium Level 8.2 mg/dL (8.6-10.2) L Height (Feet): 6 Height (Inches): 0.00 Weight (Pounds): 182 General Appearance: no apparent distress, alert Cardiovascular: normal rate Abdominal Exam: soft, ascites, other - colostomy bag leakage Extremities: normal range of motion Objective all extremity edema +3 >> slight improvement Melanie Briones N.P. December 15, 2016 11:51
[2016-12-15 12:00] VITALS: BP 100/76
[2016-12-15 16:15] VITALS: BP 107/78
--- NOTE | 2016-12-15 16:29 | Pulmonology Progress Note ---
Assessment/Plan Problems: (1) Alcoholic liver disease (2) Alcoholic cardiomyopathy (3) ETOH abuse (4) Pleural effusion Assessment/Plan stable pt/ot dc planning dnr/dni f/u GI recommendations pt draining from paracentesis Subjective Allergies: Coded Allergies: No Known Allergies (Unverified , 10/25/16) Objective Last 24 Hour Vital Signs Date Time Temp Pulse Resp B/P Pulse Ox O2 Delivery O2 Flow Rate FiO2 12/15/16 16:15 96.7 132 20 107/78 100 Room Air 12/15/16 12:00 98.7 116 16 100/76 98 Room Air 12/15/16 08:14 97.8 18 99/70 99 Room Air 2.0 12/15/16 06:34 97.2 12/15/16 04:00 97.2 119 18 106/74 94 Room Air 12/15/16 00:00 96.8 129 18 90/69 92 Room Air 12/14/16 20:00 97.9 124 18 121/80 95 Room Air Intake and Output 12/14/16 12/15/16 18:59 06:59 Intake Total 540 ml 520 ml Output Total 440 ml Balance 100 ml 520 ml Intake Oral 540 ml 520 ml Output Urine Total 440 ml # Voids 2 1 # Bowel Movements 1 Objective General Appearance: WD/WN, no apparent distress Lines, tubes and drains: peripheral HEENT: normocephalic, atraumatic Neck: non-tender, supple Respiratory/Chest: chest wall non-tender, rhonchi - bilaterally Cardiovascular/Chest: normal peripheral pulses, normal rate Abdomen: normal bowel sounds Genitourinary/Rectal: normal genital exam Extremities: normal range of motion Laboratory Tests 12/15/16 08:30: White Blood Count 10.3, Red Blood Count 4.38L, Hemoglobin 12.1L, Hematocrit 38.5L, Mean Corpuscular Volume 88, Mean Corpuscular Hemoglobin 27.6, Mean Corpuscular Hemoglobin Concent 31.4L, Red Cell Distribution Width 18.8H, Platelet Count 106L, Mean Platelet Volume 8.3, Neutrophils (%) (Auto) 78.7H, Lymphocytes (%) (Auto) 14.1L, Monocytes (%) (Auto) 6.3, Eosinophils (%) (Auto) 0.0, Basophils (%) (Auto) 0.9, Sodium Level 132L, Potassium Level 3.8, Chloride Level 90L, Carbon Dioxide Level 24, Anion Gap 18H, Blood Urea Nitrogen 47H, Creatinine 1.2, Estimat Glomerular Filtration Rate > 60, Glucose Level 129H, Calcium Level 8.2L Current Medications Medications (Trade) Dose Ordered Sig/Baudilio Route PRN Reason Start Time Stop Time Status Last Admin Dose Admin Acetaminophen (Tylenol) 650 mg Q4H PRN ORAL T>100.5 11/24/16 18:45 12/24/16 18:44 Acetaminophen/ Hydrocodone Bitart ([place] 5/325) 1 tab Q4H PRN ORAL Moderate Pain (Pain Scale 4-6) 12/11/16 12:15 12/18/16 12:14 12/15/16 12:49 Al Hydroxide/Mg Hydroxide (Mylanta II) 30 ml Q6H PRN ORAL dyspepsia 11/24/16 18:45 12/24/16 18:44 12/05/16 17:24 Dextrose (Dextrose 50%) STAT PRN IV Hypoglycemia 11/24/16 18:45 12/24/16 18:44 Furosemide (Lasix) 40 mg EVERY 12 HOURS ORAL 12/06/16 12:15 01/05/17 12:14 12/15/16 08:40 Hydromorphone HCl (Dilaudid) 1 mg Q4H PRN IVP SEVERE PAIN 12/14/16 16:45 12/21/16 16:44 12/15/16 05:48 Lactulose (Cephulac) 20 gm BID ORAL 11/27/16 10:45 12/27/16 10:44 12/15/16 08:41 Ondansetron HCl (Zofran) 4 mg Q6H PRN IVP Nausea & Vomiting 11/24/16 18:45 12/24/16 18:44 12/05/16 20:38 Zolpidem Tartrate (Ambien) 5 mg HSPRN PRN ORAL Insomnia 11/24/16 21:00 12/24/16 20:59 11/30/16 01:55 RHONDA PARKINSON December 15, 2016 16:29
[2016-12-15 20:00] VITALS: BP 88/69
[2016-12-16] VITALS: BP 102/72
[2016-12-16] MEDS: HYDROmorphone 1mg/ml Carpuject IVP PRN ×3 (01:45→16:07)
[2016-12-16 04:00] VITALS: BP 103/68
[2016-12-16 08:17] VITALS: BP 94/69
[2016-12-16] MEDS: Lactulose 20gm/30ml UDC ORAL SCH ×2 (08:57→18:00)
[2016-12-16] MEDS: Furosemide 40mg tab ORAL SCH ×2 (08:58→21:05)
--- NOTE | 2016-12-16 11:48 | GI Progress Note ---
Assessment/Plan Problems: (1) Abdominal pain ICD Codes: R10.9 - Unspecified abdominal pain SNOMED: 55423271 (2) Hypoalbuminemia ICD Codes: E88.09 - Other disorders of plasma-protein metabolism, not elsewhere classified SNOMED: 744246949 (3) Anemia ICD Codes: D64.9 - Anemia, unspecified SNOMED: 506958687 (4) Alcoholic liver disease ICD Codes: K70.9 - Alcoholic liver disease, unspecified SNOMED: 00931213 (5) Alcoholic cardiomyopathy ICD Codes: I42.6 - Alcoholic cardiomyopathy SNOMED: 471853731 (6) ETOH abuse ICD Codes: F10.10 - Alcohol abuse, uncomplicated SNOMED: 65321048, 59059634 Status: unchanged Status Narrative Discussed with Dr. Dominguez. Assessment/Plan GI procedures on hold for now with EF of 10% BUE/BLE + 3 >> Lasix BID s/p paracentesis 12/13 >> yielding 2.1 liters of fluid. paracentesis site leakage with colostomy bag monitor H&H, transfuse prn zofran prn H2 fu labs avoid ETOH lactulose low sodium diet placement per primary Subjective Subjective extremity edema >> improving s/p paracentesis site leakage with colostomy bag Objective Last 24 Hour Vital Signs Date Time Temp Pulse Resp B/P Pulse Ox O2 Delivery O2 Flow Rate FiO2 12/16/16 08:17 98.4 117 20 94/69 95 Room Air 12/16/16 04:00 96.4 100 18 103/68 100 Room Air 12/16/16 02:15 96.8 12/16/16 00:00 96.8 118 18 102/72 100 Room Air 12/15/16 20:00 96.4 121 18 88/69 99 Room Air 12/15/16 16:15 96.7 132 20 107/78 100 Room Air 12/15/16 12:00 98.7 116 16 100/76 98 Room Air Intake and Output 12/15/16 12/16/16 19:00 07:00 Intake Total 120 ml 270 ml Output Total 1931 ml 800 ml Balance -1811 ml -530 ml Intake Oral 120 ml 270 ml Output Urine Total 621 ml Other 1310 ml 800 ml Height (Feet): 6 Height (Inches): 0.00 Weight (Pounds): 182 General Appearance: no apparent distress, alert Cardiovascular: normal rate Respiratory/Chest: normal breath sounds, no respiratory distress Abdominal Exam: normal bowel sounds, non tender, soft Objective all extremity edema +3 >> improving s/p paracentesis site leakage to colostomy bag >> approximately 1L daily per RN report. Melanie Briones N.P. December 16, 2016 11:48
[2016-12-16 12:06] VITALS: BP 98/65
[2016-12-16 15:42] VITALS: BP 104/73
--- NOTE | 2016-12-16 19:27 | Pulmonology Progress Note ---
Assessment/Plan Problems: (1) Alcoholic liver disease (2) Alcoholic cardiomyopathy (3) ETOH abuse (4) Pleural effusion Assessment/Plan stable pt/ot dc planning dnr/dni f/u GI recommendations pt draining from paracentesis Subjective ROS Limited/Unobtainable: No Interval Events: draining more than one liter a day in colostomy bag Allergies: Coded Allergies: No Known Allergies (Unverified , 10/25/16) Objective Last 24 Hour Vital Signs Date Time Temp Pulse Resp B/P Pulse Ox O2 Delivery O2 Flow Rate FiO2 12/16/16 15:42 98.4 106 20 104/73 98 Room Air 12/16/16 12:06 98.5 112 20 98/65 95 Room Air 12/16/16 08:17 98.4 117 20 94/69 95 Room Air 12/16/16 04:00 96.4 100 18 103/68 100 Room Air 12/16/16 02:15 96.8 12/16/16 00:00 96.8 118 18 102/72 100 Room Air 12/15/16 20:00 96.4 121 18 88/69 99 Room Air Intake and Output 12/15/16 12/16/16 19:00 07:00 Intake Total 120 ml 270 ml Output Total 1931 ml 800 ml Balance -1811 ml -530 ml Intake Oral 120 ml 270 ml Output Urine Total 621 ml Other 1310 ml 800 ml Objective General Appearance: WD/WN, no apparent distress Lines, tubes and drains: peripheral HEENT: normocephalic, atraumatic Neck: non-tender, supple Respiratory/Chest: chest wall non-tender, rhonchi - bilaterally Cardiovascular/Chest: normal peripheral pulses, normal rate Abdomen: normal bowel sounds Genitourinary/Rectal: normal genital exam Extremities: normal range of motion Current Medications Medications (Trade) Dose Ordered Sig/Baudilio Route PRN Reason Start Time Stop Time Status Last Admin Dose Admin Acetaminophen (Tylenol) 650 mg Q4H PRN ORAL T>100.5 11/24/16 18:45 12/24/16 18:44 Acetaminophen/ Hydrocodone Bitart ([place] 5/325) 1 tab Q4H PRN ORAL Moderate Pain (Pain Scale 4-6) 12/11/16 12:15 12/18/16 12:14 12/15/16 12:49 Al Hydroxide/Mg Hydroxide (Mylanta II) 30 ml Q6H PRN ORAL dyspepsia 11/24/16 18:45 12/24/16 18:44 12/05/16 17:24 Dextrose (Dextrose 50%) STAT PRN IV Hypoglycemia 11/24/16 18:45 12/24/16 18:44 Furosemide (Lasix) 40 mg EVERY 12 HOURS ORAL 12/06/16 12:15 01/05/17 12:14 12/16/16 08:58 Hydromorphone HCl (Dilaudid) 1 mg Q4H PRN IVP SEVERE PAIN 12/14/16 16:45 12/21/16 16:44 12/16/16 16:07 Lactulose (Cephulac) 20 gm BID ORAL 11/27/16 10:45 12/27/16 10:44 12/16/16 08:57 Ondansetron HCl (Zofran) 4 mg Q6H PRN IVP Nausea & Vomiting 11/24/16 18:45 12/24/16 18:44 12/05/16 20:38 Zolpidem Tartrate (Ambien) 5 mg HSPRN PRN ORAL Insomnia 11/24/16 21:00 12/24/16 20:59 11/30/16 01:55 RHONDA PARKINSON December 16, 2016 19:27
[2016-12-16 20:00] VITALS: BP 101/70
[2016-12-17] VITALS: BP 97/74
[2016-12-17] MEDS: Zolpidem 5mg tab ORAL PRN (02:47)
[2016-12-17] MEDS: HYDROmorphone 1mg/ml Carpuject IVP PRN ×4 (02:48→19:58)
[2016-12-17 04:00] VITALS: BP 99/68
[2016-12-17] MEDS: Lactulose 20gm/30ml UDC ORAL SCH ×2 (08:38→17:02)
[2016-12-17] MEDS: Furosemide 40mg tab ORAL SCH ×2 (08:38→19:57)
[2016-12-17 08:44] VITALS: BP 100/72
--- NOTE | 2016-12-17 10:22 | GI Progress Note ---
Assessment/Plan Problems: (1) Abdominal pain ICD Codes: R10.9 - Unspecified abdominal pain SNOMED: 00938369 (2) Hypoalbuminemia ICD Codes: E88.09 - Other disorders of plasma-protein metabolism, not elsewhere classified SNOMED: 652695403 (3) Anemia ICD Codes: D64.9 - Anemia, unspecified SNOMED: 293425935 (4) Alcoholic liver disease ICD Codes: K70.9 - Alcoholic liver disease, unspecified SNOMED: 15354356 (5) Alcoholic cardiomyopathy ICD Codes: I42.6 - Alcoholic cardiomyopathy SNOMED: 923678128 (6) ETOH abuse ICD Codes: F10.10 - Alcohol abuse, uncomplicated SNOMED: 90563322, 04233820 Status: progressing, unchanged Status Narrative Discussed with Dr. Dominguez. Assessment/Plan GI procedures on hold for now with EF of 10% BUE/BLE + 3 >> Lasix BID s/p paracentesis 12/13 >> yielding 2.1 liters of fluid. paracentesis site leakage with colostomy bag >> approx 1L qshift per RN report monitor H&H, transfuse prn zofran prn H2 fu labs avoid ETOH lactulose low sodium diet placement per primary Subjective Subjective extremity edema >> improving s/p paracentesis site leakage with colostomy bag Objective Last 24 Hour Vital Signs Date Time Temp Pulse Resp B/P Pulse Ox O2 Delivery O2 Flow Rate FiO2 12/17/16 08:44 97.3 99 22 100/72 100 Room Air 12/17/16 04:00 97.0 100 22 99/68 98 Room Air 12/17/16 03:18 97.0 12/17/16 00:00 97.0 99 20 97/74 95 Room Air 12/16/16 20:00 96.4 103 22 101/70 97 Room Air 12/16/16 15:42 98.4 106 20 104/73 98 Room Air 12/16/16 12:06 98.5 112 20 98/65 95 Room Air Intake and Output 12/16/16 12/17/16 19:00 07:00 Intake Total 1080 ml 150 ml Output Total 1550 ml 3950 ml Balance -470 ml -3800 ml Intake Oral 1080 ml 150 ml Output Urine Total 600 ml 3350 ml Other 950 ml 600 ml Laboratory Tests Test 12/17/16 09:45 White Blood Count Pending Red Blood Count Pending Hemoglobin Pending Hematocrit Pending Mean Corpuscular Volume Pending Mean Corpuscular Hemoglobin Pending Mean Corpuscular Hemoglobin Concent Pending Red Cell Distribution Width Pending Platelet Count Pending Mean Platelet Volume Pending Neutrophils (%) (Auto) Pending Lymphocytes (%) (Auto) Pending Monocytes (%) (Auto) Pending Eosinophils (%) (Auto) Pending Basophils (%) (Auto) Pending Sodium Level Pending Potassium Level Pending Chloride Level Pending Carbon Dioxide Level Pending Blood Urea Nitrogen Pending Creatinine Pending Estimat Glomerular Filtration Rate Pending Glucose Level Pending Calcium Level Pending Height (Feet): 6 Height (Inches): 0.00 Weight (Pounds): 157 General Appearance: no apparent distress, alert, thin Cardiovascular: normal rate Respiratory/Chest: normal breath sounds, no respiratory distress Abdominal Exam: normal bowel sounds, non tender, soft, ascites Extremities: normal range of motion Objective all extremity edema +3 >> improving s/p paracentesis site leakage to colostomy bag >> approximately 1L qshift per RN report. Melanie Briones N.P. December 17, 2016 10:22
[2016-12-17 10:29] LABS: MEAN CORPUSCULAR HEMOGLOBIN 27.2 PG (27.0-31.0); MEAN CORPUSCULAR HGB CONC 31.2 G/DL (32.0-36.0); MEAN CORPUSCULAR VOLUME 87 FL (80-99); MEAN PLATELET VOLUME 10.1 FL (6.5-10.1); PLATELET COUNT 110 K/UL (150-450); RED BLOOD COUNT 4.33 M/UL (4.70-6.10); RED CELL DISTRIBUTION WIDTH 19.3 % (11.6-14.8); WHITE BLOOD COUNT 10.1 K/UL (4.8-10.8)
[2016-12-17 10:46] LABS: ANION GAP 12 (5-15); CALCIUM 7.4 mg/dL (8.6-10.2); CARBON DIOXIDE 32 mEQ/L (20-30); CHLORIDE 95 mEQ/L (98-107); CREATININE 0.6 mg/dL (0.7-1.2); GLOMERULAR FILTRATION RATE > 60 mL/min (>60); HEMOLYSIS 37; SODIUM 139 mEQ/L (135-145)
[2016-12-17 10:47] LABS: POTASSIUM 2.4 mEQ/L (3.4-4.9)
[2016-12-17 12:06] VITALS: BP 100/60
[2016-12-17 12:19] LABS: ANISOCYTOSIS 1+; BAND NEUTROPHILS % (MANUAL) 0 % (0-8); BASOPHILS % (MANUAL) 0 % (0-2); EOSINOPHILS % (MANUAL) 0 % (0-3); HYPOCHROMASIA 1+; LYMPHOCYTES % (MANUAL) 3 % (20-45); NEUTROPHILS % (MANUAL) 94 % (45-75); NUCLEATED RED BLOOD CELLS 2 /100 WBC; PLATELET ESTIMATE DECREASED; PLATELET MORPHOLOGY NORMAL; TOTAL CELLS COUNTED 100
[2016-12-17 16:08] VITALS: BP 91/63
[2016-12-17 20:00] VITALS: BP 93/59
--- NOTE | 2016-12-17 22:21 | Pulmonology Progress Note ---
Assessment/Plan Problems: (1) Alcoholic liver disease (2) Alcoholic cardiomyopathy (3) ETOH abuse (4) Pleural effusion Assessment/Plan stable pt/ot dc planning dnr/dni f/u GI recommendations pt draining from paracentesis into a colostomy bag Subjective ROS Limited/Unobtainable: No Allergies: Coded Allergies: No Known Allergies (Unverified , 10/25/16) Objective Last 24 Hour Vital Signs Date Time Temp Pulse Resp B/P Pulse Ox O2 Delivery O2 Flow Rate FiO2 12/17/16 20:00 96.6 103 22 93/59 94 Room Air 12/17/16 16:08 97.5 101 23 91/63 94 Room Air 12/17/16 12:06 97.5 61 20 100/60 99 Room Air 12/17/16 08:44 97.3 99 22 100/72 100 Room Air 12/17/16 04:00 97.0 100 22 99/68 98 Room Air 12/17/16 03:18 97.0 12/17/16 00:00 97.0 99 20 97/74 95 Room Air Intake and Output 12/16/16 12/17/16 19:00 07:00 Intake Total 1080 ml 150 ml Output Total 1550 ml 3950 ml Balance -470 ml -3800 ml Intake Oral 1080 ml 150 ml Output Urine Total 600 ml 3350 ml Other 950 ml 600 ml Objective General Appearance: WD/WN, no apparent distress Lines, tubes and drains: peripheral HEENT: normocephalic, atraumatic Neck: non-tender, supple Respiratory/Chest: chest wall non-tender, rhonchi - bilaterally Cardiovascular/Chest: normal peripheral pulses, normal rate Abdomen: normal bowel sounds Genitourinary/Rectal: normal genital exam Extremities: normal range of motion Laboratory Tests 12/17/16 09:45: White Blood Count 10.1, Red Blood Count 4.33L, Hemoglobin 11.8L, Hematocrit 37.7L, Mean Corpuscular Volume 87, Mean Corpuscular Hemoglobin 27.2, Mean Corpuscular Hemoglobin Concent 31.2L, Red Cell Distribution Width 19.3H, Platelet Count 110L, Mean Platelet Volume 10.1, Neutrophils (%) (Auto) , Lymphocytes (%) (Auto) , Monocytes (%) (Auto) , Eosinophils (%) (Auto) , Basophils (%) (Auto) , Differential Total Cells Counted 100, Neutrophils % ( Manual) 94H, Lymphocytes % (Manual) 3L, Monocytes % (Manual) 3, Eosinophils % ( Manual) 0, Basophils % (Manual) 0, Band Neutrophils 0, Nucleated Red Blood Cells 2, Platelet Estimate DecreasedL, Platelet Morphology Normal, Hypochromasia 1+, Anisocytosis 1+, Sodium Level 139, Potassium Level 2.4*L, Chloride Level 95L, Carbon Dioxide Level 32H, Anion Gap 12, Blood Urea Nitrogen 22, Creatinine 0.6L, Estimat Glomerular Filtration Rate > 60, Glucose Level 113H , Calcium Level 7.4L Current Medications Medications (Trade) Dose Ordered Sig/Baudilio Route PRN Reason Start Time Stop Time Status Last Admin Dose Admin Acetaminophen (Tylenol) 650 mg Q4H PRN ORAL T>100.5 11/24/16 18:45 12/24/16 18:44 Acetaminophen/ Hydrocodone Bitart ([place] 5/325) 1 tab Q4H PRN ORAL Moderate Pain (Pain Scale 4-6) 12/11/16 12:15 12/18/16 12:14 12/15/16 12:49 Al Hydroxide/Mg Hydroxide (Mylanta II) 30 ml Q6H PRN ORAL dyspepsia 11/24/16 18:45 12/24/16 18:44 12/05/16 17:24 Dextrose (Dextrose 50%) STAT PRN IV Hypoglycemia 11/24/16 18:45 12/24/16 18:44 Furosemide (Lasix) 40 mg EVERY 12 HOURS ORAL 12/06/16 12:15 01/05/17 12:14 12/17/16 19:57 Hydromorphone HCl (Dilaudid) 1 mg Q4H PRN IVP SEVERE PAIN 12/14/16 16:45 12/21/16 16:44 12/17/16 19:58 Lactulose (Cephulac) 20 gm BID ORAL 11/27/16 10:45 12/27/16 10:44 12/17/16 17:02 Ondansetron HCl (Zofran) 4 mg Q6H PRN IVP Nausea & Vomiting 11/24/16 18:45 12/24/16 18:44 12/17/16 19:56 Zolpidem Tartrate (Ambien) 5 mg HSPRN PRN ORAL Insomnia 11/24/16 21:00 12/24/16 20:59 12/17/16 02:47 RHONDA PARKINSON December 17, 2016 22:21
[2016-12-18] VITALS: BP 104/71
[2016-12-18] MEDS: HYDROmorphone 1mg/ml Carpuject IVP PRN ×4 (03:51→18:14)
[2016-12-18 04:00] VITALS: BP 101/70
[2016-12-18 07:27] LABS: ANION GAP 12 (5-15); CALCIUM 7.1 mg/dL (8.6-10.2); CARBON DIOXIDE 30 mEQ/L (20-30); CHLORIDE 94 mEQ/L (98-107); CREATININE 0.6 mg/dL (0.7-1.2); GLOMERULAR FILTRATION RATE > 60 mL/min (>60); HEMOLYSIS 10; POTASSIUM 2.8 mEQ/L (3.4-4.9); SODIUM 136 mEQ/L (135-145)
[2016-12-18] MEDS: Lactulose 20gm/30ml UDC ORAL SCH ×2 (08:20→18:14)
[2016-12-18] MEDS: Furosemide 40mg tab ORAL SCH ×2 (08:20→20:57)
[2016-12-18 08:32] VITALS: BP 87/70
[2016-12-18 12:41] VITALS: BP 109/72
[2016-12-18 16:25] VITALS: BP 94/78
--- NOTE | 2016-12-18 22:12 | Pulmonology Progress Note ---
Assessment/Plan Problems: (1) Alcoholic liver disease (2) Alcoholic cardiomyopathy (3) ETOH abuse (4) Pleural effusion Assessment/Plan stable pt/ot dc planning dnr/dni f/u GI recommendations pt draining from paracentesis into a colostomy bag Subjective Allergies: Coded Allergies: No Known Allergies (Unverified , 10/25/16) Objective Last 24 Hour Vital Signs Date Time Temp Pulse Resp B/P Pulse Ox O2 Delivery O2 Flow Rate FiO2 12/18/16 20:19 96.6 136 22 97 Room Air 12/18/16 16:25 96.5 125 18 94/78 93 Room Air 12/18/16 12:41 97.0 113 19 109/72 98 Room Air 12/18/16 08:32 97.7 120 22 87/70 95 Room Air 12/18/16 04:00 97.0 110 22 101/70 100 Room Air 12/18/16 00:00 96.6 111 20 104/71 100 Room Air Intake and Output 12/17/16 12/18/16 19:00 07:00 Intake Total 540 ml 300 ml Output Total 995 ml 1225 ml Balance -455 ml -925 ml Intake Oral 540 ml 300 ml Output Urine Total 425 ml Other 995 ml 800 ml Objective General Appearance: WD/WN, no apparent distress Lines, tubes and drains: peripheral HEENT: normocephalic, atraumatic Neck: non-tender, supple Respiratory/Chest: chest wall non-tender, rhonchi - bilaterally Cardiovascular/Chest: normal peripheral pulses, normal rate Abdomen: normal bowel sounds Genitourinary/Rectal: normal genital exam Extremities: normal range of motion Laboratory Tests 12/18/16 04:40: Sodium Level 136, Potassium Level 2.8L, Chloride Level 94L, Carbon Dioxide Level 30, Anion Gap 12, Blood Urea Nitrogen 15, Creatinine 0.6L, Estimat Glomerular Filtration Rate > 60, Glucose Level 98, Calcium Level 7.1L Current Medications Medications (Trade) Dose Ordered Sig/Baudilio Route PRN Reason Start Time Stop Time Status Last Admin Dose Admin Acetaminophen (Tylenol) 650 mg Q4H PRN ORAL T>100.5 11/24/16 18:45 12/24/16 18:44 Al Hydroxide/Mg Hydroxide (Mylanta II) 30 ml Q6H PRN ORAL dyspepsia 11/24/16 18:45 12/24/16 18:44 12/05/16 17:24 Dextrose (Dextrose 50%) STAT PRN IV Hypoglycemia 11/24/16 18:45 12/24/16 18:44 Furosemide (Lasix) 40 mg EVERY 12 HOURS ORAL 12/06/16 12:15 01/05/17 12:14 12/18/16 20:57 Hydromorphone HCl (Dilaudid) 1 mg Q4H PRN IVP SEVERE PAIN 12/14/16 16:45 12/21/16 16:44 12/18/16 18:14 Lactulose (Cephulac) 20 gm BID ORAL 11/27/16 10:45 12/27/16 10:44 12/18/16 18:14 Ondansetron HCl (Zofran) 4 mg Q6H PRN IVP Nausea & Vomiting 11/24/16 18:45 12/24/16 18:44 12/17/16 19:56 Potassium Chloride (K-Dur) 40 meq TWICE A DAY ORAL 12/18/16 09:00 01/17/17 08:59 12/18/16 18:14 Zolpidem Tartrate (Ambien) 5 mg HSPRN PRN ORAL Insomnia 11/24/16 21:00 12/24/16 20:59 12/17/16 02:47 RHONDA PARKINSON December 18, 2016 22:12
[2016-12-19 00:23] VITALS: BP 94/75
[2016-12-19] MEDS: HYDROmorphone 1mg/ml Carpuject IVP PRN ×5 (00:47→23:36)
[2016-12-19 04:52] VITALS: BP 95/73
[2016-12-19 08:00] VITALS: BP 92/75
[2016-12-19] MEDS: Lactulose 20gm/30ml UDC ORAL SCH ×2 (09:23→17:52)
[2016-12-19] MEDS: Furosemide 40mg tab ORAL SCH ×2 (09:23→21:00)
[2016-12-19 12:00] VITALS: BP 100/59
[2016-12-19 16:00] VITALS: BP 106/59
[2016-12-19 20:10] VITALS: BP 92/72
--- NOTE | 2016-12-19 22:57 | Pulmonology Progress Note ---
Assessment/Plan Problems: (1) Alcoholic liver disease (2) Alcoholic cardiomyopathy (3) ETOH abuse (4) Pleural effusion Assessment/Plan stable pt/ot dc planning dnr/dni f/u GI recommendations pt draining from paracentesis into a colostomy bag Subjective ROS Limited/Unobtainable: No Allergies: Coded Allergies: No Known Allergies (Unverified , 10/25/16) Objective Last 24 Hour Vital Signs Date Time Temp Pulse Resp B/P Pulse Ox O2 Delivery O2 Flow Rate FiO2 12/19/16 20:10 95.9 124 20 92/72 Room Air 12/19/16 16:00 97.0 120 19 106/59 96 Room Air 12/19/16 12:00 96.7 71 18 100/59 97 Nasal Cannula 2.0 12/19/16 08:00 97.9 68 16 92/75 92 Room Air 12/19/16 04:52 97.3 128 23 95/73 Room Air 12/19/16 01:17 96.0 12/19/16 00:23 96.0 149 21 94/75 95 Room Air Intake and Output 12/18/16 12/19/16 19:00 07:00 Intake Total 240 ml 1500 ml Output Total 900 ml 300 ml Balance -660 ml 1200 ml Intake Oral 240 ml 1500 ml Output Urine Total 800 ml 300 ml Other 100 ml # Voids 7 Objective General Appearance: WD/WN, no apparent distress Lines, tubes and drains: peripheral HEENT: normocephalic, atraumatic Neck: non-tender, supple Respiratory/Chest: chest wall non-tender, rhonchi - bilaterally Cardiovascular/Chest: normal peripheral pulses, normal rate Abdomen: normal bowel sounds Genitourinary/Rectal: normal genital exam Extremities: normal range of motion Current Medications Medications (Trade) Dose Ordered Sig/Baudilio Route PRN Reason Start Time Stop Time Status Last Admin Dose Admin Acetaminophen (Tylenol) 650 mg Q4H PRN ORAL T>100.5 11/24/16 18:45 12/24/16 18:44 Al Hydroxide/Mg Hydroxide (Mylanta II) 30 ml Q6H PRN ORAL dyspepsia 11/24/16 18:45 12/24/16 18:44 12/05/16 17:24 Dextrose (Dextrose 50%) STAT PRN IV Hypoglycemia 11/24/16 18:45 12/24/16 18:44 Furosemide (Lasix) 40 mg EVERY 12 HOURS ORAL 12/06/16 12:15 01/05/17 12:14 12/19/16 21:00 Hydromorphone HCl (Dilaudid) 1 mg Q4H PRN IVP SEVERE PAIN 12/14/16 16:45 12/21/16 16:44 12/19/16 17:18 Lactulose (Cephulac) 20 gm BID ORAL 11/27/16 10:45 12/27/16 10:44 12/19/16 09:23 Ondansetron HCl (Zofran) 4 mg Q6H PRN IVP Nausea & Vomiting 11/24/16 18:45 12/24/16 18:44 12/17/16 19:56 Potassium Chloride (K-Dur) 40 meq TWICE A DAY ORAL 12/18/16 09:00 01/17/17 08:59 12/19/16 09:23 Zolpidem Tartrate (Ambien) 5 mg HSPRN PRN ORAL Insomnia 11/24/16 21:00 12/24/16 20:59 12/17/16 02:47 RHONDA PARKINSON December 19, 2016 22:57
[2016-12-20] VITALS (7 sets, daily range): BP systolic 93–104; BP diastolic 56–73
[2016-12-20] MEDS: HYDROmorphone 1mg/ml Carpuject IVP PRN ×4 (04:45→21:15)
[2016-12-20] MEDS: Furosemide 40mg tab ORAL SCH ×2 (08:14→20:25)
[2016-12-20] MEDS: Lactulose 20gm/30ml UDC ORAL SCH ×2 (08:14→17:37)
--- NOTE | 2016-12-20 12:49 | GI Progress Note ---
Assessment/Plan Problems: (1) Abdominal pain ICD Codes: R10.9 - Unspecified abdominal pain SNOMED: 83551634 (2) Hypoalbuminemia ICD Codes: E88.09 - Other disorders of plasma-protein metabolism, not elsewhere classified SNOMED: 719994797 (3) Anemia ICD Codes: D64.9 - Anemia, unspecified SNOMED: 033226957 (4) Alcoholic liver disease ICD Codes: K70.9 - Alcoholic liver disease, unspecified SNOMED: 03048897 (5) Alcoholic cardiomyopathy ICD Codes: I42.6 - Alcoholic cardiomyopathy SNOMED: 334331389 (6) ETOH abuse ICD Codes: F10.10 - Alcohol abuse, uncomplicated SNOMED: 69321687, 28841992 Status: stable, progressing Status Narrative Discussed with Dr. Dominguez. Assessment/Plan GI procedures on hold for now with EF of 10% BUE/BLE >> Lasix BID s/p paracentesis 12/13 >> yielding 2.1 liters of fluid. paracentesis site leakage with colostomy bag >> approx 1L qshift per RN report monitor H&H, transfuse prn zofran prn H2 fu labs avoid ETOH lactulose low sodium diet placement per primary Subjective Gastrointestinal/Abdominal: Reports: no symptoms Subjective extremity edema >> improving s/p paracentesis site leakage with colostomy bag Objective Last 24 Hour Vital Signs Date Time Temp Pulse Resp B/P Pulse Ox O2 Delivery O2 Flow Rate FiO2 12/20/16 11:52 98.2 68 21 97/73 92 Room Air 12/20/16 08:15 98.5 100 20 95/65 95 Room Air 12/20/16 05:15 95.9 12/20/16 04:49 95.9 117 21 93/60 98 Room Air 12/20/16 00:07 96.1 102 19 104/56 100 Room Air 12/19/16 20:10 95.9 124 20 92/72 Room Air 12/19/16 16:00 97.0 120 19 106/59 96 Room Air Intake and Output 12/19/16 12/20/16 19:00 07:00 Intake Total 500 ml Output Total 190 ml Balance 310 ml Intake Oral 500 ml Other 190 ml # Voids 5 # Bowel Movements 1 Height (Feet): 6 Height (Inches): 0.00 Weight (Pounds): 150 General Appearance: no apparent distress, alert Cardiovascular: normal rate Respiratory/Chest: normal breath sounds, no respiratory distress Abdominal Exam: normal bowel sounds, non tender, soft Extremities: other Objective Upper extremity edema greatly improved. lower extremity +2 s/p paracentesis site leakage to colostomy bag >> approximately 1L qshift per RN report. Melanie Briones N.P. December 20, 2016 12:49
--- NOTE | 2016-12-20 22:50 | Pulmonology Progress Note ---
Assessment/Plan Problems: (1) Alcoholic liver disease (2) Alcoholic cardiomyopathy (3) ETOH abuse (4) Pleural effusion Assessment/Plan stable pt/ot dc planning dnr/dni f/u GI recommendations pt draining from paracentesis into a colostomy bag Subjective Allergies: Coded Allergies: No Known Allergies (Unverified , 10/25/16) Objective Last 24 Hour Vital Signs Date Time Temp Pulse Resp B/P Pulse Ox O2 Delivery O2 Flow Rate FiO2 12/20/16 22:03 97.7 12/20/16 20:00 97.7 125 20 99/61 91 Room Air 12/20/16 16:15 98.4 71 20 97/70 99 Room Air 12/20/16 11:52 98.2 68 21 97/73 92 Room Air 12/20/16 08:15 98.5 100 20 95/65 95 Room Air 12/20/16 04:49 95.9 117 21 93/60 98 Room Air 12/20/16 00:07 96.1 102 19 104/56 100 Room Air Intake and Output 12/19/16 12/20/16 19:00 07:00 Intake Total 500 ml Output Total 190 ml Balance 310 ml Intake Oral 500 ml Other 190 ml # Voids 5 # Bowel Movements 1 Objective General Appearance: WD/WN, no apparent distress Lines, tubes and drains: peripheral HEENT: normocephalic, atraumatic Neck: non-tender, supple Respiratory/Chest: chest wall non-tender, rhonchi - bilaterally Cardiovascular/Chest: normal peripheral pulses, normal rate Abdomen: normal bowel sounds Genitourinary/Rectal: normal genital exam Extremities: normal range of motion Current Medications Medications (Trade) Dose Ordered Sig/Baudilio Route PRN Reason Start Time Stop Time Status Last Admin Dose Admin Acetaminophen (Tylenol) 650 mg Q4H PRN ORAL T>100.5 11/24/16 18:45 12/24/16 18:44 Al Hydroxide/Mg Hydroxide (Mylanta II) 30 ml Q6H PRN ORAL dyspepsia 11/24/16 18:45 12/24/16 18:44 12/05/16 17:24 Dextrose (Dextrose 50%) STAT PRN IV Hypoglycemia 11/24/16 18:45 12/24/16 18:44 Furosemide (Lasix) 40 mg EVERY 12 HOURS ORAL 12/06/16 12:15 01/05/17 12:14 12/20/16 20:25 Hydromorphone HCl (Dilaudid) 1 mg Q4H PRN IVP SEVERE PAIN 12/14/16 16:45 12/21/16 16:44 12/20/16 21:15 Lactulose (Cephulac) 20 gm BID ORAL 11/27/16 10:45 12/27/16 10:44 12/20/16 17:37 Ondansetron HCl (Zofran) 4 mg Q6H PRN IVP Nausea & Vomiting 11/24/16 18:45 12/24/16 18:44 12/17/16 19:56 Potassium Chloride (K-Dur) 40 meq TWICE A DAY ORAL 12/18/16 09:00 01/17/17 08:59 12/20/16 17:37 Zolpidem Tartrate (Ambien) 5 mg HSPRN PRN ORAL Insomnia 11/24/16 21:00 12/24/16 20:59 12/17/16 02:47 RHONDA PARKINSON December 20, 2016 22:50
[2016-12-21] MEDS: HYDROmorphone 1mg/ml Carpuject IVP PRN ×3 (01:53→14:34)
[2016-12-21 04:00] VITALS: BP 101/65
[2016-12-21] MEDS: Furosemide 40mg tab ORAL SCH ×2 (08:30→20:59)
[2016-12-21 08:31] VITALS: BP 95/64
[2016-12-21] MEDS: Lactulose 20gm/30ml UDC ORAL SCH ×2 (08:31→17:41)
--- NOTE | 2016-12-21 10:03 | GI Progress Note ---
Assessment/Plan Problems: (1) Abdominal pain ICD Codes: R10.9 - Unspecified abdominal pain SNOMED: 89842090 (2) Hypoalbuminemia ICD Codes: E88.09 - Other disorders of plasma-protein metabolism, not elsewhere classified SNOMED: 147767785 (3) Anemia ICD Codes: D64.9 - Anemia, unspecified SNOMED: 111368567 (4) Alcoholic liver disease ICD Codes: K70.9 - Alcoholic liver disease, unspecified SNOMED: 60817445 (5) Alcoholic cardiomyopathy ICD Codes: I42.6 - Alcoholic cardiomyopathy SNOMED: 668317300 (6) ETOH abuse ICD Codes: F10.10 - Alcohol abuse, uncomplicated SNOMED: 65722571, 36769474 Status: doing well, unchanged Status Narrative Discussed with Dr. Dominguez. Assessment/Plan GI procedures on hold for now with EF of 10% BUE/BLE >> Lasix BID s/p paracentesis 12/13 >> yielding 2.1 liters of fluid. paracentesis site leakage with colostomy bag >> approx 1L qshift per RN report monitor H&H, transfuse prn zofran prn H2 fu labs avoid ETOH lactulose low sodium diet placement per primary Subjective Subjective extremity edema >> improving s/p paracentesis site leakage with colostomy bag Objective Last 24 Hour Vital Signs Date Time Temp Pulse Resp B/P Pulse Ox O2 Delivery O2 Flow Rate FiO2 12/21/16 08:31 96.1 119 12 95/64 98 Nasal Cannula 2.0 12/21/16 06:33 97.2 12/21/16 04:00 97.2 118 20 101/65 92 Room Air 12/20/16 23:58 97.0 123 18 98/68 100 Room Air 12/20/16 20:00 97.7 125 20 99/61 91 Room Air 12/20/16 16:15 98.4 71 20 97/70 99 Room Air 12/20/16 11:52 98.2 68 21 97/73 92 Room Air Intake and Output 12/20/16 12/21/16 19:00 07:00 Intake Total 1330 ml Output Total 80 ml 40 ml Balance -80 ml 1290 ml Intake Oral 1330 ml Other 80 ml 40 ml # Voids 7 Height (Feet): 6 Height (Inches): 0.00 Weight (Pounds): 149 General Appearance: no apparent distress, alert Cardiovascular: normal rate Respiratory/Chest: normal breath sounds, no respiratory distress Abdominal Exam: normal bowel sounds, non tender, soft, other Extremities: normal range of motion Objective Upper extremity edema greatly improved. lower extremity +2 s/p paracentesis site leakage to colostomy bag >> approximately 1L qshift per RN report. Melanie Briones N.P. December 21, 2016 10:03
[2016-12-21 12:35] VITALS: BP 97/74
[2016-12-21 16:02] VITALS: BP 134/72
[2016-12-21 20:00] VITALS: BP 92/67
[2016-12-21] MEDS: Zolpidem 5mg tab ORAL PRN (21:01)
--- NOTE | 2016-12-21 22:34 | Pulmonology Progress Note ---
Assessment/Plan Problems: (1) Alcoholic liver disease (2) Alcoholic cardiomyopathy (3) ETOH abuse (4) Pleural effusion Assessment/Plan stable pt/ot dc planning dnr/dni f/u GI recommendations pt draining from paracentesis into a colostomy bag Subjective Allergies: Coded Allergies: No Known Allergies (Unverified , 10/25/16) Objective Last 24 Hour Vital Signs Date Time Temp Pulse Resp B/P Pulse Ox O2 Delivery O2 Flow Rate FiO2 12/21/16 20:00 96.9 76 18 92/67 96 Room Air 12/21/16 16:02 97.9 100 20 134/72 98 Room Air 12/21/16 12:35 97.0 19 97/74 99 Room Air 12/21/16 08:31 96.1 119 12 95/64 98 Nasal Cannula 2.0 12/21/16 06:33 97.2 12/21/16 04:00 97.2 118 20 101/65 92 Room Air 12/20/16 23:58 97.0 123 18 98/68 100 Room Air Intake and Output 12/20/16 12/21/16 19:00 07:00 Intake Total 1330 ml Output Total 80 ml 40 ml Balance -80 ml 1290 ml Intake Oral 1330 ml Other 80 ml 40 ml # Voids 7 Objective General Appearance: WD/WN, no apparent distress Lines, tubes and drains: peripheral HEENT: normocephalic, atraumatic Neck: non-tender, supple Respiratory/Chest: chest wall non-tender, rhonchi - bilaterally Cardiovascular/Chest: normal peripheral pulses, normal rate Abdomen: normal bowel sounds Genitourinary/Rectal: normal genital exam Extremities: normal range of motion Current Medications Medications (Trade) Dose Ordered Sig/Baudilio Route PRN Reason Start Time Stop Time Status Last Admin Dose Admin Acetaminophen (Tylenol) 650 mg Q4H PRN ORAL T>100.5 11/24/16 18:45 12/24/16 18:44 12/21/16 21:00 Al Hydroxide/Mg Hydroxide (Mylanta II) 30 ml Q6H PRN ORAL dyspepsia 11/24/16 18:45 12/24/16 18:44 12/05/16 17:24 Dextrose (Dextrose 50%) STAT PRN IV Hypoglycemia 11/24/16 18:45 12/24/16 18:44 Furosemide (Lasix) 40 mg EVERY 12 HOURS ORAL 12/06/16 12:15 01/05/17 12:14 12/21/16 20:59 Lactulose (Cephulac) 20 gm BID ORAL 11/27/16 10:45 12/27/16 10:44 12/21/16 17:41 Ondansetron HCl (Zofran) 4 mg Q6H PRN IVP Nausea & Vomiting 11/24/16 18:45 12/24/16 18:44 12/17/16 19:56 Potassium Chloride (K-Dur) 40 meq TWICE A DAY ORAL 12/18/16 09:00 01/17/17 08:59 12/21/16 17:41 Zolpidem Tartrate (Ambien) 5 mg HSPRN PRN ORAL Insomnia 11/24/16 21:00 12/24/16 20:59 12/21/16 21:01 RHONDA PARKINSON December 21, 2016 22:34
[2016-12-22] VITALS (7 sets, daily range): BP systolic 90–144; BP diastolic 60–116
[2016-12-22] MEDS: HYDROmorphone 1mg/ml Carpuject IVP PRN ×3 (06:42→21:44)
[2016-12-22] MEDS: Lactulose 20gm/30ml UDC ORAL SCH ×2 (08:57→09:00)
[2016-12-22] MEDS: Furosemide 40mg tab ORAL SCH ×2 (08:59→20:38)
--- NOTE | 2016-12-22 10:25 | GI Progress Note ---
Assessment/Plan Problems: (1) Abdominal pain ICD Codes: R10.9 - Unspecified abdominal pain SNOMED: 35419596 (2) Hypoalbuminemia ICD Codes: E88.09 - Other disorders of plasma-protein metabolism, not elsewhere classified SNOMED: 096704097 (3) Anemia ICD Codes: D64.9 - Anemia, unspecified SNOMED: 535672716 (4) Alcoholic liver disease ICD Codes: K70.9 - Alcoholic liver disease, unspecified SNOMED: 31290021 (5) Alcoholic cardiomyopathy ICD Codes: I42.6 - Alcoholic cardiomyopathy SNOMED: 734226677 (6) ETOH abuse ICD Codes: F10.10 - Alcohol abuse, uncomplicated SNOMED: 55282443, 34724125 Status: stable, unchanged Status Narrative Discussed with Dr. Dominguez. Assessment/Plan GI procedures on hold for now with EF of 10% BUE/BLE >> Lasix BID s/p paracentesis 12/13 >> yielding 2.1 liters of fluid. paracentesis site leakage with colostomy bag >> approx 1L qshift per RN report elevated lower extremities monitor H&H, transfuse prn zofran prn H2 fu labs lactulose low sodium diet placement per primary Subjective Subjective extremity edema BLE 3+ >> improving s/p paracentesis site leakage with colostomy bag Objective Last 24 Hour Vital Signs Date Time Temp Pulse Resp B/P Pulse Ox O2 Delivery O2 Flow Rate FiO2 12/22/16 07:46 97.7 121 16 92/68 100 Room Air 12/22/16 07:12 96.8 12/22/16 03:56 96.8 87 18 90/70 Room Air 12/22/16 00:00 95.0 74 18 91/65 96 Room Air 12/21/16 21:59 95.0 12/21/16 20:00 96.9 76 18 92/67 96 Room Air 12/21/16 16:02 97.9 100 20 134/72 98 Room Air 12/21/16 12:35 97.0 19 97/74 99 Room Air Intake and Output 12/21/16 12/22/16 19:00 07:00 Intake Total 360 ml Output Total 80 ml 100 ml Balance -80 ml 260 ml Intake Oral 360 ml Other 80 ml 100 ml # Voids 2 # Bowel Movements 1 1 Height (Feet): 6 Height (Inches): 0.00 Weight (Pounds): 147 General Appearance: no apparent distress, alert Cardiovascular: normal rate Respiratory/Chest: lungs clear, normal breath sounds, no respiratory distress Abdominal Exam: normal bowel sounds, non tender, soft, other - paracentesis site Objective Upper extremity edema greatly improved. lower extremity +3 s/p paracentesis site leakage to colostomy bag >> approximately 1L qshift per RN report. Melanie Briones N.P. December 22, 2016 10:25
[2016-12-22] MEDS: Zolpidem 5mg tab ORAL PRN (21:43)
--- NOTE | 2016-12-22 22:51 | Pulmonology Progress Note ---
Assessment/Plan Problems: (1) Alcoholic liver disease (2) Alcoholic cardiomyopathy (3) ETOH abuse (4) Pleural effusion Assessment/Plan stable pt/ot dc planning dnr/dni f/u GI recommendations pt draining from paracentesis into a colostomy bag Subjective Interval Events: no new complains Allergies: Coded Allergies: No Known Allergies (Unverified , 10/25/16) Objective Last 24 Hour Vital Signs Date Time Temp Pulse Resp B/P Pulse Ox O2 Delivery O2 Flow Rate FiO2 12/22/16 22:14 97.7 12/22/16 20:17 97.7 118 19 91/60 92 Room Air 12/22/16 19:47 97.3 123 21 144/116 96 Room Air 12/22/16 16:08 96.4 114 21 91/63 93 Room Air 12/22/16 12:02 97.7 30 93/74 97 Room Air 12/22/16 07:46 97.7 121 16 92/68 100 Room Air 12/22/16 03:56 96.8 87 18 90/70 Room Air 12/22/16 00:00 95.0 74 18 91/65 96 Room Air Intake and Output 12/21/16 12/22/16 19:00 07:00 Intake Total 360 ml Output Total 80 ml 100 ml Balance -80 ml 260 ml Intake Oral 360 ml Other 80 ml 100 ml # Voids 2 # Bowel Movements 1 1 Objective General Appearance: WD/WN, no apparent distress Lines, tubes and drains: peripheral HEENT: normocephalic, atraumatic Neck: non-tender, supple Respiratory/Chest: chest wall non-tender, rhonchi - bilaterally Cardiovascular/Chest: normal peripheral pulses, normal rate Abdomen: normal bowel sounds Genitourinary/Rectal: normal genital exam Extremities: normal range of motion Current Medications Medications (Trade) Dose Ordered Sig/Baudilio Route PRN Reason Start Time Stop Time Status Last Admin Dose Admin Acetaminophen (Tylenol) 650 mg Q4H PRN ORAL T>100.5 11/24/16 18:45 12/24/16 18:44 12/21/16 21:00 Al Hydroxide/Mg Hydroxide (Mylanta II) 30 ml Q6H PRN ORAL dyspepsia 11/24/16 18:45 12/24/16 18:44 12/05/16 17:24 Dextrose (Dextrose 50%) STAT PRN IV Hypoglycemia 11/24/16 18:45 12/24/16 18:44 Furosemide (Lasix) 40 mg EVERY 12 HOURS ORAL 12/06/16 12:15 01/05/17 12:14 12/22/16 20:38 Hydromorphone HCl (Dilaudid) 1 mg Q4H PRN IVP For Pain 12/22/16 06:45 12/29/16 06:44 12/22/16 21:44 Lactulose (Cephulac) 20 gm BID ORAL 11/27/16 10:45 12/27/16 10:44 12/22/16 08:57 Ondansetron HCl (Zofran) 4 mg Q6H PRN IVP Nausea & Vomiting 11/24/16 18:45 12/24/16 18:44 12/17/16 19:56 Potassium Chloride (K-Dur) 40 meq TWICE A DAY ORAL 12/18/16 09:00 01/17/17 08:59 12/22/16 09:00 Zolpidem Tartrate (Ambien) 5 mg HSPRN PRN ORAL Insomnia 11/24/16 21:00 12/24/16 20:59 12/22/16 21:43 RHONDA PARKINSON December 22, 2016 22:51
[2016-12-23] VITALS (8 sets, daily range): BP systolic 84–159; BP diastolic 53–89
[2016-12-23] MEDS: HYDROmorphone 1mg/ml Carpuject IVP PRN ×4 (06:15→20:39)
[2016-12-23] MEDS: Lactulose 20gm/30ml UDC ORAL SCH ×2 (08:25→17:20)
[2016-12-23] MEDS: Furosemide 40mg tab ORAL SCH ×2 (08:26→20:38)
--- NOTE | 2016-12-23 09:43 | GI Progress Note ---
Assessment/Plan Problems: (1) Abdominal pain ICD Codes: R10.9 - Unspecified abdominal pain SNOMED: 34241280 (2) Hypoalbuminemia ICD Codes: E88.09 - Other disorders of plasma-protein metabolism, not elsewhere classified SNOMED: 879893731 (3) Anemia ICD Codes: D64.9 - Anemia, unspecified SNOMED: 396394051 (4) Alcoholic liver disease ICD Codes: K70.9 - Alcoholic liver disease, unspecified SNOMED: 77969186 (5) Alcoholic cardiomyopathy ICD Codes: I42.6 - Alcoholic cardiomyopathy SNOMED: 793759477 (6) ETOH abuse ICD Codes: F10.10 - Alcohol abuse, uncomplicated SNOMED: 36669061, 26650316 Status: stable, unchanged Status Narrative Discussed with Dr. Dominguez. Assessment/Plan GI procedures on hold for now with EF of 10% BUE/BLE >> Lasix BID s/p paracentesis 12/13 >> yielding 2.1 liters of fluid. paracentesis site leakage with colostomy bag >> approx 1L qshift per RN report elevated lower extremities monitor H&H, transfuse prn zofran prn H2 fu labs lactulose low sodium diet placement per primary Subjective Subjective extremity edema BLE 3+ >> improving s/p paracentesis site leakage with colostomy bag Objective Last 24 Hour Vital Signs Date Time Temp Pulse Resp B/P Pulse Ox O2 Delivery O2 Flow Rate FiO2 12/23/16 08:12 97.5 112 25 90/64 Room Air 12/23/16 08:11 97.5 63 21 159/53 99 Nasal Cannula 12/23/16 06:45 95.7 12/23/16 04:00 95.7 20 101/59 98 Room Air 12/23/16 00:00 96.5 98 19 99/77 100 Room Air 12/22/16 20:17 97.7 118 19 91/60 92 Room Air 12/22/16 19:47 97.3 123 21 144/116 96 Room Air 12/22/16 16:08 96.4 114 21 91/63 93 Room Air 12/22/16 12:02 97.7 30 93/74 97 Room Air Intake and Output 12/22/16 12/23/16 19:00 07:00 Intake Total 480 ml Output Total 80 ml 240 ml Balance 400 ml -240 ml Intake Oral 480 ml Output Urine Total 200 ml Other 80 ml 40 ml Height (Feet): 6 Height (Inches): 0.00 Weight (Pounds): 148 General Appearance: no apparent distress, alert Cardiovascular: normal rate Respiratory/Chest: normal breath sounds, no respiratory distress Abdominal Exam: normal bowel sounds, non tender, soft, ascites Objective Upper extremity edema greatly improved. lower extremity +3 s/p paracentesis site leakage to colostomy bag >> approximately 1L qshift per RN report. Melanie Briones N.P. December 23, 2016 09:43
[2016-12-23] MEDS: Zolpidem 5mg tab ORAL PRN (20:38)
--- NOTE | 2016-12-23 22:19 | Pulmonology Progress Note ---
Assessment/Plan Problems: (1) Alcoholic liver disease (2) Alcoholic cardiomyopathy (3) ETOH abuse (4) Pleural effusion Assessment/Plan stable pt/ot dc planning dnr/dni f/u GI recommendations pt draining from paracentesis into a colostomy bag Subjective ROS Limited/Unobtainable: No Allergies: Coded Allergies: No Known Allergies (Unverified , 10/25/16) Objective Last 24 Hour Vital Signs Date Time Temp Pulse Resp B/P Pulse Ox O2 Delivery O2 Flow Rate FiO2 12/23/16 21:09 96.7 12/23/16 20:41 96.7 143 22 96/77 92 Room Air 12/23/16 19:00 Nasal Cannula 2.0 28 12/23/16 17:44 140 98/59 12/23/16 15:44 97.3 213 32 100/55 100 Room Air 12/23/16 11:39 96.8 113 25 94/70 100 Room Air 12/23/16 09:40 99 Nasal Cannula 2.0 28 12/23/16 09:40 Nasal Cannula 2.0 28 12/23/16 08:12 97.5 112 25 90/64 Room Air 12/23/16 08:11 97.5 63 21 159/53 99 Nasal Cannula 12/23/16 04:00 95.7 20 101/59 98 Room Air 12/23/16 00:00 96.5 98 19 99/77 100 Room Air Intake and Output 12/22/16 12/23/16 19:00 07:00 Intake Total 480 ml Output Total 80 ml 240 ml Balance 400 ml -240 ml Intake Oral 480 ml Output Urine Total 200 ml Other 80 ml 40 ml Objective General Appearance: WD/WN, no apparent distress Lines, tubes and drains: peripheral HEENT: normocephalic, atraumatic Neck: non-tender, supple Respiratory/Chest: chest wall non-tender, rhonchi - bilaterally Cardiovascular/Chest: normal peripheral pulses, normal rate Abdomen: normal bowel sounds Genitourinary/Rectal: normal genital exam Extremities: normal range of motion Current Medications Medications (Trade) Dose Ordered Sig/Baudilio Route PRN Reason Start Time Stop Time Status Last Admin Dose Admin Acetaminophen (Tylenol) 650 mg Q4H PRN ORAL T>100.5 11/24/16 18:45 12/24/16 18:44 12/21/16 21:00 Al Hydroxide/Mg Hydroxide (Mylanta II) 30 ml Q6H PRN ORAL dyspepsia 11/24/16 18:45 12/24/16 18:44 12/05/16 17:24 Dextrose (Dextrose 50%) STAT PRN IV Hypoglycemia 11/24/16 18:45 12/24/16 18:44 Furosemide (Lasix) 40 mg EVERY 12 HOURS ORAL 12/06/16 12:15 01/05/17 12:14 12/23/16 20:38 Hydromorphone HCl (Dilaudid) 1 mg Q4H PRN IVP For Pain 12/22/16 06:45 12/29/16 06:44 12/23/16 20:39 Lactulose (Cephulac) 20 gm BID ORAL 11/27/16 10:45 12/27/16 10:44 12/23/16 17:20 Ondansetron HCl (Zofran) 4 mg Q6H PRN IVP Nausea & Vomiting 11/24/16 18:45 12/24/16 18:44 12/17/16 19:56 Potassium Chloride (K-Dur) 40 meq TWICE A DAY ORAL 12/18/16 09:00 01/17/17 08:59 12/23/16 17:20 Zolpidem Tartrate (Ambien) 5 mg HSPRN PRN ORAL Insomnia 11/24/16 21:00 12/24/16 20:59 12/23/16 20:38 RHONDA PARKINSON December 23, 2016 22:19
[2016-12-24] VITALS (7 sets, daily range): BP systolic 91–157; BP diastolic 51–114
[2016-12-24] MEDS: HYDROmorphone 1mg/ml Carpuject IVP PRN ×3 (02:00→17:07)
[2016-12-24] MEDS: Lactulose 20gm/30ml UDC ORAL SCH ×3 (08:55→17:18)
[2016-12-24] MEDS: Furosemide 40mg tab ORAL SCH ×4 (08:56→21:08)
[2016-12-24 10:05] LABS: BASOPHILS % (AUTO) 0.8 % (0.0-2.0); LYMPHOCYTES % (AUTO) 14.7 % (20.0-45.0); MEAN CORPUSCULAR HEMOGLOBIN 27.2 PG (27.0-31.0); MEAN CORPUSCULAR HGB CONC 30.6 G/DL (32.0-36.0); MEAN CORPUSCULAR VOLUME 89 FL (80-99); MEAN PLATELET VOLUME 9.8 FL (6.5-10.1); MONOCYTES % (AUTO) 5.1 % (1.0-10.0); NEUTROPHILS % (AUTO) 79.4 % (45.0-75.0); PLATELET COUNT 129 K/UL (150-450); RED BLOOD COUNT 5.22 M/UL (4.70-6.10); WHITE BLOOD COUNT 10.6 K/UL (4.8-10.8)
[2016-12-24 10:16] LABS: CREATININE 1.5 mg/dL (0.7-1.2); GLOMERULAR FILTRATION RATE 52.1 mL/min (>60); POTASSIUM 5.6 mEQ/L (3.4-4.9)
--- NOTE | 2016-12-24 10:42 | GI Progress Note ---
Assessment/Plan Problems: (1) Abdominal pain ICD Codes: R10.9 - Unspecified abdominal pain SNOMED: 64853025 (2) Hypoalbuminemia ICD Codes: E88.09 - Other disorders of plasma-protein metabolism, not elsewhere classified SNOMED: 878700582 (3) Anemia ICD Codes: D64.9 - Anemia, unspecified SNOMED: 137484924 (4) Alcoholic liver disease ICD Codes: K70.9 - Alcoholic liver disease, unspecified SNOMED: 83537729 (5) Alcoholic cardiomyopathy ICD Codes: I42.6 - Alcoholic cardiomyopathy SNOMED: 345717853 (6) ETOH abuse ICD Codes: F10.10 - Alcohol abuse, uncomplicated SNOMED: 72147257, 17326555 Status: stable, progressing Status Narrative Discussed with Dr. Dominguez. Assessment/Plan GI procedures on hold for now with EF of 10% BUE/BLE >> Lasix BID s/p paracentesis 12/13 >> yielding 2.1 liters of fluid. paracentesis site leakage with colostomy bag >> approx 1L qshift per RN report elevated lower extremities monitor H&H, transfuse prn zofran prn H2 fu labs lactulose low sodium diet placement per primary Subjective Subjective extremity edema BLE 3+ >> improving s/p paracentesis site leakage with colostomy bag Objective Last 24 Hour Vital Signs Date Time Temp Pulse Resp B/P Pulse Ox O2 Delivery O2 Flow Rate FiO2 12/24/16 08:01 64 23 117/84 99 Room Air 12/24/16 04:14 95.2 70 15 146/114 99 12/24/16 02:31 97.0 12/24/16 00:57 97.0 153 17 114/60 100 Room Air 12/23/16 20:41 96.7 143 22 96/77 92 Room Air 12/23/16 19:00 Nasal Cannula 2.0 28 12/23/16 17:44 140 98/59 12/23/16 15:44 97.3 213 32 100/55 100 Room Air 12/23/16 11:39 96.8 113 25 94/70 100 Room Air Intake and Output 12/23/16 12/24/16 19:00 07:00 Output Total 30 ml Balance -30 ml Other 30 ml # Voids 5 Laboratory Tests Test 12/24/16 09:50 White Blood Count 10.6 K/UL (4.8-10.8) Red Blood Count 5.22 M/UL (4.70-6.10) Hemoglobin 14.2 G/DL (14.2-18.0) Hematocrit 46.3 % (42.0-52.0) Mean Corpuscular Volume 89 FL (80-99) Mean Corpuscular Hemoglobin 27.2 PG (27.0-31.0) Mean Corpuscular Hemoglobin Concent 30.6 G/DL (32.0-36.0) L Red Cell Distribution Width 20.0 % (11.6-14.8) H Platelet Count 129 K/UL (150-450) L Mean Platelet Volume 9.8 FL (6.5-10.1) Neutrophils (%) (Auto) 79.4 % (45.0-75.0) H Lymphocytes (%) (Auto) 14.7 % (20.0-45.0) L Monocytes (%) (Auto) 5.1 % (1.0-10.0) Eosinophils (%) (Auto) 0.0 % (0.0-3.0) Basophils (%) (Auto) 0.8 % (0.0-2.0) Sodium Level 130 mEQ/L (135-145) L Potassium Level 5.6 mEQ/L (3.4-4.9) H Chloride Level 84 mEQ/L (98-107) L Carbon Dioxide Level 21 mEQ/L (20-30) Anion Gap 25 (5-15) H Blood Urea Nitrogen 36 mg/dL (7-23) H Creatinine 1.5 mg/dL (0.7-1.2) H Estimat Glomerular Filtration Rate 52.1 mL/min (>60) Glucose Level 50 mg/dL (74-106) L Calcium Level 9.0 mg/dL (8.6-10.2) Height (Feet): 6 Height (Inches): 0.00 Weight (Pounds): 146 General Appearance: no apparent distress, alert Cardiovascular: normal rate Respiratory/Chest: normal breath sounds, no respiratory distress Abdominal Exam: soft, other - draining s/p paracentesis site with colostomy bag Objective Upper extremity edema greatly improved. lower extremity +3 s/p paracentesis site leakage to colostomy bag >> approximately 1L qshift per RN report. Melanie Briones N.P. December 24, 2016 10:42
--- NOTE | 2016-12-24 15:44 | Pulmonology Progress Note ---
Assessment/Plan Problems: (1) Alcoholic liver disease (2) Alcoholic cardiomyopathy (3) ETOH abuse (4) Pleural effusion Assessment/Plan stable pt/ot dc planning dnr/dni f/u GI recommendations pt draining from paracentesis into a colostomy bag Subjective ROS Limited/Unobtainable: No Constitutional: Reports: no symptoms HEENT: Repors: no symptoms Respiratory: Reports: no symptoms Allergies: Coded Allergies: No Known Allergies (Unverified , 10/25/16) Objective Last 24 Hour Vital Signs Date Time Temp Pulse Resp B/P Pulse Ox O2 Delivery O2 Flow Rate FiO2 12/24/16 12:00 96.8 113 25 93/68 97 Room Air 12/24/16 08:01 64 23 117/84 99 Room Air 12/24/16 04:14 95.2 70 15 146/114 99 12/24/16 02:31 97.0 12/24/16 00:57 97.0 153 17 114/60 100 Room Air 12/23/16 20:41 96.7 143 22 96/77 92 Room Air 12/23/16 19:00 Nasal Cannula 2.0 28 12/23/16 17:44 140 98/59 12/23/16 15:44 97.3 213 32 100/55 100 Room Air Intake and Output 12/23/16 12/24/16 19:00 07:00 Output Total 30 ml Balance -30 ml Other 30 ml # Voids 5 Objective General Appearance: WD/WN, no apparent distress Lines, tubes and drains: peripheral HEENT: normocephalic, atraumatic Neck: non-tender, supple Respiratory/Chest: chest wall non-tender, rhonchi - bilaterally Cardiovascular/Chest: normal peripheral pulses, normal rate Abdomen: normal bowel sounds Genitourinary/Rectal: normal genital exam Extremities: normal range of motion Laboratory Tests 12/24/16 09:50: White Blood Count 10.6, Red Blood Count 5.22, Hemoglobin 14.2, Hematocrit 46.3, Mean Corpuscular Volume 89, Mean Corpuscular Hemoglobin 27.2, Mean Corpuscular Hemoglobin Concent 30.6L, Red Cell Distribution Width 20.0H, Platelet Count 129L , Mean Platelet Volume 9.8, Neutrophils (%) (Auto) 79.4H, Lymphocytes (%) (Auto ) 14.7L, Monocytes (%) (Auto) 5.1, Eosinophils (%) (Auto) 0.0, Basophils (%) ( Auto) 0.8, Sodium Level 130L, Potassium Level 5.6H, Chloride Level 84L, Carbon Dioxide Level 21, Anion Gap 25H, Blood Urea Nitrogen 36H, Creatinine 1.5H, Estimat Glomerular Filtration Rate 52.1, Glucose Level 50L, Calcium Level 9.0 Current Medications Medications (Trade) Dose Ordered Sig/Baudilio Route PRN Reason Start Time Stop Time Status Last Admin Dose Admin Acetaminophen (Tylenol) 650 mg Q4H PRN ORAL T>100.5 11/24/16 18:45 12/24/16 18:44 12/21/16 21:00 Al Hydroxide/Mg Hydroxide (Mylanta II) 30 ml Q6H PRN ORAL dyspepsia 11/24/16 18:45 12/24/16 18:44 12/05/16 17:24 Dextrose (Dextrose 50%) STAT PRN IV Hypoglycemia 11/24/16 18:45 12/24/16 18:44 Furosemide (Lasix) 40 mg EVERY 12 HOURS ORAL 12/06/16 12:15 01/05/17 12:14 12/24/16 09:10 Hydromorphone HCl (Dilaudid) 2 mg Q4H PRN IVP SEVERE PAIN 12/24/16 14:45 12/31/16 14:44 Lactulose (Cephulac) 20 gm BID ORAL 11/27/16 10:45 12/27/16 10:44 12/24/16 08:55 Ondansetron HCl (Zofran) 4 mg Q6H PRN IVP Nausea & Vomiting 11/24/16 18:45 12/24/16 18:44 12/17/16 19:56 Potassium Chloride (K-Dur) 40 meq TWICE A DAY ORAL 12/18/16 09:00 01/17/17 08:59 12/23/16 17:20 Sodium Chloride (NaCl) 2 gm ONCE ONCE ORAL 12/24/16 16:30 12/24/16 16:31 Zolpidem Tartrate (Ambien) 5 mg HSPRN PRN ORAL Insomnia 11/24/16 21:00 12/24/16 20:59 12/23/16 20:38 RHONDA PARKINSON December 24, 2016 15:44
[2016-12-24] MEDS ORDERED: Sodium Chloride 1gm Tab ORAL ONE (16:30)
[2016-12-24] MEDS ORDERED: Sodium Polystyrene Sulfonate 15gm Powder ORAL ONE (17:00)
[2016-12-25] VITALS: BP 100/53
[2016-12-25] MEDS: HYDROmorphone 1mg/ml Carpuject IVP PRN ×4 (00:12→20:03)
[2016-12-25 04:00] VITALS: BP 96/73
[2016-12-25 08:15] VITALS: BP 98/73
[2016-12-25] MEDS: Lactulose 20gm/30ml UDC ORAL SCH ×2 (08:21→17:49)
[2016-12-25] MEDS: Furosemide 40mg tab ORAL SCH ×2 (08:21→20:04)
[2016-12-25 12:31] VITALS: BP 100/70
[2016-12-25 15:46] VITALS: BP 101/69
[2016-12-25 20:00] VITALS: BP 105/68
--- NOTE | 2016-12-25 22:42 | Pulmonology Progress Note ---
Assessment/Plan Problems: (1) Alcoholic liver disease (2) Alcoholic cardiomyopathy (3) ETOH abuse (4) Pleural effusion Assessment/Plan stable pt/ot dc planning dnr/dni f/u GI recommendations pt draining from paracentesis into a colostomy bag Subjective ROS Limited/Unobtainable: No Allergies: Coded Allergies: No Known Allergies (Unverified , 10/25/16) Objective Last 24 Hour Vital Signs Date Time Temp Pulse Resp B/P Pulse Ox O2 Delivery O2 Flow Rate FiO2 12/25/16 20:00 97.0 69 20 105/68 93 12/25/16 15:46 98.1 124 20 101/69 96 Room Air 12/25/16 15:36 97.6 12/25/16 12:31 97.6 103 18 100/70 99 Room Air 12/25/16 08:15 98.0 110 20 98/73 95 Room Air 12/25/16 04:00 97.2 108 18 96/73 98 Room Air 12/25/16 00:00 110 18 100/53 99 Room Air Intake and Output 12/24/16 12/25/16 19:00 07:00 Intake Total 200 ml Output Total 20 ml 35 ml Balance -20 ml 165 ml Intake Oral 200 ml Other 20 ml 35 ml # Voids 2 Objective General Appearance: WD/WN, no apparent distress Lines, tubes and drains: peripheral HEENT: normocephalic, atraumatic Neck: non-tender, supple Respiratory/Chest: chest wall non-tender, rhonchi - bilaterally Cardiovascular/Chest: normal peripheral pulses, normal rate Abdomen: normal bowel sounds Genitourinary/Rectal: normal genital exam Extremities: normal range of motion Current Medications Medications (Trade) Dose Ordered Sig/Baudilio Route PRN Reason Start Time Stop Time Status Last Admin Dose Admin Furosemide (Lasix) 40 mg EVERY 12 HOURS ORAL 12/06/16 12:15 01/05/17 12:14 12/25/16 20:04 Hydromorphone HCl (Dilaudid) 2 mg Q4H PRN IVP SEVERE PAIN 12/24/16 14:45 12/31/16 14:44 12/25/16 20:03 Lactulose (Cephulac) 20 gm BID ORAL 11/27/16 10:45 12/27/16 10:44 12/25/16 08:21 RHONDA PARKINSON December 25, 2016 22:42
[2016-12-26] VITALS (7 sets, daily range): BP systolic 90–130; BP diastolic 53–74
[2016-12-26] MEDS: HYDROmorphone 1mg/ml Carpuject IVP PRN ×3 (03:02→16:49)
[2016-12-26] MEDS: Lactulose 20gm/30ml UDC ORAL SCH ×2 (08:11→16:49)
[2016-12-26] MEDS: Furosemide 40mg tab ORAL SCH ×2 (08:11→22:03)
[2016-12-26 13:01] LABS: ANION GAP 22 (5-15); CALCIUM 8.4 mg/dL (8.6-10.2); CARBON DIOXIDE 22 mEQ/L (20-30); CHLORIDE 82 mEQ/L (98-107); CREATININE 1.1 mg/dL (0.7-1.2); GLOMERULAR FILTRATION RATE > 60 mL/min (>60); HEMOLYSIS 20; POTASSIUM 4.1 mEQ/L (3.4-4.9); SODIUM 126 mEQ/L (135-145)
--- NOTE | 2016-12-26 22:14 | Pulmonology Progress Note ---
Assessment/Plan Problems: (1) Alcoholic liver disease (2) Alcoholic cardiomyopathy (3) ETOH abuse (4) Pleural effusion Assessment/Plan stable pt/ot dc planning dnr/dni f/u GI recommendations pt draining from paracentesis into a colostomy bag Subjective ROS Limited/Unobtainable: No Allergies: Coded Allergies: No Known Allergies (Unverified , 10/25/16) Objective Last 24 Hour Vital Signs Date Time Temp Pulse Resp B/P Pulse Ox O2 Delivery O2 Flow Rate FiO2 12/26/16 20:00 97.8 126 18 93/64 90 Room Air 12/26/16 19:55 Room Air 12/26/16 17:19 97.0 12/26/16 16:00 97.0 116 18 90/68 90 Room Air 12/26/16 12:00 97.0 108 20 110/70 90 Room Air 12/26/16 08:00 96.9 104 20 130/70 90 Room Air 12/26/16 04:00 96.9 75 20 99/70 90 Room Air 12/26/16 00:00 96.9 65 20 99/74 90 Room Air Intake and Output 12/25/16 12/26/16 19:00 07:00 Intake Total 700 ml Output Total 25 ml 25 ml Balance 675 ml -25 ml Intake Oral 700 ml Other 25 ml 25 ml # Voids 6 3 # Bowel Movements 1 Objective General Appearance: WD/WN, no apparent distress Lines, tubes and drains: peripheral HEENT: normocephalic, atraumatic Neck: non-tender, supple Respiratory/Chest: chest wall non-tender, rhonchi - bilaterally Cardiovascular/Chest: normal peripheral pulses, normal rate Abdomen: normal bowel sounds Genitourinary/Rectal: normal genital exam Extremities: normal range of motion Laboratory Tests 12/26/16 12:30: Sodium Level 126L, Potassium Level 4.1, Chloride Level 82L, Carbon Dioxide Level 22, Anion Gap 22H, Blood Urea Nitrogen 32H, Creatinine 1.1, Estimat Glomerular Filtration Rate > 60, Glucose Level 111H, Calcium Level 8.4L Current Medications Medications (Trade) Dose Ordered Sig/Baudilio Route PRN Reason Start Time Stop Time Status Last Admin Dose Admin Furosemide (Lasix) 40 mg EVERY 12 HOURS ORAL 12/06/16 12:15 01/05/17 12:14 12/26/16 22:03 Hydromorphone HCl (Dilaudid) 2 mg Q4H PRN IVP SEVERE PAIN 12/24/16 14:45 12/31/16 14:44 12/26/16 16:49 Lactulose (Cephulac) 20 gm BID ORAL 11/27/16 10:45 12/27/16 10:44 12/26/16 16:49 RHONDA PARKINSON December 26, 2016 22:14
[2016-12-27] MEDS: HYDROmorphone 1mg/ml Carpuject IVP PRN (02:06)
[2016-12-27 04:00] VITALS: BP 96/66
[2016-12-27 08:00] VITALS: BP 100/59
[2016-12-27] MEDS: Lactulose 20gm/30ml UDC ORAL SCH (08:50)
[2016-12-27] MEDS: Furosemide 40mg tab ORAL SCH ×2 (08:50→21:14)
[2016-12-27 12:15] VITALS: BP 96/58
--- NOTE | 2016-12-27 13:32 | GI Progress Note ---
Assessment/Plan Problems: (1) Abdominal pain ICD Codes: R10.9 - Unspecified abdominal pain SNOMED: 48838883 (2) Hypoalbuminemia ICD Codes: E88.09 - Other disorders of plasma-protein metabolism, not elsewhere classified SNOMED: 376718899 (3) Anemia ICD Codes: D64.9 - Anemia, unspecified SNOMED: 091431549 (4) Alcoholic liver disease ICD Codes: K70.9 - Alcoholic liver disease, unspecified SNOMED: 93455941 (5) Alcoholic cardiomyopathy ICD Codes: I42.6 - Alcoholic cardiomyopathy SNOMED: 741314402 (6) ETOH abuse ICD Codes: F10.10 - Alcohol abuse, uncomplicated SNOMED: 16939746, 82676094 Status: stable, unchanged Status Narrative Discussed with Dr. Domniguez. Assessment/Plan GI procedures on hold for now with EF of 10% BUE/BLE >> Lasix BID s/p paracentesis 12/13 >> yielding 2.1 liters of fluid. paracentesis site leakage with colostomy bag >> approx 1L qshift per RN report ok for q weekly labs elevated lower extremities zofran prn H2 lactulose low sodium diet placement per primary Subjective Subjective extremity edema BLE 3+ >> improving s/p paracentesis site leakage with colostomy bag Objective Last 24 Hour Vital Signs Date Time Temp Pulse Resp B/P Pulse Ox O2 Delivery O2 Flow Rate FiO2 12/27/16 12:15 96.6 113 18 96/58 100 Room Air 12/27/16 11:26 96.6 12/27/16 08:00 96.6 96 18 100/59 93 Room Air 12/27/16 04:00 97.6 106 18 96/66 93 Room Air 12/26/16 23:33 97.9 120 18 96/53 90 Room Air 12/26/16 20:00 97.8 126 18 93/64 90 Room Air 12/26/16 19:55 Room Air 12/26/16 17:19 97.0 12/26/16 16:00 97.0 116 18 90/68 90 Room Air Intake and Output 12/26/16 12/27/16 19:00 07:00 Intake Total 180 ml Balance 180 ml Intake Oral 180 ml # Voids 2 Height (Feet): 6 Height (Inches): 0.00 Weight (Pounds): 152 General Appearance: no apparent distress, alert Cardiovascular: normal rate Respiratory/Chest: normal breath sounds, no respiratory distress Abdominal Exam: normal bowel sounds, non tender, soft Extremities: other - BLE edema Objective Upper extremity edema greatly improved. lower extremity +3 s/p paracentesis site leakage to colostomy bag >> approximately 1L qshift per RN report. Melanie Briones N.P. December 27, 2016 13:32
[2016-12-27 15:52] VITALS: BP 99/58
[2016-12-27 20:00] VITALS: BP 92/63
[2016-12-28] VITALS (7 sets, daily range): BP systolic 87–123; BP diastolic 57–74
[2016-12-28] MEDS: Furosemide 40mg tab ORAL SCH ×2 (09:00→20:40)
--- NOTE | 2016-12-28 09:33 | GI Progress Note ---
Assessment/Plan Problems: (1) Abdominal pain ICD Codes: R10.9 - Unspecified abdominal pain SNOMED: 74989579 (2) Hypoalbuminemia ICD Codes: E88.09 - Other disorders of plasma-protein metabolism, not elsewhere classified SNOMED: 444419721 (3) Anemia ICD Codes: D64.9 - Anemia, unspecified SNOMED: 294477213 (4) Alcoholic liver disease ICD Codes: K70.9 - Alcoholic liver disease, unspecified SNOMED: 82198644 (5) Alcoholic cardiomyopathy ICD Codes: I42.6 - Alcoholic cardiomyopathy SNOMED: 556024299 (6) ETOH abuse ICD Codes: F10.10 - Alcohol abuse, uncomplicated SNOMED: 16107532, 93859727 Status: progressing, unchanged Status Narrative Discussed with Dr. Dominguez. Assessment/Plan GI procedures on hold for now with EF of 10% BUE/BLE >> Lasix BID s/p paracentesis 12/13 >> yielding 2.1 liters of fluid. paracentesis site leakage with colostomy bag q weekly labs elevated lower extremities zofran prn H2 lactulose low sodium diet placement per primary Subjective Subjective extremity edema BLE 3+ >> improving s/p paracentesis site leakage with colostomy bag Objective Last 24 Hour Vital Signs Date Time Temp Pulse Resp B/P Pulse Ox O2 Delivery O2 Flow Rate FiO2 12/28/16 09:16 94/57 12/28/16 07:37 96.4 113 12 88/70 Nasal Cannula 2.0 12/28/16 06:17 96.9 12/28/16 04:00 96.9 125 18 96/64 90 Room Air 12/28/16 00:00 97.1 95 20 89/74 89 Room Air 12/27/16 20:00 96.3 117 18 92/63 87 Nasal Cannula 2.0 12/27/16 15:52 97.0 110 18 99/58 100 Room Air 12/27/16 12:15 96.6 113 18 96/58 100 Room Air Intake and Output 12/27/16 12/28/16 19:00 07:00 Intake Total 240 ml Output Total 50 ml Balance 190 ml Intake Oral 240 ml Other 50 ml # Voids 1 2 Height (Feet): 6 Height (Inches): 0.00 Weight (Pounds): 155 General Appearance: no apparent distress, alert Cardiovascular: normal rate Respiratory/Chest: normal breath sounds, no respiratory distress Abdominal Exam: normal bowel sounds, non tender, soft, other - s/p paracentesis site Objective Upper extremity edema greatly improved. lower extremity +3 s/p paracentesis site leakage to colostomy bag Melanie Briones N.P. December 28, 2016 09:33
--- NOTE | 2016-12-28 22:21 | Pulmonology Progress Note ---
Assessment/Plan Problems: (1) Alcoholic liver disease (2) Alcoholic cardiomyopathy (3) ETOH abuse (4) Pleural effusion Assessment/Plan stable pt/ot dc planning dnr/dni f/u GI recommendations pt draining from paracentesis into a colostomy bag Subjective Allergies: Coded Allergies: No Known Allergies (Unverified , 10/25/16) Objective Last 24 Hour Vital Signs Date Time Temp Pulse Resp B/P Pulse Ox O2 Delivery O2 Flow Rate FiO2 12/28/16 21:14 96.9 12/28/16 20:18 96.9 114 15 123/64 90 Room Air 12/28/16 16:00 96.4 116 20 91/65 98 Nasal Cannula 2.0 12/28/16 12:02 96.8 60 16 87/61 98 Room Air 12/28/16 09:16 94/57 12/28/16 07:37 96.4 113 12 88/70 Nasal Cannula 2.0 12/28/16 04:00 96.9 125 18 96/64 90 Room Air 12/28/16 00:00 97.1 95 20 89/74 89 Room Air Intake and Output 12/27/16 12/28/16 18:59 06:59 Intake Total 240 ml Output Total 50 ml Balance 190 ml Intake Oral 240 ml Other 50 ml # Voids 1 2 Objective General Appearance: WD/WN, no apparent distress Lines, tubes and drains: peripheral HEENT: normocephalic, atraumatic Neck: non-tender, supple Respiratory/Chest: chest wall non-tender, rhonchi - bilaterally Cardiovascular/Chest: normal peripheral pulses, normal rate Abdomen: normal bowel sounds Genitourinary/Rectal: normal genital exam Extremities: normal range of motion Current Medications Medications (Trade) Dose Ordered Sig/Baudilio Route PRN Reason Start Time Stop Time Status Last Admin Dose Admin Furosemide (Lasix) 40 mg EVERY 12 HOURS ORAL 12/06/16 12:15 01/05/17 12:14 12/28/16 20:40 Hydromorphone HCl (Dilaudid) 2 mg Q4H PRN IVP SEVERE PAIN 12/27/16 10:45 12/29/18 14:44 12/28/16 20:40 RHONDA PARKINSON December 28, 2016 22:21
[2016-12-29 00:10] VITALS: BP 93/62
[2016-12-29 04:36] VITALS: BP 92/71
[2016-12-29 07:49] VITALS: BP 97/71
[2016-12-29] MEDS: Furosemide 40mg tab ORAL SCH (09:38)
--- NOTE | 2016-12-29 11:29 | GI Progress Note ---
Assessment/Plan Problems: (1) Abdominal pain ICD Codes: R10.9 - Unspecified abdominal pain SNOMED: 78761788 (2) Hypoalbuminemia ICD Codes: E88.09 - Other disorders of plasma-protein metabolism, not elsewhere classified SNOMED: 506743137 (3) Anemia ICD Codes: D64.9 - Anemia, unspecified SNOMED: 421792821 (4) Alcoholic liver disease ICD Codes: K70.9 - Alcoholic liver disease, unspecified SNOMED: 66021793 (5) Alcoholic cardiomyopathy ICD Codes: I42.6 - Alcoholic cardiomyopathy SNOMED: 416678589 (6) ETOH abuse ICD Codes: F10.10 - Alcohol abuse, uncomplicated SNOMED: 86241966, 21288401 Status: unchanged Status Narrative Discussed with Dr. Dominguez. Assessment/Plan GI procedures on hold for now with EF of 10% BUE/BLE >> Lasix BID s/p paracentesis 12/13 >> yielding 2.1 liters of fluid. paracentesis site leakage with colostomy bag q weekly labs elevated lower extremities zofran prn H2 lactulose low sodium diet placement per primary Subjective Subjective extremity edema BLE 3+ >> improving s/p paracentesis site leakage with colostomy bag Objective Last 24 Hour Vital Signs Date Time Temp Pulse Resp B/P Pulse Ox O2 Delivery O2 Flow Rate FiO2 12/29/16 07:49 96.8 106 18 97/71 100 Room Air 12/29/16 06:42 96.7 12/29/16 04:36 96.7 103 20 92/71 90 Room Air 12/29/16 00:10 96.9 105 22 93/62 99 Room Air 12/28/16 20:18 96.9 114 15 123/64 90 Room Air 12/28/16 16:00 96.4 116 20 91/65 98 Nasal Cannula 2.0 12/28/16 12:02 96.8 60 16 87/61 98 Room Air Intake and Output 12/28/16 12/29/16 19:00 07:00 Intake Total 120 ml Output Total 100 ml 20 ml Balance 20 ml -20 ml Intake Oral 120 ml Output Urine Total 100 ml Other 20 ml # Voids 3 Height (Feet): 6 Height (Inches): 0.00 Weight (Pounds): 159 General Appearance: no apparent distress, alert Cardiovascular: normal rate Respiratory/Chest: normal breath sounds, no respiratory distress Abdominal Exam: normal bowel sounds, non tender, other - s/p paracentesis site with colostomy bag Extremities: swelling Objective Upper extremity edema greatly improved. lower extremity +3 s/p paracentesis site leakage to colostomy bag Melanie Briones N.P. December 29, 2016 11:29
[2016-12-29 11:46] VITALS: BP 120/70
[2016-12-29] MEDS ORDERED: FUROSEMIDE40 MG ORAL (12:32)
[2016-12-29] MEDS ORDERED: METHADONE HCL5 MG PO (12:32)
--- NOTE | 2016-12-29 22:26 | Pulmonology Progress Note ---
Assessment/Plan Problems: (1) Alcoholic liver disease (2) Alcoholic cardiomyopathy (3) ETOH abuse (4) Pleural effusion Assessment/Plan stable pt/ot dc planning dnr/dni f/u GI recommendations pt draining from paracentesis into a colostomy bag Subjective Allergies: Coded Allergies: No Known Allergies (Unverified , 10/25/16) Objective Last 24 Hour Vital Signs Date Time Temp Pulse Resp B/P Pulse Ox O2 Delivery O2 Flow Rate FiO2 12/29/16 11:46 97.8 118 14 120/70 99 Room Air 12/29/16 07:49 96.8 106 18 97/71 100 Room Air 12/29/16 06:42 96.7 12/29/16 04:36 96.7 103 20 92/71 90 Room Air 12/29/16 00:10 96.9 105 22 93/62 99 Room Air Intake and Output 12/28/16 12/29/16 19:00 07:00 Intake Total 120 ml Output Total 100 ml 20 ml Balance 20 ml -20 ml Intake Oral 120 ml Output Urine Total 100 ml Other 20 ml # Voids 3 Objective General Appearance: WD/WN, no apparent distress Lines, tubes and drains: peripheral HEENT: normocephalic, atraumatic Neck: non-tender, supple Respiratory/Chest: chest wall non-tender, rhonchi - bilaterally Cardiovascular/Chest: normal peripheral pulses, normal rate Abdomen: normal bowel sounds Genitourinary/Rectal: normal genital exam Extremities: normal range of motion RHONDA PARKINSON December 29, 2016 22:26
--- NOTE | 2016-12-30 17:09 | Discharge Summary ---
Discharge Summary Hospital Course Date of Admission Nov 24, 2016 at 19:12 Date of Discharge December 29, 2016 at 15:44 Admitting Diagnosis ETOH, cardiomyopathy HPI Ramez Godwin is a 41 year old male who was admitted on Nov 24, 2016 at 19:12 for Cardiomyopathy Hospital Course [id number] Discharge Discharge Disposition Patient was discharged to [facility] Discharge Diagnoses: Kena Gasca NP December 30, 2016 17:09
--- NOTE | 2016-12-31 04:31 | Discharge Summary 2 SIG ---
DATE OF ADMISSION: 11/24/2016 DATE OF DISCHARGE: 12/29/2016 CONSULTANTS: Carroll Dominguez M.D. BRIEF HOSPITAL COURSE: The patient is a 41-year-old male with history of end-stage liver and heart disease, presented to ED for evaluation of weakness and abdominal pain. The patient has history of chronic alcohol use and is on withdrawal. Laboratories showed LFTs were elevated. EKG showed sinus tachycardia. He was given multiple rounds of Ativan. He was admitted for further evaluation. Dr. Dominguez was consulted for liver cirrhosis. The patient has a history of alcoholic cardiomyopathy with ejection fraction of only 10%. He had bilateral lower extremity edema and ascites. Gastrointestinal procedures were deferred secondary to low ejection fraction. He had a venous duplex of the lower extremity that showed acute thrombus on bilateral legs. He underwent IVC filter placement and he was given IV hydration consisting of banana bag and Librium p.r.n. agitation and withdrawal symptoms. Overall, prognosis was poor and palliative care was appropriate. Social service was contacted to aid in formulating advanced directives. The patient was placed on DNR and DNI status with POLST signed. He came in with acute kidney injury, which responded to IV hydration. The patient was cleared for discharge, however, there was difficulty with placement secondary to patient being homeless and on restricted medical insurance. He was referred to several facilities. He had a thoracentesis done on 12/13/2016, which yielded 2.1 liters of fluid. He had physical therapy and occupational therapy done. The patient was finally accepted to [facility] and the patient was discharged via ambulance. FINAL DIAGNOSES: 1. Alcoholic liver disease. 2. Alcoholic cardiomyopathy. 3. Ethanol abuse. 4. Hypoalbuminemia. 5. Acute renal failure. 6. Status post paracenteses. 7. Acute deep venous thrombosis of bilateral lower extremity present on admission status post inferior vena cava filter placement. 8. Possible apical thrombus. 9. Acute on chronic systolic heart failure. 10. Coagulopathy secondary to liver disease. Kiran Bello M.D. I have been assigned to dictate discharge summary on this account and I was not involved in the patient's management. Kena Gasca N.P. DR: TJ JOB#: [id number] CC:
== END 2016-12-29 15:44 | disposition home or self-care (01) | DRG 205 ==
LOC: EDBD 14:39 → EMR 15:09 → 4W 19:12 → EDBEDREQ 20:29 → 4W 12-06 20:44
PROC: 06H03DZ Insertion of Intraluminal Device into Inferior Vena Cava, Percutaneous Approach (ICD-10-PCS; 2016-11-26)
PROC: 0W9G3ZZ Drainage of Peritoneal Cavity, Percutaneous Approach (ICD-10-PCS; principal; 2016-12-13)
DX: I42.6 Alcoholic cardiomyopathy (principal); K72.00 Acute and subacute hepatic failure without coma; I50.23 Acute on chronic systolic (congestive) heart failure; N17.9 Acute kidney failure, unspecified; J90 Pleural effusion, not elsewhere classified; D68.4 Acquired coagulation factor deficiency; I82.411 Acute embolism and thrombosis of right femoral vein; E88.09 Other disorders of plasma-protein metabolism, not elsewhere classified; R00.0 Tachycardia, unspecified; Z66 Do not resuscitate; Z51.5 Encounter for palliative care; K70.9 Alcoholic liver disease, unspecified; F10.239 Alcohol dependence with withdrawal, unspecified; R18.8 Other ascites; Z59.0 Homelessness; I27.2 Other secondary pulmonary hypertension; I82.442 Acute embolism and thrombosis of left tibial vein
CPT/HCPCS: 36415; 76937; 76942; 80048; 80053; 80329; 82140; 82248; 82550; 82553; 82962; 84484; 85007; 85025; 85610; 85730; 87081; 93005; 93970; 94760; J2405; J8499